=== PATIENT | male | born 1970 | race Caucasian/White ===

== ENCOUNTER 2020-09-16 14:43 | Outpatient (CLI) | payer OTHER, SELFPAY ==
--- NOTE | ~2020-09-16 | XR_ITS ---
XR hand RT min 3V DATE: 09/16/2020 15:06 INDICATION: Pain and stiffness at second proximal interphalangeal joint following injury in June 2020 TECHNIQUE: 3 views COMPARISON: None FINDINGS: No fracture or dislocation, periosteal reaction or bone destruction, erosive change or carmela drocalcinosis is detected. Joint spaces are relatively well preserved. IMPRESSION: No significant abnormality Reviewed, dictated and finalized at location A. [employer] IMPRESSION: No significant abnormality
== END 2020-09-16 14:44 | disposition home or self-care (01) ==
LOC: ANHIMG 14:55
PROVIDERS: PCP Physician Assistant Medical; Visit Provider Plastic Surgery
DX: M19.041 Primary osteoarthritis, right hand (principal)
CPT/HCPCS: 73130

== ENCOUNTER 2021-03-28 11:38 | Outpatient (RCR) | payer OTHER, SELFPAY ==
[2021-03-28] MEDS: ACETAMINOPHEN 325 MG TABLET 650 MG PO (12:01)
[2021-03-28] MEDS: diphenhydrAMINE HCl CAP 25 MG CAPSULE PO (12:01)
[2021-03-28] MEDS: FAMOTIDINE 20 MG TABLET PO (12:02)
[2021-03-28 12:05] VITALS: BP 93/60; PULSE 111; RESP 18; TEMP 36.6; O2SAT 98
[2021-03-28 13:34] VITALS: BP 98/65
--- NOTE | 2021-03-29 15:09 | PC.NURSE ---
Patient feeling better today after covid infusion. Appetite increased, temperature decreasing and energy level increasing.
== END 2021-03-28 16:00 | disposition home or self-care (01) ==
LOC: AMCINF 11:38
PROVIDERS: PCP Physician Assistant Medical; Referring Provider Physician Assistant Medical; Visit Provider Internal Medicine Hematology & Oncology
DX: Z23 Encounter for immunization (principal); U07.1 COVID-19; I10 Essential (primary) hypertension
CPT/HCPCS: A9270; J7050; M0243

== ENCOUNTER 2022-11-17 16:31 | Emergency (ER) | payer OTHER, SELFPAY ==
[2022-11-17 16:47] VITALS: BP 116/70; PULSE 100; RESP 18; TEMP 36.6; O2SAT 98
--- NOTE | 2022-11-17 16:48 | ED.GENADULT ---
HPI - General Adult General Chief complaint: Extremity Injury, Lower Stated complaint: . Time Seen by Provider: 11/17/22 16:48 Source: patient Mode of arrival: ambulatory Limitations: no limitations History of Present Illness HPI narrative: 51-year-old male patient presents to the [facility] With complaints of left calf pain that started today. Patient states he had an injury to the left leg on November 05 and that required stitches. Patient states he had the stitches removed about fiber 6 days ago however has not had any complications with the wound but today noticed that the posterior calf was painful and there was some swelling as well as swelling to the ankle. Patient states he does have some tingling to the toes. Denies any chest pain, shortness of breath. Denies any vascular issues besides high cholesterol and hypertension that he is aware of. Related Data Home Medications Medication Instructions Recorded Confirmed famotidine 20 mg tablet 20 mg PO BID 02/27/22 11/17/22 Allergies Allergy/AdvReac Type Severity Reaction Status Date / Time morphine Allergy Severe Anaphylaxis Verified 11/17/22 17:08 codeine AdvReac Severe Nausea Verified 11/17/22 17:08 dizziness Review of Systems Review of Systems: CONSTITUTIONAL: Denies fever, chills, or sweats. EYES: Denies visual changes, redness, or discharge. ENT: Denies rhinorrhea, congestion, sore throat, or otalgia. CARDIOVASCULAR: Denies chest pain, palpitations, or edema. RESPIRATORY: Denies cough or dyspnea. GASTROINTESTINAL: Denies abdominal pain, nausea, vomiting, or diarrhea. GENITOURINARY: Denies dysuria or hematuria. SKIN: Denies rash or itching. MUSCULOSKELETAL: Denies back pain, joint pain, or myalgia. positive left calf pain NEUROLOGIC: Denies headache, numbness, or weakness. PSYCHIATRIC: Denies anxiety or depression. 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 Dyslipidemia (high LDL; low HDL) HTN (hypertension) Kidney stones Mild acid reflux MILE (obstructive sleep apnea) Right wrist sprain URI (upper respiratory infection) Wears glasses Surgical History Surgical History History of appendectomy History of hand surgery Left thumb and Left pinky and left middle finger History of orchiectomy History of removal of retained hardware History of vasectomy Family History Family History Other HLD (hyperlipidemia) Hypertension Kidney disorder Social History Social History Smoking status: Former smoker Tobacco type: cigarettes Additional smoking assessment comments: Smoked for 15 years and quit approx 15 years ago. 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 There is no relevant family history pertinent to the presenting complaint. Exam Narrative: GENERAL: Well-appearing, well-nourished, and in no acute distress. HEAD: Normocephalic, atraumatic. EYES: PERRLA and EOMI. EN
== END 2022-11-17 17:06 | disposition short-term general hospital (02) ==
PROVIDERS: Emergency Provider Nurse Practitioner Family; PCP Physician Assistant Medical
DX: M79.662 Pain in left lower leg (principal); Z87.891 Personal history of nicotine dependence; E78.5 Hyperlipidemia, unspecified; I10 Essential (primary) hypertension; K21.9 Gastro-esophageal reflux disease without esophagitis; Z98.52 Vasectomy status
CPT/HCPCS: 99212; G0463

== ENCOUNTER 2023-01-18 00:54 | Day surgery (SDC) | payer OTHER, SELFPAY ==
[2023-01-08 12:50] VITALS: BMI 30.4
[2023-01-18 11:18] VITALS: BP 126/93; PULSE 113; RESP 18; TEMP 36.6; O2SAT 97
[2023-01-18] MEDS: LACTATED RINGERS 1,000 ML 150 ML IV CONT (11:28)
--- NOTE | 2023-01-18 11:36 | WPDANESEPPF ---
Anes - Initial Pre Proc Eval Procedure: Operation Date: 01/18/23 12:30 Proposed Procedures p Colonoscopy - Vineet Petersen MD Date/Time: 01/18/23 11:36 Surgeon: Vineet Petersen MD Pre Op Diagnosis: family hx colon ca, hx colon polyps Patient Data Age: 52 Gender: M Height: 1.75 m Weight: 92.9 kg Last Vital Signs Temp 97.8 F 01/18/23 11:18 Pulse 113 H 01/18/23 11:18 Resp 18 01/18/23 11:18 BP 126/93 H 01/18/23 11:18 Pulse Ox 97 01/18/23 11:18 O2 Del Method Room Air 01/18/23 11:18 Allergies Allergy/AdvReac Type Severity Reaction Status Date / Time morphine Allergy Severe Anaphylaxis Verified 01/18/23 11:17 codeine AdvReac Severe Nausea Verified 01/18/23 11:17 dizziness Home Medications Medication Instructions Recorded Confirmed Type famotidine 20 mg tablet 20 mg PO BID 02/27/22 01/18/23 History lisinopril 20 mg tablet 20 mg PO DAILY #90 tabs 09/07/22 01/18/23 Rx bupropion HCl 300 mg 24 hr tablet, 300 mg PO QAM #90 tabs 10/19/22 01/18/23 Rx extended release (Wellbutrin XL) rosuvastatin 10 mg tablet (Crestor) 10 mg PO QHS #30 tabs 11/08/22 01/18/23 Rx clonazepam 1 mg tablet 1 mg PO DAILY #30 tabs 12/26/22 01/18/23 Rx cholecalciferol (vitamin D3) 25 25 mcg PO DAILY 01/08/23 01/18/23 History mcg (1,000 unit) capsule multivitamin with minerals-folic 1 tablet PO DAILY 01/08/23 01/18/23 History acid 0.4 mg tablet Patient hx anesthesia problems: none Family hx anesthesia problems: none Results Review: All pre-operative results and documents have been reviewed as part of the pre-operative evaluation. 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 Dyslipidemia (high LDL; low HDL) Family history of malignant neoplasm of digestive organs H/O adenomatous polyp of colon HTN (hypertension) Kidney stones Mild acid reflux MILE (obstructive sleep apnea) Right wrist sprain URI (upper respiratory infection) Wears glasses Surgical History Surgical History History of appendectomy History of hand surgery Left thumb and Left pinky and left middle finger History of orchiectomy History of removal of retained hardware History of vasectomy Family History Family History Other HLD (hyperlipidemia) Hypertension Kidney disorder Social History Social History Smoking status: Former smoker Tobacco type: cigarettes Additional smoking assessment comments: Smoked for 15 years and quit approx 15 years ago. 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
--- NOTE | 2023-01-18 11:38 | PM.HPGS ---
History of Present Illness History of Present Illness Consent: Risks, benefits, and alternatives have been discussed and questions answered. Patient agrees to proceed with procedure. Chief complaint: family hx colon ca, hx colon polyps Narrative: Geovanni Zavala is a 52 year old male who had several colonoscopies, last one 5 years ago with polyps. Review of Systems Constitutional: Constitutional: Denies headache(s) and Denies weakness Eyes: Eyes: Denies blurry vision ENT: Reports Normal hearing present, Denies headache(s) and Denies neck pain Cardiovascular: Cardiovascular: Denies chest pain and Denies dyspnea Respiratory: Respiratory: Denies dyspnea Gastrointestinal: Gastrointestinal: Reports no additional gastrointestinal complaints Genitourinary: Genitourinary: Denies dysuria Musculoskeletal: Musculoskeletal: Denies neck pain Integumentary/Breasts: Skin/Breast: Denies dry skin Neurologic: Reports Normal hearing present, Denies headache(s) and Denies weakness Psychiatric: Psychiatric: Denies anxiety Endocrine: Endocrine: Denies change in body appearance Hematologic/Lymphatic: Hematologic/Lymphatic: Denies easy bleeding Allergic/Immunologic: Allergic/Immunologic: Denies urticaria PMFSH Past Medical History Medical History (Updated 01/18/23 @ 11:39 by Vineet Petersen MD) Acute sinusitis Adenomatous colon polyp Anxiety 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 Dyslipidemia (high LDL; low HDL) Family history of malignant neoplasm of digestive organs H/O adenomatous polyp of colon HTN (hypertension) Kidney stones Mild acid reflux MILE (obstructive sleep apnea) Right wrist sprain URI (upper respiratory infection) Wears glasses Surgical History Surgical History History of appendectomy History of hand surgery Left thumb and Left pinky and left middle finger History of orchiectomy History of removal of retained hardware History of vasectomy Family History Family History Other HLD (hyperlipidemia) Hypertension Kidney disorder Social History Social History Smoking status: Former smoker Tobacco type: cigarettes Additional smoking assessment comments: Smoked for 15 years and quit approx 15 years ago. 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[employer] Gender identity (if verbalized by the patient): Male Sexual Orientation (if Verbalized by the Patient): Straight or Heterosexual Spiritual care concerns: No Meds Home Medications and Allergies Home Medications Medication Instructions Recorded Confirmed Type famotidine 20 mg tablet 20 mg PO BID 02/27/22 01/18/23 History lisinopril 20 mg tablet 20 mg PO DAILY #90 tabs 09/07/22 01/18/23 Rx bupropion HCl 300 mg 24 hr tablet, 300 mg PO QAM #90 tabs 10/19/22 01/18/23 Rx extended release (Wellbutrin XL) rosuvastatin 10 mg tablet (Crestor) 10 mg PO QHS #30 tabs 11/08/22 01/18/23 Rx clonazepam 1 mg tablet 1 mg PO DAILY #30 tabs 12/26/22 01/18/23 Rx cholecalciferol (vitamin D3) 25 25 mcg PO DAILY 01/08/23 01/18/23 History mcg (1,000 unit) capsule multivitamin with minerals-folic 1 tablet PO DAILY 01/08/23 01/18/23 History acid 0.4 mg tablet Allergies Allergy/AdvReac Type Severity Reaction Status Date / Time morphin
[2023-01-18 11:51] VITALS: BP 104/89; PULSE 97; RESP 18; O2SAT 97
[2023-01-18 12:01] VITALS: BP 108/74; PULSE 94; RESP 14; O2SAT 97
[2023-01-18 12:11] VITALS: BP 111/64; PULSE 85; RESP 16; O2SAT 98
== END 2023-01-18 12:19 | disposition home or self-care (01) ==
PROVIDERS: PCP Physician Assistant Medical; Visit Provider Internal Medicine Gastroenterology
PROC: 0DJD8ZZ Inspection of Lower Intestinal Tract, Via Natural or Artificial Opening Endoscopic (ICD-10-PCS; CPT 45378; principal; 2023-01-18 12:30)
DX: Z12.11 Encounter for screening for malignant neoplasm of colon (principal); D12.4 Benign neoplasm of descending colon; K57.30 Diverticulosis of large intestine without perforation or abscess without bleeding; K64.8 Other hemorrhoids; Z80.0 Family history of malignant neoplasm of digestive organs; I10 Essential (primary) hypertension; G47.33 Obstructive sleep apnea (adult) (pediatric); E78.5 Hyperlipidemia, unspecified; F41.9 Anxiety disorder, unspecified; K21.9 Gastro-esophageal reflux disease without esophagitis; Z87.891 Personal history of nicotine dependence; E66.9 Obesity, unspecified; Z68.30 Body mass index [BMI] 30.0-30.9, adult
CPT/HCPCS: 45385; 88305; J2704; J7120

== ENCOUNTER 2023-04-16 14:47 | Outpatient (CLI) | payer OTHER, SELFPAY ==
--- NOTE | ~2023-04-16 | MR_ITS ---
EXAMINATION: MR shoulder LT wo con DATE: 04/16/2023 15:21 INDICATION: Left shoulder pain. TECHNIQUE: Magnetic resonance imaging (MRI) of the left shoulder was performed without intravenous co ntrast. Sequences included axial PD-weighted FS FSE, coronal oblique PD-weighted FS FSE and T2-weight ed FS FSE, and sagittal oblique T2-weighted FS FSE and T1-weighted FSE. COMPARISON: Left shoulder radiographs 02/28/2023 FINDINGS: Coracoacromial arch: The acromion undersurface is curved in morphology (type II). There is mild acromioclavicular joint os teoarthritis. There is mild subacromial/subdeltoid bursitis. Rotator cuff: There is mild supraspinatus and infraspinatus tendinopathy. Teres minor tendon is normal. There is mi ld subscapularis tendinopathy. No tear. The rotator cuff muscle bellies are normal. Biceps tendon and glenoid labrum: Biceps tendon is in bicipital groove. Intra-articular biceps tendon is normal. There is a tear of sup erior glenoid labrum at 12:00 (SLAP tear). There is degeneration of posterior labrum. Fluid: There is no glenohumeral joint effusion. Bones/cartilage: Glenoid cartilage is normal. Humeral head cartilage is normal. IMPRESSION: 1. Mild rotator cuff tendinopathy. No tear. 2. Mild acromioclavicular joint osteoarthritis. 3. Mild subacromial/subdeltoid bursitis. 4. SLAP tear. Reviewed, dictated and finalized at location E.
== END 2023-04-16 14:48 ==
LOC: MICIMG 14:48
PROVIDERS: PCP Physician Assistant Medical; Visit Provider Physician Assistant Medical
DX: M19.012 Primary osteoarthritis, left shoulder (principal); S43.432D Superior glenoid labrum lesion of left shoulder, subsequent encounter; X58.XXXD Exposure to other specified factors, subsequent encounter
CPT/HCPCS: 73221

== ENCOUNTER 2024-01-29 13:13 | Outpatient (CLI) | payer OTHER, SELFPAY ==
--- NOTE | 2024-01-29 14:15 | NEURO_ITS ---
Impression: # Non-Diabetic complains of left foot drop. 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 # Needle/EMG exam neurogenic in left Tibial Anterior, Fibularis Longus and EDB. # Clinical correlation recommended. Nerve Conduction Studies Anti Sensory Summary Table Stim Site NR Peak (ms) P-T Amp (?V) Site1 Site2 Delta-P (ms) Dist (cm) Ruben (m/s) Left Sup Fibular Anti Sensory (Ant Lat Mall) 14 cm 3.5 13.0 14 cm Ant Lat Mall 3.5 16.0 46 Left Sural Anti Sensory (Lat Mall) Calf 3.3 10.3 Calf Lat Mall 3.3 16.0 48 Motor Summary Table Stim Site NR Onset (ms) O-P Amp (mV) Site1 Site2 Delta-0 (ms) Dist (cm) Ruben (m/s) Left Peroneal Motor Run #2 (Vastus Med) Ankle 5.3 0.9 Popit Ankle 7.6 41.0 54 Popit 12.9 0.5 B Fib Ankle 8.0 34.0 43 B Fib 13.3 0.9 Left Tibial Motor (Abd Cruz Brev) Ankle 4.3 7.0 Knee Ankle 8.9 43.0 48 Knee 13.2 5.3 F Wave Studies NR F-Lat (ms) L-R F-Lat (ms) Left Peroneal (Mrkrs) (EDB) DISPERSED RESPONSE NR Left Tibial (Mrkrs) (Abd Hallucis) 53.92 EMG Side Muscle Nerve Root Ins Act Fibs Amp Dur Recrt Comment Left AntTibialis Dp Br Fibular L4-5 Nml Nml Decr >12ms +2 Left Gastroc Tibial S1-2 Nml Nml Nml Nml Nml Left Fibularis Long Sup Br Fibular L5-S1 Nml Nml Decr >12ms +2 Left Flex Dig Long Tibial L5-S2 Nml Nml Nml Nml Nml Left Ext Dig Brev Dp Br Fibular L5, S1 Nml Nml Decr >12ms +2 Left QuadratusFem QuadFemoris L4-5, S1 Nml Nml Nml Nml Nml MTDD
== END 2024-01-29 13:14 | disposition home or self-care (01) ==
LOC: ANHNEURO 13:14
PROVIDERS: PCP Physician Assistant Medical; Visit Provider Physician Assistant Medical
DX: G62.9 Polyneuropathy, unspecified (principal); M21.379 Foot drop, unspecified foot
CPT/HCPCS: 95886; 95908

== ENCOUNTER 2024-12-07 09:19 | Observation (INO) | payer OTHER, SELFPAY ==
[2024-12-07] VITALS (12 sets, daily range): BP systolic 92–144; BP diastolic 60–91; PULSE 57–73; RESP 13–17; TEMP 36.5–36.8; O2SAT 93–97; BMI 27.5
--- NOTE | ~2024-12-07 | XR_ITS ---
XR chest 2V Ordering provider: Arabella Ashraf MD History: 54 years Male with . CP, X 2 DAYS LOW PULSE . Comparison: None. FINDINGS: MEDIASTINUM: The cardiac silhouette is not enlarged. LUNGS: No infiltrates, effusions or pneumothorax. OTHER: No free air under the diaphragm. IMPRESSION: No acute cardiopulmonary pathology. Reviewed, dictated and finalized at location A.
--- NOTE | ~2024-12-07 | CT_ITS ---
EXAMINATION: CTA chest abdomen pelvis DATE: 12/07/2024 12:57 CDT INDICATION: Chest pain and pressure radiating to the left flank TECHNIQUE: Computed tomographic angiography (CTA) of the chest was performed, along with multiple con tiguous axial images of the abdomen and pelvis with 100 mL Omnipaque-350 intravenous contrast. The do se-length product was 755.48 mGy-cm. Maximum intensity projection 3D-reconstructions of the aorta and other arteries were constructed by the technologist on a separate workstation. FINDINGS/OBSERVATIONS: PULMONARY ARTERIES: No filling defect is identified within the main or proximal pulmonary artery. The main pulmonary artery is not enlarged. THORACIC AORTA: No aneurysmal dilatation or dissection is present. The great vessels are intact LUNGS: The lungs are clear. MEDIASTINUM: No morphologically suspicious or pathologically enlarged lymph nodes are identified with in the mediastinum or bilateral axilla. BONES OF THE CHEST: No acute fracture. No significant degenerative disease. No lytic or blastic lesions. HEART: The heart is within the upper limits of normal for size, without pericardial effusion. LIVER: The liver enhances homogeneously, and is not enlarged. GALLBLADDER AND BILIARY SYSTEM: The gallbladder is only minimally distended, and otherwise unremarkable. PANCREAS: The pancreas enhances homogeneously without ductal dilatation. SPLEEN: The spleen enhances homogeneously and is not enlarged. KIDNEYS: The bilateral kidneys enhance symmetrically without hydronephrosis or renal calculi. ADRENAL GLANDS: Unremarkable. GASTROINTESTINAL TRACT: Colonic diverticulosis without surrounding inflammatory change. APPENDIX: The appendix is not definitively visualized. However, no pericecal inflammatory change is identified suggest the presence of acute appendicitis. VASCULATURE: Unremarkable. LYMPH NODES: Scattered nonpathologically enlarged, morphologically benign lymph nodes within the retroperitoneum a nd at the root of the mesentery, a nonspecific finding. PELVIC STRUCTURES: The bladder is minimally distended, and otherwise unremarkable. The prostate gland is not enlarged. BODY WALL AND MUSCULOSKELETAL: Small fat-containing umbilical hernia. Age-appropriate degenerative disease within the lumbosacral spine. IMPRESSION: No pulmonary embolus. No aortic dissection. Colonic diverticulosis within the descending and sigmoid colon, without surrounding inflammatory briseno ge. Reviewed, dictated and finalized at location A. IMPRESSION: No pulmonary embolus. No aortic dissection. Colonic diverticulosis within the descending and sigmoid colon, without surroun ding inflammatory change.
--- NOTE | 2024-12-07 09:22 | ECG_ITS ---
Test Date: 2024-12-07 09:26:56 Measurements Intervals [place] Rate: 57 P: 53 [place]: 152 QRS: 8 QRSD: 84 T: 7 QT: 355 QTc: 348 Interpretive Statements SINUS BRADYCARDIA POSSIBLE LEFT ATRIAL ENLARGEMENT [-0.1mV P-WAVE IN V1/V2] POSSIBLE LEFT VENTRICULAR HYPERTROPHY [VOLTAGE CRITERIA PLUS LAE OR QRS WIDENING] No previous ECG available for comparison Electronically Signed On 12-07-2024 10:54:21 CDT by Phillip Meraz M.D.
[2024-12-07 09:39] LABS: Basophils Percent Auto 0.5 % (0.2-1.2); Eosinophils Absolute Auto 0.1 K/mm3 (0-0.3); Eosinophils Percent Auto 1.6 % (0-4.4); Hematocrit 53.9 % (42.0-52.0); Immature Granulocyte Absolute 0.03 K/mm3 (0.00-0.031); Immature Granulocyte Percent A 0.4 % (0-0.5); Lymphocytes Absolute Auto 2.71 K/mm3 (0.9-3.2); Lymphocytes Percent Auto 31.9 % (18.3-44.2); Mean Corpuscular HGB Conc 31.5 g/dl (32-36); Mean Corpuscular Hemoglobin 27.6 pg (26-34); Mean Corpuscular Volume 87.4 fl (80-100); Mean Platelet Volume 9.6 fl (7.4-10.4); Monocytes Absolute Auto 0.6 K/mm3 (0.1-0.6); Monocytes Percent Auto 7.3 % (2.6-8.5); Neutrophils Percent Auto 58.3 % (45.5-73.1); Platelet Count Result 200 k/mm3 (150-375); Red Blood Count 6.17 M/mm3 (4.6-6.20); Red Cell Distribution Width 13.6 % (11.5-14.5); White Blood Count 8.5 K/mm3 (4.5-10.0)
--- OUTSIDE RECORDS SUMMARY | 2024-12-07 09:39 | XMS_ITS | Encounter Summary ---
Author Organization [facility] Address [facility] [place] [address] Care Team Providers Care Technician [employer]marine [employer] Equipment Name Role Phone Wang Devries MD Primary Care Provider [phone] Karoline Devries MD Primary Care Provider [phone] Shania Burks PA-C Primary Care Provider [phone] Encounter Details Date Type Department Care Team (Latest Contact Info) Description 05/27/2018 Abstract [facility] Rip Bolanos MD Social History Tobacco Use Types Packs/Day Years Used Date Smoking Tobacco: Never Assessed Sex and Gender Information Value Date Recorded Sex Assigned at Not on file Legal Sex Male 7:01 PM CDT Gender Identity Not on file Sexual Orientation Not on file documented as of this encounter Plan of Treatment Not on file documented as of this encounter Visit Diagnoses Not on filedocumented in this encounter Additional Health Concerns Infection Onset Date Last Indicated Resolved Time COVID-19 Rule Out 08/02/2020 08/02/2020 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
--- OUTSIDE RECORDS SUMMARY | 2024-12-07 09:39 | XMS_ITS | Continuity of Care Document ---
Author Name [facility] Organization [facility] Care Team Providers Care Television Installer Name Role Phone [facility] Unavailable Unavailable Problems Combined list of problems from Department of Defense and [facility] Affairs facilities. It does not include entries that were removed or entered in error. Problem Status Onset Date Problem Type Date of Resolution Comments Source Abnormal liver function Active Condition [facility] Acute bronchitis Active Condition [facility] Acute bronchitis (SNOMED CT 79397745) Active Condition [facility] Acute sinusitis Active Condition [facility] Anxiety Active Condition [facility] Benign essential hypertension Active Condition [facility] Benign hypertension (SNOMED CT 50881944) Active Condition [facility] Blurring of visual image (SNOMED CT 738751237) Active Condition [facility] Chronic bronchitis (SNOMED CT 80718701) Active Condition [facility] Chronic sinusitis Active Condition [facility] Contusion of lower leg Active Condition [facility] Diarrhea Active Condition [facility] Dizziness and giddiness (ICD-9-CM 780.4) Active Condition [facility] Edema Active Condition [facility] Ganglion of hand Active Condition [facility] Gastroesophageal reflux disease Active Condition [facility] Gingivitis Active Condition [facility] Gout Active Condition [facility] Headache Active Condition [facility] Headache * (ICD-9-CM 784.0) Active Condition [facility] Hiatal hernia (SNOMED CT 17758646) Active Condition [facility] History of calculus of kidney (SNOMED CT 864992298) Active Condition [facility] History of colonic polyp (SNOMED CT 270402983) Active Condition [facility] Hyper[facility] Irritable bowel syndrome (SNOMED CT 21868911) Active Condition [facility] Otitis media Active Condition [facility] Overweight Active Condition [facility] Poor short-term memory (SNOMED CT 866514121) Active Condition [facility] Rash Active Condition [facility] Shoulder pain [facility] Sleep apnea Active Condition [facility] Unresolved Active Condition [facility] Upper respiratory infection Active Condition [facility] Vitamin D deficiency (SNOMED CT 69609988) Active Condition [facility] Medications Combined list of outpatient medications from Department of [facility] and Veterans Affairs facilities.Medications provided include 1) outpatient medications from the last 15 months, and 2) patient-reported medications. Medication Details Route Status Patient Instructions Prescription Expires Prescription Number Last Dispense Date Ordering Provider Order Date Order Qty Source ACETAMINOPH EN 500MG TAB TAKE ONE TABLET BY MOUTH ONE-TIME NEEDED ORAL ACTIVE YOBANY LANDEROS [address] [facility] DIVIS[facility] N ASPIRIN 81MG TAB,EC TAKE ONE TABLET BY MOUTH ONCE A DAY ORAL ACTIVE CHLOE,AURA A D [address] [facility] N CHOLECALCIF JAMES 50MCG (2,000UNIT) TAB TAKE TWO TABLETS BY MOUTH ONCE A DAY ORAL ACTIVE [place] 2017 [facility] Allergies, Adverse Reactions, Alerts Combined list of allergies from Department of [facility] and Veterans Affairs facilities. It does not include entries that were removed or entered in error. Substance Category Reaction Severity Reaction type Status Date Reported Comments Source ATORVASTATIN Drug allergy (disorder) Myalgias active [address] [place] [address] ATORVASTATIN Propensity to adverse reactions to drug (finding) Muscle pain MILD active [address] [place] [address] BUSPAR Propensity to adverse reactions to drug (finding) Anxiety MILD active 5 [facility] Buspirone Drug allergy (disorder) Anxiety active 5 [facility] BUSPIRONE HCL Drug allergy (disorder) Anxiety active 5 [facility] CODEINE Drug allergy (disorder) active 1 [facility] Codeine Drug allergy (disorder) active 1 [facility] MORPHINE Drug allergy (disorder) Respiratory Distress active 1 [facility] Morphine Drug allergy (disorder) Respiratory Distress active 1 [facility] MORPHINE Propensity to adverse reactions to drug (finding) Respiratory distress active 1 [facility] SEPTRA DS Propensity to adverse reactions to drug (finding) Eruption MODERATE active 5 [facility] TRIMETHOPRIM Drug allergy (disorder) Eruption of skin active 5 [facility] Trimethoprim Drug allergy (disorder) Eruption of skin active 5 [facility] Immunizations Combined list of available immunizations from the Department of Defense and [facility] Affairs facilities. Immunization Series Date Given Administered By Site Reaction Lot Number CVX Code Drug General Merchandise Manager Status Comments Source INFLUENZA, UNSPECIFIED FORMULATION 2017 88 complet [facility] DIVISIO N PNEUMOCOCCAL POLYSACCHARID E PPV23 2017 33 complet [facility] INFLUENZA, SEASONAL, INJECTABLE, PRESERVATIVE FREE 2014 140 complet [facility] DIVISIO N INFLUENZA, UNSPECIFIED FORMULATION 2012 88 complet [facility] DIVISIO N TDAP 2011 115 complet [facility] DIVISIO N Procedures Combined list of: 1) Procedures from Department of Veterans Affairs facilities going back up to thelast 18 months, not all VA non-surgical procedures are included; 2) All procedures from the Department of Defense facilities. Procedure Procedure Type Code Date Perfomer Comments Sourc e OTHER APPENDECTOMY 10/15/1996 Do D INCISION AND DRAINAGE OF SCROTUM AND TUNICA VAGINALIS 01/14/1996 DoD Social History Combined list of available smoking, tobacco, and other social history from Department of Defense and Veterans Affairs facilities. Social History Type Response Date Comment Sourc e Tobacco smoking status NHIS VA-TOBACCO FORMER USER 05/25/2021 [facility] History of tobacco use VA-TOBACCO QUIT 15 YRS OR MORE 05/25/2021 [facility] History of tobacco use VA-TOBACCO QUIT 15 YRS OR MORE 12/10/2019 [facility] History of tobacco use VA-TOBACCO FORMER USER 09/15/2018 [facility] History of tobacco use VA-TOBACCO NEVER USED 05/08/2018 [facility] History of tobacco use VA-TOBACCO FORMER USER 10/31/2017 [facility] History of tobacco use QUIT TOBACCO >7 YEARS AGO 10/28/2017 [facility] History of tobacco use QUIT TOBACCO >7 YEARS AGO 04/30/2017 [facility] History of tobacco use QUIT TOBACCO >7 YEARS AGO 05/29/2016 [facility] History of tobacco use QUIT TOBACCO >7 YEARS AGO 11/15/2014 [facility] History of tobacco use QUIT TOBACCO >7 YEARS AGO 10/30/2013 [facility] History of tobacco use LIFETIME NON-USER OF TOBACCO 11/14/2012 [facility] This section is an empty social history section. [facility] Advance Directives List of completed, amended, or rescinded Advance Directives on record at Department of Veterans Affairs facilities. An actual copy of the Directive is not included. Date Advance Directive Provider Source 07/30/2016 ADVANCE DIRECTIVE DISCUSSION SCARLETT GONZALES [facility]
--- OUTSIDE RECORDS SUMMARY | 2024-12-07 09:39 | XMS_ITS | Clinical Summary ---
Author Organization [facility] Address [facility] [place] [address] Care Team Providers Care Crystal Finisher Name Role Phone Shania Burks PA-C Primary Care Provider [phone] Allergies Active Allergy Reactions Criticality Noted Date Comments Codeine GI Upset 02/21/2019 Morphine Anaphylaxis High 02/21/2019 Medications lisinopril 10 MG tablet Take 20 mg by mouth daily. Active omeprazole 10 MG capsule Take 10 mg by mouth daily. Active folic acid 1 MG tablet Take 1 mg by mouth daily. Active Cholecalciferol (VITAMIN D) 2000 units Tab Active ondansetron 4 MG disintegrating tablet Take 1 tablet (4 mg total) by mouth every 8 (eight) hours as needed for Nausea. 20 tablet 1 Active HYDROcodone-acetami nophen 5-325 MG tabletIndications:A cute Pain < 3 Day Supply Take 1 tablet by mouth every 6 (six) hours as needed (pain not relieved 20 minutes after taking naproxen). Indications: Acute Pain < 3 Day Supply 10 tablet 1 Active Immunizations Immunization Administration Dates Next Due Tdap (Adacel) 07/07/2020 Family History Relation Status Comments Father Alive Mother Alive Social History Tobacco Use Types Packs/Day Years Used Date Smoking Tobacco: Former Cigarettes 0.5 25 Smokeless Tobacco: Never Tobacco Cessation:Counseling Given: Not Answered Alcohol Use Standard Drinks/Week Comments Not Asked 1.7 (1 standard drink = 0.6 oz p ure alcohol) twice per week Sex and Gender Information Value Date Recorded Sex Assigned at Not on file Legal Sex Male 7:01 PM CDT Gender Identity Not on file Sexual Orientation Not on file Last Filed Vital Signs Vital Sign Reading Time Taken Comments Blood Pressure 106/79 11/17/2022 7:00 PM CDT Pulse 90 11/17/2022 7:00 PM CDT Temperature 36.6 C (97.9 F) 11/17/2022 5:41 PM CDT Respiratory Rate 16 11/17/2022 7:00 PM CDT Oxygen Saturation 99% 11/17/2022 7:00 PM CDT Inhaled Oxygen Concentration - - Weight 95.3 kg (210 lb) 11/17/2022 5:41 PM CDT Height 175.3 cm (5' 9 ) 11/17/2022 5:41 PM CDT Body Mass Index 31.01 11/17/2022 5:41 PM CDT Plan of Treatment Health Maintenance Due Date Last Done Comments Colorectal Cancer Screening Colonoscopy (10 Years) 1969 Annual Physical 1972 Hepatitis C 11/28/1987 Hepatitis B Vaccines (1 of 3 - 19+ 3-dose series) 1988 Pneumococcal Vaccine: 50+ Ye ars (1 of 1 - PCV) 11/28/2019 Zoster Vaccines (1 of 2) 11/28/2019 COVID-19 Vaccine (1 - 2023-2 5 season) 2024 PHQ-2 (Physician [place]ons) 07/22/2024 DTaP, Tdap and Td Vaccines ( 2 - Td or Tdap) 07/07/2030 07/07/2020 Meningococcal B Vaccine Aged Out No l onger eligible based on patient's age to complete this topic Meningococcal Vaccine Aged Out No angi nabila eligible based on patient's age to complete this topic RSV Immunizations Under 20 Months Aged Out No longer eligible based on patient's age to complete this topic Insurance [facility] OFFICE OF COMMUNITY [facility] Care Teams Crystal Finisher Relationship Specialty Start Date End Date Shania Burks PA-C [facility] [place] [address] PCP - General PHYSICIAN HEALTH EDUCATOR 03/25/21
--- OUTSIDE RECORDS SUMMARY | 2024-12-07 09:39 | XMS_ITS | Clinical Summary ---
Author Organization [facility] Address [address] [facility] [place] [address] Phone Care Team Providers Care Marketing Segment Manager Name Role Phone Unavailable Primary Care Provider Unavailabl e Allergies Active Allergy Reactions Criticality Noted Date Comments Morphine Anaphylaxis High 01/02/2017 Medications omeprazole (PriLOSEC) 10 mg Capsule, Delayed Release(E.C.) Take 10 mg by mouth daily. Active lisinopril (PRINIVIL) 10 mg tablet Take 10 mg by mouth daily. Active Active Problems Problem Noted Date Diagnosed Date HTN (hypertension) 01/02/2017 GERD (gastroesophageal reflux disease) 7 Social History Tobacco Use Types Packs/Day Years Used Date Smoking Tobacco: Never Alcohol Use Standard Drinks/Week Comments Yes 0 (1 standard drink = 0.6 oz pur e alcohol) rare Sex and Gender Information Value Date Recorded Sex Assigned at Not on file Legal Sex Male 1:24 PM CDT Gender Identity Not on file Sexual Orientation Not on file Last Filed Vital Signs Vital Sign Reading Time Taken Comments Blood Pressure 116/79 01/02/2017 1:55 PM CDT Pulse 96 01/02/2017 1:55 PM CDT Temperature 37 C (98.6 F) 01/02/2017 1:55 PM CDT Respiratory Rate 16 01/02/2017 1:55 PM CDT Oxygen Saturation 97% 01/02/2017 1:55 PM CDT Inhaled Oxygen Concentration - - Weight 80.7 kg (178 lb) 01/02/2017 1:55 PM CDT Height 174 cm (5' 8.5 ) 01/02/2017 1:55 PM CDT Body Mass Index 26.67 01/02/2017 1:55 PM CDT Plan of Treatment Health Maintenance Due Date Last Done Comments DTAP/TDAP/TD VACCINES (1 - Tdap) 1988 HEPATITIS B VACCINES (1 of 3 - 19+ 3-dose series) 03/1989 COLORECTAL SCREENING 2014 Colorectal Cancer Screening 2014 FIT-DNA Q 3 years 2014 FIT/FOBT Q 1 year 2014 Flex Sig/CT Colonography Q 5 years 2014 ZOSTER VACCINE (1 of 2) 11/28/2019 INFLUENZA VACCINE (#1) 2024
--- OUTSIDE RECORDS SUMMARY | 2024-12-07 09:39 | XMS_ITS | Clinical Summary ---
Author Organization [facility] Address [address] [place] [address] Care Team Providers Care Leak [employer] Name Role Phone Shania Burks Primary Care Provider [phone] Allergies Active Allergy Reactions Criticality Noted Date Comments Codeine Vomiting Low Lightheadedness Morphine Anaphylaxis High 07/25/2000 Medications clonazePAM (KlonoPIN) 1 mg tabletIndications: anxiety Take 1 tablet (1 mg total) by mouth every morning 10/02/19 23 Active buPROPion XL (WELLBUTRIN XL) 300 mg 24 hr tabletIndications: anxiety Take 1 tablet (300 mg total) by mouth every morning 10/20/19 23 Active cholecalciferol (VITAMIN D-3) 2000 unit tabletIndications: Prevention of Vitamin D Deficiency Take 1 tablet (2,000 Units total) by mouth every morning Active multivitamin (MULTI-DAY ORAL)Indications:s upplement Take 1 tablet by mouth every morning Active famotidine (PEPCID) 20 mg tabletIndications: gastroesophageal reflux disease Take 1 tablet (20 mg total) by mouth 2 (two) times a day Active testosterone cypionate (DEPO-TESTOTERONE) 200 mg/mL injectionIndicatio ns:Androgen Deficiency Inject 0.25 mL (50 mg total) into the muscle as instructed as directed Every 8 days last dose 03/30/24 12/17/19 24 Active BD Luer-Dioni Syringe 3 mL 23 x 1 syringe USE WITH TESTOSTERONE CYPIONATE WEEKLY DIRECTED 11/18/19 24 Active lisinopriL (PRINIVIL,ZESTRIL) 20 mg tabletIndications: hypertension Take 1 tablet (20 mg total) by mouth every morning 11/11/19 24 Active sildenafiL (VIAGRA) 100 mg tablet TAKE 1 TABLET BY MOUTH NEEDED FOR SEXUAL ACTIVITY, TAKE 30 MINUTES TO 4 HOURS BEFORE ACTIVITY 04/17/20 24 Active clonazePAM (KlonoPIN) 1 mg disintegrating tablet Take 0.5 mg by mouth nightly Active rosuvastatin (CRESTOR) 10 mg tablet Take 1 tablet (10 mg total) by mouth daily with dinner 30 tablet 12/02/19 25 Active metoprolol XL (TOPROL-XL) 25 mg extended release tablet Take 1 tablet (25 mg total) by mouth daily 30 tablet 12/02/19 Active aspirin 81 mg enteric coated tablet Take 1 tablet (81 mg total) by mouth daily 30 tablet 12/02/19 Active Active Problems Problem Noted Date Diagnosed Date Peroneal neuropathy at knee, left 03/05/2024 Degenerative superior labral erdfnutb-oo-fotxjcbeo (SLAP) tear of left shoulder 12/30/2023 Abnormal liver function 12/30/2023 Acute bronchitis 12/30/2023 Acute sinusitis 12/30/2023 Amnesia 12/30/2023 Benign essential hypertension 12/30/2023 Contusion of lower leg 12/30/2023 Diaphragmatic hernia 12/30/2023 Diarrhea 12/30/2023 Dizziness and giddiness 12/30/2023 Edema 12/30/2023 Ganglion of hand 12/30/2023 Gingivitis 12/30/2023 Gout 12/30/2023 Headache 12/30/2023 Irritable bowel syndrome 12/30/2023 Otitis media 12/30/2023 Overweight 12/30/2023 Rash 12/30/2023 Shoulder pain 12/30/2023 Upper respiratory infection 12/30/2023 Vitamin D deficiency 12/30/2023 Hypertension 10/22/2022 HLD (hyperlipidemia) 10/22/2022 GERD (gastroesophageal reflux disease) Anxiety 10/22/2022 Sleep apnea 10/22/2022 Injury of finger 01/10/2012 Open wound of wrist with tendon involvement 10/20 Encounters Date Type Department Care Team Description 12/01/2024 Telephone [facility] [address] [facility] [address] [place] [phone] Valentine Meraz MD 11/30/2024 2:00 PM CDT Ancillary Procedure [facility] [address] [place] [address] [address] [place] [phone] Tachycardia, unspecified 11/24/2024 11:15 AM CDT Ancillary Procedure [facility] [address] [place] [address] [place] [phone] Tachycardia, unspecified 11/17/2024 Telephone [facility] [address] [place] [address] [place] [phone] Valentine Meraz MD 11/13/2024 Telephone [facility] [address] [place] [address] [place] [phone] Valentine Meraz MD 11/02/2024 2:30 PM CDT Ancillary Procedure [facility] [address] [place] [address] [place] [phone] Tachycardia, unspecified 11/02/2024 1:15 PM CDT Office Visit [facility] [address] [place] [address] [place] [phone] Valentine Meraz MD Essential (primary) hypertension; Tachycardia, unspecified from Last 3 Months Immunizations Immunization Administration Dates Next Due Influenza, Trivalent, Preservative Free, Intramu scular 07/07/2015 Influenza, Unspecified 05/22/2018,06/05/2013 Pneumococcal Polysaccharide PPV23 10/31/2017 Tdap 07/07/2020,10/20/2011 Surgical History Surgery Date Site/Laterality Comments FINGER SURGERY 07/22/1983 - 07/21/1984 Left x2 pins placed in small finger and then removed APPENDECTOMY 07/22/1998 - 07/21/1999 VASECTOMY 07/22/1998 - 07/21/1999 ended up removing right testicle COLONOSCOPY last one 2021 CYST REMOVAL 07/22/2003 - 07/21/2004 Left index finger FINGER SURGERY 07/22/2003 - 07/21/2004 Left x2, thumb-nerve/tendon surgery and then scar tissue removed ORCHIECTOMY 07/22/1998 - 07/21/1999 Right SHOULDER SURGERY 01/16/2024 Left Labral year repair Medical History Medical History Date Comments Hypertension HLD (hyperlipidemia) Anxiety GERD (gastroesophageal reflux disease) well controlled Sleep apnea Wears CPAP Family History Medical History Relation Name Comments Dementia Mother Relation Name Status Comments Mother Social History Tobacco Use Types Packs/Day Years Used Date Smoking Tobacco: Former Cigarettes 1 15 1 993 - 2007 Passive Smoke Exposure: Never Smokeless Tobacco: Never Tobacco Cessation:Counseling Given: Not Answered AUDIT-C Answer Date Recorded Q1: How often do you have a drink containing alc ohol? 2-4 times a month 04/21/2024 Q2: How many drinks containi ng alcohol do you have on a typical day when you are drinking? 1 or 2 04/21/2024 Q3: How often do you have si x or more drinks on one occasion? Never 04/21/2024 Personal Safety Answer Date Recorded Have you ever been in or are you currently in a harmful physical or emotional relationship or is someone making you feel afraid or unsafe? 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 [employer] Not on file N ot on file Not on file Obstetrics History Last Filed Vital Signs Vital Sign Reading Time Taken Comments Blood Pressure 112/82 11/02/2024 1:02 PM CDT Pulse 93 11/02/2024 1:02 PM CDT Temperature 36.3 C (97.3 F) 04/21/2024 10:34 AM CDT Respiratory Rate 11 04/21/2024 11:35 AM CDT Oxygen Saturation 97% 11/02/2024 1:02 PM CDT Inhaled Oxygen Concentration - - Weight 88.5 kg (195 lb) 11/02/2024 1:02 PM CDT Height 175.3 cm (5' 9 ) 11/02/2024 1:02 PM CDT Body Mass Index 28.8 11/02/2024 1:02 PM CDT Plan of Treatment Health Maintenance Due Date Last Done Comments Colon Cancer Screening-Colonoscopy 1970 Depression Screening 1970 Hepatitis C Screening 1970 Prostate Cancer Screening-PSA 1970 Hepatitis B Screening 11/28/1987 Regular Well Visit/Exam 18-64 11/28/1987 Zoster Vaccine (1 of 2) 11/28/2019 Influenza Vaccine (Season Ended) 2025 05/22/2018, 07/07/2015, 06/05/2013 DTaP/Tdap/Td Vaccine (3 - Td or Tdap) 07/07/2030 07/07/2020, 10/20/2011 Pneumococcal vaccine <65 Aged Out 10/31/2017 No longer eligible based on patient's age to complete this topic Medical Devices Implanted Type Area Yarn Weight And Strength Tester Device Identifier Shelf Expiration Date Model / Serial / Lot [employer] System Biceps [place] Slotted Drill Guide 1.9mm Drill Fibertak Ar-3670 - S0 - [id number] Implanted:Qty: 1 on 01/16/2024 by Guido Hernandez MD at [facility] Left: Shoulder [employer] 11/18/2028 AR-3670 / 0 / [id number] Procedures Procedure Name Priority Date/Time Associated Diagnosis Comments STRESS TEST ONLY TREADMILL Routine 11/30/2024 8:47 AM CDT Tachycardia, unspecified TRANSTHORACIC ECHO (TTE) COMPLETE W DOPPLER/CF WO CONTRAST Routine 11/24/2024 11:24 AM CDT Tachycardia, unspecified EXTENDED/HALFWAY HOLTER PATCH (>48 HOURS UP TO 7 DAYS) Routine 11/02/2024 1:37 PM CDT Tachycardia, unspecified ELECTROCARDIOGRAM REPORT Routine 11/02/2024 Tachycardia, unspecified from Last 3 Months Results * Stress Treadmill Test (11/30/2024 8:47 AM CDT) Anatomical Region Laterality Modality Nuclear Medicine Narrative 11/30/2024 12:33 PM CDT TREADMILL STRESS TEST Patient Name: Saumya Zavala Date of : 1970 Primary Physician: Vitaliy Requesting Physician: Dr. Meraz Type of stress test: Treadmill stress test Indication: Dyspnea on exertion Quality of the study: Good Interpretation: Baseline 12 lead EKG showed normal sinus rhythm, LVH, nonspecific T-wave abnormality. Abnormal EKG. After obtaining baseline 12 lead EKG and blood pressure, patient exercised on treadmill using standard Beka protocol for 9 minutes 28 seconds, achieving a cardiac workload of 10.1 METS. Patient stopped exercise due to dyspnea. Baseline blood pressure 120/78 mmHg, baseline heart rate 74 beats per minute, maximum blood pressure 160/86 mmHg, maximal heart rate 176 beats per minute which is 107 percent of maximum age predicted heart rate. Stress EKG: Abnormal Arrhythmias: None Blood pressure response to exercise: Normal Heart rate recovery: Prolonged Conclusions: Treadmill stress test is positive for ischemia by EKG criteria at 107% of maximum age predicted heart rate. 1.5-[address] segment depression consistent with ischemia Average exercise capacity for patient's age. Limiting dyspnea Prolonged heart rate recovery time consistent with cardiac deconditioning Voice recognition software was used to complete this document. Jono Yao MD, [facility] us Valentine Meraz MD CV STRESS PROCEDURES Final Resul t * TRANSTHORACIC ECHO (TTE) COMPLETE W DOPPLER/CF WO CONTRAST (11/24/2024 11:24 AM CDT) Estimated EF 60-65 % CONS SCIMAGE EF Mod BP 60 % CONS SCIMAGE Anatomical Region Laterality Modality Ultrasound 11/24/2024 11:1 2 AM CDT Narrative 11/25/2024 8:14 AM CDT [facility] [address] [facility] [address] [place] [id number] [address] [facility] [address], [place] [address] P:[phone] P:[phone] Echocardiographic Report Patient Name: SAUMYA ZAVALAIzzy : 1970 Study Date: 11/24/2024 11:12:41 AM Gender: M Tech: Location: [place] Ref Provider: VALENTINE MERAZ Height(Cm): 175 BSA: 2.07 Weight(Kg): 88.5 Heart Rate: 76 BP: 112 / 82 Quality: Good Order Provider: VALENTINE MERAZ PROCEDURES: Echocardiographic Report: Transthoracic echocardiogram with complete 2D, M-Mode, and color Doppler examination. With Strain Analysis. INDICATIONS: R00.0 Tachycardia, unspecified. MEASUREMENTS: 2D/MM Value Range Doppler Value Range EF Mod BP 60 % [ 52 - 72 ] AV Mean PG 3 mmHg EF Teich MM 69 % [ 52 - 72 ] AV Peak Ruben 1.25 m/s [ 1.00 - 1.70 ] Estimated EF 60-65 % AV Peak PG 6 mmHg LVIDd 2D 4.76 cm [ 4.20 - 5.80 ] AV VTI 24.43 cm LVIDd MM 4.87 cm [ 4.20 - 5.80 ] LVOT Peak Ruben 1.18 m/s [ 0.70 - 1.10 ] LVIDs 2D 3.46 cm [ 2.50 - 4.00 ] LVOT VTI 22.35 cm LVIDs MM 3.00 cm [ 2.50 - 4.00 ] MV E Peak Ruben 0.66 m/s [ 0.60 - 1.30 ] LVPWd MM 0.95 cm [ 0.60 - 1.00 ] MV A Peak Ruben 0.68 m/s [ 1.00 - 1.20 ] IVSd 2D 1.00 cm [ 0.60 - 1.00 ] MV Decel Time 142 msec [ 104 - 258 ] IVSd MM 0.92 cm [ 0.60 - 1.00 ] PV Peak Ruben 1.11 m/s [ 0.40 - 0.80 ] LA Dimension MM 3.26 cm [ 3.00 - 4.00 ] TR Peak Ruben 2.51 m/s [ 1.00 - 2.80 ] AoR Diam MM 3.86 cm [ 3.10 - 3.70 ] TR Peak PG 25 mmHg LA Volume Index 23 cc/m2 [ 16 - 34 ] RVSP 33.00 mmHg [ 10.00 - 36.00 ] ACS MM 2.19 cm [ 1.50 - 2.60 ] Lateral E` 0.09 m/s [ 0.10 - 0.15 ] E` 0.06 m/s E/E` 8 2D/MM Value Range Doppler Value Range - FINDINGS: Interpretation Site: Exam was interpreted at [facility]. Left Ventricle: Normal left ventricular systolic function. No focal wall motion abnormalities. Normal left ventricular size. Normal left ventricular wall thickness. Impaired diastolic relaxation Grade I. Ejection fraction is measured at 60 %. Ejection Fraction is visually estimated to be 60-65 %. Global Longitudinal Strain is -16 %. GLS is borderline. Right Ventricle: Normal right ventricular size. Normal right ventricular systolic function. Left Atrium: There is mild enlargement of left atrium. Right Atrium: There is mild enlargement of right atrium. Chiari network visualized in right atrium (normal variant). Atrial Septum: Normal atrial septum. Mitral Valve: Normal appearance of the mitral valve. Mild mitral valve regurgitation. There is no hemodynamically significant mitral stenosis by Doppler. Aortic Valve: Normal appearance of the aortic valve. No evidence of hemodynamically significant aortic stenosis by Doppler. Trileaflet aortic valve. Trace aortic valve regurgitation. Tricuspid Valve: Normal appearance of the tricuspid valve. Normal right ventricular systolic pressure. Estimated peak RVSP is 33 mmHg. Mild tricuspid regurgitation. Pulmonic Valve: Normal appearance of the pulmonic valve. No pulmonic stenosis. Mild pulmonic regurgitation. Pericardium: Normal pericardium with no significant pericardial effusion. Aorta: Sinus of Valsalva is mildly dilated. Sinus of Valsalva 3.9 cm. IVC: Normal size and normal respiratory collapse consistent with normal right atrial pressure (<5 mmHg). CONCLUSIONS: Normal left ventricular systolic function. No focal wall motion abnormalities. Normal left ventricular size. Normal left ventricular wall thickness. Impaired diastolic relaxation Grade I. Ejection fraction is measured at 60 %. Ejection Fraction is visually estimated to be 60-65 %. Global Longitudinal Strain is -16 %. GLS is borderline. There is mild enlargement of left atrium. There is mild enlargement of right atrium. Chiari network visualized in right atrium (normal variant). Mild mitral valve regurgitation. Mild tricuspid regurgitation. Mild pulmonic regurgitation. Sinus of Valsalva is mildly dilated. Sinus of Valsalva 3.9 cm. Normal sinus rhythm. Electronically Signed By: Jono Yao MD 11/25/2024 8:14:09 AM CDT Procedure Note Jono Yao MD - 11/25/2024 [facility] [address], [place] [address] [address], [place] [address] P:[phone] P:[phone] Echocardiographic Report Patient Name: SAUMYA ZAVALA D : 1970 Study Date: 11/24/2024 11:12:41 AM Gender: M Tech: Location: [facility] Provider: VALENTINE MERAZ Height(Cm): 175 BSA: 2.07 Weight(Kg): 88.5 Heart Rate: 76 BP: 112 / 82 Quality: Good Order Provider: VALENTINE MERAZ PROCEDURES: Echocardiographic Report: Transthoracic echocardiogram with complete 2D, M-Mode, and color Dopplerexamination. With Strain Analysis. INDICATIONS: R00.0 Tachycardia, unspecified. MEASUREMENTS: 2D/MM Value Range Doppler ValueRange EF Mod BP 60 % [ 52 - 72 ] AV Mean PG 3mmHg EF Teich MM 69 % [ 52 - 72 ] AV Peak Ruben 1.25m/s [ 1.00 - 1.70 ] Estimated EF 60-65 % AV Peak PG 6mmHg LVIDd 2D 4.76 cm [ 4.20 - 5.80 ] AV VTI 24.43cm LVIDd MM 4.87 cm [ 4.20 - 5.80 ] LVOT Peak Ruben 1.18m/s [ 0.70 - 1.10 ] LVIDs 2D 3.46 cm [ 2.50 - 4.00 ] LVOT VTI 22.35cm LVIDs MM 3.00 cm [ 2.50 - 4.00 ] MV E Peak Ruben 0.66m/s [ 0.60 - 1.30 ] LVPWd MM 0.95 cm [ 0.60 - 1.00 ] MV A Peak Ruben 0.68m/s [ 1.00 - 1.20 ] IVSd 2D 1.00 cm [ 0.60 - 1.00 ] MV Decel Time 142msec [ 104 - 258 ] IVSd MM 0.92 cm [ 0.60 - 1.00 ] PV Peak Ruben 1.11m/s [ 0.40 - 0.80 ] LA Dimension MM 3.26 cm [ 3.00 - 4.00 ] TR Peak Ruben 2.51m/s [ 1.00 - 2.80 ] AoR Diam MM 3.86 cm [ 3.10 - 3.70 ] TR Peak PG 25mmHg LA Volume Index 23 cc/m2 [ 16 - 34 ] RVSP 33.00mmHg [ 10.00 - 36.00 ] ACS MM 2.19 cm [ 1.50 - 2.60 ] Lateral E` 0.09m/s [ 0.10 - 0.15 ] E` 0.06 m/s E/E` 8 2D/MM Value Range Doppler ValueRange - FINDINGS: Interpretation Site: Exam was interpreted at [facility]. Left Ventricle: Normal left ventricular systolic function. No focal wall motionabnormalities. Normal left ventricular size. Normal left ventricular wall thickness. Impaireddiastolic relaxation Grade I. Ejection fraction is measured at 60 %. EjectionFraction is visually estimated to be 60-65 %. Global Longitudinal Strain is -16 %. GLS isborderline. Right Ventricle: Normal right ventricular size. Normal right ventricular systolicfunction. Left Atrium: There is mild enlargement of left atrium. Right Atrium: There is mild enlargement of right atrium. Chiari network visualized inright atrium (normal variant). Atrial Septum: Normal atrial septum. Mitral Valve: Normal appearance of the mitral valve. Mild mitral valve regurgitation.There is no hemodynamically significant mitral stenosis by Doppler. Aortic Valve: Normal appearance of the aortic valve. No evidence of hemodynamicallysignificant aortic stenosis by Doppler. Trileaflet aortic valve. Trace aortic valveregurgitation. Tricuspid Valve: Normal appearance of the tricuspid valve. Normal right ventricularsystolic pressure. Estimated peak RVSP is 33 mmHg. Mild tricuspid regurgitation. Pulmonic Valve: Normal appearance of the pulmonic valve. No pulmonic stenosis. Mildpulmonic regurgitation. Pericardium: Normal pericardium with no significant pericardial effusion. Aorta: Sinus of Valsalva is mildly dilated. Sinus of Valsalva 3.9 cm. IVC: Normal size and normal respiratory collapse consistent with normal rightatrial pressure (<5 mmHg). CONCLUSIONS: Normal left ventricular systolic function. No focal wall motionabnormalities. Normal left ventricular size. Normal left ventricular wall thickness. Impaireddiastolic relaxation Grade I. Ejection fraction is measured at 60 %. EjectionFraction is visually estimated to be 60-65 %. Global Longitudinal Strain is -16 %. GLS isborderline. There is mild enlargement of left atrium. There is mild enlargement of right atrium. Chiari network visualized inright atrium (normal variant). Mild mitral valve regurgitation. Mild tricuspid regurgitation. Mild pulmonic regurgitation. Sinus of Valsalva is mildly dilated. Sinus of Valsalva 3.9 cm. Normal sinus rhythm. Electronically Signed By: Jono Yao MD 11/25/2024 8:14:09 AM CDT us Valentine Meraz MD CV ECHO PROCEDURES Final Result * Extended/Long Term Holter Patch (>48 hours up to 7 days) (11/02/2024 1:37 PM CDT) Anatomical Region Laterality Modality Electrocardiogra phy Narrative 11/17/2024 8:11 AM CDT AMBULATORY TOY STUFFER REPORT Patient Name: Saumya Zavala Date of : 1970 Requesting Physician: Dr. Meraz Date of interpretation: 11/17/24 Type of monitor : Holter Date of the study/Enrollment period: 11/02/2024 - 11/09/2024 Indication: tachycardia Quality of the study: good (diagnostic time 5d 17h 46m with artifact time 1d 5h 20m) Interpretation: There were 4 patient triggered events correlating with sinus tachycardia with ventricular rates ranging from 107 beats per minute to 152 beats per minute. Three brief runs of supraventricular tachycardia of which lasting less than 10 seconds. Both supraventricular ectopy and ventricular ectopy burden are less than 1%. Valentine Meraz MD 11/17/24 Procedure Note Valentine Meraz MD - 11/17/2024 AMBULATORY TOY STUFFER REPORT Patient Name: Saumya Zavala Date of : 1970 Requesting Physician: Dr. Meraz Date of interpretation: 11/17/24 Type of monitor : Holter Date of the study/Enrollment period: 11/02/2024 - 11/09/2024 Indication: tachycardia Quality of the study: good (diagnostic time 5d 17h 46m with artifact time1d 5h 20m) Interpretation: There were 4 patient triggered events correlating with sinus tachycardiawith ventricular rates ranging from 107 beats per minute to 152 beats perminute. Three brief runs of supraventricular tachycardia of which lasting lessthan 10 seconds. Both supraventricular ectopy and ventricular ectopyburden are less than 1%. Valentine Meraz MD 11/17/24 Valentine Meraz MD CV CARDIAC SERVICES PROCEDURES F inal Result * Electrocardiogram Report (11/02/2024) 11/02/2024 Valentine Meraz MD ECG ORDERABLES Final Result from Last 3 Months Insurance [employer] [place] Care Teams Le[employer] Relationship Specialty Start Date End Date Shania Burks PA [address] [place] [id number] PCP - General Family Practice 09/20/22
--- OUTSIDE RECORDS SUMMARY | 2024-12-07 09:39 | XMS_ITS | Referral Summary ---
Author Organization [facility] Address [address] [place] [address] Care Team Providers Care Coin Dealer Name Role Phone Shania Burks Primary Care Provider Encounters Date Type Department Care Team Description 12/01/2024 Telephone [facility] Cardiology [address] [place] [phone] Phillip Meraz MD 11/30/2024 2:00 PM CDT Ancillary Procedure [facility] Cardiology [address] [facility] [address] [place] [phone] Tachycardia, unspecified 11/24/2024 11:15 AM CDT Ancillary Procedure [facility] Cardiology [address] [facility] [address] [place] [phone] Tachycardia, unspecified 11/17/2024 Telephone [facility] Cardiology [address] [facility] [address] [place] [phone] Phillip Meraz MD 11/13/2024 Telephone [facility] Cardiology [address] [facility] [address] [place] [phone] Phillip Meraz MD 11/02/2024 2:30 PM CDT Ancillary Procedure [facility] Cardiology [address] [facility] [address] [place] [phone] Tachycardia, unspecified 11/02/2024 1:15 PM CDT Office Visit [facility] Cardiology [address] [place] [address] Phillip Meraz MD Essential (primary) hypertension; Tachycardia, unspecified from Last 3 Months Allergies Active Allergy Reactions Criticality Noted Date [...] total) by mouth daily 30 tablet 12/02/19 25 026 Active aspirin 81 mg enteric coated tablet Take 1 tablet (81 mg total) by mouth daily 30 tablet 11 12/02/19 25 026 Active Active Problems Problem Noted Date Diagnosed Date Peroneal neuropathy at knee, left 03/05/2024 Degenerative superior labral wokbehbj-nu-jqaknxaqb (SLAP) tear of left shoulder 12/30/2023 Abnormal [...] wound of wrist with tendon involvement 10/20 Immunizations Immunization Administration Dates Next Due Influenza, Trivalent, Preservative Free, Intramu scular 07/07/2015 Influenza, Unspecified 05/22/2018,06/05/2013 Pneumococcal Polysaccharide PPV23 10/31/2017 Tdap 07/07/2020,10/20/2011 Social History Tobacco Use Types Packs/Day Years Used Date Smoking Tobacco: Former Cigarettes 1 15 1 3 - 2007 Passive Smoke Exposure: Never Smokeless [...] on file Legal Sex 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 Gender Identity Male 03/05/2024 6:36 AM CDT Sexual Orientation Not on file 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 End Date 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 [employer] Not on file N ot on file Not on file Last Filed Vital Signs [...] 11/02/2024 1:02 PM CDT Plan of Treatment Not on file Medical Devices Implanted Type Area Resizer Operator Device Identifier Shelf Expiration Date Model / Serial / Lot [employer] System Biceps [place]io Slotted Drill Guide 1.9mm Drill Fibertak Ar-3670 - S0 - [id number] Implanted:Qty: 1 on 01/16/2024 by Guido Hernandez MD at [facility] Left: Shoulder [employer] 11/18/2028 AR-3670 / 0 / [id number] Procedures Procedure Name Priority Date/Time Associated Diagnosis Comments STRESS TEST ONLY TREADMILL Routine 11/30/2024 8:47 AM CDT Tachycardia, unspecified TRANSTHORACIC ECHO (TTE) COMPLETE W DOPPLER/CF WO CONTRAST Routine 11/24/2024 11:24 AM CDT Tachycardia, unspecified EXTENDED/ALF HOLTER PATCH (>48 HOURS UP TO 7 DAYS) Routine 11/02/2024 1:37 PM CDT Tachycardia, unspecified ELECTROCARDIOGRAM REPORT Routine 11/02/2024 Tachycardia, unspecified from Last 3 Months Results * Stress Treadmill Test (11/30/2024 8:47 AM CDT) Anatomical Region Laterality Modality Nuclear Medicine Narrative 11/30/2024 12:33 PM CDT TREADMILL STRESS TEST Patient Name: Geovanni Zavala Date of : 1970 Primary Physician: [...] to complete this document. Jono Yao MD, [facility] us Phillip Meraz MD CV STRESS PROCEDURES Final Resul t * TRANSTHORACIC ECHO (TTE) COMPLETE W DOPPLER/CF WO CONTRAST (11/24/2024 11:24 AM CDT) Estimated EF 60-65 % CONS SCIMAGE EF Mod BP 60 % CONS SCIMAGE Anatomical Region Laterality Modality Ultrasound 11/24/2024 11:1 2 AM CDT Narrative 11/25/2024 8:14 AM CDT [facility] Cardiology [address], [place] [address] [address] [facility] [address], [place] [address] P:[phone] P:[phone] Echocardiographic Report Patient Name: GEOVANNI ZAVALA D : 1970 Study Date: 11/24/2024 11:12:41 AM Gender: M Tech: Location: [place] Ref Provider: PHILLIP MERAZ Height(Cm): 175 BSA: 2.07 Weight(Kg): 88.5 Heart Rate: 76 BP: 112 / 82 Quality: Good Order Provider: PHILLIP MERAZ PROCEDURES: Echocardiographic Report: Transthoracic echocardiogram with [...] FINDINGS: Interpretation Site: Exam was interpreted at [facility]. Left Ventricle: Normal left ventricular systolic function. [...] Procedure Note Jono Yao MD - 11/25/2024 [facility] Cardiology [address] [facility] [address] [id number] [address] [facility] [address] [address] P:[phone] P:[phone] Echocardiographic Report Patient Name: GEOVANNI ZAVALAIzzy : 1970 Study Date: 11/24/2024 11:12:41 AM Gender: M Tech: Location: [facility] Provider: PHILLIP MERAZ Height(Cm): 175 BSA: 2.07 Weight(Kg): 88.5 Heart Rate: 76 BP: 112 / 82 Quality: Good Order Provider: PHILLIP MERAZ PROCEDURES: Echocardiographic Report: Transthoracic echocardiogram with [...] FINDINGS: Interpretation Site: Exam was interpreted at [facility]. Left Ventricle: Normal left ventricular systolic function. [...] Yao MD 11/25/2024 8:14:09 AM CDT us Phillip Meraz MD CV ECHO PROCEDURES Final Result * Extended/Residential Holter Patch (>48 hours up to 7 days) (11/02/2024 1:37 PM CDT) Anatomical Region Laterality Modality Electrocardiogra phy Narrative 11/17/2024 8:11 AM CDT AMBULATORY FIRE CHIEF DEPUTY REPORT Patient Name: Geovanni Zavala Date of : 1970 Requesting Physician: [...] ventricular ectopy burden are less than 1%. Phillip Meraz MD 11/17/24 Procedure Note Phillip Meraz MD - 11/17/2024 AMBULATORY FIRE CHIEF DEPUTY REPORT Patient Name: Geovanni Zavala Date of : 1970 Requesting Physician: [...] and ventricular ectopyburden are less than 1%. Phillip Meraz MD 11/17/24 us Phillip Meraz MD CV CARDIAC SERVICES PROCEDURES F inal Result * Electrocardiogram Report (11/02/2024) 11/02/2024 us Phillip Meraz MD ECG ORDERABLES Final Result from Last 3 Months Insurance [employer] OPEN ACCESS [place] OPEN ACCESS Care Teams Coin Dealer Relationship Specialty Start Date End Date Shania Burks [place] [address] [place] [id number] PCP - General Family Practice 09/20/22
[2024-12-07] MEDS: ASPIRIN 81 MG CHEWABLE TABLET 324 MG PO (09:46)
[2024-12-07 09:51] LABS: Alanine Aminotransferase 26 U/L (6-50); Albumin Level 4.4 g/dL (3.5-5.1); Alkaline Phosphatase 41 U/L (38-126); Anion Gap 9 mmol/L (4-12); Aspartate Amino Transferase 29 U/L (17-59); Bilirubin,Total 0.9 mg/dL (0.2-1.3); Blood Urea Nitrogen 20 mg/dL (9-20); Calcium 8.8 mg/dL (8.4-10.2); Carbon Dioxide 27 mmol/L (22-30); Chloride 104 mmol/L (98-107); Estimated CRCL calculation 69 ml/min; Estimated Glomerular Filt Rate > 60; Glucose 105 mg/dL (65-110); Lipase 48 U/L (23-300); Potassium 4.4 mmol/L (3.4-5.0); Sodium 140 mmol/L (137-145)
[2024-12-07 10:00] LABS: Prothrombin Time 13.7 Seconds (11.1-14.7)
[2024-12-07 10:01] LABS: Partial Thromboplastin Time 27.2 Seconds (22.3-36.8)
[2024-12-07 10:03] LABS: Troponin I < 0.012 ng/mL (0.000-0.034)
--- NOTE | 2024-12-07 11:25 | ED_ITS ---
HPI - Chest Pain General Chief Complaint: Chest Pain Stated Complaint: CHEST PAIN Time Seen by Provider: 12/07/24 10:19 Source: patient and family Mode of arrival: ambulatory Limitations: no limitations History of Present Illness HPI narrative: Patient presents with chest pain started yesterday. States it is intermittent and described as a pressure, like an elephant on chest. He has been undergoing a cardiac workup with his radial router operator Dr. Meraz and he states he has failed an EKG, stress test, and echo, but can not exactly say how. He was started a beta- selina and 81 mg of aspirin and states the plan is for him to undergo cardiac catheterization in the next several weeks although nothing currently scheduled and otherwise his next follow up appointment with Dr Meraz is in January. States his blood pressure and pulse were going down yesterday. He denies any fevers or chills. He has been feeling short of breath with a cough that was productive of mucus yesterday but in general has been dry. The chest pain is located in the center of his chest. He denies any sick contacts. He notes that he is also developed bilateral flank pain. He has a history of multiple kidney stones but has never required surgery and states this feels different especially because it is bilateral. He had initially stated that the pain did not radiate but then does describe that it radiating to his left jaw. It is 4/10 in severity currently but had been 7/10 earlier. Cardiac risk factors HTN: + (on lisinopril) HLD: + DM: 0 Obese: Yes Smoker: Former, quit >3 mos ago Personal history [place]/TIA/CVA: 0 Fam Hx [place] in first degree relative <65yo: 0 Related Data Home Medications ?Medication ?Instructions ?Recorded ?Confirmed ?Last Taken ?Type famotidine 20 mg tablet 20 mg PO BID 02/27/22 12/07/24 12/07/24 08:00 History 20 mg cholecalciferol (vitamin D3) 25 25 mcg PO DAILY 01/08/23 12/07/24 12/07/24 08:00 History mcg (1,000 unit) capsule 25 mcg multivitamin with minerals-folic 1 tablet PO DAILY 01/08/23 12/07/24 12/07/24 08:00 History acid 0.4 mg tablet 1 tablet aspirin 81 mg tablet,delayed 81 mg PO DAILY 12/07/24 12/07/24 12/07/24 08:00 History release (Adult Aspirin Regimen) 81 mg metoprolol succinate 25 mg 25 mg PO DAILY 12/07/24 12/07/24 12/07/24 08:00 History tablet,extended release 24 hr 25 mg rosuvastatin 10 mg tablet (Crestor) 10 mg PO DAILY 12/07/24 12/07/24 12/06/24 20:00 History 10 mg Allergies Allergy/AdvReac Type Severity Reaction Status Date / Time morphine Allergy Severe Anaphylaxis Verified 12/07/24 17:00 codeine AdvReac Severe Nausea Verified 12/07/24 17:00 dizziness PMFSH Past Medical History Medical History Labral tear of long head of left biceps tendon Tendinitis of left rotator cuff Low testosterone Adenomatous colon polyp Family history of malignant neoplasm of digestive organs Dyslipidemia (high LDL; low HDL) 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 Anxiety Kidney stones Mild acid reflux Wears glasses MILE (obstructive sleep apnea) HTN (hypertension) Surgical History Surgical History History of shoulder surgery left bicep relocation 01/16/24 History of hand surgery Left thumb and Left pinky and left middle finger History of orchiectomy History of removal of retained hardware History of vasectomy History of appendectomy Family History Family History (Updated 12/07/24 @ 17:04 by Yadira Millan RN) Father HLD (hyperlipidemia) Hypertension Mother HLD (hyperlipidemia) Hypertension Kidney disorder Sibling Colon polyp Reflux esophagitis Sibling Hypertension Social History Social History Social History: 09/25/24 very confident with medical forms 12/01/24 patient declined SDOH Smoking status: Never smoker Tobacco type: cigarettes Second hand tobacco smoke exposure: No Additional smoking assessment comments: Smoked for 15 years and quit approx 15 years ago. 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 HEAD: Normocephalic, atraumatic. EYES: Non injected, non icteric ENT: Nares clear, no rhinorrhea or epistaxis. NECK: Supple. CHEST: Speaking in full sentences. No respiratory distress. Lungs clear to auscultation bilaterally without appreciable wheezes crackles or areas of consolidation HEART: Regular rate and rhythm, occasionally mildly bradycardic with a rate in the high 50s. Normal S1-S2. ABDOMEN: Soft, nondistended. EXTREMITIES: Normal range of motion. No bilateral lower extremity edema. SKIN: Warm, dry, no rash. NEURO: No focal deficits. Alert and oriented x3. PSYCH: Normal mood and affect. Course Vital Signs Vital signs: Vital Signs Temperature 97.7 F 12/07/24 09:23 Pulse Rate 60 12/07/24 09:23 Respiratory Rate 13 12/07/24 09:23 Blood Pressure 144/91 H 12/07/24 09:23 Pulse Oximetry 94 12/07/24 09:23 Oxygen Delivery Room Air 12/07/24 09:23 Temperature 97.9 F 12/07/24 20:17 Pulse Rate 64 12/07/24 20:55 Respiratory Rate 16 12/07/24 20:55 Blood Pressure 94/60 L 12/07/24 20:17 Pulse Oximetry 93 12/07/24 20:55 Oxygen Delivery Room Air 12/07/24 20:55 Fraction of Inspired Oxygen 21 12/07/24 20:55 MDM - Chest Pain MDM Narrative Medical decision making narrative: Patient presents with report of chest pain that has been occurring intermittently since yesterday. States that radiates to his left jaw. described as a pressure, like an elephant. Has been undergoing cardiac work up which he states has so far included : EKG, stress test, and echo which he states he failed. In the emergency department he is afebrile with vital signs notable for very mild hypertension and borderline SpO2. HEART SCORE History 2 highly suspicious 1 moderately suspicious 0 slightly suspicious History score [address] depression/elevation not due to LBBB, LVH, or digoxin [address] depression but LBBB, LVH, nonspecific repolarization changes 0 normal ECG score 1 (equivocal LVH, per me and radial router operator) Age 2 >/= 65 1 45-64 0 <45 Age score 1 Risk factors (HTN, hypercholesterolemia, DM, obesity with BMI >30, current smoker or cessation </=3mo), positive fam hx with parent or sibling with CVD before age 65, atherosclerotic disease (prior [place], PCI/CABG, CVA/TIA, or peripheral arterial disease) 2 >/= 3 risk factors or history of atherosclerotic dz 1 - 1-2 risk factors 0 no known risk factors Risk factor score 2 Initial Troponin 2 >3 times normal limit 1 1-3 times normal limit 0 less than or equal to normal limit Troponin score 0 Total HEART Score 5. Repeat troponin normal. Patient's orthostatic vital signs are reviewed and not abnormal however it is reported that he became symptomatic, with symptoms including chest pain and some dizziness. Walking pulse ox attempted and his saturation was 91- 92% per the nurse. Spoke with ISABELL Brissa Borja cardiology covering for Dr Meraz (who is patient's radial router operator). No indication to start heparin now, they will assess patient. patient to be admitted given HEART score. Discussed with venereal disease control head hospitalist. Differential Diagnosis Differential diagnosis: Likely stable angina, unstable angina pectoris, atypical chest pain, st elevation myocardial infarction, chest pain, biliary colic and other (anxiety; aortic dissection; medication side effect; NSTEMI) Lab Data Attestation: I reviewed the patient's lab results. Lab results narrative: Urinalysis unremarkable. CBC generally are unremarkable. D-dimer normal. Chemistry normal. 12/07/24 09:33 12/07/24 09:33 Labs: Lab Results 12/07/24 12/07/24 12/07/24 Range/Units 09:33 11:53 12:49 WBC 8.5 (4.5-10.0) K/mm3 RBC 6.17 (4.6-6.20) M/mm3 Hgb 17.0 (14.0-18.0) g/dL Hct 53.9 H (42.0-52.0) % MCV 87.4 (80-100) fl MCH 27.6 (26-34) pg MCHC 31.5 L (32-36) g/dl RDW 13.6 (11.5-14.5) % Plt Count 200 (150-375) k/mm3 MPV 9.6 (7.4-10.4) fl Immature Gran % (Auto) 0.4 (0-0.5) % Neut % (Auto) 58.3 (45.5-73.1) % Lymph % (Auto) 31.9 (18.3-44.2) % [place] % (Auto) 7.3 (2.6-8.5) % Eos % (Auto) 1.6 (0-4.4) % Baso % (Auto) 0.5 (0.2-1.2) % Lymph # (Auto) 2.71 (0.9-3.2) K/mm3 [place] # (Auto) 0.6 (0.1-0.6) K/mm3 Eos # (Auto) 0.1 (0-0.3) K/mm3 Baso # (Auto) 0.0 (0.0-0.1) K/mm3 Abs Immat Gran (auto) 0.03 (0.00-0.031) K/mm3 Absolute Neuts (auto) 5.0 (1.3-6.7) K/mm3 Absolute Nucleated RBC 0.000 (0.0-0.012) K/mm3 Nucleated RBC % 0.0 (0.0-0.2) % PT 13.7 (11.1-14.7) Seconds INR 1.0 APTT 27.2 (22.3-36.8) Seconds D-Dimer < 0.27 (<0.48) ug/mL Sodium 140 (137-145) mmol/L Potassium 4.4 (3.4-5.0) mmol/L Chloride 104 (98-107) mmol/L Carbon Dioxide 27 (22-30) mmol/L Anion Gap 9 (4-12) mmol/L BUN 20 (9-20) mg/dL Creatinine 1.24 (0.7-1.3) mg/dL Estim Creat Clear Calc 69 ml/min Estimated GFR > 60 (59 - ) Glucose 105 (65-110) mg/dL Calcium 8.8 (8.4-10.2) mg/dL Total Bilirubin 0.9 (0.2-1.3) mg/dL AST 29 (17-59) U/L ALT 26 (6-50) U/L Alkaline Phosphatase 41 (38-126) U/L Troponin I < 0.012 < 0.012 (0.000-0.034) ng/mL Total Protein 7.0 (6.3-8.2) g/dL Albumin 4.4 (3.5-5.1) g/dL Lipase 48 (23-300) U/L Urine Color Yellow (Yellow) Urine Appearance Clear (Clear) Urine pH 6.0 (5.0-9.0) Ur Specific [place] 1.007 (1.001-1.035) Urine Protein Negative (Negative) mg/dL Urine Glucose (UA) Negative (Negative) mg/dL Urine Ketones Negative (Negative) mg/dL Ur Blood (Man) Negative (Negative) Urine Nitrate Negative (Negative) Urine Bilirubin Negative (Negative) Urine Urobilinogen 0.2 (<2.0) mg/dL Leukocyte Esterase Rfl Negative (Negative) OTONIEL/UL Influenza A (RT-PCR) Negative (Negative) Influenza B (RT-PCR) Negative (Negative) RSV (RT-PCR) Negative (Negative) SARS-CoV-2 RNA (RT-PCR) Negative (Negative) 12/07/24 Range/Units 15:30 WBC (4.5-10.0) K/mm3 RBC (4.6-6.20) M/mm3 Hgb (14.0-18.0) g/dL Hct (42.0-52.0) % MCV (80-100) fl MCH (26-34) pg MCHC (32-36) g/dl RDW (11.5-14.5) % Plt Count (150-375) k/mm3 MPV (7.4-10.4) fl Immature Gran % (Auto) (0-0.5) % Neut % (Auto) (45.5-73.1) % Lymph % (Auto) (18.3-44.2) % [place] % (Auto) (2.6-8.5) % Eos % (Auto) (0-4.4) % Baso % (Auto) (0.2-1.2) % Lymph # (Auto) (0.9-3.2) K/mm3 [place] # (Auto) (0.1-0.6) K/mm3 Eos # (Auto) (0-0.3) K/mm3 Baso # (Auto) (0.0-0.1) K/mm3 Abs Immat Gran (auto) (0.00-0.031) K/mm3 Absolute Neuts (auto) (1.3-6.7) K/mm3 Absolute Nucleated RBC (0.0-0.012) K/mm3 Nucleated RBC % (0.0-0.2) % PT (11.1-14.7) Seconds INR APTT (22.3-36.8) Seconds D-Dimer (<0.48) ug/mL Sodium (137-145) mmol/L Potassium (3.4-5.0) mmol/L Chloride (98-107) mmol/L Carbon Dioxide (22-30) mmol/L Anion Gap (4-12) mmol/L BUN (9-20) mg/dL Creatinine (0.7-1.3) mg/dL Estim Creat Clear Calc ml/min Estimated GFR (59 - ) Glucose (65-110) mg/dL Calcium (8.4-10.2) mg/dL Total Bilirubin (0.2-1.3) mg/dL AST (17-59) U/L ALT (6-50) U/L Alkaline Phosphatase (38-126) U/L Troponin I < 0.012 (0.000-0.034) ng/mL Total Protein (6.3-8.2) g/dL Albumin (3.5-5.1) g/dL Lipase (23-300) U/L Urine Color (Yellow) Urine Appearance (Clear) Urine pH (5.0-9.0) Ur Specific [place] (1.001-1.035) Urine Protein (Negative) mg/dL Urine Glucose (UA) (Negative) mg/dL Urine Ketones (Negative) mg/dL Ur Blood (Man) (Negative) Urine Nitrate (Negative) Urine Bilirubin (Negative) Urine Urobilinogen (<2.0) mg/dL Leukocyte Esterase Rfl (Negative) OTONIEL/UL Influenza A (RT-PCR) (Negative) Influenza B (RT-PCR) (Negative) RSV (RT-PCR) (Negative) SARS-CoV-2 RNA (RT-PCR) (Negative) Imaging Data Radiologist's impression: Impressions Chest X-Ray 12/07/24 09:57 IMPRESSION: No acute cardiopulmonary pathology. Chest/Abdomen/Pelvis CTA 12/07/24 12:57 IMPRESSION: No pulmonary embolus. No aortic dissection. Colonic diverticulosis within the descending and sigmoid colon, without surrounding inflammatory change. ECG Data EKG #1: Attestation: I personally reviewed and interpreted this ECG as follows: ECG completion date: 12/07/24 ECG completion time: 09:26 Interpretation: Sinus bradycardia rate of 57 beats per minute. OR interval 152. QRS 84. QT/QTC 355/350. Good R-wave progression across the precordial leads. T-wave inversion in lead 3 but otherwise upright in normal in contiguous inferior leads 2 and AVF. No other T-wave inversions. Pre populated algorithm suggests left ventricular hypertrophy but S wave depth in V1 + tallest R wave height in V5-6 is <35mm and R wave in lead I + S wave in lead III is approx 25mm thus equivocal. EKG #2: Attestation: I personally reviewed and interpreted this ECG as follows: ECG completion date: 12/07/24 ECG completion time: 12:06 Interpretation: Sinus bradycardia rate of 55 beats per minute. OR interval 153. QRS 73. QT/QTC 348/336. Good R-wave progression across the precordial leads. T-wave inversion in 3 but otherwise isolated. Discharge Plan Discharge Clinical Impression: Angina pectoris, Diverticulosis Patient Disposition: Still a Patient Condition: Stable
--- OUTSIDE RECORDS SUMMARY | 2024-12-07 11:33 | XMS_ITS | Encounter Summary ---
Author Organization [facility] Address [facility] [place] [address] Care Team Providers Care Hooker Laster Name Role Phone Wang Devries MD Primary Care Provider [phone] Karoline Devries MD Primary Care Provider [phone] Shania Burks PA-C Primary Care Provider [phone] Encounter Details Date Type Department Care Team (Latest Contact Info) Description 05/27/2018 Abstract [facility] Rip Bolanos MD Social History [...] Rule Out 08/02/2020 08/02/2020 08/02/2020 1:38 PM ACCOUNTING SYSTEMS MANAGER documented as of this encounter Care Teams Hooker Laster Relationship Specialty Start Date End Date Wang Devries MD [address] [place] [address] PCP - General INTERNAL MEDICINE 02/21/19 01/20/20 Karoline Devries MD [address] [place], [place] [id number] PCP - General INTERNAL MEDICINE 07/07/20 03/24/21 Shania Burks PA-C [address] [place] [address] [place] [address] [address] - [address] PHYSICIAN COURT COMMISSIONER 03/25/21 documented as of this encounter
--- OUTSIDE RECORDS SUMMARY | 2024-12-07 11:33 | XMS_ITS | Continuity of Care Document ---
Author Name [facility] Organization [facility] Care Team Providers Care Communications Intern Name Role Phone [facility] Unavailable Unavailable Problems Combined list of problems from Department of Defense and [facility] Affairs facilities. It does not include entries that were removed or entered in error. Problem Status Onset Date Problem Type Date of Resolution Comments Source Abnormal liver function Active Condition [facility] Acute bronchitis Active Condition [facility] Acute bronchitis (SNOMED CT 86730482) Active Condition [facility] Acute sinusitis Active Condition [facility] Anxiety Active Condition [facility] Benign essential hypertension Active Condition [facility] Benign hypertension (SNOMED CT 45568737) Active Condition [facility] Blurring of visual image (SNOMED CT 724164678) Active Condition [facility] Chronic bronchitis (SNOMED CT 43791665) Active Condition [facility] Chronic sinusitis Active Condition [facility] Contusion of lower leg Active Condition [facility] Diarrhea Active Condition [facility] Dizziness and giddiness (ICD-9-CM 780.4) Active Condition [facility] Edema Active Condition [facility] Ganglion of hand Active Condition [facility] Gastroesophageal reflux disease Active Condition [facility] Gingivitis Active Condition [facility] Gout Active Condition [facility] Headache Active Condition [facility] Headache * (ICD-9-CM 784.0) Active Condition [facility] Hiatal hernia (SNOMED CT 11496085) Active Condition [facility] History of calculus of kidney (SNOMED CT 314756804) Active Condition [facility] History of colonic polyp (SNOMED CT 711382524) Active Condition [facility] Hyperlipidemia [facility] Irritable bowel syndrome (SNOMED CT 54728783) Active Condition [facility] Otitis media Active Condition [facility] Overweight Active Condition [facility] Poor short-term memory (SNOMED CT 397917284) Active Condition [facility] Rash Active Condition [facility] Shoulder pain [facility] Sleep apnea Active Condition [facility] Unresolved Active Condition [facility] M O [facility] Upper respiratory infection Active Condition [facility] Vitamin D deficiency (SNOMED CT 59140811) Active Condition [facility] Medications Combined list of outpatient medications from Department of [facility] and Veterans Affairs facilities.Medications provided include 1) outpatient medications from the last 15 months, and 2) patient-reported medications. Medication Details Route Status Patient Instructions Prescription Expires Prescription Number Last Dispense Date Ordering Provider Order Date Order Qty Source ACETAMINOPH EN 500MG TAB TAKE ONE TABLET BY MOUTH ONE-TIME NEEDED ORAL ACTIVE YOBANY LANDEROS 2016 [facility] DIVISIO N ASPIRIN 81MG TAB,EC TAKE ONE TABLET BY MOUTH ONCE A DAY ORAL ACTIVE CHLOE,AURA A D 2019 [facility] DIVISIO N CHOLECALCIF JAMES 50MCG (2,000UNIT) TAB TAKE TWO TABLETS BY MOUTH ONCE A DAY ORAL ACTIVE [place] N 2017 [facility] Allergies, Adverse Reactions, Alerts Combined list of allergies from Department of [facility] and Veterans Affairs facilities. It does not include entries that were removed or entered in error. Substance Category Reaction Severity Reaction type Status Date Reported Comments Source ATORVASTATIN Drug allergy (disorder) Myalgias active [address] [place] [address] ATORVASTATIN Propensity to adverse reactions to drug (finding) Muscle pain MILD active [address] [place] [address] [place]PAR Propensity to adverse reactions to drug (finding) Anxiety MILD active 5 [facility] Buspirone Drug allergy (disorder) Anxiety active 5 [facility] BUSPIRONE HCL Drug allergy (disorder) Anxiety active 5 [facility] CODEINE Drug allergy (disorder) active 1 [facility] Codeine Drug allergy (disorder) active 1 [facility] MORPHINE Drug allergy (disorder) Respiratory Distress active 1 [facility] Morphine Drug allergy (disorder) Respiratory Distress active 1 [facility] MORPHINE Propensity to adverse reactions to drug (finding) Respiratory distress active 1 [facility] SEPTRA DS Propensity to adverse reactions to drug (finding) Eruption MODERATE active 5 [facility] TRIMETHOPRIM Drug allergy (disorder) Eruption of skin active 5 [facility] Trimethoprim Drug allergy (disorder) Eruption of skin active 5 [facility] Immunizations Combined list of available immunizations from the Department of Defense and [facility] Affairs facilities. Immunization Series Date Given Administered By Site Reaction Lot Number CVX Code Drug Waiter/Waitress Cafeteria Status Comments Source INFLUENZA, UNSPECIFIED FORMULATION 2017 88 complet [facility] DIVISIO N PNEUMOCOCCAL POLYSACCHARID E PPV23 2017 33 complet [facility] INFLUENZA, SEASONAL, INJECTABLE, PRESERVATIVE FREE 2014 140 complet [facility] DIVISIO N INFLUENZA, UNSPECIFIED FORMULATION 2012 88 complet [facility] DIVISIO N TDAP 2011 115 complet [facility] DIVISIO N Procedures Combined list of: 1) [...] smoking status NHIS VA-TOBACCO FORMER USER 05/25/2021 [facility] History of tobacco use VA-TOBACCO QUIT 15 YRS OR MORE 05/25/2021 [facility] History of tobacco use VA-TOBACCO QUIT 15 YRS OR MORE 12/10/2019 [facility] History of tobacco use VA-TOBACCO FORMER USER 09/15/2018 [facility] History of tobacco use VA-TOBACCO NEVER USED 05/08/2018 [facility] History of tobacco use VA-TOBACCO FORMER USER 10/31/2017 [facility] History of tobacco use QUIT TOBACCO >7 YEARS AGO 10/28/2017 [facility] History of tobacco use QUIT TOBACCO >7 YEARS AGO 04/30/2017 [facility] History of tobacco use QUIT TOBACCO >7 YEARS AGO 05/29/2016 [facility] History of tobacco use QUIT TOBACCO >7 YEARS AGO 11/15/2014 [facility] History of tobacco use QUIT TOBACCO >7 YEARS AGO 10/30/2013 [facility] History of tobacco use LIFETIME NON-USER OF TOBACCO 11/14/2012 [facility] This section is an empty social history section. [facility] Advance Directives List of completed, amended, or rescinded Advance Directives on record at Department of Veterans Affairs facilities. An actual copy of the Directive is not included. Date Advance Directive Provider Source 07/30/2016 ADVANCE DIRECTIVE DISCUSSION SCARLETT GONZALES [facility]
--- OUTSIDE RECORDS SUMMARY | 2024-12-07 11:33 | XMS_ITS | Clinical Summary ---
Author Organization [facility] Address [facility] [place] [address] Care Team Providers Care Lockstitch Machine Operator Name Role Phone Shania Burks PA-C Primary Care Provider [phone] Allergies Active Allergy Reactions Criticality Noted Date [...] - 2023-2 5 season) 2024 PHQ-2 (Physician [place]) 07/22/2024 DTaP, Tdap and Td Vaccines ( 2 - Td or Tdap) 07/07/2030 07/07/2020 Meningococcal B Vaccine Aged Out No l onger eligible based on patient's age to complete this topic Meningococcal Vaccine Aged Out No agni nabila eligible based on patient's age to complete this topic RSV Immunizations Under 20 Months Aged Out No longer eligible based on patient's age to complete this topic Insurance [facility] OFFICE OF COMMUNITY CARE [facility] Care Teams Lockstitch Machine Operator Relationship Specialty Start Date End Date Shania Burks PA-C [facility] [place] [address] PCP - General PHYSICIAN MINOR LEAGUE BASEBALL PLAYER 03/25/21
--- OUTSIDE RECORDS SUMMARY | 2024-12-07 11:33 | XMS_ITS | Referral Summary ---
Author Organization [facility] Address [address] [place] [address] Care Team Providers Care Mission Systems Engineer Name Role Phone Shania Burks Primary Care Provider Encounters Date Type Department Care Team Description 12/01/2024 Telephone [facility] Cardiology [address] [place] [phone] Phillip Meraz MD 11/30/2024 2:00 PM CDT Ancillary Procedure [facility] Card[facility] [address] [facility] [address] [place] [phone] Tachycardia, unspecified 11/24/2024 11:15 AM CDT Ancillary Procedure [facility] Cardiology [address] [facility] [address] [place] [phone] Tachycardia, unspecified 11/17/2024 Telephone [facility] Cardiology [address] [facility] [address] [place] [phone] Phillip Meraz MD 11/13/2024 Telephone [facility] Cardiology [address] [facility] [address] [place] [phone] Phillip Meraz MD 11/02/2024 2:30 PM CDT Ancillary Procedure [facility] Cardiology [address] [facility] [address] [place] [phone] Tachycardia, unspecified 11/02/2024 1:15 PM CDT Office Visit [facility] Cardiology [address] [place] [address] Phillip Meraz MD Essential (primary) [...] at knee, left 03/05/2024 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 left shoulder 12/30/2023 Abnormal [...] on file 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 Left: Shoulder [employer] 11/18/2028 AR-3670 / 0 / [id number] Procedures Procedure Name Priority Date/Time Associated Diagnosis Comments STRESS TEST ONLY TREADMILL Routine 11/30/2024 8:47 AM CDT Tachycardia, unspecified TRANSTHORACIC ECHO (TTE) COMPLETE W DOPPLER/CF WO CONTRAST Routine 11/24/2024 11:24 AM CDT Tachycardia, unspecified EXTENDED/MCFP HOLTER PATCH (>48 HOURS UP TO 7 [...] to complete this document. Jono Yao MD, [facility] us Phillip Meraz MD CV STRESS PROCEDURES Final Resul t * TRANSTHORACIC ECHO (TTE) COMPLETE W DOPPLER/CF WO CONTRAST (11/24/2024 11:24 AM CDT) Estimated EF 60-65 % CONS SCIMAGE EF Mod BP 60 % CONS SCIMAGE Anatomical Region Laterality Modality Ultrasound 11/24/2024 11:1 2 AM CDT Narrative 11/25/2024 8:14 AM CDT [facility] Cardiology [address], [place] [address] [address] [facility] [address], [place] [address] P:[phone] P:[phone] Echocardiographic Report Patient Name: GEOVANNI ZAVALA D : 1970 Study Date: 11/24/2024 11:12:41 AM Gender: M Tech: Location: OR Ref Provider: PHILLIP MERAZ Height(Cm): 175 BSA: [...] FINDINGS: Interpretation Site: Exam was interpreted at [facility]. Left Ventricle: Normal left ventricular systolic function. [...] Procedure Note Jono Yao MD - 11/25/2024 [facility] Cardiology [address] [facility] [address] [phone] [facility] [address] [address] P:[phone] P:[phone] Echocardiographic Report Patient Name: GEOVANNI ZAVALAIzzy : 1970 Study Date: 11/24/2024 11:12:41 AM Gender: M Tech: Location: [facility] Provider: PHILLIP MERAZ Height(Cm): 175 BSA: 2.07 [...] FINDINGS: Interpretation Site: Exam was interpreted at [facility]. Left Ventricle: Normal left ventricular systolic function. [...] MD CV ECHO PROCEDURES Final Result * Extended/Usp Holter Patch (>48 hours up to 7 days) (11/02/2024 1:37 PM CDT) Anatomical Region Laterality Modality Electrocardiogra phy Narrative 11/17/2024 8:11 AM CDT AMBULATORY INTERCEPTOR OPERATOR REPORT Patient Name: Geovanni Zavala Date of [...] Note Phillip Meraz MD - 11/17/2024 AMBULATORY INTERCEPTOR OPERATOR REPORT Patient Name: Geovanni Zavala Date of [...] OPEN ACCESS [place] OPEN ACCESS Care Teams Mission Systems Engineer Relationship Specialty Start Date End Date Shania Burks PA [address] [place] [id number] PCP - General Family Practice 09/20/22
--- OUTSIDE RECORDS SUMMARY | 2024-12-07 11:33 | XMS_ITS | Clinical Summary ---
Author Organization [facility] Address [address] [facility] [place] [address] Phone Care Team Providers Care Automation Qa Lead Name Role Phone Unavailable Primary Care Provider [...]
--- OUTSIDE RECORDS SUMMARY | 2024-12-07 11:33 | XMS_ITS | Clinical Summary ---
Author Organization [facility] Address [address] [place] [address] Care Team Providers Care Hvac Mechanic Name Role Phone Shania Burks Primary Care Provider [phone] Allergies Active Allergy Reactions Criticality Noted Date [...] at knee, left 03/05/2024 Degenerative superior labral ykrvawne-hj-criaqpoqw (SLAP) tear of left shoulder 12/30/2023 Abnormal [...] 12/01/2024 Telephone [facility] Cardiology [address] [facility] [address] [place] [phone] Valentine Meraz MD 11/30/2024 2:00 PM CDT Ancillary Procedure [facility] Cardiology [address] [place] [address] [address] [place] [phone] Tachycardia, unspecified 11/24/2024 11:15 AM CDT Ancillary Procedure [facility] Cardiology [address] [place] [address] [place] [phone] Tachycardia, unspecified 11/17/2024 Telephone [facility] Cardiology [address] [place] [address] [place] [phone] Valentine Meraz MD 11/13/2024 Telephone [facility] Cardiology [address] [place] [address] [place] [phone] Valentine Meraz MD 11/02/2024 2:30 PM CDT Ancillary Procedure [facility] Cardiology [address] [place] [address] [place] [phone] Tachycardia, unspecified 11/02/2024 1:15 PM CDT Office Visit [facility] Cardiology [address] [place] [address] [place] [phone] Valentine Meraz MD Essential (primary) hypertension; Tachycardia, [...] on file Legal 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 Gender Identity Male 03/05/2024 6:36 AM CDT Sexual Orientation Not on file 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 End 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[employer] 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 on file N ot [...] this topic Medical Devices Implanted Type Area Wage Conciliator Device Identifier Shelf Expiration Date Model / Serial / Lot [employer] System Biceps [place] Slotted Drill Guide 1.9mm Drill [employer] Ar-3670 - S0 - [id number] Implanted:Qty: 1 on 01/16/2024 by Guido Hernandez MD at [facility] Left: Shoulder [employer] 11/18/2028 AR-3670 / 0 / [id number] Procedures Procedure Name Priority Date/Time Associated Diagnosis Comments STRESS TEST ONLY TREADMILL Routine 11/30/2024 8:47 AM CDT Tachycardia, unspecified TRANSTHORACIC ECHO (TTE) COMPLETE W DOPPLER/CF WO CONTRAST Routine 11/24/2024 11:24 AM CDT Tachycardia, unspecified EXTENDED/PENITENTIARY HOLTER PATCH (>48 HOURS UP TO 7 [...] to complete this document. Jono Yao MD, [facility] us Valentine Meraz MD CV STRESS PROCEDURES Final Resul t * TRANSTHORACIC ECHO (TTE) COMPLETE W DOPPLER/CF WO CONTRAST (11/24/2024 11:24 AM CDT) Estimated EF 60-65 % CONS SCIMAGE EF Mod BP 60 % CONS SCIMAGE Anatomical Region Laterality Modality Ultrasound 11/24/2024 11:1 2 AM CDT Narrative 11/25/2024 8:14 AM CDT [facility] Cardiology [address] [facility] [address] [id number] [address] [facility] [address], [place] [address] P:[phone] P:[phone] Echocardiographic Report Patient Name: SAUMYA ZAVALAIzzy : 1970 Study Date: 11/24/2024 11:12:41 AM Gender: M Tech: Location: [place] Ref Provider: VALENTINE MERAZ Height(Cm): 175 BSA: [...] FINDINGS: Interpretation Site: Exam was interpreted at [facility]. Left Ventricle: Normal left ventricular systolic [...] Group Cardiology [address], [place] [address] [address], [place] [address] P:[phone] P:[phone] Echocardiographic Report Patient Name: SAUMYA ZAVALA D : 1970 Study Date: 11/24/2024 11:12:41 AM Gender: M Tech: Location: [facility] Provider: VALENTINE MERAZ Height(Cm): 175 BSA: 2.07 [...] FINDINGS: Interpretation Site: Exam was interpreted at [facility]. Left Ventricle: Normal left ventricular systolic [...] MD CV ECHO PROCEDURES Final Result * Extended/Fci Holter Patch (>48 hours up to 7 days) (11/02/2024 1:37 PM CDT) Anatomical Region Laterality Modality Electrocardiogra phy Narrative 11/17/2024 8:11 AM CDT AMBULATORY AUTO RENTAL SUPERVISOR REPORT Patient Name: Saumya Zavala Date of [...] Note Valentine Meraz MD - 11/17/2024 AMBULATORY AUTO RENTAL SUPERVISOR REPORT Patient Name: Saumya Zavala Date of [...] Final Result from Last 3 Months Insurance [email or web address] OPEN ACCESS [place] OPEN ACCESS Care Teams Hvac Mechanic Relationship Specialty Start Date End Date Shania Burks PA [address] [place] [id number] PCP - General Family Practice 09/20/22
--- NOTE | 2024-12-07 12:03 | ECG_ITS ---
Test Date: 2024-12-07 12:06:14 Measurements Intervals Spray Rate: 55 P: 43 CO: 173 QRS: 4 QRSD: 73 T: 4 QT: 348 QTc: 333 Interpretive Statements SINUS BRADYCARDIA MODERATE VOLTAGE CRITERIA FOR LVH, CONSIDER NORMAL VARIANT [MEETS CRITERIA IN ONE OF: R(aVL), S(V1), R(V5), R(V5/V6)+S(V1)] Compared to ECG 12/07/2024 09:26:56 No significant changes Electronically Signed On 12-07-2024 12:29:12 CDT by Phillip Meraz M.D.
[2024-12-07 12:17] LABS: D Dimer < 0.27 ug/mL (<0.48)
[2024-12-07 12:23] LABS: Troponin I < 0.012 ng/mL (0.000-0.034)
--- NOTE | 2024-12-07 12:45 | PC.NURSE ---
Discussed with EDP, Dr. Ashraf and discussed that patient is not having any chest pain at this time. EDP aware that Nitro was not given.
[2024-12-07 13:10] LABS: Add Urine Microscopic? NO; Appearance Urine Clear (Clear); Bilirubin Urine Negative (Negative); Blood Urine Negative (Negative); Color Urine Yellow (Yellow); Glucose Urine UA Negative (Negative); Ketones Urine Negative (Negative); Leukocyte Esterase Ur Negative LEU/UL (Negative); Nitrate Urine Negative (Negative); Protein Urine Negative (Negative); Specific Grav Ur 1.007 (1.001-1.035); Urobilinogen Urine 0.2 mg/dL (<2.0)
[2024-12-07 13:35] LABS: Influenza A QL RT-PCR Negative (Negative); Influenza B QL RT-PCR Negative (Negative); RSV RNA, RT-PCR Negative (Negative); SARS-CoV-2 RNA PCR Negative (Negative)
[2024-12-07] MEDS: SODIUM CHLORIDE 0.9% IV 1,000 ML 999 ML IV CONT (15:35)
[2024-12-07 16:00] LABS: Troponin I < 0.012 ng/mL (0.000-0.034)
--- NOTE | 2024-12-07 17:18 | ADMGEN ---
This patient, Geovanni Zavala, was admitted to IMU Room 206-01. Patient/family oriented to hospital policies and general routines including ID bracelet, bed and alarms, visiting hours, pain management, procedures, bathroom and other care routines, personal items, smoking policy, room service/diet, and visiting hours. Information on how to activate the Rapid Response Team has been discussed. Patient/Family are encouraged to report perceived risks to care and to ask questions if they do not understand what they are told or what they should do. Pt head to toe assessment completed and documented. Computer assessment completed and documented. Pt voiced no complaints or concerns at this time. Call light and personal items in reach. bed in low and locked position. Will continue to monitor. Alen Millan RN
--- NOTE | 2024-12-07 17:58 | P.HP_ITS ---
H&P: HPI History of Present Illness Date/Time: 12/07/24 17:58 Chief Complaint: Chest pain Narrative: 54-year-old male past medical history of anxiety, hyperlipidemia, hypertension and MILE presents the hospital complaining of chest pain. Patient states that he had a outpatient stress test and echocardiogram with Dr. Meraz. He states that Dr. Meraz has start him on metoprolol with hopes that the chest pain would resolve. However if the metoprolol did not help with patient's issues he was going to do a planned catheterization. Patient states that his general malaise, dizziness when he stands and heart palpitations. He denies nausea or vomiting CBC, PTT INR and CMP within normal limits, D-dimer within normal limits, baseline and 3 hour troponin negative, UA noninfective, influenza A/B RSV and COVID negative. Chest x-ray shows no acute cardiopulmonary process. CTA chest abdomen pelvis show no PE no aortic dissection, however the patient does have clonic diverticulosis. EKG shows sinus bradycardia at a rate of 55. Review of Systems Review of Systems: 12 systems were reviewed and are negativ e except for as per HPI. 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 Anxiety Kidney stones Mild acid reflux Wears glasses MILE (obstructive sleep apnea) HTN (hypertension) Surgical History Surgical History History of shoulder surgery left bicep relocation 01/16/24 History of hand surgery Left thumb and Left pinky and left middle finger History of orchiectomy History of removal of retained hardware History of vasectomy History of appendectomy Family History Family History (Updated 12/07/24 @ 17:04 by Yadira Millan RN) Father HLD (hyperlipidemia) Hypertension Mother HLD (hyperlipidemia) Hypertension Kidney disorder Sibling Colon polyp Reflux esophagitis Sibling Hypertension Social History Social History Social History: 09/25/24 very confident with medical forms 12/01/24 patient declined SDOH Smoking status: Never smoker Tobacco type: cigarettes Second hand tobacco smoke exposure: No Additional smoking assessment comments: Smoked for 15 years and quit approx 15 years ago. 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 [employer] Gender identity (if verbalized by the patient): Male Sexual Orientation (if Verbalized by the Patient): Straight or Heterosexual Spiritual care concerns: No Meds Home Medications and Allergies Home Medications ?Medication ?Instructions ?Recorded ?Confirmed ?Type famotidine 20 mg tablet 20 mg PO BID 02/27/22 12/07/24 History cholecalciferol (vitamin D3) 25 25 mcg PO DAILY 01/08/23 12/07/24 History mcg (1,000 unit) capsule multivitamin with minerals-folic 1 tablet PO DAILY 01/08/23 12/07/24 History acid 0.4 mg tablet syringe with needle, safety 3 mL #100 ea 02/07/24 12/07/24 Rx 23 gauge x 1 bupropion HCl 300 mg 24 hr tablet, 300 mg PO QAM #90 tabs 09/14/24 12/07/24 Rx extended release (Wellbutrin XL) clonazepam 1 mg tablet 0.5 - 1 mg (0.5 - 1 x 1 mg) PO BID 09/14/24 12/07/24 Rx #45 tabs testosterone cypionate 200 mg/mL 125 mg (0.625 mL) IM WEEKLY #4 mL 10/05/24 12/07/24 Rx intramuscular oil sildenafil 100 mg tablet (Viagra) 100 mg PO DAILY PRN sexual 11/16/24 12/07/24 Rx activity #10 tabs lisinopril 20 mg tablet 20 mg PO DAILY #90 tabs 11/23/24 12/07/24 Rx aspirin 81 mg tablet,delayed 81 mg PO DAILY 12/07/24 12/07/24 History release (Adult Aspirin Regimen) metoprolol succinate 25 mg 25 mg PO DAILY 12/07/24 12/07/24 History tablet,extended release 24 hr rosuvastatin 10 mg tablet (Crestor) 10 mg PO DAILY 12/07/24 12/07/24 History Allergies Allergy/AdvReac Type Severity Reaction Status Date / Time morphine Allergy Severe Anaphylaxis Verified 12/07/24 17:00 codeine AdvReac Severe Nausea Verified 12/07/24 17:00 dizziness Vital Signs Vital Signs - 24 hr 12/07/24 09:23 12/07/24 13:10 12/07/24 14:52 Temperature 97.7 F Pulse Rate 60 57 L 60 Respiratory Rate 13 17 Blood Pressure 144/91 H 92/68 L 99/71 L Pulse Oximetry 94 97 Oxygen Delivery Room Air 12/07/24 14:56 12/07/24 15:00 12/07/24 16:35 Temperature 98.3 F Pulse Rate 68 73 62 Respiratory Rate 16 Blood Pressure 115/77 117/84 97/65 L Pulse Oximetry 95 Oxygen Delivery 12/07/24 17:32 Temperature Pulse Rate Respiratory Rate Blood Pressure Pulse Oximetry Oxygen Delivery Room Air Exam Narrative: General: well appearing, appears stated age. HEENT: normocephalic, atraumatic. Mucous membranes moist. EOMI, PERRLA, bilateral sclera anicteric, no conjunctival injection. Neck supple without JVD, lymphadenopathy, or bruit. Respiratory: clear to ascultation bilaterally. No rales/rhonic/wheezes. Cardiovascular: Regular rate and rhythm, normal S1-S2 upon ascultation. No murmurs, rubs, or clicks. PMI is nondisplaced, capillary refill less than 3 second. Abdomen: Soft, round, no pulsatile masses, nondistended and nontender. No rebound, no guarding. No CVA tenderness, no hepatosplenomegaly. Bowel sounds present to all four quadrants. No high pitch or tinkling sounds, resonant to percussion. Extremities: No cyanosis, clubbing, or edema present. Pulses are palpable 2/2. Active ROM to all four extremities. Neuro: Alert and orientated x 4. PERRLA. Cranial nerves 2-12 intact without focal deficit. Skin: Warm, dry, and intact, without rash, erythema, or lesion. Psych: pleasant, cooperative, normal speech, normal affect, no hallucinations, no dysarthia H&P: Results Labs Labs: Short CBC 12/07/24 Range/Units 09:33 WBC 8.5 (4.5-10.0) K/mm3 Hgb 17.0 (14.0-18.0) g/dL Hct 53.9 H (42.0-52.0) % Plt Count 200 (150-375) k/mm3 BMP 12/07/24 09:33 Sodium 140 Potassium 4.4 Chloride 104 Carbon Dioxide 27 BUN 20 Creatinine 1.24 Glucose 105 Calcium 8.8 Cardiac Enzymes 12/07/24 12/07/24 12/07/24 Range/Units 09:33 11:53 15:30 Troponin I < 0.012 < 0.012 < 0.012 (0.000-0.034) ng/mL Liver Function 12/07/24 Range/Units 09:33 Total Bilirubin 0.9 (0.2-1.3) mg/dL AST 29 (17-59) U/L ALT 26 (6-50) U/L Alkaline Phosphatase 41 (38-126) U/L Albumin 4.4 (3.5-5.1) g/dL Urine 12/07/24 Range/Units 12:49 Urine Color Yellow (Yellow) Urine Appearance Clear (Clear) Urine pH 6.0 (5.0-9.0) Ur Specific [place] 1.007 (1.001-1.035) Urine Protein Negative (Negative) mg/dL Urine Glucose (UA) Negative (Negative) mg/dL Assessment and Plan Assessment and plan (1) Angina pectoris: Code(s): I20.9 - Angina pectoris, unspecified Status: Acute Assessment and Plan: Cardiology consulted NPO midnight for possible procedure Nitro as needed Trend troponins Continue metoprolol (2) Dyslipidemia (high LDL; low HDL): Code(s): E78.5 - Hyperlipidemia, unspecified Status: Acute Assessment and Plan: Patient states that he has been started medications yet (3) HTN (hypertension): Code(s): I10 - Essential (primary) hypertension Status: Acute Assessment and Plan: Continue home med (4) Diverticulosis: Code(s): K57.90 - Diverticulosis of intestine, part unspecified, without perforation or abscess without bleeding Status: Acute Assessment and Plan: Stool softener (5) Anxiety: Code(s): F41.9 - Anxiety disorder, unspecified Status: Acute Assessment and Plan: Continue home meds L Quality VTE Prophylaxis VTE prophylaxis: mechanical ordered Hospitalist MIPS Advance Care Plan I have confirmed that the patient's Advanced Care Plan is present, code status is documented, or surrogate decision maker is listed in patient medical record.: Yes Medication Reconciliation I have utilized all available resources to obtain, update and review the patients current medications (includes all prescriptions, OTC, herbals, cannabis, and nutritional supplements).: Yes
[2024-12-07] MEDS: ROSUVASTATIN 10 MG TABLET PO (20:56)
[2024-12-07] MEDS: clonazePAM (*CRX) 0.5 MG TABLET PO (20:56)
[2024-12-07] MEDS: FAMOTIDINE 20 MG TABLET PO (20:57)
[2024-12-08] VITALS (26 sets, daily range): BP systolic 91–101; BP diastolic 51–67; PULSE 56–70; RESP 12–20; TEMP 36.4–37; O2SAT 91–96
[2024-12-08 04:36] LABS: Basophils Percent Auto 0.5 % (0.2-1.2); Eosinophils Absolute Auto 0.2 K/mm3 (0-0.3); Eosinophils Percent Auto 2.3 % (0-4.4); Hematocrit 52.5 % (42.0-52.0); Hemoglobin 15.9 g/dL (14.0-18.0); Immature Granulocyte Absolute 0.01 K/mm3 (0.00-0.031); Immature Granulocyte Percent A 0.1 % (0-0.5); Lymphocytes Absolute Auto 3.02 K/mm3 (0.9-3.2); Lymphocytes Percent Auto 38.8 % (18.3-44.2); Mean Corpuscular HGB Conc 30.3 g/dl (32-36); Mean Corpuscular Volume 89.1 fl (80-100); Mean Platelet Volume 9.4 fl (7.4-10.4); Monocytes Absolute Auto 0.6 K/mm3 (0.1-0.6); Monocytes Percent Auto 7.8 % (2.6-8.5); Neutrophils Absolute Auto 3.9 K/mm3 (1.3-6.7); Neutrophils Percent Auto 50.5 % (45.5-73.1); Platelet Count Result 180 k/mm3 (150-375); Red Blood Count 5.89 M/mm3 (4.6-6.20); Red Cell Distribution Width 13.5 % (11.5-14.5); White Blood Count 7.8 K/mm3 (4.5-10.0)
[2024-12-08 04:52] LABS: Anion Gap 4 mmol/L (4-12); Blood Urea Nitrogen 18 mg/dL (9-20); Calcium 8.2 mg/dL (8.4-10.2); Carbon Dioxide 31 mmol/L (22-30); Chloride 104 mmol/L (98-107); Estimated CRCL calculation 57 ml/min; Estimated Glomerular Filt Rate 57; Glucose 87 mg/dL (65-110); Potassium 4.3 mmol/L (3.4-5.0); Sodium 139 mmol/L (137-145)
[2024-12-08] MEDS: buPROPion HCL XL (24 HR) 150 MG TABCR 300 MG PO (09:28)
[2024-12-08] MEDS: METOPROLOL SUCCINATE EXT REL 25 MG TABCR PO (09:29)
[2024-12-08] MEDS: ASPIRIN 81 MG ENTERIC TABLET PO (09:29)
[2024-12-08] MEDS: lisinopriL 20 MG TABLET PO (09:29)
[2024-12-08] MEDS: clonazePAM (*CRX) 0.5 MG TABLET 1 MG PO (09:30)
[2024-12-08] MEDS: FAMOTIDINE 20 MG TABLET PO (09:30)
--- NOTE | 2024-12-08 10:02 | PM.CNCAR ---
Assessment and Plan Assessment and plan (1) Angina pectoris: Code(s): I20.9 - Angina pectoris, unspecified Status: Acute Plan 1. Chest pain 2. Hypertension 3. Hyperlipidemia PLAN -Troponins are negative. EKG without ischemic changes. Reviewed patient's recent cardiac testing as noted in HPI. Discussed options for further evaluation including outpatient coronary CTA vs cardiac catheterization. Discussed risks vs benefits of both options. After patient centered discussion, will proceed with [facility] today. Patient to remain NPO for procedure. Further recommendations and plan pending results of [facility]. -Continue ASA 81mg once daily. -Continue Atorvastatin. -Continue Metoprolol. -Continue Lisinopril. History of Present Illness History of Present Illness Consult date/time: 12/08/24 10:02 Requesting physician: Arabella Ashraf MD Consult reason: chest pain Reason For Visit: angina, HEART score 5 Narrative: We are consulted for chest pain. Geovanni is a 54 year old male patient of Dr. Young who presented to [facility] for chest pain. [place] like his blood pressure and heart rate were going down yesterday. Chest pain feels like a pressure and is intermittent. Not associated with exertion. He is currently chest pain free. Troponins are negative x 3. EKG without ischemic changes. Outside records from [facility] were personally reviewed and noted as below. TTE 11/24/2024: Normal LV systolic function. No focal wall motion abnormalities. Normal LV size. Normal LV wall thickness. Grade 1 diastolic dysfunction. LVEF 60-65%. Mild biatrial enlargement. Mild MR, mild TR, mild [place]. Treadmill stress test 11/30/2024: Positive for ischemia by EKG criteria at 107% of maximum age predicted heart rate. 1.5-2mm horizontal inferior ST segment depression consistent with ischemia. Average exercise capacity for patient's age. Limiting dyspnea. Prolonged heart rate recovery time consistent with cardiac deconditioning. Patient was started on medical therapy with Metoprolol and plan to reassess his symptoms. Patient reports fatigue since starting the Metoprolol. 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 Anxiety Kidney stones Mild acid reflux Wears glasses MILE (obstructive sleep apnea) HTN (hypertension) Surgical History Surgical History History of shoulder surgery left bicep relocation 01/16/24 History of hand surgery Left thumb and Left pinky and left middle finger History of orchiectomy History of removal of retained hardware History of vasectomy History of appendectomy Family History Family History Father HLD (hyperlipidemia) Hypertension Mother HLD (hyperlipidemia) Hypertension Kidney disorder Sibling Colon polyp Reflux esophagitis Sibling Hypertension Social History Social History Social History: 09/25/24 very confident with medical forms 12/01/24 patient declined SDOH Smoking status: Never smoker Tobacco type: cigarettes Second hand tobacco smoke exposure: No Additional smoking assessment comments: Smoked for 15 years and quit approx 15 years ago. 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 [employer] Gender identity (if verbalized by the patient): Male Sexual Orientation (if Verbalized by the Patient): Straight or Heterosexual Spiritual care concerns: No Meds Home Medications and Allergies Home Medications ?Medication ?Instructions ?Recorded ?Confirmed ?Type famotidine 20 mg tablet 20 mg PO BID 02/27/22 12/07/24 History cholecalciferol (vitamin D3) 25 25 mcg PO DAILY 01/08/23 12/07/24 History mcg (1,000 unit) capsule multivitamin with minerals-folic 1 tablet PO DAILY 01/08/23 12/07/24 History acid 0.4 mg tablet syringe with needle, safety 3 mL #100 ea 02/07/24 12/07/24 Rx 23 gauge x 1 bupropion HCl 300 mg 24 hr tablet, 300 mg PO QAM #90 tabs 09/14/24 12/07/24 Rx extended release (Wellbutrin XL) clonazepam 1 mg tablet 0.5 - 1 mg (0.5 - 1 x 1 mg) PO BID 09/14/24 12/07/24 Rx #45 tabs testosterone cypionate 200 mg/mL 125 mg (0.625 mL) IM WEEKLY #4 mL 10/05/24 12/07/24 Rx intramuscular oil sildenafil 100 mg tablet (Viagra) 100 mg PO DAILY PRN sexual 11/16/24 12/07/24 Rx activity #10 tabs lisinopril 20 mg tablet 20 mg PO DAILY #90 tabs 11/23/24 12/07/24 Rx aspirin 81 mg tablet,delayed 81 mg PO DAILY 12/07/24 12/07/24 History release (Adult Aspirin Regimen) metoprolol succinate 25 mg 25 mg PO DAILY 12/07/24 12/07/24 History tablet,extended release 24 hr rosuvastatin 10 mg tablet (Crestor) 10 mg PO DAILY 12/07/24 12/07/24 History Allergies Allergy/AdvReac Type Severity Reaction Status Date / Time morphine Allergy Severe Anaphylaxis Verified 12/07/24 17:00 codeine AdvReac Severe Nausea Verified 12/07/24 17:00 dizziness Vital Signs Vital Signs - 24 hr 12/07/24 13:10 12/07/24 14:52 12/07/24 14:56 Temperature Pulse Rate 57 L 60 68 Respiratory Rate 17 Blood Pressure 92/68 L 99/71 L 115/77 Pulse Oximetry 97 Oxygen Delivery Fraction of Inspired Oxygen 12/07/24 15:00 12/07/24 16:35 12/07/24 17:32 Temperature 36.8 C Pulse Rate 73 62 Respiratory Rate 16 Blood Pressure 117/84 97/65 L Pulse Oximetry 95 Oxygen Delivery Room Air Fraction of Inspired Oxygen 12/07/24 18:00 12/07/24 20:00 12/07/24 20:17 Temperature 36.6 C Pulse Rate 67 67 64 Respiratory Rate 16 Blood Pressure 94/60 L Pulse Oximetry 93 Oxygen Delivery Fraction of Inspired Oxygen 12/07/24 20:55 12/07/24 20:55 12/07/24 22:00 Temperature Pulse Rate 64 58 L Respiratory Rate 16 Blood Pressure Pulse Oximetry 93 93 Oxygen Delivery Room Air Room Air Fraction of Inspired Oxygen 21 12/07/24 23:57 12/08/24 00:00 12/08/24 00:18 Temperature 37.0 C Pulse Rate 59 L 60 64 Respiratory Rate 16 20 Blood Pressure 100/52 L Pulse Oximetry 93 95 Oxygen Delivery Room Air Fraction of Inspired Oxygen 12/08/24 02:00 12/08/24 03:44 12/08/24 04:00 Temperature 36.9 C Pulse Rate 56 L 70 57 L Respiratory Rate 20 Blood Pressure 99/51 L Pulse Oximetry 96 Oxygen Delivery Fraction of Inspired Oxygen 12/08/24 04:06 12/08/24 06:00 12/08/24 08:00 Temperature 36.4 C Pulse Rate 70 58 L 60 Respiratory Rate 20 12 Blood Pressure 96/64 L Pulse Oximetry 96 92 Oxygen Delivery Room Air Fraction of Inspired Oxygen 12/08/24 09:29 Temperature Pulse Rate 60 Respiratory Rate Blood Pressure Pulse Oximetry Oxygen Delivery Fraction of Inspired Oxygen Exam Const: General: comfortable and no acute distress HENMT: Mouth: Yes moist mucous membranes Eyes: General: appearance normal, both eyes and all related structures Sclera: sclerae normal Resp: Effort & Inspection: normal respiratory effort Cardio: Rate: regular rate Rhythm: regular rhythm Skin: General skin exam: normal color Neuro: Speech: normal speech Psych: Mental Status: mental status grossly normal Affect: normal affect Results Labs and Meds 12/08/24 04:20 12/08/24 04:20 Lab results: Cardiac Enzymes 12/07/24 12/07/24 12/07/24 Range/Units 09:33 11:53 15:30 Troponin I < 0.012 < 0.012 < 0.012 (0.000-0.034) ng/mL CBC 12/08/24 Range/Units 04:20 WBC 7.8 (4.5-10.0) K/mm3 RBC 5.89 (4.6-6.20) M/mm3 Hgb 15.9 (14.0-18.0) g/dL Hct 52.5 H (42.0-52.0) % Plt Count 180 (150-375) k/mm3 Lymph # (Auto) 3.02 (0.9-3.2) K/mm3 Sac # (Auto) 0.6 (0.1-0.6) K/mm3 Eos # (Auto) 0.2 (0-0.3) K/mm3 Baso # (Auto) 0.0 (0.0-0.1) K/mm3 Comprehensive Metabolic Panel 12/08/24 Range/Units 04:20 Sodium 139 (137-145) mmol/L Potassium 4.3 (3.4-5.0) mmol/L Chloride 104 (98-107) mmol/L Carbon Dioxide 31 H (22-30) mmol/L BUN 18 (9-20) mg/dL Creatinine 1.31 H (0.7-1.3) mg/dL Glucose 87 (65-110) mg/dL Calcium 8.2 L (8.4-10.2) mg/dL Intake and Output 12/07/24 12/08/24 12/08/24 23:59 07:59 15:59 Intake Total 1840 550 Output Total 350 Balance 1490 550 Intake: IV 1000 Sodium Chloride 0.9% IV 1,000 1000 ml @ 999 mls/hr IV CONT .Q1H1M STA Rx#:[id number] Oral 840 550 Output: Urine 350 Other: # Unmeasured Voids 3 Patient Weight 12/08/24 23:59 Weight 85 kg
--- NOTE | 2024-12-08 10:12 | WPDMODSED ---
Moderate Sedation Note-Pt Data Patient Data Diagnosis: Chest pain Present Complaint: Chest pain Procedure to be performed/Plan: Coronary angiography, left heart cath, +/- PCI Allergies Allergy/AdvReac Type Severity Reaction Status Date / Time morphine Allergy Severe Anaphylaxis Verified 12/07/24 17:00 codeine AdvReac Severe Nausea Verified 12/07/24 17:00 dizziness Home Medications ?Medication ?Instructions ?Recorded ?Confirmed ?Type famotidine 20 mg tablet 20 mg PO BID 02/27/22 12/07/24 History cholecalciferol (vitamin D3) 25 25 mcg PO DAILY 01/08/23 12/07/24 History mcg (1,000 unit) capsule multivitamin with minerals-folic 1 tablet PO DAILY 01/08/23 12/07/24 History acid 0.4 mg tablet syringe with needle, safety 3 mL #100 ea 02/07/24 12/07/24 Rx 23 gauge x 1 bupropion HCl 300 mg 24 hr tablet, 300 mg PO QAM #90 tabs 09/14/24 12/07/24 Rx extended release (Wellbutrin XL) clonazepam 1 mg tablet 0.5 - 1 mg (0.5 - 1 x 1 mg) PO BID 09/14/24 12/07/24 Rx #45 tabs testosterone cypionate 200 mg/mL 125 mg (0.625 mL) IM WEEKLY #4 mL 10/05/24 12/07/24 Rx intramuscular oil sildenafil 100 mg tablet (Viagra) 100 mg PO DAILY PRN sexual 11/16/24 12/07/24 Rx activity #10 tabs lisinopril 20 mg tablet 20 mg PO DAILY #90 tabs 11/23/24 12/07/24 Rx aspirin 81 mg tablet,delayed 81 mg PO DAILY 12/07/24 12/07/24 History release (Adult Aspirin Regimen) metoprolol succinate 25 mg 25 mg PO DAILY 12/07/24 12/07/24 History tablet,extended release 24 hr rosuvastatin 10 mg tablet (Crestor) 10 mg PO DAILY 12/07/24 12/07/24 History Current Medications: Active Medications Acetaminophen (Acetaminophen 325 Mg Tablet) 650 mg PO Q4H PRN PRN Reason: Mild Pain (1-3) or Fever Aspirin (Aspirin 81 Mg Enteric Tablet) 81 mg PO DAILY [facility] Last Admin: 12/08/24 09:29 Dose: 81 mg Bupropion HCl (Bupropion Hcl Xl (24 Hr) 150 Mg Tabcr) 300 mg PO QAM [facility] Last Admin: 12/08/24 09:28 Dose: 300 mg Clonazepam (Clonazepam (*Crx) 0.5 Mg Tablet) 0.5 mg PO [facility] Last Admin: 12/07/24 20:56 Dose: 0.5 mg Clonazepam (Clonazepam (*Crx) 0.5 Mg Tablet) [facility] Last Admin: 12/08/24 09:30 Dose: 1 mg Famotidine (Famotidine 20 Mg Tablet) 20 mg PO Q12HR [facility] Last Admin: 12/08/24 09:30 Dose: 20 mg Lisinopril (Lisinopril 20 Mg Tablet) 20 mg PO DAILY [facility] Last Admin: 12/08/24 09:29 Dose: 20 mg Metoprolol Succinate (Metoprolol Succinate Ext Rel 25 Mg Tabcr) 25 mg PO DAILY [facility] Last Admin: 12/08/24 09:29 Dose: 25 mg Nitroglycerin (Nitroglycerin Sl 0.4 Mg Tablet) 0.4 mg SUBLINGUAL Q5MIN PRN PRN Reason: Chest Pain Ondansetron HCl (Ondansetron Inj 4 Mg/2 Ml Vial) 4 mg IV PUSH Q4H PRN PRN Reason: Nausea Rosuvastatin Calcium (Rosuvastatin 10 Mg Tablet) 10 mg PO [facility] Last Admin: 12/07/24 20:56 Dose: 10 mg Sedation/Anesthesia: No previous sedation/anesthesia problems (including family history). 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 Anxiety Kidney stones Mild acid reflux Wears glasses MILE (obstructive sleep apnea) HTN (hypertension) Surgical History Surgical History History of shoulder surgery left bicep relocation 01/16/24 History of hand surgery Left thumb and Left pinky and left middle finger History of orchiectomy History of removal of retained hardware History of vasectomy History of appendectomy Family History Family History Father HLD (hyperlipidemia) Hypertension Mother HLD (hyperlipidemia) Hypertension Kidney disorder Sibling Colon polyp Reflux esophagitis Sibling Hypertension Social History Social History Social History: 09/25/24 very confident with medical forms 12/01/24 patient declined SDOH Smoking status: Never smoker Tobacco type: cigarettes Second hand tobacco smoke exposure: No Additional smoking assessment comments: Smoked for 15 years and quit approx 15 years ago. 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 [employer] Gender identity (if verbalized by the patient): Male Sexual Orientation (if Verbalized by the Patient): Straight or Heterosexual Spiritual care concerns: No Mod Sed Physical Exam Physical Exam Pre Procedural Exam: Normal: Appearance, Lungs, Heart Rate, Heart Rhythm, Neuro Exam, Extremities and Skin Hours since solid foods: 12 Hours since liquid intake: 8 Mallampati Classification: class III Internal Medicine - PN: Obj Da Vital Signs Vital Signs: Vital Signs - 24 hr 12/07/24 13:10 12/07/24 14:52 12/07/24 14:56 Temperature Pulse Rate 57 L 60 68 Respiratory Rate 17 Blood Pressure 92/68 L 99/71 L 115/77 Pulse Oximetry 97 Oxygen Delivery Fraction of Inspired Oxygen 12/07/24 15:00 12/07/24 16:35 12/07/24 17:32 Temperature 36.8 C Pulse Rate 73 62 Respiratory Rate 16 Blood Pressure 117/84 97/65 L Pulse Oximetry 95 Oxygen Delivery Room Air Fraction of Inspired Oxygen 12/07/24 18:00 12/07/24 20:00 12/07/24 20:17 Temperature 36.6 C Pulse Rate 67 67 64 Respiratory Rate 16 Blood Pressure 94/60 L Pulse Oximetry 93 Oxygen Delivery Fraction of Inspired Oxygen 12/07/24 20:55 12/07/24 20:55 12/07/24 22:00 Temperature Pulse Rate 64 58 L Respiratory Rate 16 Blood Pressure Pulse Oximetry 93 93 Oxygen Delivery Room Air Room Air Fraction of Inspired Oxygen 21 12/07/24 23:57 12/08/24 00:00 12/08/24 00:18 Temperature 37.0 C Pulse Rate 59 L 60 64 Respiratory Rate 16 20 Blood Pressure 100/52 L Pulse Oximetry 93 95 Oxygen Delivery Room Air Fraction of Inspired Oxygen 12/08/24 02:00 12/08/24 03:44 12/08/24 04:00 Temperature 36.9 C Pulse Rate 56 L 70 57 L Respiratory Rate 20 Blood Pressure 99/51 L Pulse Oximetry 96 Oxygen Delivery Fraction of Inspired Oxygen 12/08/24 04:06 12/08/24 06:00 12/08/24 08:00 Temperature 36.4 C Pulse Rate 70 58 L 60 Respiratory Rate 20 12 Blood Pressure 96/64 L Pulse Oximetry 96 92 Oxygen Delivery Room Air Fraction of Inspired Oxygen 12/08/24 09:29 Temperature Pulse Rate 60 Respiratory Rate Blood Pressure Pulse Oximetry Oxygen Delivery Fraction of Inspired Oxygen Intake/Output Intake/Output: Intake & Output 12/05/24 12/06/24 12/07/24 12/08/24 23:59 23:59 23:59 23:59 Intake Total 1840 550 Output Total 350 Balance 1490 550 Meds/Results Medications: Active Medications Generic Name Dose Route Start Last Admin Trade Name Freq PRN Reason Stop Dose Admin Acetaminophen 650 mg 12/07/24 15:24 Acetaminophen 325 Mg Tablet PO Q4H PRN Mild Pain (1-3) or Fever Aspirin 81 mg 12/08/24 09:00 12/08/24 09:29 Aspirin 81 Mg Enteric Tablet PO 81 mg DAILY [facility] Administration Bupropion HCl 300 mg 12/08/24 09:00 12/08/24 09:28 Bupropion Hcl Xl (24 Hr) 150 Mg Tabcr PO 300 mg QAM [facility] Administration Clonazepam 0.5 mg 12/07/24 21:00 12/07/24 20:56 Clonazepam (*Crx) 0.5 Mg Tablet PO 0.5 mg HS [facility] Administration Clonazepam 1 mg 12/08/24 09:00 12/08/24 09:30 Clonazepam (*Crx) 0.5 Mg Tablet PO 1 mg QAM [facility] Administration Famotidine 20 mg 12/07/24 21:00 12/08/24 09:30 Famotidine 20 Mg Tablet PO 20 mg Q12HR [facility] Administration Lisinopril 20 mg 12/08/24 09:00 12/08/24 09:29 Lisinopril 20 Mg Tablet PO 20 mg DAILY [facility] Administration Metoprolol Succinate 25 mg 12/08/24 09:00 12/08/24 09:29 Metoprolol Succinate Ext Rel 25 Mg Tabcr PO 25 mg DAILY [facility] Administration Nitroglycerin 0.4 mg 12/07/24 15:24 Nitroglycerin Sl 0.4 Mg Tablet SUBLINGUAL Q5MIN PRN Chest Pain Ondansetron HCl 4 mg 12/07/24 15:24 Ondansetron Inj 4 Mg/2 Ml Vial IV PUSH Q4H PRN Nausea Rosuvastatin Calcium 10 mg 12/07/24 20:25 12/07/24 20:56 Rosuvastatin 10 Mg Tablet PO 10 mg HS [facility] Administration Radiology Results: ITS Impressions Chest X-Ray 12/07/24 09:57 IMPRESSION: No acute cardiopulmonary pathology. Chest/Abdomen/Pelvis CTA 12/07/24 12:57 IMPRESSION: No pulmonary embolus. No aortic dissection. Colonic diverticulosis within the descending and sigmoid colon, without surrounding inflammatory change. Labs 12/08/24 04:20 12/08/24 04:20 Labs: Laboratory Results - last 24 hr 12/07/24 12/07/24 12/07/24 11:53 12:49 15:30 WBC RBC Hgb Hct MCV MCH MCHC RDW Plt Count MPV Immature Gran % (Auto) Neut % (Auto) Lymph % (Auto) [place] % (Auto) Eos % (Auto) Baso % (Auto) Lymph # (Auto) [place] # (Auto) Eos # (Auto) Baso # (Auto) Abs Immat Gran (auto) Absolute Neuts (auto) Absolute Nucleated RBC Nucleated RBC % D-Dimer < 0.27 Sodium Potassium Chloride Carbon Dioxide Anion Gap BUN Creatinine Estim Creat Clear Calc Estimated GFR Glucose Calcium Troponin I < 0.012 < 0.012 Urine Color Yellow Urine Appearance Clear Urine pH 6.0 Ur Specific [place] 1.007 Urine Protein Negative Urine Glucose (UA) Negative Urine Ketones Negative Ur Blood (Man) Negative Urine Nitrate Negative Urine Bilirubin Negative Urine Urobilinogen 0.2 Leukocyte Esterase Rfl Negative Influenza A (RT-PCR) Negative Influenza B (RT-PCR) Negative RSV (RT-PCR) Negative SARS-CoV-2 RNA (RT-PCR) Negative 12/08/24 04:20 WBC 7.8 RBC 5.89 Hgb 15.9 Hct 52.5 H MCV 89.1 MCH 27.0 MCHC 30.3 L RDW 13.5 Plt Count 180 MPV 9.4 Immature Gran % (Auto) 0.1 Neut % (Auto) 50.5 Lymph % (Auto) 38.8 [place] % (Auto) 7.8 Eos % (Auto) 2.3 Baso % (Auto) 0.5 Lymph # (Auto) 3.02 [place] # (Auto) 0.6 Eos # (Auto) 0.2 Baso # (Auto) 0.0 Abs Immat Gran (auto) 0.01 Absolute Neuts (auto) 3.9 Absolute Nucleated RBC 0.000 Nucleated RBC % 0.0 D-Dimer Sodium 139 Potassium 4.3 Chloride 104 Carbon Dioxide 31 H Anion Gap 4 BUN 18 Creatinine 1.31 H Estim Creat Clear Calc 57 Estimated GFR 57 L Glucose 87 Calcium 8.2 L Troponin I Urine Color Urine Appearance Urine pH Ur Specific [place] Urine Protein Urine Glucose (UA) Urine Ketones Ur Blood (Man) Urine Nitrate Urine Bilirubin Urine Urobilinogen Leukocyte Esterase Rfl Influenza A (RT-PCR) Influenza B (RT-PCR) RSV (RT-PCR) SARS-CoV-2 RNA (RT-PCR) ASA Classification/Sedation ASA Classification/Sedation ASA Class: III Emergent: No Risks: Risks, benefits and alternatives explained and patient/family accepted plan for sedation. Patient re-evaluated immediately prior to sedation.
--- NOTE | 2024-12-08 10:34 | P.PCNCC_ITS ---
Cardiac Cath Procedure Note Date of procedure:: 12/08/24 Performing physician:: CATHETERIZATION LABORATORY REPORT Procedure Date: 12/08/2024 Proposal Editor: Shreya Diaz M.D., [facility]? Referring Physician: Shreya Diaz M.D. Anesthesia: Versed and Fentanyl were ordered and given in my presence at 10:40, procedure ended at 11:03. Supervision of nurse monitored moderate sedation with Versed and Fentanyl was provided for 23 minutes. Total of Versed 2mg and Fentanyl 50mcg were administered by the Oil Furnace Installer RN Aster Bowman. Pre-op Diagnosis: Coronary artery disease Post-op Diagnosis: 1. No obstructive coronary artery disease. Angiographically normal appearing coronary arteries. Slow flow noted in coronary arteries 2. Elevated left ventricular end-diastolic pressure of 26mmHg. Procedure(s): 1. Moderate sedation 2. Ultrasound-guided access of the right radial artery 3. Coronary angiography 4. Left heart cath Access Site: Right radial artery Brief History and Clinical Indications: Patient is a 54 year old male referred for [facility] for chest pain and abnormal treadmill stress test. All risks, benefits and alternatives to left heart catheterization with or without percutaneous coronary intervention was discussed at length with the patient. Risk of complications including but not limited to bleeding, infection, arrhythmia, stroke, worsening kidney function, blood loss, groin hematoma, limb loss, emergency coronary artery bypass grafting, and even were discussed with the patient and all questions were answered. The patient understood and wished to proceed. Time out called, patient name, date of , medical record number, allergies, procedure performed, identify Proposal Editor, patient and staff member concurred with accurate data, procedure carried on. Findings: LEFT HEART CATHETERIZATION FINDINGS: 1. Left main: The left main coronary artery is widely patent without any significant obstructive disease. 2. Left anterior descending: The LAD and the diagonal branches have mild luminal irregularities without any significant obstructive angiographic disease. 3. Ramus: Mild luminal irregularities. 4. Left circumflex: The LCX is a co-dominant vessel. The left circumflex artery and the main marginal branches have mild luminal irregularities without any significant obstructive angiographic disease. 5. Right coronary artery: The RCA has mild luminal irregularities without any significant obstructive angiographic disease. The RCA is a co-dominant vessel. 6. Left ventricle: A. End-diastolic pressure 26 mmHg. B. LV gram deferred. C. No significant gradient across aortic valve on catheter pullback. Description of Procedure: Informed consent signed and placed in the chart. Patient transferred to label rewinder room. Prepped and draped in usual sterile fashion. 2% lidocaine injected subcutaneously in right wrist area. 22-gauge venipuncture catheter used to access the right radial artery under ultrasound guidance. 6-FR slender sheath placed in right radial artery. Nitroglycerine and Verapamil were given intraarterial through the sheath. Versacore wire advanced under fluoroscopy 5F FL 5 diagnostic catheter engaged Left Main Coronary Artery. 5F Ultra 4 diagnostic catheter engaged Right Coronary Artery Multiple orthogonal angiogram obtained and reviewed 5F Pigtail diagnostic catheter crossed aortic valve to obtain LVEDP, LV angio gram deferred. Hemostasis was achieved by application of TR band. Disposition: Floor Plan: The patient will be monitored in the recovery area. Continue aggressive medical therapy and risk factor modification. ? Shreya Diaz M.D. Interventional Cardiology
--- NOTE | 2024-12-08 11:54 | P.DS_ITS ---
DS: Admitting Diagnosis Discharge Date 12/08/24 Admitting Diagnosis chest pain DS: Summary Hospital Course Hospital Course: per HPi: 54-year-old male past medical history of anxiety, hyperlipidemia, hypertension and MILE presents the hospital complaining of chest pain. Patient states that he had a outpatient stress test and echocardiogram with Dr. Meraz. He states that Dr. Meraz has start him on metoprolol with hopes that the chest pain would resolve. However if the metoprolol did not help with patient's issues he was going to do a planned catheterization. Patient states that his general malaise, dizziness when he stands and heart palpitations. He denies nausea or vomiting CBC, PTT INR and CMP within normal limits, D-dimer within normal limits, baseline and 3 hour troponin negative, UA noninfective, influenza A/B RSV and COVID negative. Chest x-ray shows no acute cardiopulmonary process. CTA chest abdomen pelvis show no PE no aortic dissection, however the patient does have clonic diverticulosis. EKG shows sinus bradycardia at a rate of 55. 12/08/24 Patient was seen and examined at bedside in the morning. he is feeling fine, his chest pain improving. denies abd pain , N/V. underwent cardiac cath today which was unremarkable. discuss with cardiology team . will discharge patient. needs Imdur . Dc Metoprolol. Status at Discharge Functional status at discharge: independent ambulation Overall status at discharge: patient is back to baseline Time Spent with Patient Time attestation: Total time spent providing and/or coordinating discharge services: Time spent: Greater than 30 minutes DS: Data Data Completed and Pending Labs on day of discharge: Labs from last 24 hours 12/08/24 12/07/24 12/07/24 04:20 15:30 12:49 WBC 7.8 RBC 5.89 Hgb 15.9 Hct 52.5 H MCV 89.1 MCH 27.0 MCHC 30.3 L RDW 13.5 Plt Count 180 MPV 9.4 Immature Gran % (Auto) 0.1 Neut % (Auto) 50.5 Lymph % (Auto) 38.8 [place] % (Auto) 7.8 Eos % (Auto) 2.3 Baso % (Auto) 0.5 Lymph # (Auto) 3.02 [place] # (Auto) 0.6 Eos # (Auto) 0.2 Baso # (Auto) 0.0 Abs Immat Gran (auto) 0.01 Absolute Neuts (auto) 3.9 Absolute Nucleated RBC 0.000 Nucleated RBC % 0.0 D-Dimer Sodium 139 Potassium 4.3 Chloride 104 Carbon Dioxide 31 H Anion Gap 4 BUN 18 Creatinine 1.31 H Estim Creat Clear Calc 57 Estimated GFR 57 L Glucose 87 Calcium 8.2 L Troponin I < 0.012 Urine Color Yellow Urine Appearance Clear Urine pH 6.0 Ur Specific [place] 1.007 Urine Protein Negative Urine Glucose (UA) Negative Urine Ketones Negative Ur Blood (Man) Negative Urine Nitrate Negative Urine Bilirubin Negative Urine Urobilinogen 0.2 Leukocyte Esterase Rfl Negative Influenza A (RT-PCR) Negative Influenza B (RT-PCR) Negative RSV (RT-PCR) Negative SARS-CoV-2 RNA (RT-PCR) Negative 12/07/24 11:53 WBC RBC Hgb Hct MCV MCH MCHC RDW Plt Count MPV Immature Gran % (Auto) Neut % (Auto) Lymph % (Auto) [place] % (Auto) Eos % (Auto) Baso % (Auto) Lymph # (Auto) [place] # (Auto) Eos # (Auto) Baso # (Auto) Abs Immat Gran (auto) Absolute Neuts (auto) Absolute Nucleated RBC Nucleated RBC % D-Dimer < 0.27 Sodium Potassium Chloride Carbon Dioxide Anion Gap BUN Creatinine Estim Creat Clear Calc Estimated GFR Glucose Calcium Troponin I < 0.012 Urine Color Urine Appearance Urine pH Ur Specific [place] Urine Protein Urine Glucose (UA) Urine Ketones Ur Blood (Man) Urine Nitrate Urine Bilirubin Urine Urobilinogen Leukocyte Esterase Rfl Influenza A (RT-PCR) Influenza B (RT-PCR) RSV (RT-PCR) SARS-CoV-2 RNA (RT-PCR) Discharge Plan Discharge Attending physician on discharge: Samantha Saleh Consulting providers: Phillip Meraz Discharging Clinician: Samantha Saleh Anticipated Discharge Date/Time: 12/08/24 16:00 Patient Disposition: Home Activity: as tolerated Diet: heart healthy Discharge Instructions: [facility] [address] [place] [address] DISCHARGE INSTRUCTIONS - POST RADIAL CATH Activity 1. No driving for 24 hours. 2. No lifting more than 5 lb with affected arm for 1 week. 3. May shower ( tomorrow) but no excessive soaking of affected hand/wrist (such as washing dishes), swimming pool or hot tub for 5 days. Wound Care 1. May remove arm board in the morning. 2. May remove gauze dressing in the morning and put Band-Aid over affected radial site. Keep site covered for 3 days. 3. Observe for redness, drainage, swelling or bleeding. Medications DO NOT STOP YOUR MEDICATIONS ONLY YOUR JEWEL CORNER BRUSHING MACHINE OPERATOR CAN STOP THE FOLLOWING MEDICATIONS - PLEASE CALL THE OFFICE WITH QUESTIONS. *Aspirin *Ticagrelor (Brilinta) *Atorvastatin *Lisinopril or ARB *Metoprolol tartrate or succinate *Clopidogrel (Plavix) *Prasugrel (Effient) Important Reminders 1. Keep your stent card in your wallet at all times 2. Follow a heart healthy diet paying extra attention to cholesterol and fats. 3. Stay hydrated. 4. If you have chest pain unrelieved by rest or nitroglycerin (if prescribed) call 911 immediately. 5. If you miss one dose of Brilinta (if prescribed) take a tablet at the next time due. If you miss 2 doses take a tablet when you remember and resume at the next time due. *For any other questions please call the office at [phone]. Office hours are 8AM 4:30PM Saturday through Saturday. Patient Instructions: Antibiotic Form, Moderate Sedation (DC), After Radial Heart Catheterization (GEN) Patient Language: Iraqi Stand Alone Forms: General Discharge Information Follow-up/Referrals: Shania Burks PA-C [Primary Care Provider] - 1 Week Shreya Diaz MD [Physician] - Call for Appointment Discharge Medications: New isosorbide mononitrate 30 mg tablet extended release 24 hr 30 mg PO DAILY Qty: 30 3RF Discontinued metoprolol succinate 25 mg tablet extended release 24 hr 25 mg PO DAILY No Action cholecalciferol (vitamin D3) 25 mcg (1,000 unit) Capsule 25 mcg PO DAILY multivit with min-folic acid [Adult One Daily Multivitamin] 0.4 mg Tablet 1 tablet PO DAILY aspirin [Adult Aspirin Regimen] 81 mg tablet,delayed release (DR/EC) 81 mg PO DAILY rosuvastatin [Crestor] 10 mg tablet 10 mg PO DAILY famotidine 20 mg tablet 20 mg PO BID (DME) syringe with needle, safety 3 mL 23 gauge x 1 syringe See Rx Instructions .Route Qty: 100 0RF Rx Instructions: As directed clonazepam 1 mg tablet 0.5 - 1 mg PO BID Qty: 45 2RF Rx Instructions: take 1 tab PO in am and 1/2 tab PO at hs bupropion HCl [Wellbutrin XL] 300 mg tablet extended release 24 hr 300 mg PO QAM Qty: 90 1RF testosterone cypionate 200 mg/mL oil 125 mg IM WEEKLY Qty: 4 5RF Rx Instructions: as a single dose sildenafil [Viagra] 100 mg tablet 100 mg PO DAILY PRN (Reason: sexual activity) Qty: 10 5RF Rx Instructions: administer 30 minutes to 4 hours before activity lisinopril 20 mg tablet 20 mg PO DAILY Qty: 90 1RF Date of admission: 12/07/24 16:04 Primary Care Provider: Shania Burks Admitting Provider: Samantha Saleh Attending physician on admission: Samatnha Saleh Condition: Stable
--- NOTE | 2024-12-08 13:00 | SUR.PHASEII ---
Addendum entered by Aster Bowman RN 12/08/24 14:10: This RN contacted MD Diaz to update her on pt's change in radial pulse. No orders at this time. Original Note: Right radial pulse doppled at this time due to faint pulse.
--- OUTSIDE RECORDS SUMMARY | 2024-12-09 09:00 | XMS_ITS | Continuity of Care Document ---
Author Name [facility] Organization [facility] Care Team Providers Care Beef Pusher Name Role Phone [facility] Unavailable Unavailable Problems Combined list of problems from Department of Defense and [facility] facilities. It does not include entries that were removed or entered in error. Problem Status Onset Date Problem Type Date of Resolution Comments Source Abnormal liver function Active Condition [facility] Acute bronchitis Active Condition [facility] Acute bronchitis (SNOMED CT 54192353) Active Condition [facility] Acute sinusitis Active Condition [facility] Anxiety Active Condition [facility] Benign essential hypertension Active Condition [facility] Benign hypertension (SNOMED CT 03622965) Active Condition [facility] Blurring of visual image (SNOMED CT 349989620) Active Condition [facility] Chronic bronchitis (SNOMED CT 87486568) Active Condition [facility] Chronic sinusitis Active Condition [facility] Contusion of lower leg Active Condition [facility] Diarrhea Active Condition [facility] Dizziness and giddiness (ICD-9-CM 780.4) Active Condition [facility] Edema Active Condition [facility] Ganglion of hand Active Condition [facility] Gastroesophageal reflux disease Active Condition [facility] Gingivitis Active Condition [facility] Gout Active Condition [facility] Headache Active Condition [facility] Headache * (ICD-9-CM 784.0) Active Condition [facility] Hiatal hernia (SNOMED CT 69260874) Active Condition [facility] History of calculus of kidney (SNOMED CT 095121219) Active Condition [facility] History of colonic polyp (SNOMED CT 415329813) Active Condition [facility] Hyperlipidemia [facility] Irritable bowel syndrome (SNOMED CT 17059910) Active Condition [facility] Otitis media Active Condition [facility] Overweight Active Condition [facility] Poor short-term memory (SNOMED CT 492227927) Active Condition [facility] Rash Active Condition [facility] Shoulder pain [facility] Sleep apnea Active Condition [facility] Unresolved Active Condition [facility] Upper respiratory infection Active Condition [facility] Vitamin D deficiency (SNOMED CT 66374890) Active Condition [facility] Medications Combined list of outpatient medications from Department of [facility] and [facility] facilities.Medications provided include 1) outpatient medications from the last 15 months, and 2) patient-reported medications. Medication Details Route Status Patient Instructions Prescription Expires Prescription Number Last Dispense Date Ordering Provider Order Date Order Qty Source ACETAMINOPH EN 500MG TAB TAKE ONE TABLET BY MOUTH ONE-TIME NEEDED ORAL ACTIVE YOBANY LANDEROS 2016 [facility] ASPIRIN 81MG TAB,EC TAKE ONE TABLET BY MOUTH ONCE A DAY ORAL ACTIVE CHLOE,AURA A D 2019 [facility] CHOLECALCIF JAMES 50MCG (2,000UNIT) TAB TAKE TWO TABLETS BY MOUTH ONCE A DAY ORAL ACTIVE [place] N 2017 [facility] Allergies, Adverse Reactions, Alerts Combined list of allergies from Department of [facility] and Veterans Affairs facilities. It does not include entries that were removed or entered in error. Substance Category Reaction Severity Reaction type Status Date Reported Comments Source ATORVASTATIN Drug allergy (disorder) Myalgias active [address] [place] [address] ATORVASTATIN Propensity to adverse reactions to drug (finding) Muscle pain MILD active [address] [place] [address] BUSPAR Propensity to adverse reactions to drug (finding) Anxiety MILD active 5 [facility] Buspirone Drug allergy (disorder) Anxiety active 5 [facility] BUSPIRONE HCL Drug allergy (disorder) Anxiety active 5 [facility] CODEINE Drug allergy (disorder) active 1 [facility] Codeine Drug allergy (disorder) active 1 [facility] MORPHINE Drug allergy (disorder) Respiratory Distress active 1 [facility] Morphine Drug allergy (disorder) Respiratory Distress active 1 [facility] MORPHINE Propensity to adverse reactions to drug (finding) Respiratory distress active 1 [facility] SEPTRA DS Propensity to adverse reactions to drug (finding) Eruption MODERATE active 5 [facility] TRIMETHOPRIM Drug allergy (disorder) Eruption of skin active 5 [facility] Trimethoprim Drug allergy (disorder) Eruption of skin active 5 [facility] Immunizations Combined list of available immunizations from the Department of Defense and [facility] facilities. Immunization Series Date Given Administered By Site Reaction Lot Number CVX Code Drug Supervisor Dry Cell Assembly Status Comments Source INFLUENZA, UNSPECIFIED FORMULATION 2017 88 complet [facility] DIVISIO N PNEUMOCOCCAL POLYSACCHARID E PPV23 2017 33 complet [facility] INFLUENZA, SEASONAL, INJECTABLE, PRESERVATIVE FREE 2014 140 complet [facility] DIVISIO N INFLUENZA, UNSPECIFIED FORMULATION 2012 88 complet [facility] DIVISIO N TDAP 2011 115 complet [facility] DIVISIO N Procedures Combined list of: [...] smoking status NHIS VA-TOBACCO FORMER USER 05/25/2021 [facility] History of tobacco use VA-TOBACCO QUIT 15 YRS OR MORE 05/25/2021 [facility] History of tobacco use VA-TOBACCO QUIT 15 YRS OR MORE 12/10/2019 [facility] History of tobacco use VA-TOBACCO FORMER USER 09/15/2018 [facility] History of tobacco use VA-TOBACCO NEVER USED 05/08/2018 [facility] History of tobacco use VA-TOBACCO FORMER USER 10/31/2017 [facility] History of tobacco use QUIT TOBACCO >7 YEARS AGO 10/28/2017 [facility] History of tobacco use QUIT TOBACCO >7 YEARS AGO 04/30/2017 [facility] History of tobacco use QUIT TOBACCO >7 YEARS AGO 05/29/2016 [facility] History of tobacco use QUIT TOBACCO >7 YEARS AGO 11/15/2014 [facility] History of tobacco use QUIT TOBACCO >7 YEARS AGO 10/30/2013 [facility] History of tobacco use LIFETIME NON-USER OF TOBACCO 11/14/2012 [facility] This section is an empty social history section. [facility] Advance Directives List of completed, amended, or rescinded Advance Directives on record at Department of Veterans Affairs facilities. An actual copy of the Directive is not included. Date Advance Directive Provider Source 07/30/2016 ADVANCE DIRECTIVE DISCUSSION SCARLETT GONZALES [facility]
--- OUTSIDE RECORDS SUMMARY | 2024-12-09 09:00 | XMS_ITS | Referral Summary ---
Author Organization [facility] Address [address] [place] [address] Care Team Providers Care Extension Professor Name Role Phone Shania Burks Primary Care Provider [phone] Encounters Date Type Department Care Team Description 12/01/2024 Telephone [facility] Cardiology [address] [place] [phone] Phillip Meraz MD 11/30/2024 2:00 PM CDT Ancillary Procedure [facility] Cardiology [address] [facility] [address] [place] [phone] Tachycardia, unspecified 11/24/2024 11:15 AM CDT Ancillary Procedure [facility] Cardiology [address] [facility] [address] [place] [phone] Tachycardia, unspecified 11/17/2024 Telephone [facility] Cardiology [address] [facility] [address] [place] [phone] Phillip Meraz MD 11/13/2024 Telephone [facility] Cardiology [address] [facility] [address] [place] [phone] Phillip Meraz MD 11/02/2024 2:30 PM CDT Ancillary Procedure [facility] Cardiology [address] [facility] [address] [place] [phone] Tachycardia, unspecified 11/02/2024 1:15 PM CDT Office Visit [facility] Cardiology [address] [place] [address] Phillip Meraz MD Essential (primary) [...] at knee, left 03/05/2024 Degenerative superior labral zobdnpqn-jo-fruudizho (SLAP) tear of left shoulder 12/30/2023 Abnormal [...] on file Legal 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 N ot on [...] on file Medical Devices Implanted Type Area Funeral Director'S Assistant Device Identifier Shelf Expiration Date Model / Serial / Lot [employer] System Biceps [place] Slotted Drill Guide 1.9mm Drill Fibertak Ar-3670 - S0 - [id number] Implanted:Qty: 1 on 01/16/2024 by Guido Hernandez MD at [facility] Left: Shoulder [employer] 11/18/2028 AR-3670 / 0 / [id number] Procedures Procedure Name Priority Date/Time Associated Diagnosis Comments STRESS TEST ONLY TREADMILL Routine 11/30/2024 8:47 AM CDT Tachycardia, unspecified TRANSTHORACIC ECHO (TTE) COMPLETE W DOPPLER/CF WO CONTRAST Routine 11/24/2024 11:24 AM CDT Tachycardia, unspecified EXTENDED/SKILLED NURSING HOLTER PATCH (>48 HOURS UP TO 7 [...] to complete this document. Jono Yao MD, [facility] Phillip Meraz MD CV STRESS PROCEDURES Final Resul t * TRANSTHORACIC ECHO (TTE) COMPLETE W DOPPLER/CF WO CONTRAST (11/24/2024 11:24 AM CDT) Estimated EF 60-65 % CONS SCIMAGE EF Mod BP 60 % CONS SCIMAGE Anatomical Region Laterality Modality Ultrasound 11/24/2024 11:1 2 AM CDT Narrative 11/25/2024 8:14 AM CDT [facility] Cardiology [address], [place] [address] [address] [facility] [address], [place] [address] P:[phone] P:[phone] Echocardiographic Report Patient Name: GEOVANNI ZAVALA D : 1970 Study Date: 11/24/2024 11:12:41 AM Gender: M Tech: Location: [place] Ref Provider: PHILLIP MERAZ Height(Cm): 175 BSA: [...] FINDINGS: Interpretation Site: Exam was interpreted at [facility]. Left Ventricle: Normal left ventricular [...] Procedure Note Jono Yao MD - 11/25/2024 [facility] Cardiology [address] [facility] [address] [id number] [address] [facility] [address], [address] [address] P:[phone] P:[phone] Echocardiographic Report Patient Name: GEOVANNI ZAVALAIzzy : 1970 Study Date: 11/24/2024 11:12:41 AM Gender: M Tech: Location: [facility] Provider: PHILLIP MERAZ Height(Cm): 175 BSA: [...] FINDINGS: Interpretation Site: Exam was interpreted at [facility]. Left Ventricle: Normal left ventricular [...] MD CV ECHO PROCEDURES Final Result * Extended/Fdc Holter Patch (>48 hours up to 7 days) (11/02/2024 1:37 PM CDT) Anatomical Region Laterality Modality Electrocardiogra phy Narrative 11/17/2024 8:11 AM CDT AMBULATORY BOXING INSPECTOR REPORT Patient Name: Geovanni Zavala Date of [...] Note Phillip Meraz MD - 11/17/2024 AMBULATORY BOXING INSPECTOR REPORT Patient Name: Geovanni Zavala Date of [...] OPEN ACCESS [facility] OPEN ACCESS Care Teams Extension Professor Relationship Specialty Start Date End Date Shania Burks PA [address] [place] [id number] PCP - General Family Practice 09/20/22
--- OUTSIDE RECORDS SUMMARY | 2024-12-09 09:01 | XMS_ITS | Clinical Summary ---
Author Organization [employer] [facility] Address [address] [facility] J[place]É [place]IGUEL Bliss [address] Phone Care Team Providers Care Furnace Firer Name Role Phone Unavailable Primary Care Provider [...]
--- OUTSIDE RECORDS SUMMARY | 2024-12-09 09:01 | XMS_ITS | Clinical Summary ---
Author Organization [facility] Address [address] [place] [address] Care Team Providers Care Compressor Technician Name Role Phone Shania Burks Primary Care Provider [phone] Allergies Active Allergy Reactions Criticality Noted Date [...] at knee, left 03/05/2024 Degenerative superior labral cdlutfxs-pb-ijbayzblf (SLAP) tear of left shoulder 12/30/2023 Abnormal [...] Type Department Care Team Description 12/01/2024 Telephone [facility] Cardiology [address] [facility] [address] [place] [phone] Valentine Meraz MD 11/30/2024 2:00 PM CDT Ancillary Procedure [facility] Cardiology [address] [place] [address] [address] [place] [address] Tachycardia, unspecified 11/24/2024 11:15 AM CDT Ancillary Procedure [facility] Cardiology [address] [place] [address] [place] [phone] Tachycardia, unspecified 11/17/2024 Telephone [facility] Cardiology [address] [place] [address] [place] [phone] Valentine Meraz MD 11/13/2024 Telephone [facility] Cardiology [address] [place] [address] [place] [phone] Valentine Meraz MD 11/02/2024 2:30 PM CDT Ancillary Procedure [facility] Cardiology [address] [place] [address] [place] [phone] Tachycardia, unspecified 11/02/2024 1:15 PM CDT Office Visit 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 N ot on file [...] this topic Medical Devices Implanted Type Area Icing Maker Device Identifier Shelf Expiration Date Model / Serial / Lot [employer] System Biceps [place] Slotted Drill Guide 1.9mm Drill [employer] Ar-3670 - S0 - [id number] Implanted:Qty: 1 on 01/16/2024 by Guido Hernandez MD at [facility] Left: Shoulder [employer] 11/18/2028 AR-3670 / 0 / [id number] Procedures Procedure Name Priority Date/Time Associated Diagnosis Comments STRESS TEST ONLY TREADMILL Routine 11/30/2024 8:47 AM CDT Tachycardia, unspecified TRANSTHORACIC ECHO (TTE) COMPLETE W DOPPLER/CF WO CONTRAST Routine 11/24/2024 11:24 AM CDT Tachycardia, unspecified EXTENDED/CARE HOME HOLTER PATCH (>48 HOURS UP TO 7 [...] to complete this document. Jono Yao MD, [facility] us Valentine Meraz MD CV STRESS PROCEDURES Final Resul t * TRANSTHORACIC ECHO (TTE) COMPLETE W DOPPLER/CF WO CONTRAST (11/24/2024 11:24 AM CDT) Estimated EF 60-65 % CONS SCIMAGE EF Mod BP 60 % CONS SCIMAGE Anatomical Region Laterality Modality Ultrasound 11/24/2024 11:1 2 AM CDT Narrative 11/25/2024 8:[address] [facility] Cardiology [address] [facility] [address] [id number] [address] [facility] [address], [place] [address] P:[phone] P:[phone] Echocardiographic Report Patient Name: SAUMYA ZAVALAIzzy : 1970 Study Date: 11/24/2024 11:12:41 AM Gender: M Tech: Location: [place] Ref Provider: VALENTINE MERAZ Height(Cm): 175 BSA: [...] FINDINGS: Interpretation Site: Exam was interpreted at [facility]. Left Ventricle: Normal left ventricular systolic function. [...] Procedure Note Jono Yao MD - 11/25/2024 [facility] Cardiology [address], [place] [address] [address], [place] [address] P:[phone] P:[phone] Echocardiographic Report Patient Name: SAUMYA ZAVALA D : 1970 Study Date: 11/24/2024 11:12:41 AM Gender: M Tech: Location: [facility] Provider: VALENTINE MERAZ Height(Cm): 175 BSA: 2.07 [...] FINDINGS: Interpretation Site: Exam was interpreted at [facility]. Left Ventricle: Normal left ventricular systolic function. [...] MD CV ECHO PROCEDURES Final Result * Extended/Nursing Home Holter Patch (>48 hours up to 7 days) (11/02/2024 1:37 PM CDT) Anatomical Region Laterality Modality Electrocardiogra phy Narrative 11/17/2024 8:11 AM CDT AMBULATORY AIRCRAFT SALES REPRESENTATIVE REPORT Patient Name: Saumya Zavala Date of [...] Note Valentine Meraz MD - 11/17/2024 AMBULATORY AIRCRAFT SALES REPRESENTATIVE REPORT Patient Name: Saumya Zavala Date of [...] Final Result from Last 3 Months Insurance [employer] OPEN ACCESS [facility] OPEN ACCESS Care Teams Compressor Technician Relationship Specialty Start Date End Date Shania Burks PA [address] [place] [id number] PCP - General Family Practice 09/20/22
== END 2024-12-08 15:03 | disposition home or self-care (01) ==
LOC: ANHED 10:58 → ANHIMU 21:32
PROVIDERS: Internal Medicine; Nurse Practitioner Gerontology; Admitting Provider Internal Medicine; Emergency Provider Student in an Organized Health Care Education/Training Program; PCP Physician Assistant Medical; Visit Provider Internal Medicine
PROC: 4A023N7 Measurement of Cardiac Sampling and Pressure, Left Heart, Percutaneous Approach (ICD-10-PCS; CPT 93452; principal; 2024-12-08 10:30)
DX: R07.9 Chest pain, unspecified (principal); I10 Essential (primary) hypertension; E78.5 Hyperlipidemia, unspecified; F41.9 Anxiety disorder, unspecified; K57.30 Diverticulosis of large intestine without perforation or abscess without bleeding; G47.33 Obstructive sleep apnea (adult) (pediatric); Z20.822 Contact with and (suspected) exposure to COVID-19; Z87.891 Personal history of nicotine dependence; Z79.82 Long term (current) use of aspirin; Z79.899 Other long term (current) drug therapy
CPT/HCPCS: 36415; 71046; 71275; 74174; 80048; 80053; 81003; 83690; 84484; 85025; 85380; 85610; 85730; 87637; 93005; 93458; 96361; 96374; 99285; A9270; C1769; C1887; C1894; G0378; J1644; J2003; J2250; J2305; J3010; J7030; J7040; Q9967

== ENCOUNTER 2025-01-18 12:40 | Outpatient (CLI) | payer OTHER, SELFPAY ==
--- OUTSIDE RECORDS SUMMARY | 2025-01-18 12:44 | XMS_ITS | Clinical Summary ---
Author Organization [facility] [place] [address] Care Team Providers Care Circular Ripsaw Operator Name Role Phone Shania Burks PA-C Primary Care Provider [phone] Allergies Active Allergy Reactions Criticality Noted Date [...] 5:41 PM CDT Height 175.3 cm (5' 9) 11/17/2022 5:41 PM CDT Body Mass Index [...] - 2023-2 5 season) 2024 PHQ-2 (Physician [place]) 07/22/2024 DTaP, Tdap and Td Vaccines ( [...] [facility] Care Teams Circular Ripsaw Operator Relationship Specialty Start Date End Date Shania Burks PA-C [facility] [facility] [place] [address] [place] [address] PCP - General PHYSICIAN [address] [facility] 03/25/21
--- OUTSIDE RECORDS SUMMARY | 2025-01-18 12:44 | XMS_ITS | Referral Summary ---
Author Organization [facility] Address [address] [place] [address] Care Team Providers Care Auto Damage Trainee Name Role Phone Shania Burks Primary Care Provider [phone] Encounters Date Type Department Care Team Description 12/11/2024 Orders Only [facility] Cardiology [address] [place] [phone] Shreya Diaz MD 12/11/2024 Telephone [facility] Cardiology [address] [place] [address] Valentine Meraz MD 12/07/2024 Orders Only [facility] [address] [place] [address] Scanning, Provider 12/01/2024 Telephone [facility] Cardiology [address] [place] [phone] Valentine Meraz MD 11/30/2024 2:00 PM CDT Ancillary Procedure [facility] Cardiology [address] [place] [address] Tachycardia, unspecified 11/24/2024 11:15 AM CDT Ancillary Procedure [facility] Cardiology [address] [place] [address] Tachycardia, unspecified 11/17/2024 Telephone [facility] Cardiology [address] [place] [address] Valentine Meraz MD 11/13/2024 Telephone [facility] Cardiology [address] [place] [address] Valentine Meraz MD 11/02/2024 2:30 PM CDT Ancillary Procedure [facility] Cardiology [address] [place] [address] Tachycardia, unspecified 11/02/2024 1:15 PM CDT Office Visit [facility] Cardiology [address] [place] [address] [address] [place] [address] Valentine Meraz MD Essential (primary) hypertension; Tachycardia, [...] total) by mouth daily 30 tablet 12/02/19 026 Active aspirin 81 mg enteric coated tablet Take 1 tablet (81 mg total) by mouth daily 30 tablet 12/02/19 026 Active Active Problems Problem Noted Date Diagnosed Date Peroneal neuropathy at knee, left 03/05/2024 Degenerative superior labral nuiqtvqf-wq-cmgefsrbx (SLAP) tear of left shoulder 12/30/2023 Abnormal [...] on file Legal 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[employer] Gender Identity Male 03/05/2024 6:36 AM CDT Sexual Orientation Not on file 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 N ot on [...] 1:02 PM CDT Height 175.3 cm (5' 9) 11/02/2024 1:02 PM CDT Body Mass Index 28.8 11/02/2024 1:02 PM CDT Plan of Treatment Not on file Medical Devices Implanted Type Area Distribution Systems Superintendent Device Identifier Shelf Expiration Date Model / Serial / Lot [employer] System Biceps [place] Slotted Drill Guide 1.9mm Drill Fibertak Ar-3670 - S0 - [id number] Implanted:Qty: 1 on 01/16/2024 by Guido Hernandez MD at [facility] Left: Shoulder [employer] 11/18/2028 [id number] / 0 / [id number] Procedures Procedure Name Priority Date/Time Associated Diagnosis Comments CARDIOLOGY DOCUMENT SCAN Routine 025 3:48 PM CDT CARDIOLOGY DOCUMENT SCAN Routine 025 3:28 PM CDT CARDIOLOGY DOCUMENT SCAN 12/07/2024 STRESS TEST ONLY TREADMILL Routine 11/30/2024 8:47 AM CDT Tachycardia, unspecified TRANSTHORACIC ECHO (TTE) COMPLETE W DOPPLER/CF WO CONTRAST Routine 11/24/2024 11:24 AM CDT Tachycardia, unspecified EXTENDED/CORRECTION HOLTER PATCH (>48 HOURS UP TO 7 DAYS) Routine 11/02/2024 1:37 PM CDT Tachycardia, unspecified ELECTROCARDIOGRAM REPORT Routine 11/02/2024 Tachycardia, unspecified from Last 3 Months Results * Cardiology Document Scan (12/08/2024 3:48 PM CDT) Anatomical Region Laterality Modality Other us Shreya Diaz MD CV CARDIAC SERVICES PRO CEDURES Final Result * Cardiology Document Scan (12/08/2024 3:28 PM CDT) Anatomical Region Laterality Modality Other us Shreya Diaz MD CV CARDIAC SERVICES PRO CEDURES Final Result * Cardiology Document Scan (12/07/2024) Anatomical Region Laterality Modality Other us Provider Scanning CV CARDIAC SERVICES PROCEDURES Final Result * Stress Treadmill Test (11/30/2024 8:47 AM [...] to complete this document. Jono Yao MD, [facility] us Valentine Meraz MD CV STRESS PROCEDURES Final Resul t * TRANSTHORACIC ECHO (TTE) COMPLETE W DOPPLER/CF WO CONTRAST (11/24/2024 11:24 AM CDT) Estimated EF 60-65 % CONS SCIMAGE EF Mod BP 60 % CONS SCIMAGE Anatomical Region Laterality Modality Ultrasound 11/24/2024 11:1 2 AM CDT Narrative 11/25/2024 8:14 AM CDT [facility] Cardiology [address] [facility] [address] [address] [address], [place] [address] P:[phone] P:[phone] Echocardiographic Report Patient Name: SAUMYA ZAVALA Izzy : 1970 Study Date: 11/24/2024 11:12:41 AM Gender: M Tech: Location: [place] Ref Provider: VALENTINE MERAZ Height(Cm): 175 BSA: [...] FINDINGS: Interpretation Site: Exam was interpreted at [facility] [place]. Left Ventricle: Normal left ventricular systolic function. [...] Procedure Note Jono Yao MD - 11/25/2024 [facility] Cardiology [address], [place] [id number] [address], [place] [address] P:[phone] P:[phone] Echocardiographic Report Patient Name: SAUMYA ZAVALA D : 1970 Study Date: 11/24/2024 11:12:41 AM Gender: M Tech: Location: [facility] Provider: VALENTINE MERAZ Height(Cm): 175 BSA: [...] FINDINGS: Interpretation Site: Exam was interpreted at [facility]. Left Ventricle: Normal left ventricular systolic function. [...] MD CV ECHO PROCEDURES Final Result * Extended/Snf Holter Patch (>48 hours up to 7 days) (11/02/2024 1:37 PM CDT) Anatomical Region Laterality Modality Electrocardiogra phy Narrative 11/17/2024 8:11 AM CDT AMBULATORY MANUFACTURING QUALITY MANAGER REPORT Patient Name: Saumya Zavala Date of [...] Note Valentine Meraz MD - 11/17/2024 AMBULATORY MANUFACTURING QUALITY MANAGER REPORT Patient Name: Saumya Zavala Date of [...] Final Result from Last 3 Months Insurance [employer] OPEN ACCESS [employer] OPEN ACCESS Care Teams Auto Damage Trainee Relationship Specialty Start Date End Date Shania Burks PA [facility] [place], [place] [id number] PCP - General Family Practice 09/20/22
--- OUTSIDE RECORDS SUMMARY | 2025-01-18 12:44 | XMS_ITS | Encounter Summary ---
Author Organization [facility] Address [facility] [place] [address] Care Team Providers Care Supervisor Kosher Dietary Service Name Role Phone Wang Devries MD Primary Care Provider [phone] Karoline Devries MD Primary Care Provider [phone] Shania Burks PA-C Primary Care Provider [phone] Encounter Details Date Type Department Care Team (Latest Contact Info) Description 05/27/2018 Abstract [facility] Medical Group Rip Bolanos MD Social History [...] Rule Out 08/02/2020 08/02/2020 08/02/2020 1:38 PM SEAM SEWER documented as of this encounter Care Teams Supervisor Kosher Dietary Service Relationship Specialty Start Date End Date Wang Devries MD [address] [place] [address] PCP - General INTERNAL MEDICINE 02/21/19 01/20/20 Karoline Devries MD [address] [place], [place] [id number] PCP - General INTERNAL MEDICINE 07/07/20 03/24/21 Shania Burks PA-C [address] [place] [address] [place] [address] PCP - General PHYSICIAN PLODDING MACHINE OPERATOR 03/25/21 documented as of this encounter
--- OUTSIDE RECORDS SUMMARY | 2025-01-18 12:44 | XMS_ITS | Clinical Summary ---
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 shoulder 12/30/2023 Abnormal [...] Department Care Team Description 12/11/2024 Orders Only [facility] Cardiology [address] [place] [address] [place] [phone] Shreya Diaz MD 12/11/2024 Telephone [facility] Cardiology [address] [place] [address] [address] [place] [phone] Phillip Meraz MD 12/07/2024 Orders Only [facility] Health Information Management [address] [place] [address] Scanning, Provider 12/01/2024 Telephone [facility] Cardiology [address] [place] [address] [place] [phone] Phillip Meraz MD 11/30/2024 2:00 PM CDT Ancillary Procedure [facility] Cardiology [address] [place] [address] [place] [phone] Tachycardia, unspecified 11/24/2024 11:15 AM CDT Ancillary Procedure [facility] Cardiology [address] [place] [address] [place] [phone] Tachycardia, unspecified 11/17/2024 Telephone [facility] Cardiology [address] [place] [address] [place] [phone] Phillip Meraz MD 11/13/2024 Telephone [facility] Cardiology [address] [place] [address] [place] [phone] Phillip Meraz MD 11/02/2024 2:30 PM CDT Ancillary Procedure [facility] Cardiology [address] [place] [address] [place] [phone] Tachycardia, unspecified 11/02/2024 1:15 PM CDT Office Visit [facility] Cardiology [address] [place] [address] [place] [phone] Phillip Meraz MD Essential (primary) hypertension; Tachycardia, [...] on file Legal Sex Male 4:05 AM HONEYCOMB DECAPPER Gender Identity Male 03/05/2024 6:36 AM CDT Sexual Orientation Not on file 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 End Date 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 [employer] Not on file N ot on file [...] this topic Medical Devices Implanted Type Area Custom Shop Worker Device Identifier Shelf Expiration Date Model / Serial / Lot [employer] System Biceps [place] Slotted Drill Guide 1.9mm Drill Fib[employer]ak Ar-3670 - S0 - [id number] Implanted:Qty: 1 on 01/16/2024 by Guido Hernandez MD at [facility] Left: Shoulder [employer] 11/18/2028 AR-3670 / 0 / [id number] Procedures Procedure Name Priority Date/Time Associated Diagnosis Comments CARDIOLOGY DOCUMENT SCAN Routine 025 3:48 PM CDT CARDIOLOGY DOCUMENT SCAN Routine 025 3:28 PM CDT CARDIOLOGY DOCUMENT SCAN 12/07/2024 STRESS TEST ONLY TREADMILL Routine 11/30/2024 8:47 AM CDT Tachycardia, unspecified TRANSTHORACIC ECHO (TTE) COMPLETE W DOPPLER/CF WO CONTRAST Routine 11/24/2024 11:24 AM CDT Tachycardia, unspecified EXTENDED/FDC HOLTER PATCH (>48 HOURS UP TO 7 [...] to complete this document. Jono Yao MD, [facility] us Phillip Meraz MD CV STRESS PROCEDURES Final Resul t * TRANSTHORACIC ECHO (TTE) COMPLETE W DOPPLER/CF WO CONTRAST (11/24/2024 11:24 AM CDT) Estimated EF 60-65 % CONS SCIMAGE EF Mod BP 60 % CONS SCIMAGE Anatomical Region Laterality Modality Ultrasound 11/24/2024 11:1 2 AM CDT Narrative 11/25/2024 8:14 AM CDT [facility] Medical Group Cardiology [address] [facility] [address] [address] [address] [facility] [address], [place] [address] P:[phone] P:[phone] Echocardiographic Report Patient Name: GEOVANNI ZAVALAIzzy : 1970 Study Date: 11/24/2024 11:12:41 AM Gender: M Tech: Location: [facility] Provider: PHILLIP MERAZ Height(Cm): 175 BSA: 2.07 [...] FINDINGS: Interpretation Site: Exam was interpreted at [facility]. Left Ventricle: Normal left ventricular systolic function. [...] Procedure Note Jono Yao MD - 11/25/2024 [facility] Medical Group Cardiology [address] [facility] [address] [address] [address] [facility] [address], [place] [address] P:[phone] P:[phone] Echocardiographic Report Patient Name: GEOVANNI ZAVALA D : 1970 Study Date: 11/24/2024 11:12:41 AM Gender: M Tech: Location: [place] Ref Provider: PHILLIP MERAZ Height(Cm): 175 BSA: [...] FINDINGS: Interpretation Site: Exam was interpreted at [facility]. Left Ventricle: Normal left ventricular systolic function. [...] MD CV ECHO PROCEDURES Final Result * Extended/Correction Holter Patch (>48 hours up to 7 days) (11/02/2024 1:37 PM CDT) Anatomical Region Laterality Modality Electrocardiogra phy Narrative 11/17/2024 8:11 AM CDT AMBULATORY PATTERN WEAVER REPORT Patient Name: Geovanni Zavala Date of [...] Note Phillip Meraz MD - 11/17/2024 AMBULATORY PATTERN WEAVER REPORT Patient Name: Geovanni Zavala Date of [...] less than 1%. Phillip Meraz MD 11/17/24 Phillip Meraz MD CV CARDIAC SERVICES PROCEDURES F inal Result * Electrocardiogram Report (11/02/2024) 11/02/2024 Phillip Meraz MD ECG ORDERABLES Final Result from Last 3 Months Insurance [employer] OPEN ACCESS [employer] OPEN ACCESS Care Teams Technical Writer And Editor Relationship Specialty Start Date End Date Shania Burks PA [address] [place], [place] [phone] PCP - General Family Practice 09/20/22
--- OUTSIDE RECORDS SUMMARY | 2025-01-18 12:44 | XMS_ITS | Clinical Summary ---
Author Organization [employer] [facility] Address [address] [facility] [place] [address] Phone Care Team Providers Care Stitcher Tape Controlled Machine Name Role Phone Unavailable Primary Care Provider [...] 1:55 PM CDT Height 174 cm (5' 8.5) 01/02/2017 1:55 PM CDT Body Mass Index [...]
--- OUTSIDE RECORDS SUMMARY | 2025-01-18 12:44 | XMS_ITS | Encounter Summary ---
Author Organization [facility] Address [address] [place] [address] Care Team Providers Care Service Inspector Name Role Phone Shania Burks Primary Care Provider [phone] Encounter Details Date Type Department Care Team (Late st Contact Info) Description 12/07/2024 Orders Only [facility] Information Management [address] [place] [address] Scanning, Provider Social History Tobacco Use Types Packs/Day Years Used Date Smoking Tobacco: Former Cigarettes 1 - 2007 Passive Smoke Exposure: Never Smokeless Tobacco: Never AUDIT-C Answer Date Recorded Q1: How often [...] on file Legal Sex Male 4:05 AM KAIWHAKAHAERE Gender Identity Male 03/05/2024 6:36 AM CDT Sexual Orientation Not on file 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 End Date 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 [employer] 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 on file N ot on file Not on file documented as of this encounter Plan of Treatment Not on file documented as of this encounter Procedures Procedure Name Priority Date/Time Associated Diagnosis Comments CARDIOLOGY DOCUMENT SCAN 12/07/2024 documented in this encounter Results * Cardiology Document Scan (12/07/2024) Anatomical Region Laterality Modality Other us Provider Scanning CV CARDIAC SERVICES PROCEDURES Final Result documented in this encounter Visit Diagnoses Not on filedocumented in this encounter Care Teams Service Inspector Relationship Specialty Start Date End Date Shania Burks PA [address] [place] [phone] PCP - General Family Practice 09/20/22 documented as of this encounter
--- NOTE | 2025-01-21 12:00 | WPDPFTINT ---
PFT Procedure Performed PFT Procedure Performed Spirometry with Pre/Post Bronchodilator Plethysmography (Lung Vol) Diffusing Cap (DLCO) Flow Vol Loop PFT Interpretation DOS: 01/18/2025 REQUESTING: OLE Meade REASON FOR TESTING: shortness of breath PULMONARY FUNCTION TESTS Results are reliable and reproducible. Repeatability of spirometry FEV1 maneuver pre and post bronchodilator is Grade A. Shree: [facility] 2012 reference equations were used. Spirometry: The pre-bronchodilator FEV1 is 3.16 L, 87% predicted, normal. The pre-bronchodilator FVC is 4.14 L, 89% predicted, normal. The FEV1/FVC ratio is 76%, normal. After bronchodilator, the FEV1 is 3.45 L, 95%, +9%. After bronchodilator, the FVC is 4.35 L, 94%, +5%. The FEV1/FVC ratio is 79%, normal. Lung volumes: The total lung capacity is 5.86 L, 87%, normal. FRC is 2.84 L, 82%, normal. The residual volume is 1.64 L, 79%, normal. The RV/TLC is 28%, normal. Airway resistance is increased. Diffusion: DLCO is 27.1, 93%, normal. The DLCO/VA is 5.18 L, 116%, normal. Flow volume loop: The flow volume loop shows a normal pattern. IMPRESSION: This study shows normal spirometry without airflow obstruction, a non statistically significant response to bronchodilator, normal lung volumes and normal diffusion. Lack of response to bronchodilator should not preclude use if clinically indicated. There are no prior studies for comparison. Jayde Pringle MD
== END 2025-01-18 12:41 | disposition home or self-care (01) ==
PROVIDERS: PCP Physician Assistant Medical; Visit Provider Physician Assistant Medical
DX: R06.02 Shortness of breath (principal)
CPT/HCPCS: 94060; 94726; 94729

== ENCOUNTER 2025-06-03 13:37 | Emergency (ER) | payer OTHER, SELFPAY ==
--- OUTSIDE RECORDS SUMMARY | 2025-06-02 09:45 | XMS_ITS | Encounter Summary ---
Author Organization [facility] Address [address] [place] [address] Phone Care Team Providers Care Surgical Services Assistant Name Role Phone No, Physician Unavailable Administration, Veterans Primary Care Provide r Unavailable Reason for Referral * Procedure (Routine) - Authorized Specialty Diagnoses / Procedures Referred By Contac t Referred To Contact Diagnoses Right shoulder pain, unspecified chronicity Procedures Large Joint Injection: R subacromial bursa Guido Hernandez MD [address] [place] [address] Phone: tel: fax: [facility] (All Locations) Referral ID Status Reason Start Date Expiration Date V isits Requested Visits Authorized [id number] Authorized 06/02/2025 07/02/2026 1 1 GN ENGINEER * Consultation (Routine) - Pending Review Specialty Diagnoses / Procedures Referred By Contac t Referred To Contact Physical Therapy Diagnoses Tendinopathy of right rotator cuff Guido Hernandez MD [address] [place] [address] Phone: tel: fax: External Order Referral ID Status Reason Start Date Expiration Date Visits Requested Visits Authorized [id number] Pending Review Evaluate and Treat 07/02/2026 24 24 Question Answer PTRFR PT Evaluate and Treat Therapy options discussed with patient? Yes Location provided for therapy services is: Patient requested/Patient preferred Please select the performing region: External Order [171] # of visits: 24 Comments [facility] Orthopedics Chung Hernandez MD Shoulder and Elbow Service Date: 06/02/25 Patient Name: Geovanni Zavala : 1970 Diagnosis: Right shoulder rotator cuff tendinopathy PHYSICAL THERAPY REFERRAL: Therapy Instructions: Periscapular strengthening, glenohumeral ROM, rotator cuff strengthening Frequency & Duration: 1-2 days/week X 6 weeks. Guido Hernandez MD ATTENTION THERAPY PROVIDER- Please be sure to include the Patient's Name & Date of on All Correspondence with our office- For all PT reports that require a signature-please fax to [phone] For all other PT progress notes-please fax to [phone] SCHEDULING PHYSICAL THERAPY APPOINTMENTS: THIS IS YOUR THERAPY ORDER. BE SURE AND TAKE THIS WITH YOU TO YOUR THERAPY APPOINTMENT AND GIVE TO YOUR THERAPIST. WITHOUT THIS PAPER THE THERAPIST WILL NOT BE ABLE TO START YOUR THERAPY PROGRAM. Your Physical Therapy Provider may complete the pre-certification process on your behalf. If you need assistance from the Orthopedic Pre-Certifiction office, please call [phone] and a wireless team member will assist you. Workman's compensation patients: you must contact your caser up regarding where you are to go for your physical therapy. GN ENGINEER Reason for Visit * Reason Comments Pain * Consultation (Routine) - Authorized Specialty Diagnoses / Procedures Referred By Contac t Referred To Contact Orthopedic Surgery Diagnoses Right shoulder pain, unspecified chronicity [facility], [address] [address] Phone: tel: fax: [facility] (All Locations) Referral ID Status Reason Start Date Expiration Date Visits Requested Visits Authorized [id number] Authorized Specialty Services Required 05/19/2026 [id number] Encounter Details Date Type Department Care Team (Late st Contact Info) Description 06/02/2025 9:45 AM DESIGN ENGINEER Office Visit [facility] Medicine Orthopaedic Surgery [address] Medical Office Building [address] [place] [address] Guido Hernandez MD [address] [facility] [address] [place] [address] Right shoulder pain, unspecified chronicity (Primary Dx); Tendinopathy of right rotator cuff Social History Tobacco Use Types Packs/Day Years Used Date Smoking Tobacco: Former Cigarettes 1 15 1 - 2007 Passive Smoke Exposure: Never Smokeless Tobacco: Never Alcohol Use Standard Drinks/Week Comments Yes 28 (1 standard drink = 0.6 oz pu re alcohol) Social Connection and Isolation Panel Answer Date Recorded In a typical week, how many times do you talk on the phone with family, friends, or neighbors? More than three times a week 04/08/2025 How often do you get togethe r with friends or relatives? More than three times a week 04/08/2025 How often do you attend [facility] or rastafari services? More than 4 times per year 04/08/2025 Do you belong to any clubs o r organizations such as bahai groups, unions, fraternal or athletic groups, or school groups? No 04/08/2025 How often do you attend meet ings of the clubs or organizations you belong to? Never 04/08/2025 Are you , , di vorced, , never , or living with a partner? 04/08/2025 AUDIT-C Answer Date Recorded Q1: How often do you have a drink containing alcohol? 4 or more times a week 04/04/2025 Q2: How many drinks containi ng alcohol do you have on a typical day when you are drinking? 7 to 9 Q3: How often do you have si x or more drinks on one occasion? Daily or almost daily 04/04/2025 Overall Financial Resource Strain (CARDIA) Answe r Date Recorded How hard is it for you to pa y for the very basics like food, housing, medical care, and heating? Not very hard 04/08/2025 Hunger Vital Sign Answer Date Recorded Within the past 12 months, y ou worried that your food would run out before you got the money to buy more. Never true 04/08/20 25 Within the past 12 months, t he food you bought just didn't last and you didn't have money to get more. Never true 04/08/2025 PRAPARE - Transportation Answer Date Re corded In the past 12 months, has l ack of transportation kept you from medical appointments or from getting medications? No 03/22 In the past 12 months, has l ack of transportation kept you from meetings, work, or from getting things needed for daily living? No 04/08/2025 Housing Stability Vital Sign Answer Shadi e Recorded In the last 12 months, was t here a time when you were not able to pay the mortgage or rent on time? No 04/08/2025 Number of Times Moved in the Last Year Not on fi le 04/08/2025 At any time in the past 12 m [facility], were you homeless or living in a senior care (including now)? No 04/08/2025 [facility] Utilities Answer Date Recorded In the past 12 months has th e electric, gas, oil, or water company threatened to shut off services in your home? No 04/08/2025 Personal Safety Answer Date Recorded Have you ever been in or are you currently in a harmful physical or emotional relationship or is someone making you feel afraid or unsafe? 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 N ot on file Not on file documented as of this encounter Plan of Treatment Scheduled Orders Name Type Priority Associated Diagnoses Orde r Schedule Large Joint Injection: R subacromial bursa Procedures Routine Right shoulder pain, unspecified chronicity Ordered: 06/02/2025 Scheduled Referrals Name Type Priority Associated Diagnoses Order Schedule Ambulatory referral order to Physical Therapy - Outpatient Referral Routine Tendinopathy of right rotator cuff Expected: 06/16/2025 (Approximate), Expires: 06/02/2026 documented as of this encounter Results * XR Shoulder Right 2+ View (06/02/2025 10:23 AM DESIGN ENGINEER) Anatomical Region Laterality Modality Upper Extremities, Shoulder Right Digi brie Radiography 06/02/2025 11:1 3 AM DESIGN ENGINEER Impressions 06/02/2025 11:13 AM DESIGN ENGINEER 4 views of the right shoulder. No comparison study is available. No suspicious findings in the visualized chest. Alignment is normal. Minimal acromioclavicular osteoarthritis. Normal glenohumeral joint space. No acute fracture or aggressive bone lesion. Electronically signed by: Artie Acosta M.D. Narrative 06/02/2025 11:13 AM DESIGN ENGINEER EXAMINATION: XR SHOULDER RIGHT 2 OR MORE VIEWS Procedure Note Artie Acosta MD - 06/02/2025 EXAMINATION: XR SHOULDER RIGHT 2 OR MORE VIEWS IMPRESSION: 4 views of the right shoulder. No comparison study is available. No suspicious findings in the visualized chest. Alignment is normal. Minimal acromioclavicular osteoarthritis. Normal glenohumeral joint space. No acute fracture or aggressive bone lesion. Electronically signed by: Artie Acosta M.D. Guido Hernandez MD IMG XR PROCEDURES Final Result documented in this encounter Visit Diagnoses Diagnosis Right shoulder pain, unspecified chronicity- Primary Tendinopathy of right rotator cuff Right shoulder pain, unspecified chronicity documented in this encounter Orders Outpatient Referral Count Last Ordered Date Fir st Ordered Date AMB REFERRAL TO ORTHOPEDIC SURGERY 1 2024 documented in this encounter Care Teams Surgical Services Assistant Relationship Specialty Start Date End Date Sandip Lyon MD PCP - General Marketing Specialist 06/02/25 No, Physician 04/12/25 documented as of this encounter
--- OUTSIDE RECORDS SUMMARY | 2025-06-02 09:45 | XMS_ITS | Encounter Summary ---
Author Organization [facility] Address [address] [place] [address] Phone Care Team Providers Care History Instructor Name Role Phone No, Physician Unavailable Administration, Veterans Primary Care Provide r Unavailable Reason for Referral * Procedure (Routine) - Authorized Specialty Diagnoses / Procedures Referred By Contac t Referred To Contact Diagnoses Right shoulder pain, unspecified chronicity Procedures Large Joint Injection: R subacromial bursa Guido Hernandez MD [address] [place] [place] [address] Phone: tel: fax: [facility] (All Locations) Referral ID Status Reason Start Date Expiration Date V isits Requested Visits Authorized [id number] Authorized 06/02/2025 07/02/2026 1 1 K SPECIAL EDUCATION TEACHER * Consultation (Routine) - Pending Review Specialty Diagnoses / Procedures Referred By Contac t Referred To Contact Physical Therapy Diagnoses Tendinopathy of right rotator cuff Guido Hernandez MD [address] [place] [address] Phone: tel: fax: External Order Referral ID Status Reason Start Date Expiration Date Visits Requested Visits Authorized [id number] Pending Review Evaluate and Treat 07/02/2026 24 24 Question Answer PTRFR PT Evaluate and Treat Therapy options discussed with patient? Yes Location provided for therapy services is: Patient requested/Patient preferred Please select the performing region: External Order [171] # of visits: 24 Comments [facility] Orthopedics Chung Hernandez MD Shoulder and Elbow [...] reports that require a signature-please fax to [phone] For all other PT progress notes-please fax to [phone] SCHEDULING PHYSICAL THERAPY APPOINTMENTS: THIS IS YOUR THERAPY ORDER. BE SURE AND TAKE THIS WITH YOU TO YOUR THERAPY APPOINTMENT AND GIVE TO YOUR THERAPIST. WITHOUT THIS PAPER THE THERAPIST WILL NOT BE ABLE TO START YOUR THERAPY PROGRAM. Your Physical Therapy Provider may complete the pre-certification process on your behalf. If you need assistance from the Orthopedic Pre-Certifiction office, please call [phone] and a tractor driver teamster will assist you. Workman's compensation patients: you must contact your case management social worker regarding where you are to go for your physical therapy. K SPECIAL EDUCATION TEACHER Reason for Visit * Reason Comments Pain * Consultation (Routine) - Authorized Specialty Diagnoses / Procedures Referred By Contac t Referred To Contact Orthopedic Surgery Diagnoses Right shoulder pain, unspecified chronicity [facility], [address] [address] Phone: tel: fax: [facility] (All Locations) Referral ID Status Reason Start Date Expiration Date Visits Requested Visits Authorized [id number] Authorized Specialty Services Required 05/19/[phone] Encounter Details Date Type Department Care Team (Late st Contact Info) Description 06/02/2025 9:45 AM PRE K SPECIAL EDUCATION TEACHER Office Visit [facility] Medicine Orthopaedic Surgery [address] Medical Office [address] [place] [address] Guido Hernandez MD [address] [facility] [address] [place] [address] Right shoulder pain, unspecified chronicity (Primary Dx); [...] week 04/08/2025 How often do you attend [facility] or catholic services? More than 4 times per year 04/08/2025 Do you belong to any clubs o r organizations such as anabaptism groups, unions, fraternal or athletic groups, or [...] any time in the past 12 m [facility], were you homeless or living in a assisted (including now)? 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 No comparison study is available. No suspicious findings in the visualized chest. Alignment is normal. Minimal acromioclavicular osteoarthritis. Normal glenohumeral joint space. No acute fracture or aggressive bone lesion. Electronically signed by: Artie Acosta M.D. Narrative 06/02/2025 11:13 AM PRE K SPECIAL EDUCATION TEACHER EXAMINATION: XR SHOULDER RIGHT 2 OR MORE [...] 2024 documented in this encounter Care Teams History Instructor Relationship Specialty Start Date End Date Sandip Lyon MD PCP - General Strawhat Sizer 06/02/25 No, Physician 04/12/25 documented as of this encounter
--- OUTSIDE RECORDS SUMMARY | 2025-06-02 10:15 | XMS_ITS | Encounter Summary ---
Author Organization [facility] Healthcare Address [address] [place] [address] Care Team Providers Care Nursing Attendant Name Role Phone No, Physician Unavailable Administration, Veterans Primary Care Provide r Unavailable Encounter Details Date Type Department Care Team (Latest Contact Info) Description 06/02/2025 10:15 AM SHELLFISH DREDGE OPERATOR - 06/02/2025 11:59 PM [facility] Hospital Encounter [address] 1 [facility] [address] [place] [address] Right shoulder pain, unspecified chronicity Discharge Disposition: Discharge to home or self care Social History Tobacco Use Types Packs/Day Years Used Date Smoking Tobacco: Former Cigarettes 1 15 - 2007 Passive Smoke Exposure: Never Smokeless [...] week 04/08/2025 How often do you attend chur ch or alevism services? More than 4 times per year 04/08/2025 Do you belong to any clubs o r organizations such as gnosticism groups, unions, fraternal or athletic groups, or [...] any time in the past 12 m [facility], were you homeless or living in a senior living (including now)? 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 N ot on file Not on file documented as of this encounter Medications at Time of Discharge aspirin 81 mg enteric coated tablet Take 1 tablet (81 mg total) by mouth daily 30 tablet 11 12/01/2024 BD Luer-Dioni Syringe 3 mL 23 x 1 syringe USE WITH TESTOSTERONE CYPIONATE WEEKLY DIRECTED 11/18/2023 buPROPion XL (WELLBUTRIN XL) 300 mg 24 hr tabletIndication s:anxiety Take 1 tablet (300 mg total) by mouth every morning 30 tablet 04/12/2025 famotidine (PEPCID) 20 mg tabletIndication s:gastroesophage al reflux disease Take 1 tablet (20 mg total) by mouth 2 (two) times a day fluticasone propionate (FLONASE) 50 mcg/actuation nasal spray Administer 1 spray into each nostril daily 02/26/2025 metoprolol XL (TOPROL-XL) 25 mg extended release tabletIndication s:Supraventricul ar tachycardia Take 1 tablet (25 mg total) by mouth 2 (two) times a day 180 tablet 2 03/16/2025 multivitamin (MULTI-DAY ORAL)Indications :supplement Take 1 tablet by mouth every morning pantoprazole DR (PROTONIX) 40 mg EC tablet Take 1 tablet (40 mg total) by mouth 2 (two) times a day 60 tablet 1 04/12/2025 PARoxetine (PAXIL) 20 mg tablet Take 1 tablet (20 mg total) by mouth every morning 04/15/2025 rosuvastatin (CRESTOR) 10 mg tablet Take 1 tablet (10 mg total) by mouth daily with dinner 30 tablet 04/12/2025 sildenafiL (VIAGRA) 100 mg tablet TAKE ONE TABLET BY MOUTH APPROXIMATELY 30 MINUTES TO 4 HOURS BEFORE SEXUAL ACTIVITY. DO NOT USE MORE THAN ONE DOSE DAILY 02/27/2025 sodium chloride (OCEAN) 0.65 % nasal spray Administer 1 spray into each nostril as needed 02/05/2025 sucralfate (CARAFATE) suspension 1 gram/10 mL Take 10 mL (1 g total) by mouth 4 (four) times a day (with meals and nightly) 1200 mL 1 04/12/2025 testosterone cypionate (DEPO-TESTOTERON E) 200 mg/mL injectionIndicat ions:Androgen Deficiency Inject 0.25 mL (50 mg total) into the muscle as instructed as directed Every 8 days last dose 03/30/24 12/17/2023 documented as of this encounter Discharge Disposition Disposition Code Departure Means Destination Discharge to home or self care documented in this encounter Plan of Treatment Not on file documented as of this encounter Procedures Procedure Name Priority Date/Time Associated Diagnosis Comments XR SHOULDER RIGHT 2 OR MORE VIEWS Schedule Routine, Read Routine (OP Routine) 06/02/2025 10:23 AM SHELLFISH DREDGE OPERATOR Right shoulder pain, unspecified chronicity documented in this encounter Results * XR Shoulder Right 2+ View (06/02/2025 10:23 AM SHELLFISH DREDGE OPERATOR) Anatomical Region Laterality Modality Upper Extremities, Shoulder Right Digi brie Radiography 06/02/2025 11:1 3 AM SHELLFISH DREDGE OPERATOR Impressions 06/02/2025 11:13 AM SHELLFISH DREDGE OPERATOR 4 views of the right shoulder. No comparison study is available. No suspicious findings in the visualized chest. Alignment is normal. Minimal acromioclavicular osteoarthritis. Normal glenohumeral joint space. No acute fracture or aggressive bone lesion. Electronically signed by: Artie Acosta M.D. Narrative 06/02/2025 11:13 AM SHELLFISH DREDGE OPERATOR EXAMINATION: XR SHOULDER RIGHT 2 OR MORE [...] Visit Diagnoses Diagnosis Right shoulder pain, unspecified chronicity documented in this encounter Care Teams Nursing Attendant Relationship Specialty Start Date End Date Sonali, MD Sandip PCP - General Loft Rigger 06/02/25 No, Physician 04/12/25 documented as of this encounter
--- OUTSIDE RECORDS SUMMARY | 2025-06-02 10:15 | XMS_ITS | Encounter Summary ---
Author Organization [facility] Healthcare Address [address] [place] [address] Care Team Providers Care Educational Programming Director Name Role Phone No, Physician Unavailable Administration, Veterans Primary Care Provide r Unavailable Encounter Details Date Type Department Care Team (Latest Contact Info) Description 06/02/2025 10:15 AM LAWN CARE PROFESSIONAL - 06/02/2025 11:59 PM [facility] Hospital Encounter [address] [place] [address] Right shoulder pain, unspecified chronicity Discharge Disposition: [...] often do you attend chur ch or methodist services? More than 4 times per year 04/08/2025 Do you belong to any clubs o r organizations such as presybeterian groups, unions, fraternal or athletic groups, or [...] any time in the past 12 m [facility], were you homeless or living in a group home (including now)? 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 No comparison study is available. No suspicious findings in the visualized chest. Alignment is normal. Minimal acromioclavicular osteoarthritis. Normal glenohumeral joint space. No acute fracture or aggressive bone lesion. Electronically signed by: Artie Acosta M.D. Narrative 06/02/2025 11:13 AM LAWN CARE PROFESSIONAL EXAMINATION: XR SHOULDER RIGHT 2 OR MORE [...] chronicity documented in this encounter Care Teams Educational Programming Director Relationship Specialty Start Date End Date Sonali, MD Sandip PCP - General Bridge Leverman 06/02/25 No, Physician 04/12/25 documented as of this encounter
--- OUTSIDE RECORDS SUMMARY | 2025-06-02 10:17 | XMS_ITS | Encounter Summary ---
Author Organization [facility] Healthcare Address [address] [place] [address] Care Team Providers Care Camera Repairman Name Role Phone No, Physician Unavailable Administration, Veterans Primary Care Provide r Unavailable Reason for Referral * MRI/CAT/PET Scan (Routine) - Pending Review Specialty Diagnoses / Procedures Referred By Contac t Referred To Contact Diagnoses Pain, unspecified Procedures MSK MR Outside Reference Guido Hernandez MD [address] [place] [address] Phone: tel: fax: [address] [address] Phone: tel: fax: Referral ID Status Reason Start Date Expiration Date V isits Requested Visits Authorized [id number] Pending Review 06/02/2025 07/02/2026 1 1 NCIAL AID MANAGER Reason for Visit * MRI/CAT/PET Scan (Routine) - Pending Review Specialty Diagnoses / Procedures Referred By Contac t Referred To Contact Diagnoses Pain, unspecified Procedures MSK MR Outside Reference Guido Hernandez MD [address] [place] [address] Phone: tel: fax: [address] [place] [address] Phone: tel: fax: Referral ID Status Reason Start Date Expiration Date V isits Requested Visits Authorized [id number] Pending Review 06/02/2025 07/02/2026 1 1 Encounter Details Date Type Department Care Team (Latest Contact Info) Description 06/02/2025 10:17 AM FINANCIAL AID MANAGER - 06/02/2025 11:59 PM FINANCIAL AID MANAGER Hospital Encounter [facility] [address] [place] [id number] Arrived Discharge Disposition: Discharge to home or self [...] week 04/08/2025 How often do you attend [facility] or [facility]an cath[facility] services? More than 4 times per year 04/08/2025 Do you belong to any clubs o r organizations such as druze groups, unions, fraternal or athletic groups, or [...] were you homeless or living in a skilled nursing (including now)? 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 N ot on file [...] times a day 60 tablet 1 04/12/2025 5 PARoxetine (PAXIL) 20 mg tablet Take 1 [...] meals and nightly) 1200 mL 1 04/12/2025 5 testosterone cypionate (DEPO-TESTOTERON E) 200 mg/mL injectionIndicat [...] Procedure Name Priority Date/Time Associated Diagnosis Comments K MR OUTSIDE REFERENCE Routine 06/02/2025 10:17 AM FINANCIAL AID MANAGER documented in this encounter Results * MSK MR Outside Reference (06/02/2025 10:17 AM FINANCIAL AID MANAGER) Impressions [facility] - 06/02/2025 10:17 AM FINANCIAL AID MANAGER These images are for Reference purposes only and have not been reviewed by [facility]. There will be no report generated by a [facility] Radiologist. Narrative [facility] - 06/02/2025 10:17 AM FINANCIAL AID MANAGER EXAMINATION: Images For Reference Purposes Only us Guido Hernandez MD IMG MRI PROCEDURE S Final Result [facility] documented in this encounter Visit Diagnoses Not on filedocumented in this encounter Care Teams Camera Repairman Relationship Specialty Start Date End Date Sandip Lyon MD PCP - General Account Technician 06/02/25 No, Physician 04/12/25 documented as of this encounter
--- OUTSIDE RECORDS SUMMARY | 2025-06-02 10:17 | XMS_ITS | Encounter Summary ---
Author Organization [facility] Healthcare Address [address] [place] [address] Care Team Providers Care Parts Professional Name Role Phone No, Physician Unavailable Administration, Veterans Primary Care Provide r Unavailable Reason for Referral * MRI/CAT/PET Scan (Routine) - Pending Review Specialty Diagnoses / Procedures Referred By Contac t Referred To Contact Diagnoses Pain, unspecified Procedures MSK MR Outside Reference Guido Hernandez MD [address] [place] [address] Phone: tel: fax: [address] [phone] Phone: tel: fax: Referral ID Status Reason Start Date Expiration Date V isits Requested Visits Authorized [id number] Pending Review 06/02/2025 07/02/2026 1 1 CLOSER Reason for Visit * MRI/CAT/PET Scan (Routine) - Pending Review Specialty Diagnoses / Procedures Referred By Contac t Referred To Contact Diagnoses Pain, unspecified Procedures MSK MR Outside Reference Guido Hernandez MD [address] [place] [address] Phone: tel: fax: [address] [place] [address] Phone: tel: fax: Referral ID Status Reason Start Date Expiration Date V isits Requested Visits Authorized [id number] Pending Review 06/02/2025 07/02/2026 1 1 Encounter Details Date Type Department Care Team (Latest Contact Info) Description 06/02/2025 10:17 AM TOP CLOSER - 06/02/2025 11:59 PM TOP CLOSER Hospital Encounter [facility]) [address] [place] [id number] Arrived Discharge Disposition: Discharge to home or [...] week 04/08/2025 How often do you attend [facility] or [facility] services? More than 4 times per year 04/08/2025 Do you belong to any clubs o r organizations such as confucianism groups, unions, fraternal or athletic groups, or [...] any time in the past 12 m [facility], were you homeless or living in a residential (including now)? 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 There will be no report generated by a [facility] Radiologist. Narrative RAD_P[facility] - 06/02/2025 10:17 AM TOP CLOSER EXAMINATION: Images For Reference Purposes Only us Guido Hernandez MD IMG MRI PROCEDURE S Final Result [facility] documented in this encounter Visit Diagnoses Not on filedocumented in this encounter Care Teams Parts Professional Relationship Specialty Start Date End Date Sandip Lyon MD PCP - General Software Licensing Specialist 06/02/25 No, Physician 04/12/25 documented as of this encounter
[2025-06-03] VITALS (9 sets, daily range): BP systolic 112–172; BP diastolic 80–102; PULSE 79–129; RESP 13–20; TEMP 36.8; O2SAT 94–99
--- NOTE | ~2025-06-03 | XR_ITS ---
EXAMINATION: XR chest 2V, 06/03/2025 13:55 [facility] HISTORY: chest pain COMPARISON: No comparisons available. Technique: 2 views obtained. Findings: The lungs are clear, no effusion. No pneumothorax. Heart is normal size. Mediastinal and hilar contours are within normal limits. Bony thorax no acute abnormality. Impression: No acute cardiopulmonary abnormality. Reviewed, dictated and finalized at location [facility] Impression: No acute cardiopulmonary abnormality.
--- NOTE | 2025-06-03 13:49 | ECG_ITS ---
Test Date: 2025-06-03 13:54:33 Measurements Intervals [place] Rate: 112 P: 52 OR: 149 QRS: 8 QRSD: 82 T: 92 QT: 290 QTc: 397 Interpretive Statements SINUS TACHYCARDIA POSSIBLE LEFT ATRIAL ENLARGEMENT [-0.1mV P-WAVE IN V1/V2] NONSPECIFIC T-WAVE ABNORMALITY Compared to ECG 12/07/2024 12:06:14 T-wave abnormality now present Sinus bradycardia no longer present Electronically Signed On 06-03-2025 13:59:01 INDUSTRIAL CLEANER by Phillip Meraz M.D.
[2025-06-03 14:03] LABS: Hematocrit 48.7 % (42.0-52.0); Hemoglobin 15.0 g/dL (14.0-18.0); Immature Granulocyte Percent A 0.4 % (0-0.5); Lymphocytes Absolute Auto 1.68 K/mm3 (0.9-3.2); Mean Corpuscular HGB Conc 30.8 g/dl (32-36); Mean Corpuscular Hemoglobin 25.5 pg (26-34); Mean Corpuscular Volume 82.7 fl (80-100); Nucleated Red Blood Cells Absolute Auto 0.000 K/mm3 (0.0-0.012); Nucleated Red Blood Cells Perc 0.0 % (0.0-0.2); Platelet Count Result 256 k/mm3 (150-375); Red Blood Count 5.89 M/mm3 (4.6-6.20); White Blood Count 16.5 K/mm3 (4.5-10.0)
--- OUTSIDE RECORDS SUMMARY | 2025-06-03 14:13 | XMS_ITS | Encounter Summary ---
Author Organization [facility] Healthcare Address [address] [place] [address] Care Team Providers Care Consulting Database Administrator Name Role Phone Shania Burks Primary Care Provider [phone] No, Physician Unavailable Administration, Sandip NOWAK Primary Care Provide r Unavailable Encounter Details Date Type Department Care Team (Late st Contact Info) Description 02/05/2025 Orders Only [facility] Health Information Management [address] [place] [id number] Scanning, Provider Social History Tobacco Use Types [...] on file Legal Sex Male 4:05 AM PYROTECHNIC MIXER Gender Identity Male 03/05/2024 6:36 AM CDT Sexual Orientation Not on file 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 End Date 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 Patient may require a screening swab. No additional isolation precautions are necessary with this flag/n.moll 04/05/2025 04/05/2025 04/12/2025 7:26 PM CDT documented as of this encounter Care Teams Consulting Database Administrator Relationship Specialty Start Date End Date Shania Burks PA [address] [place] [id number] PCP - General Family Practice 09/20/22 06/01/25 Sandip Lyon MD PCP - General Marketing Clerk 06/02/25 No, Physician 04/12/25 documented as of this encounter
--- OUTSIDE RECORDS SUMMARY | 2025-06-03 14:13 | XMS_ITS | Clinical Summary ---
Author Organization [facility] Address [address] [place] [address] Care Team Providers Care Cable Television Program Director Name Role Phone Shania Burks PA-C Primary Care Provider [phone] Allergies Active Allergy Reactions Criticality Noted Date [...] 3 Day Supply 10 tablet 1 Active Encounters Date Type Department Care Team Description 04/03/2025 10:41 PM CDT - 04/04/2025 12:35 AM CDT Emergency [facility] Emergency Room [address] [place] [address] Yary Roberson DO Ingestion Intentional Discharge Disposition: Home or Self Care (Routine Discharge) from Last 3 Months Immunizations Immunization Administration Dates Next Due Tdap [...] Sign Reading Time Taken Comments Blood Pressure 132/81 04/03/2025 11:45 PM CDT Pulse 67 04/03/2025 11:50 PM CDT Temperature 37.3 C (99.1 F) 04/03/2025 10:50 PM CDT Respiratory Rate 16 04/03/2025 11:15 PM CDT Oxygen Saturation 99% 04/03/2025 11:50 PM CDT Inhaled Oxygen Concentration - - Weight 95.3 kg (210 lb) 04/03/2025 10:50 PM CDT Height 182.9 cm (6') 04/03/2025 10:50 PM CDT Body Mass Index 28.48 04/03/2025 10:50 PM CDT Plan of Treatment Health Maintenance Due Date Last Done Comments Colorectal Cancer Screening Colonoscopy (10 Years) 1970 Annual Physical 1972 Hepatitis C 11/28/1987 Hepatitis B Vaccines (1 of 3 - 19+ 3-dose series) 1988 Pneumococcal Vaccine: 50+ Years (2 of 2 - PCV) 11/28/2019 10/31/2017 Zoster Vaccines (1 of 2) 11/28/2019 COVID-19 Vaccine ( - 2024-2 6 season) 2025 Influenza Adult (#1) 2025 05/22/2018, 07/07/2015, 06/05/2013 DTaP, Tdap and Td Vaccines ( 3 - Td or Tdap) 07/07/2030 07/07/2020, 10/20/2011 Hepatitis A Vaccines Aged Out No long er eligible based on patient's age to complete this topic Meningococcal B Vaccine Aged Out No l onger eligible based on patient's age to complete this topic Meningococcal Vaccine Aged Out No angi nabila eligible based on patient's age to complete this topic RSV Immunizations Under 20 Months Aged Out No longer eligible b ased on patient's age to complete this topic Procedures Procedure Name Priority Date/Time Associated Diagnosis Comments HC TROPONIN QN Routine 04/04/2025 12:07 AM CDT XR CHEST PORTABLE STAT 04/04/2025 12: 00 AM CDT POCT GLUCOSE - DOCKED DEVICE Routine 04/03/2025 11:54 PM CDT DRUG SCREEN RAPID STAT 04/03/2025 11: 52 PM CDT HC URINALYSIS AUTO W/MICRO STAT 04/03/2025 11:52 PM CDT POCT GLUCOSE - DOCKED DEVICE Routine 04/03/2025 11:24 PM CDT CRITICAL CARE Routine 04/03/2025 11:00 PM CDT CORONAVIRUS (COVID 19) STAT 10:57 PM CDT HC MAGNESIUM STAT 04/03/2025 10:57 PM CDT ECG 12-LEAD Routine 04/03/2025 10:45 PM CDT TSH W/REFLEX STAT 04/03/2025 10:43 PM CDT ETHANOL STAT 04/03/2025 10:43 PM CDT SALICYLATE STAT 04/03/2025 10:43 PM CDT HC DRUG SCREEN PRESUMPTIVE INSTRUMENT T4 STAT 04/03/2025 10:43 PM CDT HC COMPREHENSIVE METABOL PANEL STAT 04/03/2025 10:43 PM CDT HC CBC AUTO W/AUTO DIFF STAT 04/03/2025 10:43 PM CDT from Last 3 Months Results * TROPONIN, QUANT (04/04/2025 12:07 AM CDT) TROPONIN I HIGH SENSITIVITY 6 0 - 75 ng/L 04/04/2025 12:53 AM CDT [facility] Comment: HIGH DOSES OF BIOTIN, TROPONIN-SPECIFIC AUTOANTIBODIES, AND ANTIBODY THERAPY CONTAINING HAMA MAY INTERFERE WITH THIS TEST RESULT. CORRELATION TO CLINICAL HISTORY AND PRESENTATION RECOMMENDED. 04/04/2025 12:0 7 AM CDT Yary Roberson DO LABORATORY Final Result [facility] [address] [place] [address], [place] [phone] * XR CHEST PORTABLE (04/04/2025 12:00 AM CDT) Anatomical Region Laterality Modality Chest Radiographic Yolis ging 04/04/2025 12:2 0 AM CDT Impressions 04/04/2025 12:22 AM CDT IMPRESSION: The enteric tube terminates in the left upper quadrant in the expected region of the stomach. Referred By: Interpreted By: Jono Sepulveda MD, 04/04/2025 12:20 AM Narrative 04/04/2025 12:22 AM CDT [facility] [address] [place] [address] EXAMINATION: XR CHEST PORTABLE HISTORY: NG TUBE PLACEMENT COMPARISON: Radiographs August 02, 2020. TECHNIQUE: AP image of the chest. FINDINGS: Enteric tube terminates in the left upper quadrant in the expected region of the stomach. The heart appears normal in size. Mild vascular congestion. No significant pleural effusion or pneumothorax is identified. External defibrillator pads noted overlying the left chest region. Procedure Note Jono Sepulveda MD - 04/04/2025 [facility] [address] [place] [address] EXAMINATION: XR CHEST PORTABLE HISTORY: NG TUBE PLACEMENT COMPARISON: Radiographs August 02, 2020. TECHNIQUE: AP image of the chest. FINDINGS: Enteric tube terminates in the left upper quadrant in the expected regionof the stomach. The heart appears normal in size. Mild vascularcongestion. No significant pleural effusion or pneumothorax is identified.External defibrillator pads noted overlying the left chest region. IMPRESSION: The enteric tube terminates in the left upper quadrant in the expectedregion of the stomach. Referred By: Interpreted By: Jono Sepulveda MD, 04/04/2025 12:20 AM Yary Roberson DO GENERAL IMAGING Final Result * (ABNORMAL) POCT glucose (04/03/2025 11:54 PM CDT) Only the most recent of2 resultswithin the time period is included. GLUCOSE POC 212(H) 70 - 110 mg/dL 04/03/2025 11:56 PM CDT [facility] 04/03/2025 11:5 4 PM CDT Yary Roberson DO POCT ORDERABLES - DEVICE Final Result [facility] [address] [place] [id number], [place] [phone] * DRUG SCREEN RAPID (04/03/2025 11:52 PM CDT) AMPHETAMINE (U) NONE DETECTED NONE DETECTED 04/04/2025 12:18 AM CDT [facility] BARBITURATES SCREEN (U) NONE DETECTED NONE DETECTED 04/04/2025 12:18 AM CDT [facility] BENZODIAZEPINES SCREEN (U) NONE DETECTED NONE DETECTED 04/04/2025 12:18 AM CDT [facility] BUPRENORPHINE SCREEN (U) NONE DETECTED NONE DETECTED 04/04/2025 12:18 AM CDT [facility] COCAINE METABOLITES (U) NONE DETECTED NONE DETECTED 04/04/2025 12:18 AM CDT [facility] METHAMPHETAMINE (U) NONE DETECTED NONE DETECTED 04/04/2025 12:18 AM CDT [facility] METHADONE (U) NONE DETECTED NONE DETECTED 04/04/2025 12:18 AM CDT [facility] OPIATE SCREEN (U) NONE DETECTED NONE DETECTED 04/04/2025 12:18 AM CDT [facility] OXYCODONE SCREEN (U) NONE DETECTED NONE DETECTED 04/04/2025 12:18 AM CDT [facility] PHENCYCLIDINE PCP (U) NONE DETECTED NONE DETECTED 04/04/2025 12:18 AM T [facility] CANNABINOIDS SCREEN (U) NONE DETECTED NONE DETECTED 04/04/2025 12:18 AM T [facility] TRICYCLIC ANTIDEPRESSANT SCREEN (U) NONE DETECTED NONE DETECTED 04/04/2025 12:18 AM T [facility] Comment: NOTE: RESULTS OF THIS DRUG SCREEN SHOULD BE USED FOR MEDICAL PURPOSES ONLY AND NOT FOR LEGAL OR EMPLOYEMENT PURPOSES. MEDICATIONS CONTAINING EPHEDRINE MAY CAUSE FALSE POSITIVE AMPHETAMINE. AMPHETAMINE- 500 NG/ML BARBITURATE- 200 NG/ML BENZODIAZEPINE- 150 NG/ML BUPRENORPHINE- 10 NG/ML COCAINE- 150 NG/ML METHAMPHETAMINES- 500 NG/ML METHADONE- 200 NG/ML OPIATE- 100 NG/ML OXYCODONE- 100 NG/ML PCP- 25 NG/ML THC- 50 NG/ML TCA- 300 NG/ML URINE SPECIMEN / Unknown 04/03/2025 11:52 PM CDT Yary Roberson DO URINE ORDERABLES Final Result [facility] [address] [place] [address], [place] [phone] * (ABNORMAL) URINALYSIS, AUTO, COMPLETE (04/03/2025 11:52 PM CDT) COLOR (U) YELLOW 04/04/2025 12:16 AM CDT [facility] TRANSPARENCY CLEAR 04/04/2025 12:16 AM CDT [facility] SPECIFIC GRAVITY (U) <1.005 1.000 - 1.030 04/04/2025 12:16 AM CDT [facility] U PH 6.0 5.0 - 9.0 04/04/2025 12:16 AM T [facility] LEUKOCYTES (U) NEGATIVE NEGATIVE 04/04/2025 12:16 AM T [facility] NITRITES NEGATIVE NEGATIVE 04/04/2025 12:16 AM T [facility] PROTEIN RANDOM (U) NEGATIVE NEGATIVE 04/04/2025 12:16 AM T [facility] GLUCOSE (U) 2+(A) NEGATIVE 04/04/2025 12:[address] [facility] KETONES MG/DL (U) NEGATIVE NEGATIVE 04/04/2025 12:16 AM T [facility] BILIRUBIN (U) NEGATIVE NEGATIVE 04/04/2025 12:16 AM T [facility] BLOOD (U) TRACE(A) NEGATIVE 04/04/2025 12:16 AM T [facility] WBC/HPF 0-5 0 - 5 /HPF 04/04/2025 12:16 AM T [facility] RBC/HPF 5-10 0 - 5 /HPF 04/04/2025 12:16 AM T [facility] EPI/HPF RARE /HPF 04/04/2025 12:16 AM T [facility] URINE SPECIMEN OBTAINED BY CLEAN CATCH PROCEDURE / Unknown 04/03/2025 11:52 PM CDT Yary Roberson DO URINE ORDERABLES Final Result [facility] [address] [place] [id number], * Critical Care (04/03/2025 11:00 PM CDT) Yary Warner DO - 04/03/2025 11:00 PM CDT Yary Roberson DO 04/04/2025 7:06 AM Critical Care Performed by: Yary Roberson DO Authorized by: Yary Roberson DO Critical care provider statement: Critical care time (minutes): 60 Critical care was necessary to treat or prevent imminent or life-threatening deterioration of the following conditions: Circulatory failure, respiratory failure, shock and toxidrome Critical care was time spent personally by me on the following activities: Blood draw for specimens, development of treatment plan with patient or surrogate, discussions with consultants, evaluation of patient's response to treatment, examination of patient, obtaining history from patient or surrogate, ordering and performing treatments and interventions, ordering and review of laboratory studies, ordering and review of radiographic studies, pulse oximetry, re-evaluation of patient's condition and review of old charts Care discussed with: accepting provider at another facility Yary Roberson DO PROCEDURE/MINOR SURGICAL ORDERA BLES Final Result * CORONAVIRUS (COVID-19) MOLECULAR (04/03/2025 10:57 PM CDT) CORONAVIRUS SARS COV 2 RNA NEGATIVE NEGATIVE 04/03/2025 11:22 PM CDT [facility] Comment: NEGATIVE RESULTS DO NOT RULE OUT COVID 19 AND SHOULD NOT BE USED THE SOLE BASIS FOR TREATMENT OR PATIENT MANAGEMENT DECISIONS, INCLUDING INFECTION CONTROL DECISIONS. NEGATIVE RESULTS SHOULD BE CONSIDERED IN THE CONTEXT OF A PATIENT'S RECENT EXPOSURES, HISTORY AND THE PRESENCE OF CLINICAL SIGNS AND SYMPTOMS CONSISTENT WITH COVID 19. THE ID NOW COVID-19 2.0 TEST HAS BEEN AUTHORIZED BY THE FDA UNDER EAU FOR USE BY AUTHORIZED LABORATORIES. PERFORMED BY [employer] ACID AMPLIFICATION FOR MOLECULAR QUALITATIVE DETECTION OF SARS-COV-2. SPECIMEN TYPE NASAL 04/03/2025 10:57 PM CDT [facility] NASOPHARYNGEAL SWAB / Unknown 04/03/2025 10:57 PM CDT Yary Roberson DO MICROBIOLOGY - GENERAL ORDERABL ES Final Result Performing Organization Address City/[facility]/ZIP Co de Phone Number [facility] [address] [place] [address], [place] [phone] * MAGNESIUM (04/03/2025 10:57 PM CDT) MAGNESIUM 2.3 1.8 - 2.4 MG/DL 04/03/2025 11:27 PM CDT [facility] 04/03/2025 10:5 7 PM CDT Yary Roberson DO LABORATORY Final Result Performing Organization Address [facility] Co de Phone Number [facility] [address] [place] [address], [place] [phone] * ECG 12 lead (04/03/2025 10:45 PM CDT) 04/03/2025 10:4 5 PM CDT Narrative [facility] ([facility] RAD - 04/05/2025 10:37 AM CDT [facility] Test Date: 2025-04-03 Pat Name: SAUMYA ZAVALA Department: 85 Room: [facility] Gender: Male 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 Worker: : 1970 Requested By: YARY ROBEROSN Order Number: [id number] Reading MD: Bhargav London Measurements Intervals [place] Rate: 64 P: 41 MN: 171 QRS: -2 QRSD: 91 T: -6 QT: 370 QTc: 384 Interpretive Statements SINUS RHYTHM LEFT VENTRICULAR HYPERTROPHY AND ST-T CHANGE [VOLTAGE CRITERIA PLUS ST/T ABNORMALITY] Procedure Note Bhargav London MD - 04/05/2025 [facility] Test Date: 2025-04-03 Pat Name: SAUMYA ZAVALA Department: 85 Room: [facility] Gender: Male Rattan Worker: : 1970 Requested By: YARY ROBERSON Order Number: [id number] Reading MD: Bhargav London Measurements Intervals [place] Rate: 64 P: 41 MN: 171 QRS: -2 QRSD: 91 T: -6 QT: 370 QTc: 384 Interpretive Statements SINUS RHYTHM LEFT VENTRICULAR HYPERTROPHY AND ST-T CHANGE [VOLTAGE CRITERIA PLUSST/T ABNORMALITY] Yary Roberson DO ECG ORDERABLES Final Result Performing Organization Address City/[facility]/ZIP Co de Phone Number [facility] * TSH W/REFLEX (04/03/2025 10:43 PM CDT) TSH 1.063 0.358 - 3.74 uIU/ML 04/03/2025 11:19 PM CDT [facility] Comment: HIGH DOSES OF BIOTIN MAY INTERFERE WITH THIS TEST RESULT. CORRELATION TO CLINICAL HISTORY AND PRESENTATION RECOMMENDED. FREE T4 NOT INDICATED 04/03/2025 10:4 3 PM CDT Yary Roberson DO LABORATORY Final Result [facility] [address] [place] [address], [place] [phone] * (ABNORMAL) COMPREHENSIVE METABOLIC PANEL (04/03/2025 10:43 PM CDT) GLUCOSE 100(H) 70 - 99 MG/DL 04/03/2025 11:[address] [facility] BUN 17 7 - 18 MG/DL 04/03/2025 11:[address] [facility] CREATININE S/P/B 1.11 0.7 - 1.3 MG/DL 04/03/2025 11:[address] [facility] SODIUM S/P/B 139 136 - 145 MMOL/L 04/03/2025 11:[address] [facility] POTASSIUM S/P/B 3.8 3.5 - 5.1 MMOL/L 04/03/2025 11:[address] [facility] CHLORIDE S/P/B 102 100 - 108 MMOL/L 04/03/2025 11:[address] [facility] CO2 29.7 21 - 32 MMOL/L 04/03/2025 11:[address] [facility] CALCIUM S/P/B 8.6 8.5 - 10.1 MG/DL 04/03/2025 11:[address] [facility] BILIRUBIN TOTAL S/P/B 0.6 0.2 - 1.2 MG/DL 04/03/2025 11:[address] [facility] TOTAL PROTEIN S/P/B 7.5 6.4 - 8.2 G/DL 04/03/2025 11:[address] [facility] ALBUMIN S/P/B 4.2 3.4 - 5.0 G/DL 04/03/2025 11:[address] [facility] AST 34 15 - 37 U/L 04/03/2025 11:[address] [facility] ALT 48 16 - 60 U/L 04/03/2025 11:[address] [facility] ALKALINE PHOSPHATASE S/P/B 60 50 - 136 U/L 04/03/2025 11:19 PM CDT [facility] ANION GAP 7.3 5 - 15 MMOL/L 04/03/2025 11:19 PM CDT [facility] BUN CREATININE RATIO 15.3 6 - 26 04/03/2025 11:19 PM CDT [facility] A/G RATIO 1.3 1.0 - 2.0 RATIO 04/03/2025 11:19 PM CDT [facility] GFR ESTIMATE 78(L) >90 ML/MIN/1.7 3 M2 04/03/2025 11:19 PM CDT [facility] Comment: NOTE: eGFR is not calculated for patients <18 years of age or gender unknown. This is an estimated GFR calculation using the new CKD EPI creatinine equation without race and so does not require a correction factor for race. This estimated GFR should not be used for calculating drug doses. 04/03/2025 10:4 3 PM CDT us Yary Roberson DO LABORATORY Final Result [facility] [address] [place] [phone], * (ABNORMAL) CBC W/DIFF AUTOMATED (04/03/2025 10:43 PM CDT) WBC 11.07(H) 4.4 - 11.0 x10'3/uL 04/03/2025 10:59 PM CDT [facility] RBC 5.72 4.50 - 5.90 x10'6/uL 04/03/2025 10:59 PM CDT [facility] HGB 16.2 14.0 - 17.5 G/DL 04/03/2025 10:59 PM CDT [facility] HCT 50.4 41.5 - 50.4 % 04/03/2025 10:59 PM CDT [facility] MCV 88.1 80.0 - 96.0 FL 04/03/2025 10:59 PM CDT [facility] MCH 28.3 26.5 - 31.4 PG 04/03/2025 10:59 PM CDT [facility] MCHC 32.1 31.9 - 34.8 G/DL 04/03/2025 10:59 PM CDT [facility] RDW 13.9 12.3 - 14.3 % 04/03/2025 10:59 PM CDT [facility] PLT 206 151 - 353 x10'3/uL 04/03/2025 10:59 PM CDT [facility] MPV 9.7 9.7 - 11.9 FL 04/03/2025 10:59 PM CDT [facility] RBC MORPHOLOGY NORMAL 04/03/2025 10:59 PM CDT [facility] PLT MORPH. NORMAL 04/03/2025 10:59 PM CDT [facility] WBC MORPHOLOGY NORMAL 04/03/2025 10:59 PM CDT [facility] LYMPHOCYTES % 44.8 15.8 - 45.0 % 04/03/2025 10:59 PM CDT [facility] NEUTROPHILS % 43.7 42.1 - 71.9 % 04/03/2025 10:59 PM CDT [facility] MONOCYTES % 8.4 5.7 - 12.5 % 04/03/2025 10:59 PM CDT [facility] EOSINOPHILS 2.4 0.0 - 5.6 % 04/03/2025 10:59 PM CDT [facility] BASOPHILS 0.5 0.0 - 1.3 % 04/03/2025 10:59 PM CDT [facility] ABS. NEUTROPHILS 4.83 1.40 - 6.00 x10'3/uL 04/03/2025 10:59 PM CDT [facility] IMMATURE GRANS % 0.2 0.0 - 0.5 % 04/03/2025 10:59 PM CDT [facility] ABS. LYMPHOCYTES 4.96(H) 0.80 - 4.70 x10'3/uL 04/03/2025 10:59 PM CDT [facility] 04/03/2025 10:4 3 PM CDT us Yary Roberson DO LABORATORY Final Result Performing Organization Address City/[facility]/ZIP Co de Phone Number [facility] [address] [place] [address], [place] [phone] * (ABNORMAL) SALICYLATE (04/03/2025 10:43 PM CDT) SALICYLATES 1.1(L) 2.8 - 20.0 MG/DL 04/03/2025 11:02 PM CDT [facility] Comment: THERAPEUTIC: 2.8-20.0 Toxic Level: >=30 04/03/2025 10:4 3 PM CDT us Yary Roberson DO LABORATORY Final Result [facility] [address] [place] [address], [place] [phone] * (ABNORMAL) ETHANOL (04/03/2025 10:43 PM CDT) ALCOHOL S/P/B 0.222(H) <0.003 G/DL 04/03/2025 11:19 PM CDT [facility] 04/03/2025 10:4 3 PM CDT Yary Roberson DO LABORATORY Final Result Performing Organization Address City/[facility]/ZIP Co de Phone Number [facility] [address] [place] [address], * (ABNORMAL) ACETAMINOPHEN (04/03/2025 10:43 PM CDT) ACETAMINOPHEN S/P/B <0.5(L) 10.0 - 30.0 MCG/ML 04/03/2025 11:19 PM CDT [facility] Comment: THERAPEUTIC: 10-30 TOXIC: >200 04/03/2025 10:4 3 PM CDT Yary Beverly ENRIQUEZ LABORATORY Final Result Performing Organization Address [facility] Co de Phone Number [facility] [address] [place] [address], from Last 3 Months Insurance [facility] Care Teams Cable Television Program Director Relationship Specialty Start Date End Date Shania Burks PA-C [address] [place] [address] PCP - General PHYSICIAN OWNER SPA DIRECTOR 03/25/21
--- OUTSIDE RECORDS SUMMARY | 2025-06-03 14:13 | XMS_ITS | Clinical Summary ---
Author Organization [facility] Address [address] [place] [address] Care Team Providers Care Weather Reporter Name Role Phone No, Physician Unavailable Administration, [facility] Primary Care Provide r Unavailable Allergies Active Allergy Reactions Criticality Noted Date Comments Atorvastatin Muscle pain Medium 04/04/2025 Sulfamethoxazole-Trimethoprim Rash Medium 2024 Codeine Vomiting Low Lightheadedness Morphine Anaphylaxis High 07/25/2000 Medications multivitamin (MULTI-DAY ORAL)Indication s:supplement Take 1 tablet by mouth every morning Active famotidine (PEPCID) 20 mg tabletIndicatio ns:gastroesopha geal reflux disease Take 1 tablet (20 mg total) by mouth 2 (two) times a day Active testosterone cypionate (DEPO-TESTOTERO NE) 200 mg/mL injectionIndica tions:Androgen Deficiency Inject 0.25 mL (50 mg total) into the muscle as instructed as directed Every 8 days last dose 03/30/24 4 Active BD Luer-Dioni Syringe 3 mL 23 x 1 syringe USE WITH TESTOSTERONE CYPIONATE WEEKLY DIRECTED 4 Active aspirin 81 mg enteric coated tablet Take 1 tablet (81 mg total) by mouth daily 30 tablet 11 5 026 Active sildenafiL (VIAGRA) 100 mg tablet TAKE ONE TABLET BY MOUTH APPROXIMATELY 30 MINUTES TO 4 HOURS BEFORE SEXUAL ACTIVITY. DO NOT USE MORE THAN ONE DOSE DAILY 5 Active metoprolol XL (TOPROL-XL) 25 mg extended release tabletIndicatio ns:Supraventric ular tachycardia Take 1 tablet (25 mg total) by mouth 2 (two) times a day 180 tablet 2 5 Active buPROPion XL (WELLBUTRIN XL) 300 mg 24 hr tabletIndicatio ns:anxiety Take 1 tablet (300 mg total) by mouth every morning 30 tablet 5 Active Additional Information Patient taking differently: 150 mgoral Every morning, Indications: anxiety, Reported on 04/29/2025 clonazePAM (KlonoPIN) 1 mg tabletIndicatio ns:anxiety Take 0.5 tablets (0.5 mg total) by mouth 2 (two) times a day 30 tablet 5 Active rosuvastatin (CRESTOR) 10 mg tablet Take 1 tablet (10 mg total) by mouth daily with dinner 30 tablet [address] (PROTONIX) 40 mg EC tablet Take 1 tablet (40 mg total) by mouth 2 (two) times a day 60 tablet 1 5 025 Active sucralfate (CARAFATE) suspension 1 gram/10 mL Take 10 mL (1 g total) by mouth 4 (four) times a day (with meals and nightly) 1200 mL 1 5 025 Active PARoxetine (PAXIL) 20 mg tablet Take 1 tablet (20 mg total) by mouth every morning 5 Active sodium chloride (OCEAN) 0.65 % nasal spray Administer 1 spray into each nostril as needed Active fluticasone propionate (FLONASE) 50 mcg/actuation nasal spray Administer 1 spray into each nostril daily 5 Active Active Problems Problem Noted Date Diagnosed Date Gastrointestinal hemorrhage with hematemesis Suicide attempt 04/04/2025 Supraventricular tachycardia 02/02/2025 Peroneal neuropathy at knee, left 03/05/2024 Degenerative superior labral bnbayqcc-qd-dszojznok (SLAP) tear of left shoulder 12/30/2023 Abnormal [...] Encounters Date Type Department Care Team Description 5 Telephone [facility] Medical Group Cardiology [address] [place] [address] Yary Dial NP blood pressure 5 10:17 AM BRAILLE OPERATOR - 5 11:59 PM BRAILLE OPERATOR Hospital Encounter [facility] [address] [place] [address] Arrived Discharge Disposition: Discharge to home or self care 5 10:15 AM BRAILLE OPERATOR - 5 11:59 PM BRAILLE OPERATOR Hospital Encounter [address] 1 [facility] [address] [place] [address] Right shoulder pain, unspecified chronicity Discharge Disposition: Discharge to home or self care 5 9:45 AM BRAILLE OPERATOR Office Visit [facility] Orthopaedic Surgery [address] [place] [address] Medical Office Building [address] [place] [phone] Guido Hernandez MD Right shoulder pain, unspecified chronicity (Primary Dx); Tendinopathy of right rotator cuff 5 9:00 AM CDT Office Visit [facility] Medical [facility] Cardiology [address] [place] [address] Yary Dial NP Supraventricular tachycardia (Primary Dx); Candidate for statin therapy due to risk of future cardiovascular event; History of drug overdose; Hospital discharge follow-up; Hyperlipidemia, unspecified hyperlipidemia type 5 Telephone [facility] Cardiology [address] [place] [address] Phillip Meraz MD 5 11:31 AM CDT Anesthesia Event [facility] GI Lab [address] [place] [address] Thomas Patricia MD 5 10:50 AM CDT - 5 11:[address] [facility] [address] [place] [address] Ry Diaz MD ESOPHAGOGASTRODUODENOSCOPY 5 1:02 AM CDT - 5 3:50 PM CDT Hospital Encounter [facility] [address] [address] Сергей Samuel MD Yuan, MD Jm Miller Md Shahin, MD Bondalapati, Wero Gomez MD Suicide attempt (Primary Dx); Gastrointestinal hemorrhage with hematemesis [K92.0]; Gastrointestinal hemorrhage with hematemesis; Idiopathic hypotension Discharge Disposition: Discharge to home or self care 5 8:30 AM CDT Office Visit [facility] Cardiology [address] [place] [phone] Yary Dial NP Supraventricular tachycardia (Primary Dx); Candidate for statin therapy due to risk of future cardiovascular event from Last 3 Months Immunizations Immunization Administration [...] SHOULDER SURGERY 01/16/2024 Left Labral year repair FRACTURE SURGERY 1986 KNEE ARTHROSCOPY W/ LATERAL RELEASE 2023 Medical History Medical History Date Comments Hypertension HLD (hyperlipidemia) Anxiety GERD (gastroesophageal reflux disease) well controlled Sleep apnea Wears CPAP Depression 2000 Kidney stone 2010 Family History Medical History Relation Name Comments Hearing loss Father Austen Hypertension Father Austen Alzheimer's disease Mother Antonieta Dementia Mother Antonieta Hearing loss Mother Antonieta Hypertension Mother Antoineta Kidney disease Mother Antonieta Memory loss Mother Antonieta Relation Name Status Comments Father Austen Alive Mother Antonieta Social History Tobacco Use Types Packs/Day Years Used Date Smoking Tobacco: Former Cigarettes 1 15 1 993 - 2007 Passive Smoke Exposure: Never Smokeless Tobacco: Never Tobacco Cessation:Counseling Given: Not Answered Alcohol Use Standard Drinks/Week Comments Yes 28 [...] week 04/08/2025 How often do you attend [facility] or [facility] services? More than 4 times per year 04/08/2025 Do you belong to any clubs o r organizations such as sikhism groups, unions, fraternal or athletic groups, or [...] any time in the past 12 m [facility], were you homeless or living in a longterm (including now)? 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 Not on file N ot on file Not on file Last Filed Vital Signs Vital Sign Reading Time Taken Comments Blood Pressure 122/64 04/29/2025 9:08 AM CDT Pulse 80 04/29/2025 9:08 AM CDT Temperature 36.7 C (98.1 F) 04/12/2025 12:10 PM CDT Respiratory Rate 18 04/12/2025 12:10 PM CDT Oxygen Saturation 98% 04/29/2025 9:08 AM CDT Inhaled Oxygen Concentration - - Weight 77.6 kg (171 lb) 04/29/2025 9:08 AM CDT Height 175.3 cm (5' 9) 04/29/2025 9:08 AM CDT Body Mass Index 25.25 04/29/2025 9:08 AM CDT Plan of Treatment Health Maintenance Due Date Last Done Comments Colon Cancer Screening-Colonoscopy 1969 Depression Screening 1969 Hepatitis C Screening 1969 Prostate Cancer Screening-PSA 1969 Hepatitis B Screening 11/28/1987 Regular Well Visit/Exam 18-64 11/28/1987 Pneumococcal vaccine <65 (2 of 2 - PCV) 10/31/2018 10/31/2017 Zoster Vaccine (1 of 2) 11/28/2019 Influenza Vaccine (#1) 2025 8, 07/07/2015, 06/05/2013 DTaP/Tdap/Td Vaccine (3 - Td or Tdap) 07/07/2030, 10/20/2011 Medical Devices Implanted Type Area Health Social Work Professor Device Identifier Shelf Expiration Date Model / Serial / Lot [employer] System Biceps [place] Slotted Drill Guide 1.9mm Drill Fibertak [id number]-3670 - S0 - [id number] Implanted:Qty: 1 on 01/16/2024 by Guido Hernandez MD at [facility] Left: Shoulder [employer] 11/18/2028 AR-3670 / 0 / [id number] Procedures Procedure Name Priority Date/Time Associated Diagnosis Comments XR SHOULDER RIGHT 2 OR MORE VIEWS Schedule Routine, Read Routine (OP Routine) 06/02/2025 10:23 AM BRAILLE OPERATOR Right shoulder pain, unspecified chronicity K MR OUTSIDE REFERENCE Routine 025 10:17 AM BRAILLE OPERATOR POCT LIPID PANEL Routine 04/29/2025 9:00 AM CDT Hyperlipidemia, unspecified hyperlipidemia type EGFR Routine 04/12/2025 7:14 AM CDT DIFFERENTIAL AUTO Routine 04/12/2025 7:14 AM CDT CBC WITH AUTO DIFFERENTIAL Routine 04/12 7:14 AM CDT BASIC METABOLIC PANEL Routine 04/12/2025 7:14 AM CDT EGFR Routine 04/11/2025 7:21 AM CDT DIFFERENTIAL AUTO Routine 04/11/2025 7:21 AM CDT CBC WITH AUTO DIFFERENTIAL Routine 04/11 7:21 AM CDT BASIC METABOLIC PANEL Routine 04/11/2025 7:21 AM CDT URINALYSIS AND REFLEX TO MICROSCOPIC AND CULTURE Routine 04/10/2025 11:30 PM CDT H. PYLORI ANTIGEN, STOOL Routine 025 10:11 PM CDT EGFR Routine 04/10/2025 6:28 AM CDT DIFFERENTIAL AUTO Routine 04/10/2025 6:28 AM CDT CBC WITH AUTO DIFFERENTIAL Routine 04/10 6:28 AM CDT BASIC METABOLIC PANEL Routine 04/10/2025 6:28 AM CDT EGFR Routine 04/09/2025 3:53 AM CDT DIFFERENTIAL AUTO Routine 04/09/2025 3:53 AM CDT CBC WITH AUTO DIFFERENTIAL Routine 04/09 3:53 AM CDT BASIC METABOLIC PANEL Routine 04/09/2025 3:53 AM CDT EGFR Routine 04/08/2025 3:51 AM CDT DIFFERENTIAL AUTO Routine 04/08/2025 3:51 AM CDT MAGNESIUM Routine 04/08/2025 3:51 AM CDT CBC WITH AUTO DIFFERENTIAL Routine 04/08 3:51 AM CDT BASIC METABOLIC PANEL Routine 04/08/2025 3:51 AM CDT CRITICAL CARE Routine 04/08/2025 12:25 AM CDT Idiopathic hypotension HEMOGLOBIN AND HEMATOCRIT Timed 2024 5:09 PM CDT TRANSTHORACIC ECHO (TTE) LIMITED/FOLLOW UP W LTD DOPPLER/CF WO CONTRAST Routine 04/07/2025 3:13 PM CDT CRITICAL CARE Routine 04/07/2025 7:29 AM CDT Gastrointestinal hemorrhage with hematemesis EGFR Routine 04/07/2025 3:38 AM CDT DIFFERENTIAL AUTO Routine 04/07/2025 3:38 AM CDT MAGNESIUM Routine 04/07/2025 3:38 AM CDT CBC WITH AUTO DIFFERENTIAL Routine 04/07 3:38 AM CDT BASIC METABOLIC PANEL Routine 04/07/2025 3:38 AM CDT HEMOGLOBIN AND HEMATOCRIT Timed 2024 9:11 PM CDT HEMOGLOBIN AND HEMATOCRIT Timed 2024 2:36 PM CDT CRITICAL CARE Routine 04/06/2025 7:29 AM CDT Suicide attempt Gastrointestinal hemorrhage with hematemesis POCT GLUCOSE DEVICE Routine 04/06/2025 7:19 AM CDT CRITICAL CARE Routine 04/06/2025 4:44 AM CDT Gastrointestinal hemorrhage with hematemesis POCT GLUCOSE DEVICE Routine 04/06/2025 3:53 AM CDT EGFR Routine 04/06/2025 2:42 AM CDT DIFFERENTIAL AUTO Routine 04/06/2025 2:42 AM CDT MAGNESIUM Routine 04/06/2025 2:42 AM CDT CBC WITH AUTO DIFFERENTIAL Routine 04/06 2:42 AM CDT BASIC METABOLIC PANEL Routine 04/06/2025 2:42 AM CDT INFECTION PREVENTION YAMILKA AURIS PCR, SURVEILLANCE Routine 04/06/2025 12:20 AM CDT POCT GLUCOSE DEVICE Routine 04/05/2025 11:35 PM CDT HEMOGLOBIN AND HEMATOCRIT Timed 2024 11:14 PM CDT POCT GLUCOSE DEVICE Routine 04/05/2025 8:28 PM CDT HEMOGLOBIN AND HEMATOCRIT Timed 2024 4:25 PM CDT POCT GLUCOSE DEVICE Routine 04/05/2025 3:50 PM CDT ECG 12-LEAD Routine 04/05/2025 1:41 PM CDT HEMOGLOBIN AND HEMATOCRIT Routine 2024 1:29 PM CDT POCT GLUCOSE DEVICE Routine 04/05/2025 12:[address] AN PROCEDURE PLACEHOLDER Routine 03/22 11:[address] AN ELECTIVE ENDOTRACHEAL AIRWAY Routine 04/05/2025 11:50 AM CDT ESOPHAGOGASTRODUODENOSCOPY 04/05 11:19 AM CDT Gastrointestinal hemorrhage with hematemesis CRITICAL CARE Routine 04/05/2025 11:09 AM CDT Gastrointestinal hemorrhage with hematemesis EGD 04/05/2025 10:27 AM CDT DRUGS OF ABUSE SCREEN, URINE WITHOUT CONFIRMATION Routine 04/05/2025 10:24 AM CDT TRANSFUSE RED BLOOD CELLS Timed 2024 9:41 AM CDT TRANSFUSE RED BLOOD CELLS Timed 2024 8:20 AM CDT HEMOGLOBIN AND HEMATOCRIT STAT 2024 8:15 AM CDT POCT GLUCOSE DEVICE Routine 04/05/2025 8:14 AM CDT PREPARE RBC Timed 04/05/2025 8:04 AM CDT ETHANOL Routine 04/05/2025 4:08 AM CDT EGFR Routine 04/05/2025 4:08 AM CDT DIFFERENTIAL AUTO Routine 04/05/2025 4:08 AM CDT LACTATE Routine 04/05/2025 4:08 AM CDT B ABO / RH CONFIRMATION TESTING STAT 04/05/2025 4:08 AM CDT MAGNESIUM Routine 04/05/2025 4:08 AM CDT CBC WITH AUTO DIFFERENTIAL Routine 04/05 4:08 AM CDT BASIC METABOLIC PANEL Routine 04/05/2025 4:08 AM CDT POCT GLUCOSE DEVICE Routine 04/05/2025 3:42 AM CDT POCT GLUCOSE DEVICE Routine 04/05/2025 12:33 AM CDT CROSSMATCH STAT 04/05/2025 12:16 AM CDT DIFFERENTIAL AUTO STAT 04/05/2025 12:16 AM CDT ANTIBODY SCREEN STAT 04/05/2025 12:16 AM CDT ABO/RH STAT 04/05/2025 12:16 AM CDT PROTIME-INR STAT 04/05/2025 12:16 AM CDT LACTATE STAT 04/05/2025 12:16 AM CDT TYPE AND SCREEN STAT 04/05/2025 12:16 AM CDT PHOSPHORUS STAT 04/05/2025 12:16 AM CDT MAGNESIUM STAT 04/05/2025 12:16 AM CDT CBC WITH AUTO DIFFERENTIAL STAT 04/05 12:16 AM CDT CRITICAL CARE Routine 04/04/2025 11:48 PM CDT POCT GLUCOSE DEVICE Routine 04/04/2025 7:55 PM CDT POCT GLUCOSE DEVICE Routine 04/04/2025 4:01 PM CDT POCT GLUCOSE DEVICE Routine 04/04/2025 12:08 PM CDT ECG 12-LEAD Routine 04/04/2025 8:57 AM CDT POCT GLUCOSE DEVICE Routine 04/04/2025 7:59 AM CDT CRITICAL CARE Routine 04/04/2025 7:39 AM CDT Suicide attempt EGFR Routine 04/04/2025 5:07 AM CDT DIFFERENTIAL AUTO Routine 04/04/2025 5:07 AM CDT MAGNESIUM Routine 04/04/2025 5:07 AM CDT CBC WITH AUTO DIFFERENTIAL Routine 04/04 5:07 AM CDT BASIC METABOLIC PANEL Routine 04/04/2025 5:07 AM CDT LACTATE Routine 04/04/2025 5:07 AM CDT POCT GLUCOSE DEVICE Routine 04/04/2025 4:06 AM CDT POC BLOOD GAS AND CHEMISTRIE S, ARTERIAL Routine 04/04/2025 2:00 AM CDT CRITICAL CARE Routine 04/04/2025 1:45 AM CDT Suicide attempt XR ABDOMEN AP 1 VIEW ED Urgent/IP Urgent 04/04/2025 1:35 AM CDT EGFR STAT 04/04/2025 1:25 AM CDT DIFFERENTIAL AUTO STAT 04/04/2025 1:25 AM CDT CREATINE KINASE (CK), TOTAL STAT 03/22 1:25 AM CDT CBC WITH AUTO DIFFERENTIAL STAT 04/04 1:25 AM CDT LACTATE STAT 04/04/2025 1:25 AM CDT PROTIME-INR STAT 04/04/2025 1:25 AM CDT PHOSPHORUS STAT 04/04/2025 1:25 AM CDT MAGNESIUM STAT 04/04/2025 1:25 AM CDT COMPREHENSIVE METABOLIC PANEL STAT 1:25 AM CDT MRSA ONLY (STAPHYLOCOCCUS AUREUS) PCR Routine 04/04/2025 1:25 AM CDT ECG 12-LEAD Routine 04/04/2025 1:12 AM CDT from Last 3 Months Results * XR Shoulder Right 2+ View (06/02/2025 10:23 AM BRAILLE OPERATOR) Anatomical Region Laterality Modality Upper Extremities, Shoulder Right Digi brie Radiography 06/02/2025 11:1 3 AM BRAILLE OPERATOR Impressions 06/02/2025 11:13 AM BRAILLE OPERATOR 4 views of the right shoulder. No comparison study is available. No suspicious findings in the visualized chest. Alignment is normal. Minimal acromioclavicular osteoarthritis. Normal glenohumeral joint space. No acute fracture or aggressive bone lesion. Electronically signed by: Artie Acosta M.D. Narrative 06/02/2025 11:13 AM BRAILLE OPERATOR EXAMINATION: XR SHOULDER RIGHT 2 OR [...] Hernandez MD IMG XR PROCEDURES Final Result * MSK MR Outside Reference (06/02/2025 10:17 AM BRAILLE OPERATOR) Impressions [facility] - 06/02/2025 10:17 AM BRAILLE OPERATOR These images are for Reference purposes only and have not been reviewed by [facility]. There will be no report generated by a [facility] Radiologist. Narrative [facility]_PACS_[facility] - 06/02/2025 10:17 AM BRAILLE OPERATOR EXAMINATION: Images For Reference Purposes Only us Guiod Hernandez MD IMG MRI PROCEDURE S Final Result [facility] * POCT lipid panel (04/29/2025 9:00 AM CDT) Cholesterol, POC 139 <200 MG/DL HDL, POC 46 >=40 mg/dL Triglycerides, POC 113 <=149 mg/dL LDL Cholesterol POC 70 <=129 mg/dL Chol/HDL Ratio, POC 1.5 NONE Non-HDL Cholesterol, POC 92 NONE mg/dL Cholesterol Total, POC 139 30 - 199 mg/dL Capillary blood 04/29/2025 9 :00 AM CDT us Yary Dial NP POINT OF CARE TEST ORDERA BLES Final Result * eGFR (04/12/2025 7:14 AM CDT) eGFR 84 >=60 mL/min/1. 73 m2 Comment: Interpretive Data Reference Interval Normal >/= 90 mL/min/1.73m2 Mildly decreased* 60 - 89 mL/min/1.73m2 Mildly to moderately decreased 45 - 59 mL/min/1.73m2 Moderately to severely decreased 30 - 44 mL/min/1.73m2 Severely decreased 15 - 29 mL/min/1.73m2 Kidney Failure < 15 mL/min/1.73m2 *Relative to young adult level Estimated glomerular filtration rate is determined by the 2020 CKD-EPI equation recommended by the National Kidney Foundation (A Unifying Approach to GFR Estimation: Recommendations of the NKF-ASK Task Force on Reassessing the Inclusion of Race in Diagnosing Kidney Disease, JASN 202). The CKD-EPI equation should not be used for patients with unstable renal function and has not been validated in children and those over 70. Current interpretive data was last reviewed 2021. Blood 04/12/2025 7:14 AM CDT 04/12/2025 7:43 AM CDT us Сергей Samuel MD LAB BLOOD ORDERABLES Final R esult [facility] [address] [facility] [place] [address] * Differential, auto (04/12/2025 7:14 AM CDT) Neutrophil abs 4.31 1.50 - 6.50 K/cumm Imm gran abs 0.03 0.00 - 0.10 K/cumm [facility] Lymphocyte abs 2.38 0.80 - 3.30 K/cumm [facility] Monocyte abs 0.61 0.20 - 0.80 K/cumm [facility] Eosinophil abs 0.26 0.00 - 0.50 K/cumm [facility] Basophil abs 0.04 0.00 - 0.10 K/cumm [facility] Neutrophil pct 56.5 % [facility] Comment: Interpretive Data Percent cell count reference ranges are not reported, since discordance with absolute values may lead to misinterpretation of CBC data. Current Interpretive Data was last revised on 2017. Imm gran pct 0.4 % [facility] Comment: Interpretive Data Percent cell count reference ranges are not reported, since discordance with absolute values may lead to misinterpretation of CBC data. Current Interpretive Data was last revised on 2017. Lymphocyte pct 31.2 % [facility] Comment: Interpretive Data Percent cell count reference ranges are not reported, since discordance with absolute values may lead to misinterpretation of CBC data. Current Interpretive Data was last revised on 2017. Monocyte pct 8.0 % [facility] Comment: Interpretive Data Percent cell count reference ranges are not reported, since discordance with absolute values may lead to misinterpretation of CBC data. Current Interpretive Data was last revised on 2017. Eosinophil pct 3.4 % [facility] Comment: Interpretive Data Percent cell count reference ranges are not reported, since discordance with absolute values may lead to misinterpretation of CBC data. Current Interpretive Data was last revised on 2017. Basophil pct 0.5 % [facility] Comment: Interpretive Data Percent cell count reference ranges are not reported, since discordance with absolute values may lead to misinterpretation of CBC data. Current Interpretive Data was last revised on 2017. Blood 04/12/2025 7:14 AM CDT 04/12/2025 7:42 AM CDT Сергей Samuel MD LAB BLOOD ORDERABLES Final R esult Performing Organization Address [facility] Co de Phone Number [facility] [address] [place] [address] * CBC with auto differential (04/12/2025 7:14 AM CDT) WBC 7.63 3.80 - 9.90 K/cumm Hgb 13.9 13.0 - 17.5 g/dL [facility] Hct 42.8 38.9 - 50.3 % [facility] Plt 255 150 - 400 K/cumm [facility] MPV 9.4 9.1 - 12.3 fL [facility] RBC 4.83 4.30 - 5.80 M/cumm [facility] MCV 88.6 81.3 - 96.4 fL [facility] MCH 28.8 27.1 - 33.3 pg [facility] MCHC 32.5 32.3 - 35.7 g/dL [facility] RDW CV 13.9 11.1 - 14.9 % [facility] RDW SD 44.4 35.7 - 48.1 fL [facility] NRBC abs 0.00 0.00 - 0.01 K/cumm [facility] Blood 04/12/2025 7:14 AM CDT 04/12/2025 7:42 AM CDT Сергей Samuel MD LAB BLOOD ORDERABLES Final R esult Performing Organization Address City/[facility] Co de Phone Number [facility] [address] [place], [place] [id number] * Basic metabolic panel (04/12/2025 7:14 AM CDT) Pathologist [facility] [place] Sodium 137 135 - 145 mmol/L Potassium, pl 3.7 3.3 - 4.9 mmol/L [facility] Chloride 101 97 - 110 mmol/L [facility] CO2 28 22 - 32 mmol/L [facility] Anion gap 8 2 - 15 mmol/L [facility] BUN 15 6 - 25 mg/dL [facility] Creatinine 1.05 0.80 - 1.30 mg/dL [facility] Glucose 98 70 - 199 mg/dL [facility] Comment: Interpretive Data Fasting glucose >/= 126 mg/dl is diagnostic for diabetes. Fasting is defined as no caloric intake for at least 8 hours. Fasting glucose between 100 mg/dl to 125 mg/dl is diagnostic of prediabetes. In a patient with classic symptoms of hyperglycemia or hyperglycemic crisis, a random glucose >/= 200 mg/dl is diagnostic for diabetes. In the absence of unequivocal hyperglycemia, results should be confirmed by repeat testing. The classification and Diagnosis of Diabetes Diabetes Care 2021; 46: S19-S40. Current interpretive data was last revised 2022. Calcium 9.1 8.5 - 10.3 mg/dL [facility] Blood 04/12/2025 7:14 AM CDT 04/12/2025 7:43 AM CDT Сергей Samuel MD LAB BLOOD ORDERABLES Final R esult [facility] [address] [facility] [place] [address] * eGFR (04/11/2025 7:21 AM CDT) [facility] eGFR 71 >=60 mL/min/1. 73 m2 Comment: Interpretive Data Reference Interval Normal >/= 90 mL/min/1.73m2 Mildly decreased* 60 - 89 mL/min/1.73m2 Mildly to moderately decreased 45 - 59 mL/min/1.73m2 Moderately to severely decreased 30 - 44 mL/min/1.73m2 Severely decreased 15 - 29 mL/min/1.73m2 Kidney Failure < 15 mL/min/1.73m2 *Relative to young adult level Estimated glomerular filtration rate is determined by the 2020 CKD-EPI equation recommended by the National Kidney Foundation (A Unifying Approach to GFR Estimation: Recommendations of the NKF-ASK Task Force on Reassessing the Inclusion of Race in Diagnosing Kidney Disease, JASN 2020). The CKD-EPI equation should not be used for patients with unstable renal function and has not been validated in children and those over 70. Current interpretive data was last reviewed 2021. Blood 04/11/2025 7:21 AM CDT 04/11/2025 7:43 AM CDT us Сергей Samuel MD LAB BLOOD ORDERABLES Final R esult [place] [id number] [facility] [place] [address] * Differential, auto (04/11/2025 7:21 AM CDT) Pathologist [facility] [place] Neutrophil abs 5.21 1.50 - 6.50 K/cumm Imm gran abs 0.03 0.00 - 0.10 K/cumm [facility] Lymphocyte abs 2.46 0.80 - 3.30 K/cumm [facility] Monocyte abs 0.55 0.20 - 0.80 K/cumm [facility] Eosinophil abs 0.27 0.00 - 0.50 K/cumm [facility] Basophil abs 0.05 0.00 - 0.10 K/cumm [facility] Neutrophil pct 60.7 % [facility] Comment: Interpretive Data Percent cell count reference ranges are not reported, since discordance with absolute values may lead to misinterpretation of CBC data. Current Interpretive Data was last revised on 2017. Imm gran pct 0.4 % [facility] Comment: Interpretive Data Percent cell count reference ranges are not reported, since discordance with absolute values may lead to misinterpretation of CBC data. Current Interpretive Data was last revised on 2017. Lymphocyte pct 28.7 % [facility] Comment: Interpretive Data Percent cell count reference ranges are not reported, since discordance with absolute values may lead to misinterpretation of CBC data. Current Interpretive Data was last revised on 2017. Monocyte pct 6.4 % [facility] Comment: Interpretive Data Percent cell count reference ranges are not reported, since discordance with absolute values may lead to misinterpretation of CBC data. Current Interpretive Data was last revised on 2017. Eosinophil pct 3.2 % [facility] Comment: Interpretive Data Percent cell count reference ranges are not reported, since discordance with absolute values may lead to misinterpretation of CBC data. Current Interpretive Data was last revised on 2017. Basophil pct 0.6 % [facility] Comment: Interpretive Data Percent cell count reference ranges are not reported, since discordance with absolute values may lead to misinterpretation of CBC data. Current Interpretive Data was last revised on 2017. Blood 04/11/2025 7:21 AM CDT 04/11/2025 7:43 AM CDT Сергей Samuel MD LAB BLOOD ORDERABLES Final R esult [place] [id number] [facility] [place] [address] * (ABNORMAL) CBC with auto differential (04/11/2025 7:21 AM CDT) WBC 8.57 3.80 - 9.90 K/cumm Hgb 13.5 13.0 - 17.5 g/dL [facility] Hct 42.6 38.9 - 50.3 % [facility] Plt 236 150 - 400 K/cumm [facility] MPV 9.6 9.1 - 12.3 fL [facility] RBC 4.75 4.30 - 5.80 M/cumm [facility] MCV 89.7 81.3 - 96.4 fL [facility] MCH 28.4 27.1 - 33.3 pg [facility] MCHC 31.7(L) 32.3 - 35.7 g/dL [facility] RDW CV 13.7 11.1 - 14.9 % [facility] RDW SD 44.5 35.7 - 48.1 fL [facility] NRBC abs 0.00 0.00 - 0.01 K/cumm [facility] Blood 04/11/2025 7:21 AM CDT 04/11/2025 7:43 AM CDT Сергей Samuel MD LAB BLOOD ORDERABLES Final R esult Performing Organization Address City/[facility] Co de Phone Number [facility] [address] [place] [address] * Basic metabolic panel (04/11/2025 7:21 AM CDT) Sodium 140 135 - 145 mmol/L Potassium, pl 4.1 3.3 - 4.9 mmol/L [facility] Chloride 102 97 - 110 mmol/L [facility] CO2 31 22 - 32 mmol/L [facility] Anion gap 7 2 - 15 mmol/L [facility] BUN 17 6 - 25 mg/dL [facility] Creatinine 1.20 0.80 - 1.30 mg/dL [facility] Glucose 101 70 - 199 mg/dL [facility] Comment: Interpretive Data Fasting glucose >/= 126 mg/dl is diagnostic for diabetes. Fasting is defined as no caloric intake for at least 8 hours. Fasting glucose between 100 mg/dl to 125 mg/dl is diagnostic of prediabetes. In a patient with classic symptoms of hyperglycemia or hyperglycemic crisis, a random glucose >/= 200 mg/dl is diagnostic for diabetes. In the absence of unequivocal hyperglycemia, results should be confirmed by repeat testing. The classification and Diagnosis of Diabetes Diabetes Care 2021; 46: S19-S40. Current interpretive data was last revised 2022. Calcium 9.1 8.5 - 10.3 mg/dL [facility] Blood 04/11/2025 7:21 AM CDT 04/11/2025 7:43 AM CDT Сергей Samuel MD LAB BLOOD ORDERABLES Final R esult [address] [place] [address] * Urinalysis reflex to microscopic and culture Urine (04/10/2025 11:30 PM CDT) Color, ur Yellow Yellow Clarity, ur Clear Clear [facility] Specific gravity, ur 1.010 1.003 - 1.030 [facility] pH, urine 6.5 [facility] Comment: Interpretive Data U rine pH is affected by diet, medications, systemic acid-base disturbances, and renal tubular function. pH may affect urinary stone formation. For example, urine pH below 6.0 may help reduce the tendency for calcium phosphate stones and pH greater than 6.0 may reduce the tendency for uric acid stone formation. Source: [facility] Current Interpretive Data was last revised on 2017 Protein, ur ql Negative Negative [facility] Glucose, ur ql Negative Negative [facility] Ketones, ur Negative Negative [facility] Bilirubin, ur Negative Negative [facility] Blood, ur Negative Negative [facility] Urobilinogen, ur <2.0 <2.0 mg/dL [facility] Nitrite, ur Negative Negative [facility] Leukocyte esterase, ur Negative Negative [facility] UA reflex comment Reflex conditions for microscopic UA and culture not met. [facility] Urine 04/10/2025 11:3 0 PM CDT 04/10/2025 11:37 PM CDT Judy Murphy NP LAB MICROBIOLOGY - GENERAL O RDERABLES Final Result Performing Organization Address City/State/[facility] Co de Phone Number [facility] [address] [facility] [place] [address] * H. pylori antigen, stool Stool (04/10/2025 10:11 PM CDT) H. pylori Ag, stool Negative Negative Comment: Interpretative Data Testing performed at the [facility] using the [employer] HpSA lateral flow immunoassay that detects Helicobacter pylori antigen in feces. This test is FDA cleared and its performance characteristics have been verified by the performing laboratory. False negative H. pylori antigen results may occur in patients on antimicrobials, proton pump inhibitors, or bismuth preparations; if clinically indicated, testing should be repeated on a new specimen two weeks after discontinuing these treatments. Interpretative data last revised July 2020. Testing performed by: [facility], [address] [facility], [place]., [address] Stool 04/10/2025 10:1 1 PM CDT 04/11/2025 7:10 AM CDT Pierre Pruitt MD LAB MICROBIOLOGY - GENERAL ORDE RABLES Final Result Performing Organization Address City/[facility] Co de Phone Number [facility] [address] [place] [address] * eGFR (04/10/2025 6:28 AM CDT) eGFR 81 >=60 mL/min/1. 73 m2 Comment: Interpretive Data Reference Interval Normal >/= 90 mL/min/1.73m2 Mildly decreased* 60 - 89 mL/min/1.73m2 Mildly to moderately decreased 45 - 59 mL/min/1.73m2 Moderately to severely decreased 30 - 44 mL/min/1.73m2 Severely decreased 15 - 29 mL/min/1.73m2 Kidney Failure < 15 mL/min/1.73m2 *Relative to young adult level Estimated glomerular filtration rate is determined by the 2020 CKD-EPI equation recommended by the National Kidney Foundation (A Unifying Approach to GFR Estimation: Recommendations of the NKF-ASK Task Force on Reassessing the Inclusion of Race in Diagnosing Kidney Disease, JASN 2020). The CKD-EPI equation should not be used for patients with unstable renal function and has not been validated in children and those over 70. Current interpretive data was last reviewed 2021. Blood 04/10/2025 6:28 AM CDT 04/10/2025 7:04 AM CDT us Сергей Samuel MD LAB BLOOD ORDERABLES Final R esult Performing Organization Address City/[facility]/ZIP Co de Phone Number [facility] [place] [address] * Differential, auto (04/10/2025 6:28 AM CDT) Neutrophil abs 4.92 1.50 - 6.50 K/cumm Imm gran abs 0.04 0.00 - 0.10 K/cumm [facility] Lymphocyte abs 2.30 0.80 - 3.30 K/cumm [facility] Monocyte abs 0.64 0.20 - 0.80 K/cumm [facility] Eosinophil abs 0.26 0.00 - 0.50 K/cumm [facility] Basophil abs 0.04 0.00 - 0.10 K/cumm [facility] Neutrophil pct 60.0 % [facility] Comment: Interpretive Data Percent cell count reference ranges are not reported, since discordance with absolute values may lead to misinterpretation of CBC data. Current Interpretive Data was last revised on 2017. Imm gran pct 0.5 % [facility] Comment: Interpretive Data Percent cell count reference ranges are not reported, since discordance with absolute values may lead to misinterpretation of CBC data. Current Interpretive Data was last revised on 2017. Lymphocyte pct 28.0 % [facility] Comment: Interpretive Data Percent cell count reference ranges are not reported, since discordance with absolute values may lead to misinterpretation of CBC data. Current Interpretive Data was last revised on 2017. Monocyte pct 7.8 % [facility] Comment: Interpretive Data Percent cell count reference ranges are not reported, since discordance with absolute values may lead to misinterpretation of CBC data. Current Interpretive Data was last revised on 2017. Eosinophil pct 3.2 % [facility] Comment: Interpretive Data Percent cell count reference ranges are not reported, since discordance with absolute values may lead to misinterpretation of CBC data. Current Interpretive Data was last revised on 2017. Basophil pct 0.5 % [facility] Comment: Interpretive Data Percent cell count reference ranges are not reported, since discordance with absolute values may lead to misinterpretation of CBC data. Current Interpretive Data was last revised on 2017. Blood 04/10/2025 6:28 AM CDT 04/10/2025 7:04 AM CDT Сергей Samuel MD LAB BLOOD ORDERABLES Final R esult [address] [place] [address] * (ABNORMAL) CBC with auto differential (04/10/2025 6:28 AM CDT) [facility] WBC 8.20 3.80 - 9.90 K/cumm Hgb 13.2 13.0 - 17.5 g/dL [facility] Hct 41.4 38.9 - 50.3 % [facility] Plt 214 150 - 400 K/cumm [facility] MPV 9.9 9.1 - 12.3 fL [facility] RBC 4.67 4.30 - 5.80 M/cumm [facility] MCV 88.7 81.3 - 96.4 fL [facility] MCH 28.3 27.1 - 33.3 pg [facility] MCHC 31.9(L) 32.3 - 35.7 g/dL [facility] RDW CV 13.7 11.1 - 14.9 % [facility] RDW SD 43.9 35.7 - 48.1 fL [facility] NRBC abs 0.00 0.00 - 0.01 K/cumm [facility] Blood 04/10/2025 6:28 AM CDT 04/10/2025 7:04 AM CDT us Сергей Samuel MD LAB BLOOD ORDERABLES Final R esult Performing Organization Address [facility] Co de Phone Number [address] [place] [address] * Basic metabolic panel (04/10/2025 6:28 AM CDT) [facility] Sodium 140 135 - 145 mmol/L Potassium, pl 3.6 3.3 - 4.9 mmol/L [facility] Chloride 101 97 - 110 mmol/L [facility] CO2 30 22 - 32 mmol/L [facility] Anion gap 9 2 - 15 mmol/L [facility] BUN 13 6 - 25 mg/dL [facility] Creatinine 1.08 0.80 - 1.30 mg/dL [facility] Glucose 91 70 - 199 mg/dL [facility] Comment: Interpretive Data Fasting glucose >/= 126 mg/dl is diagnostic for diabetes. Fasting is defined as no caloric intake for at least 8 hours. Fasting glucose between 100 mg/dl to 125 mg/dl is diagnostic of prediabetes. In a patient with classic symptoms of hyperglycemia or hyperglycemic crisis, a random glucose >/= 200 mg/dl is diagnostic for diabetes. In the absence of unequivocal hyperglycemia, results should be confirmed by repeat testing. The classification and Diagnosis of Diabetes Diabetes Care 202; 46: S19-S40. Current interpretive data was last revised 2022. Calcium 8.7 8.5 - 10.3 mg/dL [facility] Blood 04/10/2025 6:28 AM CDT 04/10/2025 7:04 AM CDT us Сергей Samuel MD LAB BLOOD ORDERABLES Final R esult [facility] [address] [facility] [place] [address] * eGFR (04/09/2025 3:53 AM CDT) eGFR 72 >=60 mL/min/1. 73 m2 Comment: Interpretive Data Reference Interval Normal >/= 90 mL/min/1.73m2 Mildly decreased* 60 - 89 mL/min/1.73m2 Mildly to moderately decreased 45 - 59 mL/min/1.73m2 Moderately to severely decreased 30 - 44 mL/min/1.73m2 Severely decreased 15 - 29 mL/min/1.73m2 Kidney Failure < 15 mL/min/1.73m2 *Relative to young adult level Estimated glomerular filtration rate is determined by the 2020 CKD-EPI equation recommended by the National Kidney Foundation (A Unifying Approach to GFR Estimation: Recommendations of the NKF-ASK Task Force on Reassessing the Inclusion of Race in Diagnosing Kidney Disease, JASN 2020). The CKD-EPI equation should not be used for patients with unstable renal function and has not been validated in children and those over 70. Current interpretive data was last reviewed 2021. Blood 04/09/2025 3:53 AM CDT 04/09/2025 4:21 AM CDT us Сергей Samuel MD LAB BLOOD ORDERABLES Final R esult [facility] [address] [facility] [place] [address] * (ABNORMAL) Differential, auto (04/09/2025 3:53 AM CDT) Pathologist [facility] [place] Neutrophil abs 4.27 1.50 - 6.50 K/cumm Imm gran abs 0.03 0.00 - 0.10 K/cumm [facility] Lymphocyte abs 3.37(H) 0.80 - 3.30 K/cumm [facility] Monocyte abs 0.67 0.20 - 0.80 K/cumm [facility] Eosinophil abs 0.32 0.00 - 0.50 K/cumm [facility] Basophil abs 0.04 0.00 - 0.10 K/cumm [facility] Neutrophil pct 49.1 % [facility] Comment: Interpretive Data Percent cell count reference ranges are not reported, since discordance with absolute values may lead to misinterpretation of CBC data. Current Interpretive Data was last revised on 2017. Imm gran pct 0.3 % [facility] Comment: Interpretive Data Percent cell count reference ranges are not reported, since discordance with absolute values may lead to misinterpretation of CBC data. Current Interpretive Data was last revised on 2017. Lymphocyte pct 38.7 % [facility] Comment: Interpretive Data Percent cell count reference ranges are not reported, since discordance with absolute values may lead to misinterpretation of CBC data. Current Interpretive Data was last revised on 2017. Monocyte pct 7.7 % [facility] Comment: Interpretive Data Percent cell count reference ranges are not reported, since discordance with absolute values may lead to misinterpretation of CBC data. Current Interpretive Data was last revised on 2017. Eosinophil pct 3.7 % [facility] Comment: Interpretive Data Percent cell count reference ranges are not reported, since discordance with absolute values may lead to misinterpretation of CBC data. Current Interpretive Data was last revised on 2017. Basophil pct 0.5 % [facility] Comment: Interpretive Data Percent cell count reference ranges are not reported, since discordance with absolute values may lead to misinterpretation of CBC data. Current Interpretive Data was last revised on 2017. Blood 04/09/2025 3:53 AM CDT 04/09/2025 4:20 AM CDT Сергей Samuel MD LAB BLOOD ORDERABLES Final R esult Performing Organization Address City/[facility] Co de Phone Number [facility] [address] [place] [address] * (ABNORMAL) CBC with auto differential (04/09/2025 3:53 AM CDT) [facility] WBC 8.70 3.80 - 9.90 K/cumm Hgb 12.8(L) 13.0 - 17.5 g/dL [facility] Hct 39.0 38.9 - 50.3 % [facility] Plt 202 150 - 400 K/cumm [facility] MPV 9.8 9.1 - 12.3 fL [facility] RBC 4.40 4.30 - 5.80 M/cumm [facility] MCV 88.6 81.3 - 96.4 fL [facility] MCH 29.1 27.1 - 33.3 pg [facility] MCHC 32.8 32.3 - 35.7 g/dL [facility] RDW CV 13.4 11.1 - 14.9 % [facility] RDW SD 43.5 35.7 - 48.1 fL [facility] NRBC abs 0.00 0.00 - 0.01 K/cumm [facility] Blood 04/09/2025 3:53 AM CDT 04/09/2025 4:20 AM CDT Сергей Samuel MD LAB BLOOD ORDERABLES Final R esult Performing Organization Address [facility] Co de Phone Number [facility] [address] [place] [address] * Basic metabolic panel (04/09/2025 3:53 AM CDT) Pathologist [facility] [place] Sodium 140 135 - 145 mmol/L Potassium, pl 3.4 3.3 - 4.9 mmol/L [facility] Chloride 100 97 - 110 mmol/L [facility] CO2 32 22 - 32 mmol/L [facility] Anion gap 8 2 - 15 mmol/L [facility] BUN 14 6 - 25 mg/dL [facility] Creatinine 1.19 0.80 - 1.30 mg/dL [facility] Glucose 110 70 - 199 mg/dL [facility] Comment: Interpretive Data Fasting glucose >/= 126 mg/dl is diagnostic for diabetes. Fasting is defined as no caloric intake for at least 8 hours. Fasting glucose between 100 mg/dl to 125 mg/dl is diagnostic of prediabetes. In a patient with classic symptoms of hyperglycemia or hyperglycemic crisis, a random glucose >/= 200 mg/dl is diagnostic for diabetes. In the absence of unequivocal hyperglycemia, results should be confirmed by repeat testing. The classification and Diagnosis of Diabetes Diabetes Care 2021; 46: S19-S40. Current interpretive data was last revised 2022. Calcium 8.5 8.5 - 10.3 mg/dL [facility] Blood 04/09/2025 3:53 AM CDT 04/09/2025 4:21 AM CDT Сергей Samuel MD LAB BLOOD ORDERABLES Final R esult [facility] [address] [facility] [place] [address] * eGFR (04/08/2025 3:51 AM CDT) Pathologist [facility] [place] eGFR 90 >=60 mL/min/1. 73 m2 Comment: Interpretive Data Reference Interval Normal >/= 90 mL/min/1.73m2 Mildly decreased* 60 - 89 mL/min/1.73m2 Mildly to moderately decreased 45 - 59 mL/min/1.73m2 Moderately to severely decreased 30 - 44 mL/min/1.73m2 Severely decreased 15 - 29 mL/min/1.73m2 Kidney Failure < 15 mL/min/1.73m2 *Relative to young adult level Estimated glomerular filtration rate is determined by the 2020 CKD-EPI equation recommended by the National Kidney Foundation (A Unifying Approach to GFR Estimation: Recommendations of the NKF-ASK Task Force on Reassessing the Inclusion of Race in Diagnosing Kidney Disease, JASN 202). The CKD-EPI equation should not be used for patients with unstable renal function and has not been validated in children and those over 70. Current interpretive data was last reviewed 2021. Blood 04/08/2025 3:51 AM CDT 04/08/2025 4:25 AM CDT us Сергей Samuel MD LAB BLOOD ORDERABLES Final R esult [facility] [address] [facility] [place] [address] * Differential, auto (04/08/2025 3:51 AM CDT) Neutrophil abs 5.03 1.50 - 6.50 K/cumm Imm gran abs 0.02 0.00 - 0.10 K/cumm [facility] Lymphocyte abs 2.52 0.80 - 3.30 K/cumm [facility] Monocyte abs 0.62 0.20 - 0.80 K/cumm [facility] Eosinophil abs 0.22 0.00 - 0.50 K/cumm [facility] Basophil abs 0.04 0.00 - 0.10 K/cumm [facility] Neutrophil pct 59.6 % [facility] Comment: Interpretive Data Percent cell count reference ranges are not reported, since discordance with absolute values may lead to misinterpretation of CBC data. Current Interpretive Data was last revised on 2017. Imm gran pct 0.2 % [facility] Comment: Interpretive Data Percent cell count reference ranges are not reported, since discordance with absolute values may lead to misinterpretation of CBC data. Current Interpretive Data was last revised on 2017. Lymphocyte pct 29.8 % [facility] Comment: Interpretive Data Percent cell count reference ranges are not reported, since discordance with absolute values may lead to misinterpretation of CBC data. Current Interpretive Data was last revised on 2017. Monocyte pct 7.3 % [facility] Comment: Interpretive Data Percent cell count reference ranges are not reported, since discordance with absolute values may lead to misinterpretation of CBC data. Current Interpretive Data was last revised on 2017. Eosinophil pct 2.6 % [facility] Comment: Interpretive Data Percent cell count reference ranges are not reported, since discordance with absolute values may lead to misinterpretation of CBC data. Current Interpretive Data was last revised on 2017. Basophil pct 0.5 % [facility] Comment: Interpretive Data Percent cell count reference ranges are not reported, since discordance with absolute values may lead to misinterpretation of CBC data. Current Interpretive Data was last revised on 2017. Blood 04/08/2025 3:51 AM CDT 04/08/2025 4:22 AM CDT us Сергей Samuel MD LAB BLOOD ORDERABLES Final R esult [place] [address] [facility] [place] [address] * (ABNORMAL) CBC with auto differential (04/08/2025 3:51 AM CDT) WBC 8.45 3.80 - 9.90 K/cumm Hgb 12.7(L) 13.0 - 17.5 g/dL [facility] Hct 39.8 38.9 - 50.3 % [facility] Plt 179 150 - 400 K/cumm [facility] MPV 10.0 9.1 - 12.3 fL [facility] RBC 4.50 4.30 - 5.80 M/cumm [facility] MCV 88.4 81.3 - 96.4 fL [facility] MCH 28.2 27.1 - 33.3 pg [facility] MCHC 31.9(L) 32.3 - 35.7 g/dL [facility] RDW CV 13.1 11.1 - 14.9 % [facility] RDW SD 42.2 35.7 - 48.1 fL [facility] NRBC abs 0.00 0.00 - 0.01 K/cumm [facility] Blood 04/08/2025 3:51 AM CDT 04/08/2025 4:22 AM CDT us Сергей Samuel MD LAB BLOOD ORDERABLES Final R esult Performing Organization Address City/[facility] Co de Phone Number [address] [address] * Magnesium (04/08/2025 3:51 AM CDT) [facility] Magnesium 2.3 1.4 - 2.5 mg/dL Blood 04/08/2025 3:51 AM CDT 04/08/2025 4:25 AM CDT Сергей Samuel MD LAB BLOOD ORDERABLES Final R [facility] Performing Organization Address [facility] de Phone Number [address] [address] * (ABNORMAL) Basic metabolic panel (04/08/2025 3:51 AM CDT) [facility] Sodium 142 135 - 145 mmol/L Potassium, pl 3.6 3.3 - 4.9 mmol/L [facility] Chloride 101 97 - 110 mmol/L [facility] CO2 35(H) 22 - 32 mmol/L [facility] Anion gap 6 2 - 15 mmol/L [facility] BUN 11 6 - 25 mg/dL [facility] Creatinine 0.99 0.80 - 1.30 mg/dL [facility] Glucose 109 70 - 199 mg/dL [facility] Comment: Interpretive Data Fasting glucose >/= 126 mg/dl is diagnostic for diabetes. Fasting is defined as no caloric intake for at least 8 hours. Fasting glucose between 100 mg/dl to 125 mg/dl is diagnostic of prediabetes. In a patient with classic symptoms of hyperglycemia or hyperglycemic crisis, a random glucose >/= 200 mg/dl is diagnostic for diabetes. In the absence of unequivocal hyperglycemia, results should be confirmed by repeat testing. The classification and Diagnosis of Diabetes Diabetes Care 202; 46: S19-S40. Current interpretive data was last revised 2022. Calcium 8.5 8.5 - 10.3 mg/dL [facility] Blood 04/08/2025 3:51 AM CDT 04/08/2025 4:25 AM CDT Сергей Samuel MD LAB BLOOD ORDERABLES Final R esult [facility] [address] [facility] [place] [address] * Critical Care (04/08/2025 12:25 AM CDT) Narrative Сергей Samuel MD - 04/08/2025 12:25 AM CDT Сергей Samuel MD 04/08/2025 12:28 AM Critical Care Performed by: Сергей Samuel MD Authorized by: Сергей Samuel MD CRITICAL CARE: Team: [facility] Shift: PM Level of Billing: Critical Care My time spent with this patient was 30 minutes: Critical Provider Statement: I have seen and examined the patient on this day of service. I have reviewed and confirmed the history, physical exam, laboratory and radiologic data as documented in the signed ICU note. I have reviewed and discussed my treatment plan with the ICU team and other medical/science consultant staff, making frequent assessments and decisions regarding this patient's complex medical care. Critical Care time was exclusive of time spent performing separately billed procedures, treating other patients, and teaching. This time was in addition to and separate from critical care provided by other practitioners in my group on this day of service. Critical Care was necessary to treat or prevent imminent or life-threatening deterioration of the following conditions: Hypotension This time was spent by me doing the following: Initiation/active titration of vasoactive medications I spent time reviewing and interpreting data from bedside monitors, laboratory results, and imaging us Сергей Samuel MD IN CLINIC/BEDSIDE ORDERABLES Final Result * (ABNORMAL) Hemoglobin and hematocrit (04/07/2025 5:09 PM CDT) Hgb 12.7(L) 13.0 - 17.5 g/dL Hct 39.7 38.9 - 50.3 % [facility] Blood 04/07/2025 5:09 PM CDT 04/07/2025 5:33 PM CDT us Pierre Pruitt MD LAB BLOOD ORDERABLES Final Resu lt [facility] [address] [facility] [place] [address] * TRANSTHORACIC ECHO (TTE) LIMITED/FOLLOW UP W LTD DOPPLER/CF WO CONTRAST (04/07/2025 3:13 PM CDT) EF Mod BP 57 % [facility] Anatomical Region Laterality Modality Ultrasound 04/07/2025 2:51 PM CDT Narrative 04/07/2025 5:04 PM CDT Transthoracic Echocardiographic Report Patient Name: SAUMYA ZAVALAIzzy : 1970 (54y 4m) Gender: M Study Date: 04/07/2025 02:51:22 PM Ht(Inch): 69 Wt(Lb): 175.99 BSA: 1.97 Decorating Supervisor: Kya Hairston RDCS Location: [id number] Order Provider: PIERRE PRUITT Heart Rate: 68 BMI: 25.99 BP: 111 / 74 Ref Provider: PIERRE PRUITT PROCEDURES: Echocardiographic Report: Echocardiography, transthoracic, 2D, includes M-mode recording,color and spectral doppler when performed, limited study. INDICATIONS: Hypotension. FINDINGS: Left Ventricle: Normal left ventricular cavity size. Normal LV wall thickness. Normal left ventricular systolic function. The Ejection Fraction (Shin's) is measured at 57 %. Diastolic Function Normal Left ventricular diastolic function. Regional Wall Motion: no obvious regional wall motion abnormalities noted Right Ventricle: Normal right ventricular size. Normal right ventricular systolic function. Left Atrium: The left atrium is normal in size. Right Atrium: The right atrium is normal in size. Mitral Valve: Normal mitral valve leaflet structure. No mitral regurgitation seen. Aortic Valve: No aortic regurgitation seen. Tricuspid Valve: The tricuspid valve demonstrates normal leaflet structure. Pulmonic Valve: Pulmonic Valve not well visualized due to poor echo windows. Pericardium: Normal pericardium without evidence of pericardial effusion. Aorta: Normal aortic root. IVC: IVC is normal in size. IVC Collapses normally with inspiration. CONCLUSIONS: 1. Normal left ventricular cavity size and systolic function. The Ejection Fraction (Shin's) is measured at 57 %. Normal Left ventricular diastolic function. 2. Normal right ventricular size and systolic function. 3. Normal pericardium without evidence of pericardial effusion. 4. There is no significant valvular heart disease. MEASUREMENTS: 2D/MM Value Range Doppler Value LVIDd 2D 4.81 cm [ 3.50 - 5.70 ] MV E Peak Ruben 0.78 m/s LVIDs 2D 2.78 cm [ 3.10 - 4.60 ] MV A Peak Ruben 0.87 m/s IVSd 2D 0.87 cm [ 0.60 - 1.20 ] MV E/A 0.90 ratio LVPWd 2D 0.92 cm [ 0.60 - 1.10 ] MV Decel Time 158.00 msec LV Thickness Ratio 0.95 Med E` Ruben 0.10 m/s LV Mass 2D 150.77 g Lat E` Ruben 0.13 m/s LV Mass Index 2D 76.53 g/m2 Average E/E` 678.26 RWT 0.38 EDV Mod BP 93.80 ml [ 62.00 - 150.00 ] LV EDV Index 47.61 ml/m2 ESV Mod BP 40.10 ml [ 21.00 - 61.00 ] EF Mod BP 57 % [ 52 - 72 ] - ATTESTATION: I have reviewed and interpreted the pertinent images and measurements of this study. I attest to the conclusions in the final report that is provided above. DISCLAIMER: The study images and the final report will be retained in the patient chart by the [facility] for the legally required time period. This chart constitutes the legal record of any testing performed. Electronically Signed By: Zackery Neal MD 04/07/2025 5:04:17 PM CDT Procedure Note Zackery Neal MD - 04/07/2025 Transthoracic Echocardiographic Report Patient Name: SAUMYA ZAVALA D : 1970 (54y 4m) Gender: M Study Date: 04/07/2025 02:51:22 PM Ht(Inch): 69 Wt(Lb): 175.99 BSA: 1.97 Decorating Supervisor: Kya Hairston MACARIO Location: [id number] Order Provider:PIERRE PRUITT Heart Rate: 68 BMI: 25.99 BP: 111 / 74 Ref Provider: PIERRE PRUITT PROCEDURES: Echocardiographic Report: Echocardiography, transthoracic, 2D, includesM-mode recording,color and spectral doppler when performed, limited study. INDICATIONS: Hypotension. FINDINGS: Left Ventricle: Normal left ventricular cavity size. Normal LV wallthickness. Normal left ventricular systolic function. The Ejection Fraction (Shin's) ismeasured at 57 %. Diastolic Function Normal Left ventricular diastolic function. Regional Wall Motion: no obvious regional wall motion abnormalitiesnoted Right Ventricle: Normal right ventricular size. Normal right ventricularsystolic function. Left Atrium: The left atrium is normal in size. Right Atrium: The right atrium is normal in size. Mitral Valve: Normal mitral valve leaflet structure. No mitralregurgitation seen. Aortic Valve: No aortic regurgitation seen. Tricuspid Valve: The tricuspid valve demonstrates normal leafletstructure. Pulmonic Valve: Pulmonic Valve not well visualized due to poor echowindows. Pericardium: Normal pericardium without evidence of pericardialeffusion. Aorta: Normal aortic root. IVC: IVC is normal in size. IVC Collapses normally with inspiration. CONCLUSIONS: 1. Normal left ventricular cavity size and systolic function. The EjectionFraction (Shin's) is measured at 57 %. Normal Left ventricular diastolicfunction. 2. Normal right ventricular size and systolic function. 3. Normal pericardium without evidence of pericardial effusion. 4. There is no significant valvular heart disease. MEASUREMENTS: 2D/MM Value Range DopplerValue LVIDd 2D 4.81 cm [ 3.50 - 5.70 ] MV E Peak Vel0.78 m/s LVIDs 2D 2.78 cm [ 3.10 - 4.60 ] MV A Peak Vel0.87 m/s IVSd 2D 0.87 cm [ 0.60 - 1.20 ] MV E/A0.90 ratio LVPWd 2D 0.92 cm [ 0.60 - 1.10 ] MV Decel Islj223.00 msec LV Thickness Ratio 0.95 Med E` Vel0.10 m/s LV Mass 2D 150.77 g Lat E` Vel0.13 m/s LV Mass Index 2D 76.53 g/m2 Average E/E`678.26 RWT 0.38 EDV Mod BP 93.80 ml [ 62.00 - 150.00 ] LV EDV Index 47.61 ml/m2 ESV Mod BP 40.10 ml [ 21.00 - 61.00 ] EF Mod BP 57 % [ 52 - 72 ] - ATTESTATION: I have reviewed and interpreted the pertinent images and measurements ofthis study. I attest to the conclusions in the final report that is provided above. DISCLAIMER: The study images and the final report will be retained in the patientchart by the [facility] for the legally required time period. This chart constitutesthe legal record of any testing performed. Electronically Signed By: Zackery Neal MD 04/07/2025 5:04:17 PM CDT Pierre Pruitt MD CV ECHO PROCEDURES Final Result * Critical Care (04/07/2025 7:29 AM CDT) Narrative Pierre Pruitt MD - 04/07/2025 7:29 AM CDT Pierre Pruitt MD 04/07/2025 2:59 PM Critical Care Performed by: Pierre Pruitt MD Authorized by: Pierre Pruitt MD CRITICAL CARE: Team: B Shift: AM Level of Billing: Critical Care My time spent with this patient was 35 minutes: Critical Provider Statement: I have seen and examined the patient on this day of service. I have reviewed and confirmed the history, physical exam, laboratory and radiologic data as documented in the signed ICU note. I have reviewed and discussed my treatment plan with the ICU team and other medical/science consultant staff, making frequent assessments and decisions regarding this patient's complex medical care. Critical Care time was exclusive of time spent performing separately billed procedures, treating other patients, and teaching. This time was in addition to and separate from critical care provided by other practitioners in my group on this day of service. Critical Care was necessary to treat or prevent imminent or life-threatening deterioration of the following conditions: I spent time reviewing and interpreting data from bedside monitors, laboratory results, and imaging, I spent time discussing the management of this critically ill patient with consultants and the medical staff and I spent time documenting in the medical record Pierre Pruitt MD IN CLINIC/BEDSIDE ORDERABLES Ed ited Result - Final * eGFR (04/07/2025 3:38 AM CDT) eGFR >90 >=60 mL/min/1. 73 m2 Comment: Interpretive Data Reference Interval Normal >/= 90 mL/min/1.73m2 Mildly decreased* 60 - 89 mL/min/1.73m2 Mildly to moderately decreased 45 - 59 mL/min/1.73m2 Moderately to severely decreased 30 - 44 mL/min/1.73m2 Severely decreased 15 - 29 mL/min/1.73m2 Kidney Failure < 15 mL/min/1.73m2 *Relative to young adult level Estimated glomerular filtration rate is determined by the 2020 CKD-EPI equation recommended by the National Kidney Foundation (A Unifying Approach to GFR Estimation: Recommendations of the NKF-ASK Task Force on Reassessing the Inclusion of Race in Diagnosing Kidney Disease, JASN 2020). The CKD-EPI equation should not be used for patients with unstable renal function and has not been validated in children and those over 70. Current interpretive data was last reviewed 2021. Blood 04/07/2025 3:38 AM CDT 04/07/2025 3:53 AM CDT us Сергей Samuel MD LAB BLOOD ORDERABLES Final R esult [facility] [address] [facility] [place] [address] * Differential, auto (04/07/2025 3:38 AM CDT) Neutrophil abs 6.18 1.50 - 6.50 K/cumm Imm gran abs 0.03 0.00 - 0.10 K/cumm [facility] Lymphocyte abs 2.56 0.80 - 3.30 K/cumm [facility] Monocyte abs 0.79 0.20 - 0.80 K/cumm [facility] Eosinophil abs 0.25 0.00 - 0.50 K/cumm [facility] Basophil abs 0.04 0.00 - 0.10 K/cumm [facility] Neutrophil pct 62.8 % [facility] Comment: Interpretive Data Percent cell count reference ranges are not reported, since discordance with absolute values may lead to misinterpretation of CBC data. Current Interpretive Data was last revised on 2017. Imm gran pct 0.3 % [facility] Comment: Interpretive Data Percent cell count reference ranges are not reported, since discordance with absolute values may lead to misinterpretation of CBC data. Current Interpretive Data was last revised on 2017. Lymphocyte pct 26.0 % [facility] Comment: Interpretive Data Percent cell count reference ranges are not reported, since discordance with absolute values may lead to misinterpretation of CBC data. Current Interpretive Data was last revised on 2017. Monocyte pct 8.0 % [facility] Comment: Interpretive Data Percent cell count reference ranges are not reported, since discordance with absolute values may lead to misinterpretation of CBC data. Current Interpretive Data was last revised on 2017. Eosinophil pct 2.5 % [facility] Comment: Interpretive Data Percent cell count reference ranges are not reported, since discordance with absolute values may lead to misinterpretation of CBC data. Current Interpretive Data was last revised on 2017. Basophil pct 0.4 % [facility] Comment: Interpretive Data Percent cell count reference ranges are not reported, since discordance with absolute values may lead to misinterpretation of CBC data. Current Interpretive Data was last revised on 2017. Blood 04/07/2025 3:38 AM CDT 04/07/2025 3:53 AM CDT us Срегей Samuel MD LAB BLOOD ORDERABLES Final R esult [place] [id number] [facility] [place] [address] * (ABNORMAL) CBC with auto differential (04/07/2025 3:38 AM CDT) WBC 9.85 3.80 - 9.90 K/cumm Hgb 12.0(L) 13.0 - 17.5 g/dL [facility] Hct 37.3(L) 38.9 - 50.3 % [facility] Plt 145(L) 150 - 400 K/cumm [facility] MPV 10.0 9.1 - 12.3 fL [facility] RBC 4.18(L) 4.30 - 5.80 M/cumm [facility] MCV 89.2 81.3 - 96.4 fL [facility] MCH 28.7 27.1 - 33.3 pg [facility] MCHC 32.2(L) 32.3 - 35.7 g/dL [facility] RDW CV 13.2 11.1 - 14.9 % [facility] RDW SD 43.0 35.7 - 48.1 fL [facility] NRBC abs 0.00 0.00 - 0.01 K/cumm [facility] Blood 04/07/2025 3:38 AM CDT 04/07/2025 3:53 AM CDT us Сергей Samuel MD LAB BLOOD ORDERABLES Final R esult Performing Organization Address [facility] de Phone Number [address] [address] * Magnesium (04/07/2025 3:38 AM CDT) Pathologist [facility] [place] Magnesium 2.3 1.4 - 2.5 mg/dL Blood 04/07/2025 3:38 AM CDT 04/07/2025 3:53 AM CDT us Сергей Samuel MD LAB BLOOD ORDERABLES Final R esult Performing Organization Address [facility] de Phone Number [address] [address] * (ABNORMAL) Basic metabolic panel (04/07/2025 3:38 AM CDT) [facility] Sodium 138 135 - 145 mmol/L Potassium, pl 3.6 3.3 - 4.9 mmol/L [facility] Chloride 100 97 - 110 mmol/L [facility] CO2 33(H) 22 - 32 mmol/L [facility] Anion gap 5 2 - 15 mmol/L [facility] BUN 13 6 - 25 mg/dL [facility] Creatinine 0.90 0.80 - 1.30 mg/dL [facility] Glucose 96 70 - 199 mg/dL [facility] Comment: Interpretive Data Fasting glucose >/= 126 mg/dl is diagnostic for diabetes. Fasting is defined as no caloric intake for at least 8 hours. Fasting glucose between 100 mg/dl to 125 mg/dl is diagnostic of prediabetes. In a patient with classic symptoms of hyperglycemia or hyperglycemic crisis, a random glucose >/= 200 mg/dl is diagnostic for diabetes. In the absence of unequivocal hyperglycemia, results should be confirmed by repeat testing. The classification and Diagnosis of Diabetes Diabetes Care 202; 46: S19-S40. Current interpretive data was last revised 2022. Calcium 8.1(L) 8.5 - 10.3 mg/dL [facility] Blood 04/07/2025 3:38 AM CDT 04/07/2025 3:53 AM CDT us Сергей Samuel MD LAB BLOOD ORDERABLES Final R esult Performing Organization Address [facility] Co de Phone Number [address] [place] [place] [address] * (ABNORMAL) Hemoglobin and hematocrit (04/06/2025 9:11 PM CDT) Hgb 12.2(L) 13.0 - 17.5 g/dL Hct 38.1(L) 38.9 - 50.3 % [facility] Blood 04/06/2025 9:11 PM CDT 04/06/2025 9:48 PM CDT us Pierre Pruitt MD LAB BLOOD ORDERABLES Final Resu lt Performing Organization Address [facility] de Phone Number [address] [place] [place] [address] * (ABNORMAL) Hemoglobin and hematocrit (04/06/2025 2:36 PM CDT) Hgb 12.0(L) 13.0 - 17.5 g/dL Hct 37.9(L) 38.9 - 50.3 % [facility] Blood 04/06/2025 2:36 PM CDT 04/06/2025 2:47 PM CDT us Pierre Pruitt MD LAB BLOOD ORDERABLES Final Resu lt Performing Organization Address [facility] Co de Phone Number [address] [place] [place] [address] * Critical Care (04/06/2025 7:29 AM CDT) Narrative Pierre Pruitt MD - 04/06/2025 7:29 AM CDT Pierre Pruitt MD 04/06/2025 12:05 PM Critical Care Performed by: Pierre Pruitt MD Authorized by: Pierre Pruitt MD CRITICAL CARE: Team: Silvano Shift: AM Level of Billing: Critical Care My time spent with this patient was 35 minutes: Critical Provider Statement: I have seen and examined the patient on this day of service. I have reviewed and confirmed the history, physical exam, laboratory and radiologic data as documented in the signed ICU note. I have reviewed and discussed my treatment plan with the ICU team and other medical/science consultant staff, making frequent assessments and decisions regarding this patient's complex medical care. Critical Care time was exclusive of time spent performing separately billed procedures, treating other patients, and teaching. This time was in addition to and separate from critical care provided by other practitioners in my group on this day of service. Critical Care was necessary to treat or prevent imminent or life-threatening deterioration of the following conditions: I spent time reviewing and interpreting data from bedside monitors, laboratory results, and imaging, I spent time discussing the management of this critically ill patient with consultants and the medical staff and I spent time documenting in the medical record us Pierre Pruitt MD IN CLINIC/BEDSIDE ORDERABLES Fi nal Result * POCT glucose (04/06/2025 7:19 AM CDT) Glucose, POC 91 70 - 199 mg/dL Blood 04/06/2025 7:19 AM CDT 04/06/2025 7:19 AM CDT Pierre Pruitt MD LAB POCT ORDERABLES - DEVICE Fi nal Result [facility] [address] [facility] [place] [address] * Critical Care (04/06/2025 4:44 AM CDT) Narrative Сергей Samuel MD - 04/06/2025 4:44 AM CDT Сергей Samuel MD 04/06/2025 4:48 AM Critical Care Performed by: Сергей Samuel MD Authorized by: Сергей Samuel MD CRITICAL CARE: Team: [facility] Shift: PM Level of Billing: Critical Care My time spent with this patient was 30 minutes: Critical Provider Statement: I have seen and examined the patient on this day of service. I have reviewed and confirmed the history, physical exam, laboratory and radiologic data as documented in the signed ICU note. I have reviewed and discussed my treatment plan with the ICU team and other medical/science consultant staff, making frequent assessments and decisions regarding this patient's complex medical care. Critical Care time was exclusive of time spent performing separately billed procedures, treating other patients, and teaching. This time was in addition to and separate from critical care provided by other practitioners in my group on this day of service. Critical Care was necessary to treat or prevent imminent or life-threatening deterioration of the following conditions: Vasoplegic shock Acute gastrointestinal bleed (GIB) This time was spent by me doing the following: Serial laboratory checks and Serial bedside patient exams Initiation/active titration of vasoactive medications I spent time reviewing and interpreting data from bedside monitors, laboratory results, and imaging us Сергей Samuel MD IN CLINIC/BEDSIDE ORDERABLES Final Result * POCT glucose (04/06/2025 3:53 AM CDT) Glucose, POC 95 70 - 199 mg/dL Glucose comment 1 Follow Protocol [facility] Blood 04/06/2025 3:53 AM CDT 04/06/2025 3:53 AM CDT us Pierre Pruitt MD LAB POCT ORDERABLES - DEVICE Fi nal Result [facility] [address] [facility] [place] [address] * eGFR (04/06/2025 2:42 AM CDT) Pathologist [facility] [place] eGFR 87 >=60 mL/min/1. 73 m2 Comment: Interpretive Data Reference Interval Normal >/= 90 mL/min/1.73m2 Mildly decreased* 60 - 89 mL/min/1.73m2 Mildly to moderately decreased 45 - 59 mL/min/1.73m2 Moderately to severely decreased 30 - 44 mL/min/1.73m2 Severely decreased 15 - 29 mL/min/1.73m2 Kidney Failure < 15 mL/min/1.73m2 *Relative to young adult level Estimated glomerular filtration rate is determined by the 2020 CKD-EPI equation recommended by the National Kidney Foundation (A Unifying Approach to GFR Estimation: Recommendations of the NKF-ASK Task Force on Reassessing the Inclusion of Race in Diagnosing Kidney Disease, JASN 202). The CKD-EPI equation should not be used for patients with unstable renal function and has not been validated in children and those over 70. Current interpretive data was last reviewed 2021. Blood 04/06/2025 2:42 AM CDT 04/06/2025 2:52 AM CDT us Сергей Samuel MD LAB BLOOD ORDERABLES Final R esult [place] [id number] [facility] [place] [address] * (ABNORMAL) Differential, auto (04/06/2025 2:42 AM CDT) Neutrophil abs 10.03(H) 1.50 - 6.50 K/cumm Imm gran abs 0.04 0.00 - 0.10 K/cumm [facility] Lymphocyte abs 2.77 0.80 - 3.30 K/cumm [facility] Monocyte abs 1.31(H) 0.20 - 0.80 K/cumm [facility] Eosinophil abs 0.20 0.00 - 0.50 K/cumm [facility] Basophil abs 0.05 0.00 - 0.10 K/cumm [facility] Neutrophil pct 69.7 % [facility] Comment: Interpretive Data Percent cell count reference ranges are not reported, since discordance with absolute values may lead to misinterpretation of CBC data. Current Interpretive Data was last revised on 2017. Imm gran pct 0.3 % [facility] Comment: Interpretive Data Percent cell count reference ranges are not reported, since discordance with absolute values may lead to misinterpretation of CBC data. Current Interpretive Data was last revised on 2017. Lymphocyte pct 19.2 % [facility] Comment: Interpretive Data Percent cell count reference ranges are not reported, since discordance with absolute values may lead to misinterpretation of CBC data. Current Interpretive Data was last revised on 2017. Monocyte pct 9.1 % [facility] Comment: Interpretive Data Percent cell count reference ranges are not reported, since discordance with absolute values may lead to misinterpretation of CBC data. Current Interpretive Data was last revised on 2017. Eosinophil pct 1.4 % [facility] Comment: Interpretive Data Percent cell count reference ranges are not reported, since discordance with absolute values may lead to misinterpretation of CBC data. Current Interpretive Data was last revised on 2017. Basophil pct 0.3 % [facility] Comment: Interpretive Data Percent cell count reference ranges are not reported, since discordance with absolute values may lead to misinterpretation of CBC data. Current Interpretive Data was last revised on 2017. Blood 04/06/2025 2:42 AM CDT 04/06/2025 2:52 AM CDT us Сергей Samuel MD LAB BLOOD ORDERABLES Final R esult [facility] [address] [facility] [place] [address] * (ABNORMAL) CBC with auto differential (04/06/2025 2:42 AM CDT) WBC 14.40(H) 3.80 - 9.90 K/cumm Hgb 12.5(L) 13.0 - 17.5 g/dL [facility] Hct 39.0 38.9 - 50.3 % [facility] Plt 157 150 - 400 K/cumm [facility] MPV 9.9 9.1 - 12.3 fL [facility] RBC 4.29(L) 4.30 - 5.80 M/cumm [facility] MCV 90.9 81.3 - 96.4 fL [facility] MCH 29.1 27.1 - 33.3 pg [facility] MCHC 32.1(L) 32.3 - 35.7 g/dL [facility] RDW CV 13.9 11.1 - 14.9 % [facility] RDW SD 46.6 35.7 - 48.1 fL [facility] NRBC abs 0.00 0.00 - 0.01 K/cumm [facility] Blood 04/06/2025 2:42 AM CDT 04/06/2025 2:52 AM CDT Сергей Samuel MD LAB BLOOD ORDERABLES Final R esult Performing Organization Address [facility] Co de Phone Number [address] [place] [address] * Magnesium (04/06/2025 2:42 AM CDT) [facility] Magnesium 2.2 1.4 - 2.5 mg/dL Blood 04/06/2025 2:42 AM CDT 04/06/2025 2:52 AM CDT Сергей Samuel MD LAB BLOOD ORDERABLES Final R [facility] Performing Organization Address [facility] de Phone Number [address] [place] [address] * (ABNORMAL) Basic metabolic panel (04/06/2025 2:42 AM CDT) [facility] Sodium 141 135 - 145 mmol/L Potassium, pl 4.1 3.3 - 4.9 mmol/L [facility] Chloride 102 97 - 110 mmol/L [facility] CO2 35(H) 22 - 32 mmol/L [facility] Anion gap 4 2 - 15 mmol/L [facility] BUN 21 6 - 25 mg/dL [facility] Creatinine 1.02 0.80 - 1.30 mg/dL [facility] Glucose 103 70 - 199 mg/dL [facility] Comment: Interpretive Data Fasting glucose >/= 126 mg/dl is diagnostic for diabetes. Fasting is defined as no caloric intake for at least 8 hours. Fasting glucose between 100 mg/dl to 125 mg/dl is diagnostic of prediabetes. In a patient with classic symptoms of hyperglycemia or hyperglycemic crisis, a random glucose >/= 200 mg/dl is diagnostic for diabetes. In the absence of unequivocal hyperglycemia, results should be confirmed by repeat testing. The classification and Diagnosis of Diabetes Diabetes Care 2021; 46: S19-S40. Current interpretive data was last revised 2022. Calcium 8.1(L) 8.5 - 10.3 mg/dL [facility] Blood 04/06/2025 2:42 AM CDT 04/06/2025 2:52 AM CDT Сергей Samuel MD LAB BLOOD ORDERABLES Final R esult [address] [place] [address] * Infection Prevention Yamilka auris PCR, surveillance Axilla/Groin (04/06/2025 12:20 AM CDT) Yamilka auris DNA Not Detected Not Detected [facility] Comment: Interpretive Data Testing performed by [facility] using the Evelyn dilan 6800 Yamilka auris assay. This assay detects DNA from Yamilka auris using Real-Time PCR. This assay is laboratory developed and is not cleared by the [place] Food and Drug Administration. The performance characteristics have been verified by the [facility]. Testing performed by: [facility], [address] [place] [address] Axilla/Groin 04/06/2025 12:2 0 AM CDT 04/06/2025 5:12 AM CDT Narrative [facility] - 04/06/2025 12:58 PM CDT Order placed by [facility] due to ring surveillance. Instant Order Generic Provider LAB MICROBIOLOGY - GENERAL ORDERABLES Final Result [address] [place] [address] [facility] * POCT glucose (04/05/2025 11:35 PM CDT) Glucose, POC 90 70 - 199 mg/dL Glucose comment 1 Follow Protocol [facility] Blood 04/05/2025 11:3 5 PM CDT 04/05/2025 11:35 PM CDT us Pierre Pruitt MD LAB POCT ORDERABLES - DEVICE Fi nal Result Performing Organization Address City/[facility] Co de Phone Number [address] [place] [place] [address] * (ABNORMAL) Hemoglobin and hematocrit (04/05/2025 11:14 PM CDT) Hgb 12.4(L) 13.0 - 17.5 g/dL Hct 39.7 38.9 - 50.3 % [facility] Blood 04/05/2025 11:1 4 PM CDT 04/06/2025 12:09 AM CDT us Pierre Pruitt MD LAB BLOOD ORDERABLES Final Resu lt Performing Organization Address [facility] de Phone Number [address] [place] [address] * POCT glucose (04/05/2025 8:28 PM CDT) Glucose, POC 116 70 - 199 mg/dL Glucose comment 1 Follow Protocol [facility] Blood 04/05/2025 8:28 PM CDT 04/05/2025 8:28 PM CDT us Pierre Pruitt MD LAB POCT ORDERABLES - DEVICE Fi nal Result Performing Organization Address [facility] Co de Phone Number [address] [place] [place] [address] * (ABNORMAL) Hemoglobin and hematocrit (04/05/2025 4:25 PM CDT) Hgb 12.9(L) 13.0 - 17.5 g/dL Hct 40.1 38.9 - 50.3 % [facility] Blood 04/05/2025 4:25 PM CDT 04/05/2025 4:48 PM CDT Pierre Pruitt MD LAB BLOOD ORDERABLES Final Resu lt Performing Organization Address [facility] Co de Phone Number [address] [place] [place] [address] * POCT glucose (04/05/2025 3:50 PM CDT) [facility] Glucose, POC 105 70 - 199 mg/dL Glucose comment 1 Follow Protocol [facility] Blood 04/05/2025 3:50 PM CDT 04/05/2025 3:50 PM CDT Pierre Pruitt MD LAB POCT ORDERABLES - DEVICE Fi nal Result Performing Organization Address [facility] Co de Phone Number [address] [place] [place] [address] * ECG 12 lead (04/05/2025 1:41 PM CDT) [facility] Ventricular Rate EKG/Min 67 BPM [facility] Atrial Rate 67 BPM [facility] CT-Interval (MSEC) 144 ms [facility] QRS-Interval (MSEC) 84 ms [facility] QT-Interval (MSEC) 386 ms [facility] QTc 407 ms [facility] P [place] 66 degrees [facility] R [place] 8 degrees [facility] T [place] -3 degrees [facility] Diagnosis Normal sinus rhythm Within normal limits When compared with ECG of 04-APR-2025 08:57, No significant change was found Confirmed by SULTAN LOPEZ M.D. ([id number]) on 04/05/2025 4:00:28 PM [facility] 04/05/2025 1:41 PM CDT 04/05/2025 4:00 PM CDT us Pierre Pruitt MD ECG ORDERABLES Final Result Performing Organization Address City/[facility]/ZIP Co de Phone Number [facility] * (ABNORMAL) Hemoglobin and hematocrit (04/05/2025 1:29 PM CDT) Hgb 12.7(L) 13.0 - 17.5 g/dL Hct 40.4 38.9 - 50.3 % [facility] Blood 04/05/2025 1:29 PM CDT 04/05/2025 1:48 PM CDT Pierre Pruitt MD LAB BLOOD ORDERABLES Final Resu lt Performing Organization Address [facility] Co de Phone Number [address] [place] [address] * Transfuse RBC (04/05/2025 1:10 PM CDT) Blood Pierre Pruitt MD BLOOD TRANSFUSION ORDERABLES Fi nal Result Performing Organization Address [facility] Co de Phone Number [address] [place] [address] * POCT glucose (04/05/2025 12:59 PM CDT) Glucose, POC 118 70 - 199 mg/dL Glucose comment 1 Follow Protocol [facility] Blood 04/05/2025 12:5 9 PM CDT 04/05/2025 12:59 PM CDT Pierre Pruitt MD LAB POCT ORDERABLES - DEVICE Fi nal Result Performing Organization Address [facility] Co de Phone Number [address] [place] [address] * CT AN ELECTIVE ENDOTRACHEAL AIRWAY, CT AN PROCEDURE PLACEHOLDER (04/05/2025 11:50 AM CDT) Narrative Rommel Shook CRNA - 04/05/2025 11:50 AM CDT Rommel Shook CRNA 04/05/2025 11:51 AM Airway Patient location: OR Indications for airway management: anesthesia Difficult airway: no Staff: Supervising provider: Thomas Patricia MD Placed by: SALES PROGRAM MANAGER: Rommel Shook CRNA Emergent airway documentation: Risks and benefits discussed: yes Consent obtained: yes Consent given by: patient Airway prep: Preoxygenated: yes Patient position: sniffing Mask difficulty assessment: 0 - not attempted Spontaneous ventilation during airway: absent Sedation level during airway: deep Final airway details: Final airway type: endotracheal airway Tube type: ETT ETT size: 7.5 mm Cuffed: yes Technique used for successful ETT placement: direct laryngoscopy Devices/Methods used in placement: cricoid pressure Insertion site: oral Blade type: Oleary Blade size: 2 Cormack-Lehane (direct): grade I - full view of glottis Cuff volume: 6 mL Cuff inflated with: air ETT to gums: 21 cm Placement verified by: auscultation and CO2 detection Airway secured with: silk tape Number of attempts: 1 us Thomas Patricia MD ANESTHESIA ORDERABLE S Final Result * Critical Care (04/05/2025 11:09 AM CDT) Narrative Pierre Pruitt MD - 04/05/2025 11:09 AM CDT Pierre Pruitt MD 04/05/2025 11:20 AM Critical Care Performed by: Pierre Pruitt MD Authorized by: Pierre Pruitt MD CRITICAL CARE: Team: [facility] Shift: AM Level of Billing: Critical Care My time spent with this patient was 60 minutes: Critical Provider Statement: I have seen and examined the patient on this day of service. I have reviewed and confirmed the history, physical exam, laboratory and radiologic data as documented in the signed ICU note. I have reviewed and discussed my treatment plan with the ICU team and other medical/science consultant staff, making frequent assessments and decisions regarding this patient's complex medical care. Critical Care time was exclusive of time spent performing separately billed procedures, treating other patients, and teaching. This time was in addition to and separate from critical care provided by other practitioners in my group on this day of service. Critical Care was necessary to treat or prevent imminent or life-threatening deterioration of the following conditions: I spent time reviewing and interpreting data from bedside monitors, laboratory results, and imaging, I spent time discussing the management of this critically ill patient with consultants and the medical staff and I spent time documenting in the medical record us Pierre Pruitt MD IN CLINIC/BEDSIDE ORDERABLES Ed ited Result - Final * EGD (04/05/2025 10:27 AM CDT) Anatomical Region Laterality Modality Other Narrative Procedure Note Ry Diaz MD - 04/05/2025 10:27 AM CDT [facility] Patient Name: Saumya Zavala Procedure Date: 04/05/2025 10:27 AM Date of : 1970 Admit Type: Inpatient Age: 54 Gender: Male Attending MD: Ry Diaz M.D., Room: [facility] ENDOSCOPY ROOM [facility] Note Status: Finalized Procedure: Upper GI endoscopy Indications: Hematemesis Referring MD: Yary Paul D.O. Providers: Ry Diaz M.D. Medicines: General Anesthesia Complications: No immediate complications. Estimated blood loss:None. Estimated Blood Loss: Estimated blood loss: none. Procedure: Pre-Anesthesia Assessment: - Prior to the procedure, a History and Physicalwas performed, and patient medications and allergieswere reviewed. The patient is competent. The risks and benefits of the procedure and the sedation optionsand risks were discussed with the patient. Allquestions were answered and informed consent was obtained. Patient identification and proposed procedure were verified by the physician, the nurse and the technology and engineering teacher in the procedure room. Mental Status Examination: alert and oriented. AirwayExamination: normal oropharyngeal airway and neck mobility. Respiratory Examination: clear to auscultation. CV Examination: normal. Prophylactic Antibiotics: The patient does not require prophylactic antibiotics. Prior Anticoagulants: The patient has taken no anticoagulant or antiplatelet agents. ASA Grade Assessment: III - A patient with severe systemic disease. After reviewing the risks and benefits,the patient was deemed in satisfactory condition to undergo the procedure. The anesthesia plan was touse general anesthesia. Immediately prior to administration of medications, the patient was re-assessed for adequacy to receive sedatives. The heart rate, respiratory rate, oxygen saturations, blood pressure, adequacy of pulmonary ventilation,and response to care were monitored throughout the procedure. The physical status of the patient was re-assessed after the procedure. The benefits, risks, and alternatives to theprocedure and sedation were discussed and informed consentwas obtained. The scope was passed under direct vision. The Endoscope was introduced through the mouth, and advanced to the third part of duodenum. The upperGI endoscopy was accomplished without difficulty. The patient tolerated the procedure well. Findings: LA Grade B (one or more mucosal breaks greater than 5 mm, notextending between the tops of two mucosal folds) esophagitis with no bleedingwas found in the middle and lower thirds of the esophagus. Two non-bleeding Mya-Mayberry tears were found at the GE junction. Many non-bleeding gastric ulcers were found throughout the gastricbody. The largest ulcers were found along the lesser curvature and greater curvature. The majority of the ulcers were clean based, though one 30mm ulcer in the lesser curvature had a flat pigmented spot (ForrestClass IIc). Erosions and erythema in the gastric antrum. There was noactive bleeding. Mildly erythematous mucosa was found in the first portion of the duodenum. The second portion of the duodenum was normal. Impression: - LA Grade B esophagitis with no bleeding. - Mya-Mayberry tears. - Non-bleeding gastric ulcers. - Erythematous duodenopathy. - Normal second portion of the duodenum. - No specimens collected. Recommendation: - Return patient to the ICU ongoing care. - Continue to monitor for signs of GI bleeding and trend hemoglobin. Transfuse for hemoglobin lessthan 7-8. - Treat with pantoprazole 40 mg IV BID for now. Anticipate an 8 week course of p.o. dosing. - Start carafate 1 gram slurry PO QID for 8weeks. - Follow up with outpatient GI and repeat EGD in 8 weeks to check healing. - Avoid NSAIDs. - Avoid NG tube if possible. - Check H pylori stool antigen and treat ifpositive. - Clear liquid diet without red dye. Ry Diaz M.D. Ry Diaz M.D. 04/05/2025 12:20:54 PM . Number of Addenda: 0 Note Initiated On: 04/05/2025 10:27 AM Recognized by the [employer] for promoting quality in endoscopy Ry Diaz MD ENDOSCOPY PROCEDURE S Final Result * (ABNORMAL) Drugs of Abuse Screen, Urine without Confirmation (04/05/2025 10:24 AM CDT) Amphetamine, ur Not Detected CutOff 500ng/mL Comment: Interpretive Data - Amphetamines: Samples containing greater than 500 ng/mL d-methamphetamine or other cross-reacting amphetamine compounds are reported as positive. Amphetamine immunoassays are subject to significant false positive rates due to cross-reactivity of non-amphetamine drugs. Confirmatory testing required for definitive results. Current Interpretive Data was last reviewed 2023. Barbiturates, ur Not Detected CutOff 200ng/mL [facility] Comment: Interpretive Data - Barbiturates: Samples containing greater than 200 ng/mL secobarbital or other cross-reacting barbiturate compounds are reported as positive. False positive and false negative results are possible. Confirmatory testing required for definitive results. Current Interpretive Data was last reviewed 2023. Benzodiazepines, ur Screen Positive, presumptive (A) CutOff 100ng/mL [facility] Comment: Interpretive Data - Benzodiazepines: Samples containing greater than 100 ng/mL nordiazepam or other cross-reacting compounds are reported as positive. False positive and false negative results are possible. Confirmatory testing required for definitive results. Current Interpretive Data was last reviewed 2023. Cannabinoids, ur Not Detected CutOff 50 ng/mL [facility] Comment: Interpretive Data - Cannabinoids: Samples containing greater than 50 ng/mL delta-9 THC -COOH or other cross- reacting compounds are reported as positive. False positive and false negative results are possible. Confirmatory testing required for definitive results. Current Interpretive Data was last reviewed 2023. Cocaine, ur Not Detected CutOff 150ng/mL [facility] Comment: Interpretive Data - Cocaine: Samples containing greater than 150 ng/mL benzoylecgonine or other cross- reacting compounds are reported as positive. False positive and false negative results are possible. Confirmatory testing required for definitive results. Current Interpretive Data was last reviewed 2023. Fentanyl, Ur Not Detected CutOff 5 ng/mL [facility] Comment: Interpretive Data - Fentanyl: Samples containing greater than 5 ng/mL norfentanyl, fentanyl, or other cross-reacting fentanyl compounds are reported as positive. False positive and false negative results are possible. Confirmatory testing required for definitive results. Current Interpretive Data was last reviewed 2023. Methadone, ur Not Detected CutOff 300ng/mL [facility] Comment: Interpretive Data - Methadone: Samples containing greater than 300 ng/mL d,l-methadone or other cross-reacting compounds are reported as positive. False positive and false negative results are possible. Confirmatory testing required for definitive results. Current Interpretive Data was last reviewed 2023. Opiates, ur Not Detected CutOff 300ng/mL [facility] Comment: Interpretive Data - Opiates: Samples containing greater than 300 ng/mL morphine or other cross-reacting compounds are reported as positive. False positive and false negative results are possible. Confirmatory testing required for definitive results. Current Interpretive Data was last reviewed 2023. Oxycodone, ur Not Detected CutOff 100ng/mL [facility] Comment: Interpretive Data - Oxycodone: Samples containing greater than 100 ng/mL oxycodone or other cross-reacting compounds are reported as positive. False positive and false negative results are possible. Confirmatory testing required for definitive results. Current Interpretive Data was last reviewed 2023. Phencyclidine, ur Not Detected CutOff 25 ng/mL [facility] Comment: Interpretive Data - Phencyclidine: Samples containing greater than 25 ng/mL phencyclidine or other cross-reacting compounds are reported as positive. False positive and false negative results are possible. Confirmatory testing required for definitive results. Current Interpretive Data was last reviewed 2023. Urine Creatinine 145 mg/dL [facility] Comment: Interpretive Data Urine Creatinine: < 10 mg/dL is extremely dilute = or > 10 but < 20 mg/dL is dilute = or > 20 mg/dL is normal Current Interpretive Data was last revised on 2017. Urine 04/05/2025 10:2 4 AM CDT 04/05/2025 10:31 AM CDT Narrative [facility] - 04/05/2025 11:05 AM CDT Drug of Abuse screening is performed by immunoassay for medical purposes only. This is not to be used for Pain Management purposes. Kylah Bruno NP LAB URINE ORDERABLES Final Resu lt Performing Organization Address [facility]/ZIP Co de Phone Number [address] [place] [address] * Transfuse RBC (04/05/2025 9:27 AM CDT) Blood Pierre Pruitt MD BLOOD TRANSFUSION ORDERABLES Fi nal Result Performing Organization Address [facility] Co de Phone Number [address] [place] [address] * (ABNORMAL) Hemoglobin and hematocrit (04/05/2025 8:15 AM CDT) Hgb 11.2(L) 13.0 - 17.5 g/dL Hct 36.1(L) 38.9 - 50.3 % [facility] Blood 04/05/2025 8:15 AM CDT 04/05/2025 8:29 AM CDT us Pierre Pruitt MD LAB BLOOD ORDERABLES Final Resu lt Performing Organization Address City/[facility]/ZIP Co de Phone Number [facility]MA[facility] [address] [place] [address] * POCT glucose (04/05/2025 8:14 AM CDT) Glucose, POC 142 70 - 199 mg/dL Glucose comment 1 Follow Protocol [facility] Blood 04/05/2025 8:14 AM CDT 04/05/2025 8:14 AM CDT Pierre Puritt MD LAB POCT ORDERABLES - DEVICE Fi nal Result Performing Organization Address [facility] Co de Phone Number ISMAEL [address] [place] [address] * Prepare RBC: 2 Units (04/05/2025 8:04 AM CDT) Units requested 2 Units requested Ready [facility] Unit Number [id number] Product code [id number] [facility] Blood Expiration Date [facility] Product Blood Type (for scanning) 6200 [facility] Product Blood Type APOS [facility] Dispense Status DISPENSED [facility] Unit Number [id number] Product code [id number] [facility] Blood Expiration Date [id number] [facility] Product Blood Type (for scanning) 6200 [facility] Product Blood Type APOS [facility] Dispense Status DISPENSED [facility] Blood 04/05/2025 8:04 AM CDT 04/05/2025 8:04 AM CDT us Pierre Pruitt MD BLOOD BANK PRODUCT ORDERABLES F inal Result Performing Organization Address City/[facility] Co de Phone Number ISMA[facility] [address] [place] [address] * Lactate (04/05/2025 4:08 AM CDT) Lactate 1.1 0.7 - 2.0 mmol/L Blood 04/05/2025 4:08 AM CDT 04/05/2025 4:12 AM CDT Сергей Samuel MD LAB BLOOD ORDERABLES Final R esult Performing Organization Address [facility] Co de Phone Number ISMAEL [address] [place] [address] * eGFR (04/05/2025 4:08 AM CDT) eGFR 81 >=60 mL/min/1. 73 m2 Comment: Interpretive Data Reference Interval Normal >/= 90 mL/min/1.73m2 Mildly decreased* 60 - 89 mL/min/1.73m2 Mildly to moderately decreased 45 - 59 mL/min/1.73m2 Moderately to severely decreased 30 - 44 mL/min/1.73m2 Severely decreased 15 - 29 mL/min/1.73m2 Kidney Failure < 15 mL/min/1.73m2 *Relative to young adult level Estimated glomerular filtration rate is determined by the 2020 CKD-EPI equation recommended by the National Kidney Foundation (A Unifying Approach to GFR Estimation: Recommendations of the NKF-ASK Task Force on Reassessing the Inclusion of Race in Diagnosing Kidney Disease, JASN 2020). The CKD-EPI equation should not be used for patients with unstable renal function and has not been validated in children and those over 70. Current interpretive data was last reviewed 2021. Blood 04/05/2025 4:08 AM CDT 04/05/2025 4:12 AM CDT us Сергей Samuel MD LAB BLOOD ORDERABLES Final R esult Performing Organization Address City/[facility] Co de Phone Number ISMAEL [address] [place] [address] * (ABNORMAL) Differential, auto (04/05/2025 4:08 AM CDT) Pathologist [facility] Neutrophil abs 15.68(H) 1.50 - 6.50 K/cumm Imm gran abs 0.09 0.00 - 0.10 K/cumm [facility] Lymphocyte abs 1.60 0.80 - 3.30 K/cumm [facility] Monocyte abs 1.15(H) 0.20 - 0.80 K/cumm [facility] Eosinophil abs 0.02 0.00 - 0.50 K/cumm [facility] Basophil abs 0.02 0.00 - 0.10 K/cumm [facility] Neutrophil pct 84.5 % [facility] Comment: Interpretive Data Percent cell count reference ranges are not reported, since discordance with absolute values may lead to misinterpretation of CBC data. Current Interpretive Data was last revised on 2017. Imm gran pct 0.5 % [facility] Comment: Interpretive Data Percent cell count reference ranges are not reported, since discordance with absolute values may lead to misinterpretation of CBC data. Current Interpretive Data was last revised on 2017. Lymphocyte pct 8.6 % [facility] Comment: Interpretive Data Percent cell count reference ranges are not reported, since discordance with absolute values may lead to misinterpretation of CBC data. Current Interpretive Data was last revised on 2017. Monocyte pct 6.2 % [facility] Comment: Interpretive Data Percent cell count reference ranges are not reported, since discordance with absolute values may lead to misinterpretation of CBC data. Current Interpretive Data was last revised on 2017. Eosinophil pct 0.1 % [facility] Comment: Interpretive Data Percent cell count reference ranges are not reported, since discordance with absolute values may lead to misinterpretation of CBC data. Current Interpretive Data was last revised on 2017. Basophil pct 0.1 % [facility] Comment: Interpretive Data Percent cell count reference ranges are not reported, since discordance with absolute values may lead to misinterpretation of CBC data. Current Interpretive Data was last revised on 2017. Blood 04/05/2025 4:08 AM CDT 04/05/2025 4:12 AM CDT Сергей Samuel MD LAB BLOOD ORDERABLES Final R esult ISMA[facility] [address] [address] * ABO / Rh Confirmation Testing (04/05/2025 4:08 AM CDT) Pathologist [facility] [place] ABO/Rh Confirmation A Positive [facility] Blood 04/05/2025 4:08 AM CDT 04/05/2025 4:12 AM CDT Сергей Samuel MD LAB BLOOD ORDERABLES Final R esult Performing Organization Address City/[facility] Co de Phone Number ISMAEL [address] [address] [facility] * (ABNORMAL) CBC with auto differential (04/05/2025 4:08 AM CDT) [facility] WBC 18.56(H) 3.80 - 9.90 K/cumm Hgb 12.1(L) 13.0 - 17.5 g/dL [facility] Hct 38.6(L) 38.9 - 50.3 % [facility] Plt 193 150 - 400 K/cumm [facility] MPV 10.4 9.1 - 12.3 fL [facility] RBC 4.24(L) 4.30 - 5.80 M/cumm [facility] MCV 91.0 81.3 - 96.4 fL [facility] MCH 28.5 27.1 - 33.3 pg [facility] MCHC 31.3(L) 32.3 - 35.7 g/dL [facility] RDW CV 13.9 11.1 - 14.9 % [facility] RDW SD 46.2 35.7 - 48.1 fL [facility] NRBC abs 0.00 0.00 - 0.01 K/cumm [facility] Blood 04/05/2025 4:08 AM CDT 04/05/2025 4:12 AM CDT Сергей Samuel MD LAB BLOOD ORDERABLES Final R esult Performing Organization Address [facility] Co de Phone Number ASAEL[address] [address] * Magnesium (04/05/2025 4:08 AM CDT) [facility] Magnesium 1.9 1.4 - 2.5 mg/dL Blood 04/05/2025 4:08 AM CDT 04/05/2025 4:12 AM CDT Сергей Samuel MD LAB BLOOD ORDERABLES Final R esult Performing Organization Address [facility] de Phone Number [address] [address] * Ethanol (04/05/2025 4:08 AM CDT) [facility] Ethanol <10 <=10 mg/dL Comment: Interpretive Data Legal limit of intoxication > or = 80 mg/dL Levels > or = 400 mg/dL are potentially TOXIC. Current interpretive data was last revised on 2018. Blood 04/05/2025 4:08 AM CDT 04/05/2025 4:12 AM CDT Pierre Pruitt MD LAB BLOOD ORDERABLES Final Resu lt Performing Organization Address [facility] Co de Phone Number [address] [address] * (ABNORMAL) Basic metabolic panel (04/05/2025 4:08 AM CDT) [facility] Sodium 142 135 - 145 mmol/L Potassium, pl 4.5 3.3 - 4.9 mmol/L [facility] [facility] Chloride 101 97 - 110 mmol/L [facility] CO2 36(H) 22 - 32 mmol/L [facility] Anion gap 5 2 - 15 mmol/L [facility] BUN 25 6 - 25 mg/dL [facility] Creatinine 1.08 0.80 - 1.30 mg/dL [facility] Glucose 162 70 - 199 mg/dL [facility] Comment: Interpretive Data Fasting glucose >/= 126 mg/dl is diagnostic for diabetes. Fasting is defined as no caloric intake for at least 8 hours. Fasting glucose between 100 mg/dl to 125 mg/dl is diagnostic of prediabetes. In a patient with classic symptoms of hyperglycemia or hyperglycemic crisis, a random glucose >/= 200 mg/dl is diagnostic for diabetes. In the absence of unequivocal hyperglycemia, results should be confirmed by repeat testing. The classification and Diagnosis of Diabetes Diabetes Care 202; 46: S19-S40. Current interpretive data was last revised 2022. Calcium 8.2(L) 8.5 - 10.3 mg/dL [facility] Blood 04/05/2025 4:08 AM CDT 04/05/2025 4:12 AM CDT Сергей Samuel MD LAB BLOOD ORDERABLES Final R esult Performing Organization Address [facility] Co de Phone Number [address] [place] [address] * POCT glucose (04/05/2025 3:42 AM CDT) Glucose, POC 145 70 - 199 mg/dL Glucose comment 1 Follow Protocol [facility] Blood 04/05/2025 3:42 AM CDT 04/05/2025 3:42 AM CDT Pierre Pruitt MD LAB POCT ORDERABLES - DEVICE Fi nal Result Performing Organization Address [facility] Co de Phone Number [address] [place] [address] * POCT glucose (04/05/2025 12:33 AM CDT) Glucose, POC 113 70 - 199 mg/dL Glucose comment 1 Follow Protocol [facility] Blood 04/05/2025 12:3 3 AM CDT 04/05/2025 12:33 AM CDT us Pierre Pruitt MD LAB POCT ORDERABLES - DEVICE Fi nal Result Performing Organization Address City/[facility]/ZIP Co de Phone Number [address] [place] [address] * Lactate (04/05/2025 12:16 AM CDT) [facility] Lactate 1.1 0.7 - 2.0 mmol/L Blood 04/05/2025 12:1 6 AM CDT 04/05/2025 12:30 AM CDT Сергей Samuel MD LAB BLOOD ORDERABLES Final R esult Performing Organization Address [facility] Co de Phone Number [address] [address] * (ABNORMAL) Differential, auto (04/05/2025 12:16 AM CDT) [facility] Neutrophil abs 14.44(H) 1.50 - 6.50 K/cumm Imm gran abs 0.08 0.00 - 0.10 K/cumm [facility] Lymphocyte abs 1.43 0.80 - 3.30 K/cumm [facility] Monocyte abs 1.33(H) 0.20 - 0.80 K/cumm [facility] Eosinophil abs 0.01 0.00 - 0.50 K/cumm [facility] Basophil abs 0.01 0.00 - 0.10 K/cumm [facility] Neutrophil pct 83.3 % [facility] Comment: Interpretive Data Percent cell count reference ranges are not reported, since discordance with absolute values may lead to misinterpretation of CBC data. Current Interpretive Data was last revised on 2017. Imm gran pct 0.5 % [facility] Comment: Interpretive Data Percent cell count reference ranges are not reported, since discordance with absolute values may lead to misinterpretation of CBC data. Current Interpretive Data was last revised on 2017. Lymphocyte pct 8.3 % [facility] Comment: Interpretive Data Percent cell count reference ranges are not reported, since discordance with absolute values may lead to misinterpretation of CBC data. Current Interpretive Data was last revised on 2017. Monocyte pct 7.7 % [facility] Comment: Interpretive Data Percent cell count reference ranges are not reported, since discordance with absolute values may lead to misinterpretation of CBC data. Current Interpretive Data was last revised on 2017. Eosinophil pct 0.1 % [facility] Comment: Interpretive Data Percent cell count reference ranges are not reported, since discordance with absolute values may lead to misinterpretation of CBC data. Current Interpretive Data was last revised on 2017. Basophil pct 0.1 % [facility] Comment: Interpretive Data Percent cell count reference ranges are not reported, since discordance with absolute values may lead to misinterpretation of CBC data. Current Interpretive Data was last revised on 2017. Blood 04/05/2025 12:1 6 AM CDT 04/05/2025 12:30 AM CDT us Сергей Samuel MD LAB BLOOD ORDERABLES Final R esult [place] [id number] [facility] [place] [address] * (ABNORMAL) CBC with auto differential (04/05/2025 12:16 AM CDT) WBC 17.30(H) 3.80 - 9.90 K/cumm Hgb 14.1 13.0 - 17.5 g/dL [facility] Hct 44.9 38.9 - 50.3 % [facility] Plt 188 150 - 400 K/cumm [facility] MPV 10.4 9.1 - 12.3 fL [facility] RBC 4.95 4.30 - 5.80 M/cumm [facility] MCV 90.7 81.3 - 96.4 fL [facility] MCH 28.5 27.1 - 33.3 pg [facility] MCHC 31.4(L) 32.3 - 35.7 g/dL [facility] RDW CV 13.7 11.1 - 14.9 % [facility] RDW SD 45.6 35.7 - 48.1 fL [facility] NRBC abs 0.00 0.00 - 0.01 K/cumm [facility] Blood 04/05/2025 12:1 6 AM CDT 04/05/2025 12:30 AM CDT Сергей Samuel MD LAB BLOOD ORDERABLES Final R esult Performing Organization Address [facility] de Phone Number [address] [place] [address] * ABO/Rh (04/05/2025 12:16 AM CDT) ABO/Rh A Positive Blood 04/05/2025 12:1 6 AM CDT 04/05/2025 12:30 AM CDT Narrative [facility] - 04/05/2025 1:15 AM CDT Has the patient had Daratumumab or Isatuximab in the past 6 months?->Unknown Сергей Samuel MD LAB BLOOD BANK TEST ORDERABL ES Final Result Performing Organization Address [facility] de Phone Number [address] [address] * (ABNORMAL) Protime-INR (04/05/2025 12:16 AM CDT) PT 15.20(H) 12.00 - 14.60 sec INR 1.19 0.90 - 1.20 [facility] Comment: Interpretive data Oral anticoagulant therapeutic ranges: Venous thromboembolism prophylaxis or treatment: 2.0-3.0 CARDIOLOGY Standard range: 2.0-3.0 High-intensity range: 2.5-3.5 Refer to indication-specific guidelines for appropriate target ranges for prosthetic heart valve replacement. Current interpretive data was last revised on 2019. Blood 04/05/2025 12:1 6 AM CDT 04/05/2025 12:30 AM CDT Сергей Samuel MD LAB BLOOD ORDERABLES Final R esult Performing Organization Address [facility]/ZIP Co de Phone Number [address] [address] * Crossmatch (04/05/2025 12:16 AM CDT) Pathologist [facility] [place] Crossmatch Compatible [facility] Unit number for crossmatch [id number] [facility] Crossmatch Compatible [facility] Unit number for crossmatch [id number] [facility] Blood 04/05/2025 12:1 6 AM CDT 04/05/2025 12:30 AM CDT Pierre Pruitt MD LAB BLOOD BANK TEST ORDERABLES Edited Result - Final Performing Organization Address [facility] Co de Phone Number [address] [address] * Antibody screen (04/05/2025 12:16 AM CDT) Pathologist [facility] Jacquelyn, indirect, Gel Interpretation Negative [facility] Blood 04/05/2025 12:1 6 AM CDT 04/05/2025 12:30 AM CDT Narrative [facility] - 04/05/2025 1:16 AM CDT Has the patient had Daratumumab or Isatuximab in the past 6 months?->Unknown us Сергей Samuel MD LAB BLOOD BANK TEST ORDERABL ES Final Result Performing Organization Address [facility] Co de Phone Number [address] [address] * Phosphorus (04/05/2025 12:16 AM CDT) Pathologist [facility] [place] Phosphorus, pl 3.4 2.3 - 4.5 mg/dL Blood 04/05/2025 12:1 6 AM CDT 04/05/2025 12:30 AM CDT Сергей Samuel MD LAB BLOOD ORDERABLES Final R esult Performing Organization Address City/[facility] Co de Phone Number [facility] [address] [facility] [place] [address] * Magnesium (04/05/2025 12:16 AM CDT) Magnesium 1.8 1.4 - 2.5 mg/dL Blood 04/05/2025 12:1 6 AM CDT 04/05/2025 12:30 AM CDT us Сергей Samuel MD LAB BLOOD ORDERABLES Final R esult Performing Organization Address City/State/[facility] Co de Phone Number [place] [address] [facility] [place] [address] * Critical Care (04/04/2025 11:48 PM CDT) Narrative Сергей Samuel MD - 04/04/2025 11:48 PM CDT Сергей Samuel MD 04/05/2025 5:34 AM Critical Care Performed by: Сергей Samuel MD Authorized by: Сергей Samuel MD CRITICAL CARE: Team: B Shift: PM Level of Billing: Critical Care My time spent with this patient was 60 minutes: Critical Provider Statement: I have seen and examined the patient on this day of service. I have reviewed and confirmed the history, physical exam, laboratory and radiologic data as documented in the signed ICU note. I have reviewed and discussed my treatment plan with the ICU team and other medical/science consultant staff, making frequent assessments and decisions regarding this patient's complex medical care. Critical Care time was exclusive of time spent performing separately billed procedures, treating other patients, and teaching. This time was in addition to and separate from critical care provided by other practitioners in my group on this day of service. Critical Care was necessary to treat or prevent imminent or life-threatening deterioration of the following conditions: Hypotension Acute gastrointestinal bleed (GIB) This time was spent by me doing the following: Serial laboratory checks, Serial bedside patient exams and Resuscitation with fluids Initiation/active titration of vasoactive medications I spent time reviewing and interpreting data from bedside monitors, laboratory results, and imaging, I spent time documenting in the medical record and I spent time discussing the management of this critically ill patient with consultants and the medical staff Сергей Samuel MD IN CLINIC/BEDSIDE ORDERABLES Final Result * POCT glucose (04/04/2025 7:55 PM CDT) Glucose, POC 92 70 - 199 mg/dL Glucose comment 1 Follow Protocol [facility] Blood 04/04/2025 7:55 PM CDT 04/04/2025 7:55 PM CDT Pierre Pruitt MD LAB POCT ORDERABLES - DEVICE Fi nal Result Performing Organization Address [facility] Co de Phone Number [address] [place] [address] * POCT glucose (04/04/2025 4:01 PM CDT) Glucose, POC 92 70 - 199 mg/dL Glucose comment 1 Follow Protocol [facility] Blood 04/04/2025 4:01 PM CDT 04/04/2025 4:01 PM CDT Pierre Pruitt MD LAB POCT ORDERABLES - DEVICE Fi nal Result Performing Organization Address [facility] Co de Phone Number [address] [place] [address] * POCT glucose (04/04/2025 12:08 PM CDT) Glucose, POC 120 70 - 199 mg/dL Blood 04/04/2025 12:0 8 PM CDT 04/04/2025 12:08 PM CDT Pierre Pruitt MD LAB POCT ORDERABLES - DEVICE Fi nal Result Performing Organization Address [facility] Co de Phone Number [address] [place] [address] * ECG 12 lead (04/04/2025 8:57 AM CDT) Ventricular Rate EKG/Min 66 BPM [facility] Atrial Rate 66 BPM [facility] CT-Interval (MSEC) 154 ms [facility] QRS-Interval (MSEC) 92 ms [facility] QT-Interval (MSEC) 372 ms [facility] QTc 389 ms [facility] P [place] -2 degrees [facility] R [place] 14 degrees [facility] T [place] 2 degrees [facility] Diagnosis Normal sinus rhythm Within normal limits When compared with ECG of 04-APR-2025 01:12, No significant change was found Confirmed by SULTAN LOPEZ M.D. ([id number]) on 04/04/2025 2:12:59 PM [facility] 04/04/2025 8:57 AM CDT 04/04/2025 2:12 PM CDT Pierre Pruitt MD ECG ORDERABLES Final Result Performing Organization Address [facility] de Phone Number [facility] * POCT glucose (04/04/2025 7:59 AM CDT) Glucose, POC 127 70 - 199 mg/dL Glucose comment 1 Follow Protocol [facility] Blood 04/04/2025 7:59 AM CDT 04/04/2025 7:59 AM CDT Pierre Pruitt MD LAB POCT ORDERABLES - DEVICE Fi nal Result Performing Organization Address [facility] Co de Phone Number [facility] [address] [facility] [place] [address] * Critical Care (04/04/2025 7:39 AM CDT) Narrative Pierre Pruitt MD - 04/04/2025 7:39 AM CDT Pierre Pruitt MD 04/04/2025 12:47 PM Critical Care Performed by: Pierre Pruitt MD Authorized by: Pierre Pruitt MD CRITICAL CARE: Team: [facility] Shift: AM Level of Billing: Subsequent Hospital Visit Level 2 My time spent with this patient was 35 minutes: Critical Provider Statement: I have seen and examined the patient on this day of service. I have reviewed and confirmed the history, physical exam, laboratory, and radiographic data as documented in the ICU note. I have reviewed and discussed my treatment plan with the patient's team and other medical/science consultant staff. This time was in addition to and separate from care provided by other practitioners on this day of service. I spent time reviewing and interpreting data from bedside monitors, laboratory results, and imaging, I spent time discussing the management of this critically ill patient with consultants and the medical staff and I spent time documenting in the medical record us Pierre Pruitt MD IN CLINIC/BEDSIDE ORDERABLES Fi nal Result * Lactate (04/04/2025 5:07 AM CDT) Lactate 0.9 0.7 - 2.0 mmol/L Blood 04/04/2025 5:07 AM CDT 04/04/2025 5:15 AM CDT Сергей Samuel MD LAB BLOOD ORDERABLES Final R esult [facility] [address] [facility] [place] [address] * eGFR (04/04/2025 5:07 AM CDT) eGFR >90 >=60 mL/min/1. 73 m2 Comment: Interpretive Data Reference Interval Normal >/= 90 mL/min/1.73m2 Mildly decreased* 60 - 89 mL/min/1.73m2 Mildly to moderately decreased 45 - 59 mL/min/1.73m2 Moderately to severely decreased 30 - 44 mL/min/1.73m2 Severely decreased 15 - 29 mL/min/1.73m2 Kidney Failure < 15 mL/min/1.73m2 *Relative to young adult level Estimated glomerular filtration rate is determined by the 2020 CKD-EPI equation recommended by the National [employer] (A Unifying Approach to GFR Estimation: Recommendations of the NKF-ASK Task Force on Reassessing the Inclusion of Race in Diagnosing Kidney Disease, JASN 2020). The CKD-EPI equation should not be used for patients with unstable renal function and has not been validated in children and those over 70. Current interpretive data was last reviewed 2021. Blood 04/04/2025 5:07 AM CDT 04/04/2025 5:15 AM CDT us Сергей Samuel MD LAB BLOOD ORDERABLES Final R esult [facility] [address] [facility] [place] [address] * (ABNORMAL) Differential, auto (04/04/2025 5:07 AM CDT) Neutrophil abs 7.10(H) 1.50 - 6.50 K/cumm Imm gran abs 0.03 0.00 - 0.10 K/cumm [facility] Lymphocyte abs 1.88 0.80 - 3.30 K/cumm [facility] Monocyte abs 0.59 0.20 - 0.80 K/cumm [facility] Eosinophil abs 0.12 0.00 - 0.50 K/cumm [facility] Basophil abs 0.03 0.00 - 0.10 K/cumm [facility] Neutrophil pct 72.8 % [facility] Comment: Interpretive Data Percent cell count reference ranges are not reported, since discordance with absolute values may lead to misinterpretation of CBC data. Current Interpretive Data was last revised on 2017. Imm gran pct 0.3 % [facility] Comment: Interpretive Data Percent cell count reference ranges are not reported, since discordance with absolute values may lead to misinterpretation of CBC data. Current Interpretive Data was last revised on 2017. Lymphocyte pct 19.3 % [facility] Comment: Interpretive Data Percent cell count reference ranges are not reported, since discordance with absolute values may lead to misinterpretation of CBC data. Current Interpretive Data was last revised on 2017. Monocyte pct 6.1 % [facility] Comment: Interpretive Data Percent cell count reference ranges are not reported, since discordance with absolute values may lead to misinterpretation of CBC data. Current Interpretive Data was last revised on 2017. Eosinophil pct 1.2 % [facility] Comment: Interpretive Data Percent cell count reference ranges are not reported, since discordance with absolute values may lead to misinterpretation of CBC data. Current Interpretive Data was last revised on 2017. Basophil pct 0.3 % [facility] Comment: Interpretive Data Percent cell count reference ranges are not reported, since discordance with absolute values may lead to misinterpretation of CBC data. Current Interpretive Data was last revised on 2017. Blood 04/04/2025 5:07 AM CDT 04/04/2025 5:15 AM CDT Сергей Samuel MD LAB BLOOD ORDERABLES Final R esult Performing Organization Address City/[facility] Co de Phone Number [facility] [address] [facility] [place], [place] [id number] * (ABNORMAL) CBC with auto differential (04/04/2025 5:07 AM CDT) WBC 9.75 3.80 - 9.90 K/cumm Hgb 14.8 13.0 - 17.5 g/dL [facility] Hct 46.8 38.9 - 50.3 % [facility] Plt 186 150 - 400 K/cumm [facility] MPV 10.2 9.1 - 12.3 fL [facility] RBC 5.27 4.30 - 5.80 M/cumm [facility] MCV 88.8 81.3 - 96.4 fL [facility] MCH 28.1 27.1 - 33.3 pg [facility] MCHC 31.6(L) 32.3 - 35.7 g/dL [facility] RDW CV 13.9 11.1 - 14.9 % [facility] RDW SD 45.1 35.7 - 48.1 fL [facility] NRBC abs 0.00 0.00 - 0.01 K/cumm [facility] Blood 04/04/2025 5:07 AM CDT 04/04/2025 5:15 AM CDT Сергей Samuel MD LAB BLOOD ORDERABLES Final R esult Performing Organization Address City/[facility] Co de Phone Number [place] [address] [facility] [place] [address] * Magnesium (04/04/2025 5:07 AM CDT) [facility] Magnesium 2.0 1.4 - 2.5 mg/dL Blood 04/04/2025 5:07 AM CDT 04/04/2025 5:15 AM CDT Сергей Samuel MD LAB BLOOD ORDERABLES Final R esult Performing Organization Address City/[facility] Co de Phone Number [address] [address] * (ABNORMAL) Basic metabolic panel (04/04/2025 5:07 AM CDT) [facility] Sodium 141 135 - 145 mmol/L Potassium, pl 4.9 3.3 - 4.9 mmol/L [facility] Comment:Hemolyzed; Potassium value may be falsely elevated by as much as 1.0 mmol/L. Suggest redraw and reanalysis. Chloride 105 97 - 110 mmol/L [facility] CO2 27 22 - 32 mmol/L [facility] Anion gap 9 2 - 15 mmol/L [facility] BUN 14 6 - 25 mg/dL [facility] Creatinine 0.95 0.80 - 1.30 mg/dL [facility] Glucose 105 70 - 199 mg/dL [facility] Comment: Interpretive Data Fasting glucose >/= 126 mg/dl is diagnostic for diabetes. Fasting is defined as no caloric intake for at least 8 hours. Fasting glucose between 100 mg/dl to 125 mg/dl is diagnostic of prediabetes. In a patient with classic symptoms of hyperglycemia or hyperglycemic crisis, a random glucose >/= 200 mg/dl is diagnostic for diabetes. In the absence of unequivocal hyperglycemia, results should be confirmed by repeat testing. The classification and Diagnosis of Diabetes Diabetes Care 2021; 46: S19-S40. Current interpretive data was last revised 2022. Calcium 8.3(L) 8.5 - 10.3 mg/dL [facility] Blood 04/04/2025 5:07 AM CDT 04/04/2025 5:15 AM CDT us Сергей Samuel MD LAB BLOOD ORDERABLES Final R esult Performing Organization Address City/[facility] Co de Phone Number [place] [address] [place] [address] * POCT glucose (04/04/2025 4:06 AM CDT) Pathologist [facility] [place] Glucose, POC 82 70 - 199 mg/dL Blood 04/04/2025 4:06 AM CDT 04/04/2025 4:06 AM CDT us Сергей Samuel MD LAB POCT ORDERABLES - DEVICE Final Result Performing Organization Address [facility] de Phone Number [facility] [address] [place] [address] * (ABNORMAL) POC Blood Gas and Chemistries, Arterial - (04/04/2025 2:00 AM CDT) pH, art POC 7.29(L) 7.35 - 7.45 pCO2, art POC 53(H) 35 - 45 mmHg [facility] pO2, art POC 126(H) 83 - 108 mmHg [facility] HCO3, art (Calc) POC 26 20 - 30 mmol/L [facility] Base excess, art POC -2 mmol/L [facility] Comment: Interpretive Data No reference range established. Current interpretive data was last revised 2020. O2 Sat, art (Calc) POC 99(H) 94 - 98 % [facility] Oxy Hgb, art POC 97.4(H) 90.0 - 95.0 % [facility] Met Hgb, art POC 0.7 0.0 - 1.9 % [facility] Carboxy Hgb, art POC 1.3 0.0 - 2.9 % [facility] Hemoglobin, art POC 15.6 13.0 - 17.5 g/dL [facility] Sodium, art POC 135 135 - 145 mmol/L [facility] Potassium, art POC 3.9 3.3 - 4.9 mmol/L [facility] Comment: Interpretive Data This method is not able to assess for hemolysis, which may falsely increase potassium concentrations. If further testing is needed to evaluate this result, consider in-laboratory plasma potassium. Current Interpretive Data was last revised on 2022. Glucose, art POC 97 70 - 199 mg/dL [facility] Ionized Calcium, art POC 4.77 4.50 - 5.10 mg/dL [facility] Lactate, art POC 1.3 0.7 - 2.0 mmol/L [facility] Blood 04/04/2025 2:00 AM CDT 04/04/2025 2:00 AM CDT Сергей Samuel MD LAB POCT ORDERABLES - DEVICE Final Result [place] [id number] [facility] [place] [address] * Critical Care (04/04/2025 1:45 AM CDT) Narrative Сергей Samuel MD - 04/04/2025 1:45 AM CDT Сергей Samuel MD 04/04/2025 5:27 AM Critical Care Performed by: Сергей Samuel MD Authorized by: Сергей Samuel MD CRITICAL CARE: Team: [facility] Shift: PM Level of Billing: Initial Hospital Visit Level 3 My time spent with this patient was 60 minutes: Critical Provider Statement: I have seen and examined the patient on this day of service. I have reviewed and confirmed the history, physical exam, laboratory, and radiographic data as documented in the ICU note. I have reviewed and discussed my treatment plan with the patient's team and other medical/science consultant staff. This time was in addition to and separate from care provided by other practitioners on this day of service. Encephalopathy/altered mental status Hypotension Intentional Overdose Alcohol Intoxication This time was spent by me doing the following: Resuscitation with fluids and Serial bedside patient exams I spent time reviewing and interpreting data from bedside monitors, laboratory results, and imaging, I spent time documenting in the medical record and I spent time discussing the management of this critically ill patient with consultants and the medical staff Сергей Samuel MD IN CLINIC/BEDSIDE ORDERABLES Final Result * XR Abdomen Ap 1 Vw (04/04/2025 1:35 AM CDT) Anatomical Region Laterality Modality Body, Abdomen N/A Computed Radiogr aphy 04/04/2025 1:56 AM CDT Narrative 04/04/2025 2:29 AM CDT EXAM DESCRIPTION: XR ABDOMEN AP 1 VIEW REASON FOR STUDY: NG tube NG tube placement TECHNIQUE: KUB COMPARISON: None FINDINGS: LINES/TUBES: Enteric tube terminates within the stomach. BOWEL: Nonobstructive gas pattern. OTHER SOFT TISSUES: Unremarkable. BONES: Unremarkable. IMPRESSION: Enteric tube terminates in the stomach. THIS IS AN ELECTRONICALLY VERIFIED FINAL REPORT 04/04/2025 2:29 AM - Electronically signed by Naif Barnes M.D. AR T: Report ID: [id number] Reading Location: [id number] Procedure Note Naif Barnes MD - 04/04/2025 EXAM DESCRIPTION: XR ABDOMEN AP 1 VIEW REASON FOR STUDY: NG tube NG tube placement TECHNIQUE: KUB COMPARISON: None FINDINGS: LINES/TUBES: Enteric tube terminates within the stomach. BOWEL: Nonobstructive gas pattern. OTHER SOFT TISSUES: Unremarkable. BONES: Unremarkable. IMPRESSION: Enteric tube terminates in the stomach. THIS IS AN ELECTRONICALLY VERIFIED FINAL REPORT 04/04/2025 2:29 AM - Electronically signed by Naif Barnes M.D. AR T: Report ID: [id number] Reading Location: [id number] Сергей Samuel MD IMG XR PROCEDURES Final Resu lt * Lactate (04/04/2025 1:25 AM CDT) Lactate 1.3 0.7 - 2.0 mmol/L Blood 04/04/2025 1:25 AM CDT 04/04/2025 1:30 AM CDT Сергей Samuel MD LAB BLOOD ORDERABLES Final R esult Performing Organization Address [facility] de Phone Number ISMAEL [address] [place] [address] * eGFR (04/04/2025 1:25 AM CDT) Pathologist [facility] [place] eGFR 83 >=60 mL/min/1. 73 m2 Comment: Interpretive Data Reference Interval Normal >/= 90 mL/min/1.73m2 Mildly decreased* 60 - 89 mL/min/1.73m2 Mildly to moderately decreased 45 - 59 mL/min/1.73m2 Moderately to severely decreased 30 - 44 mL/min/1.73m2 Severely decreased 15 - 29 mL/min/1.73m2 Kidney Failure < 15 mL/min/1.73m2 *Relative to young adult level Estimated glomerular filtration rate is determined by the 2020 CKD-EPI equation recommended by the National Kidney Foundation (A Unifying Approach to GFR Estimation: Recommendations of the NKF-ASK Task Force on Reassessing the Inclusion of Race in Diagnosing Kidney Disease, JASN 2020). The CKD-EPI equation should not be used for patients with unstable renal function and has not been validated in children and those over 70. Current interpretive data was last reviewed 2021. Blood 04/04/2025 1:25 AM CDT 04/04/2025 1:31 AM CDT Сергей Samuel MD LAB BLOOD ORDERABLES Final R esult Performing Organization Address [facility] Co de Phone Number ISMAEL [address] [place] [address] * (ABNORMAL) Differential, auto (04/04/2025 1:25 AM CDT) Pathologist [facility] [place] Neutrophil abs 13.28(H) 1.50 - 6.50 K/cumm Imm gran abs 0.05 0.00 - 0.10 K/cumm [facility] Lymphocyte abs 2.30 0.80 - 3.30 K/cumm [facility] Monocyte abs 0.77 0.20 - 0.80 K/cumm [facility] Eosinophil abs 0.10 0.00 - 0.50 K/cumm [facility] Basophil abs 0.04 0.00 - 0.10 K/cumm [facility] Neutrophil pct 80.3 % [facility] Comment: Interpretive Data Percent cell count reference ranges are not reported, since discordance with absolute values may lead to misinterpretation of CBC data. Current Interpretive Data was last revised on 2017. Imm gran pct 0.3 % [facility] Comment: Interpretive Data Percent cell count reference ranges are not reported, since discordance with absolute values may lead to misinterpretation of CBC data. Current Interpretive Data was last revised on 2017. Lymphocyte pct 13.9 % [facility] Comment: Interpretive Data Percent cell count reference ranges are not reported, since discordance with absolute values may lead to misinterpretation of CBC data. Current Interpretive Data was last revised on 2017. Monocyte pct 4.7 % [facility] Comment: Interpretive Data Percent cell count reference ranges are not reported, since discordance with absolute values may lead to misinterpretation of CBC data. Current Interpretive Data was last revised on 2017. Eosinophil pct 0.6 % [facility] Comment: Interpretive Data Percent cell count reference ranges are not reported, since discordance with absolute values may lead to misinterpretation of CBC data. Current Interpretive Data was last revised on 2017. Basophil pct 0.2 % [facility] Comment: Interpretive Data Percent cell count reference ranges are not reported, since discordance with absolute values may lead to misinterpretation of CBC data. Current Interpretive Data was last revised on 2017. Blood 04/04/2025 1:25 AM CDT 04/04/2025 1:31 AM CDT us Сергей Samuel MD LAB BLOOD ORDERABLES Final R esult ISMAEL ALDANA [address] [facility] [place] [address] * (ABNORMAL) CBC with auto differential (04/04/2025 1:25 AM CDT) [facility] WBC 16.54(H) 3.80 - 9.90 K/cumm Hgb 15.1 13.0 - 17.5 g/dL [facility] Hct 47.8 38.9 - 50.3 % [facility] Plt 176 150 - 400 K/cumm [facility] MPV 9.4 9.1 - 12.3 fL [facility] RBC 5.40 4.30 - 5.80 M/cumm [facility] MCV 88.5 81.3 - 96.4 fL [facility] MCH 28.0 27.1 - 33.3 pg [facility] MCHC 31.6(L) 32.3 - 35.7 g/dL [facility] RDW CV 13.7 11.1 - 14.9 % [facility] RDW SD 44.4 35.7 - 48.1 fL [facility] NRBC abs 0.00 0.00 - 0.01 K/cumm [facility] Blood 04/04/2025 1:25 AM CDT 04/04/2025 1:31 AM CDT Сергей Samuel MD LAB BLOOD ORDERABLES Final R esult ISAMEL [address] [facility] [place] [address] * MRSA Only (Staphylococcus aureus) PCR Nasal (04/04/2025 1:25 AM CDT) [facility] PCR Scrn, Methicillin resistant Staphylococcus aureus (MRSA) Not Detected Not Detected Comment: Interpretive Data Testing performed using Nucleic Acid Amplification with the [employer] Xpert MRSA NxG Assay. This assay detects target DNA from mecA, mecC and the SCCmec insertion site of Staphylococcus aureus using Real-Time PCR and has been cleared by the FDA. Performance characteristics have been verified by the [facility]. Current Interpretive Data was last revised on 2023 Nasal 04/04/2025 1:25 AM CDT 04/04/2025 1:31 AM CDT Сергей Samuel MD LAB MICROBIOLOGY - GENERAL O RDERABLES Final Result Performing Organization Address [facility] Co de Phone Number [address] [address] * (ABNORMAL) Protime-INR (04/04/2025 1:25 AM CDT) PT 14.70(H) 12.00 - 14.60 sec INR 1.14 0.90 - 1.20 [facility] Comment: Interpretive data Oral anticoagulant therapeutic ranges: Venous thromboembolism prophylaxis or treatment: 2.0-3.0 CARDIOLOGY Standard range: 2.0-3.0 High-intensity range: 2.5-3.5 Refer to indication-specific guidelines for appropriate target ranges for prosthetic heart valve replacement. Current interpretive data was last revised on 2019. Blood 04/04/2025 1:25 AM CDT 04/04/2025 1:31 AM CDT Сергей Samuel MD LAB BLOOD ORDERABLES Final R esult Performing Organization Address [facility] Co de Phone Number [address] [address] * Phosphorus (04/04/2025 1:25 AM CDT) Phosphorus, pl 2.9 2.3 - 4.5 mg/dL Blood 04/04/2025 1:25 AM CDT 04/04/2025 1:31 AM CDT Сергей Samuel MD LAB BLOOD ORDERABLES Final R esult Performing Organization Address [facility] Co de Phone Number [address] [place] [address] * Magnesium (04/04/2025 1:25 AM CDT) Pathologist [facility] [place] Magnesium 2.4 1.4 - 2.5 mg/dL Blood 04/04/2025 1:25 AM CDT 04/04/2025 1:31 AM CDT us Сергей Samuel MD LAB BLOOD ORDERABLES Final R esult Performing Organization Address [facility] Co de Phone Number ISMAEL [address] [place] [address] * (ABNORMAL) Creatine kinase (CK), total (04/04/2025 1:25 AM CDT) [facility] CK 430(H) 40 - 300 Units/L Blood 04/04/2025 1:25 AM CDT 04/04/2025 1:31 AM CDT us Сергей Samuel MD LAB BLOOD ORDERABLES Final R esult Performing Organization Address [facility] de Phone Number [address] [address] * (ABNORMAL) Comprehensive metabolic panel (04/04/2025 1:25 AM CDT) [facility] Sodium 142 135 - 145 mmol/L Potassium, pl 3.9 3.3 - 4.9 mmol/L [facility] Chloride 106 97 - 110 mmol/L [facility] CO2 26 22 - 32 mmol/L [facility] Anion gap 10 2 - 15 mmol/L [facility] BUN 16 6 - 25 mg/dL [facility] Creatinine 1.06 0.80 - 1.30 mg/dL [facility] Glucose 94 70 - 199 mg/dL [facility] Comment: Interpretive Data Fasting glucose >/= 126 mg/dl is diagnostic for diabetes. Fasting is defined as no caloric intake for at least 8 hours. Fasting glucose between 100 mg/dl to 125 mg/dl is diagnostic of prediabetes. In a patient with classic symptoms of hyperglycemia or hyperglycemic crisis, a random glucose >/= 200 mg/dl is diagnostic for diabetes. In the absence of unequivocal hyperglycemia, results should be confirmed by repeat testing. The classification and Diagnosis of Diabetes Diabetes Care 2021; 46: S19-S40. Current interpretive data was last revised 2022. Calcium 8.5 8.5 - 10.3 mg/dL [facility] Bilirubin, total 0.4 0.1 - 1.2 mg/dL [facility] Protein, pl 6.2(L) 6.5 - 8.5 g/dL [facility] Albumin 4.0 3.5 - 5.0 g/dL [facility] Alk phos 48 40 - 130 Units/L [facility] ALT 31 7 - 55 Units/L [facility] AST 34 10 - 50 Units/L [facility] Blood 04/04/2025 1:25 AM CDT 04/04/2025 1:31 AM CDT Сергей Samuel MD LAB BLOOD ORDERABLES Final R esult Performing Organization Address [facility] Co de Phone Number [facility] [address] [facility] [place] [address] * ECG 12 lead (04/04/2025 1:12 AM CDT) [facility] Ventricular Rate EKG/Min 73 BPM [facility] Atrial Rate 73 BPM [facility] CT-Interval (MSEC) 160 ms [facility] QRS-Interval (MSEC) 92 ms [facility] QT-Interval (MSEC) 376 ms [facility] QTc 414 ms [facility] P [place] 54 degrees [facility] R [place] 10 degrees [facility] T [place] 6 degrees [facility] Diagnosis Normal sinus rhythm Cannot rule out Inferior infarct Old No previous ECG available for comparison Confirmed by SULTAN LOPEZ M.D. ([id number]) on 04/04/2025 8:34:17 AM [facility] 04/04/2025 1:12 AM CDT 04/04/2025 8:34 AM CDT Сергей Samuel MD ECG ORDERABLES Final Result Performing Organization Address [facility] Co de Phone Number [facility] from Last 3 Months [facility] Advance Directives For more information, please contact: [phone] * Full Code (Latest Code Status on File) Date Activated Date Inactivated Comments 04/05/2025 11:18 AM 04/12/2025 8:01 PM * Full Code Date Activated Date Inactivated Comments 04/04/2025 1:20 AM 04/05/2025 11:18 AM Care Teams Weather Reporter Relationship Specialty Start Date End Date Sandip Lyon MD PCP - General Performance Improvement Specialist 06/02/25 No, Physician 04/12/25
--- OUTSIDE RECORDS SUMMARY | 2025-06-03 14:13 | XMS_ITS | Clinical Summary ---
Author Organization [employer] [facility] Address [address] [facility] [place] [address] Phone Care Team Providers Care Museum Exhibit Designer Name Role Phone Unavailable Primary Care Provider [...] (1 of 2) 11/28/2019 INFLUENZA VACCINE (#1) 2025
--- OUTSIDE RECORDS SUMMARY | 2025-06-03 14:13 | XMS_ITS | Encounter Summary ---
Author Organization [facility] Address [address] [place] [address] Care Team Providers Care Paste Mixing Supervisor Name Role Phone Wang Devries MD Primary Care Provider Karoline Devries MD Primary Care Provider [phone] Shania Burks PA-C Primary Care Provider [phone] Encounter Details Date Type Department Care Team (Latest Contact Info) Description 05/27/2018 Abstract [facility] , Rip Gan MD Social History Tobacco Use Types Packs/Day [...] Rule Out 08/02/2020 08/02/2020 08/02/2020 1:38 PM ARTISTIC ASSOCIATE COVID-19 Rule Out 04/03/2025 04/03/2025 04/03/2025 11:23 PM CDT documented as of this encounter Care Teams Paste Mixing Supervisor Relationship Specialty Start Date End Date Wang Devries MD [address] [place] [address] PCP - General INTERNAL MEDICINE 02/21/19 01/20/20 Karoline Devries MD [address] [place] [address] PCP - General INTERNAL MEDICINE 07/07/20 03/24/21 Shania Burks PA-C [address] [place], [place] [address] [address] PCP - General PHYSICIAN SOUND DESIGNER 03/25/21 documented as of this encounter
--- OUTSIDE RECORDS SUMMARY | 2025-06-03 14:13 | XMS_ITS | Encounter Summary ---
Author Organization [facility] Healthcare Address [address] [place] [address] Care Team Providers Care Medical Tech Name Role Phone No, Physician Unavailable Administration, Veterans Primary Care Provide r Unavailable Reason for Visit * Reason Onset Date Comments blood pressure 06/03/2025 Encounter Details Date Type Department Care Team (Late st Contact Info) Description 06/03/2025 Telephone [facility] Cardiology [address] [place] [id number] Yary Dial NP [address] [place] [address] blood pressure Social History Tobacco Use Types Packs/Day Years [...] often do you attend chur ch or scientologist services? More than 4 times per year 04/08/2025 Do you belong to any clubs o r organizations such as congregation groups, unions, fraternal or athletic groups, or [...] any time in the past 12 m [facility], were you homeless or living in a jail (including now)? 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 Pt calling in regard to the ULURU message he sent today about his BP. Requesting a call back to discuss. Please advise. Thank you. Contact [phone] [facility] (supporting Yary Dial NP) 06/03/25 7:16 AM Good morning, I have been having increased spikes in my heart rate. This morning getting up I was 147. Blood pressure after 20 minutes was 127 over 89. Im also having what seem like more palpitations and get winded easier. Some headaches. My heart rate has been as high as 179 recently, but that was during the middle of intimacy. Thank you Valeria Cabrera, RN to Yary Dial NP 06/03/25 9:02 AM Forwarded to [place] Spoke to pt who states he started noticing increased symptoms over the last 2 weeks. Resting HR is anywhere from 70's-112, B/P 118/80's, With activity, even just walking to his car, his HR will spiketo 140's-160's., B/P 130's/high 80's. He feels some palpitations and has increased SOB with activity. No chest pain, states he feels an occasional tightness when his HR is really high. Metoprolol is still being held. [facility] (supporting Yary Dial NP) 06/03/25 9:17 AM Example for today on heart rate Attachments [id number] ROLLER OPERATOR documented in this encounter Plan of Treatment Not on file documented as of this encounter Visit Diagnoses Not on filedocumented in this encounter Care Teams Medical Tech Relationship Specialty Start Date End Date AdministrationSandip MD PCP - General Cyber Systems Administrator 06/02/25 No, Physician 04/12/25 documented as of this encounter
--- OUTSIDE RECORDS SUMMARY | 2025-06-03 14:13 | XMS_ITS | Encounter Summary ---
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 Gender Identity Male 03/05/2024 6:36 AM CDT Sexual Orientation Not on file 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 End Date 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 [employer] Not on file N ot on file Not on file documented as of this encounter Plan of Treatment Not on file documented as of this encounter Procedures Procedure Name Priority Date/Time Associated Diagnosis Comments SCAN - RADIOLOGY/IMAGING 12/07/2024 SCAN - LABS 12/07/2024 CARDIOLOGY DOCUMENT SCAN 12/07/2024 documented in this encounter Results * SCAN - LABS (12/07/2024) us Provider Scanning Final Result * SCAN - RADIOLOGY/IMAGING (12/07/2024) Anatomical Region Laterality Modality Other us Provider Scanning Edited Result - Final * Cardiology Document Scan (12/07/2024) Anatomical Region Laterality Modality Other us Provider Scanning CV CARDIAC SERVICES PROCEDURES Edited Result - Final documented in this encounter Visit Diagnoses Not [...] documented as of this encounter Care Teams Director Of Financial Planning Relationship Specialty Start Date End Date Shania Burks PA [address] [place] [address] PCP - General Family Practice 09/20/22 06/01/25 Sandip Lyon MD PCP - General Hospital Librarian 06/02/25 No, Physician 04/12/25 documented as of this encounter
[2025-06-03 14:15] LABS: Alanine Aminotransferase 34 U/L (6-50); Albumin Level 4.8 g/dL (3.5-5.1); Alkaline Phosphatase 60 U/L (38-126); Anion Gap 8 mmol/L (4-12); Aspartate Amino Transferase 34 U/L (17-59); Bilirubin,Total 0.6 mg/dL (0.2-1.3); Blood Urea Nitrogen 16 mg/dL (9-20); Calcium 8.8 mg/dL (8.4-10.2); Carbon Dioxide 26 mmol/L (22-30); Chloride 101 mmol/L (98-107); Estimated CRCL calculation 74 ml/min; Estimated Glomerular Filt Rate > 60; Glucose 209 mg/dL (65-110); Lipase 39 U/L (23-300); Potassium 4.1 mmol/L (3.4-5.0); Sodium 135 mmol/L (137-145); Total Protein 7.9 g/dL (6.3-8.2)
[2025-06-03 14:21] LABS: INR 1.0; Partial Thromboplastin Time 26.3 Seconds (22.3-36.8); Prothrombin Time 13.2 Seconds (11.1-14.7)
[2025-06-03 14:28] LABS: Troponin I 0.013 ng/mL (0.000-0.034)
--- NOTE | 2025-06-03 15:25 | ED.ARRPALP ---
HPI - Arrhythmia/Palpitations General Chief Complaint: Arrhythmia/Palpitations <Ness Bee PA-C - Last Filed: 06/12/25 14:46> Stated Complaint: palpations <Ness Bee PA-C - Last Filed: 06/12/25 14:46> Time Seen by Provider: 06/03/25 15:25 <Ness Bee PA-C - Last Filed: 06/12/25 14:46> Focused HPI: This is a 54 year old male that presents to the ER for palpitations. Reports his heart rate has been elevated all day. Up to the 160s. Reports chest pressure when his heart beats fast. Reports he used to take Metoprolol, but was taken off of this due to a suicide attempt. GENERAL: Well-appearing, well-nourished, and in no acute distress. HEAD: Normocephalic, atraumatic. CHEST: Clear to auscultation. ?No respiratory distress. HEART: Regular rate and rhythm.? NEURO: ?Alert and oriented x3. Patient screened in triage and initial orders placed.? ?Additional care and disposition to be based upon?diagnostic testing and treatment. <Ness Bee PA-C - Last Filed: 06/12/25 14:46> History of Present Illness HPI narrative: I agree with the above HPI. <Татьяна Baxter APRN - Last Filed: 06/03/25 22:21> Related Data Home Medications: Home Medications ?Medication ?Instructions ?Recorded ?Confirmed ?Last Taken ?Type famotidine 20 mg tablet 20 mg PO BID 02/27/22 04/15/25 12/07/24 08:00 History 20 mg multivitamin with minerals-folic 1 tablet PO DAILY 01/08/23 04/15/25 12/07/24 08:00 History acid 0.4 mg tablet 1 tablet aspirin 81 mg tablet,delayed 81 mg PO DAILY 12/07/24 04/15/25 12/07/24 08:00 History release (Adult Aspirin Regimen) 81 mg rosuvastatin 10 mg tablet (Crestor) 10 mg PO DAILY 12/07/24 04/15/25 12/06/24 20:00 History 10 mg midodrine 2.5 mg tablet 2.5 mg PO TID 04/14/25 04/15/25 Unknown History pantoprazole 40 mg tablet,delayed 40 mg PO BID 04/14/25 04/15/25 Unknown History release sucralfate 100 mg/mL oral 1 g PO QID 04/14/25 04/15/25 Unknown History suspension <Ness Bee PA-C - Last Filed: 06/12/25 14:46> Allergies/Adverse Reactions: Allergies Allergy/AdvReac Type Severity Reaction Status Date / Time morphine Allergy Severe Anaphylaxis Verified 06/03/25 13:52 codeine AdvReac Severe Nausea Verified 06/03/25 13:52 dizziness <Ness Bee PA-C - Last Filed: 06/12/25 14:46> Review of Systems Review of Systems: All systems reviewed & are unremarkable except as noted in HPI and below <Татьяна Baxter APRN - Last Filed: 06/03/25 22:21> [facility] Past Medical History Medical History: Medical History Labral tear of long head of left biceps tendon Tendinitis of left rotator cuff Low testosterone Adenomatous colon polyp Family history of malignant neoplasm of digestive organs Dyslipidemia (high LDL; low HDL) 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 Anxiety Kidney stones Mild acid reflux Wears glasses MILE (obstructive sleep apnea) HTN (hypertension) <Ness Bee PA-C - Last Filed: 06/12/25 14:46> Surgical History Surgical History: Surgical History History of shoulder surgery left bicep relocation 01/16/24 History of hand surgery Left thumb and Left pinky and left middle finger History of orchiectomy History of removal of retained hardware History of vasectomy History of appendectomy <Ness Bee PA-C - Last Filed: 06/12/25 14:46> Family History Family History: Family History Father HLD (hyperlipidemia) Hypertension Mother HLD (hyperlipidemia) Hypertension Kidney disorder Sibling Colon polyp Reflux esophagitis Sibling Hypertension <Ness Bee PA-C - Last Filed: 06/12/25 14:46> Social History Social History: Social History Social History: 03/30/25 very confident with medical forms Smoking status: Never smoker Tobacco type: cigarettes Second hand tobacco smoke exposure: No Additional smoking assessment comments: Smoked for 15 years and quit approx 15 years ago. 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 HEAD: Normocephalic, atraumatic. NECK: Supple. No adenopathy, no masses. RESPIRATORY: Airway patent, respirations nonlabored. Clear to auscultation bilaterally, no rales, rhonchi, wheezing. CARDIOVASCULAR: Regular rate and rhythm without murmurs, rubs, or gallops. Peripheral pulses 2+ and equal bilaterally. ABDOMINAL: Soft, nontender, nondistended, no hepatosplenomegaly. Normoactive BS. MUSCULOSKELETAL: Moves all extremities. Strength/ROM intact without gross deformities. SKIN: Warm, dry, normal color. No rashes. NEURO: A&O X3. Speech clear. Cranial nerves II-XII intact. (R hand weaker at baseline) <Татьяна Baxter APRN - Last Filed: 06/03/25 22:21> Course Vital Signs Vital signs: Vital Signs Temperature 98.2 F 06/03/25 13:48 Pulse Rate 129 H 06/03/25 13:48 Respiratory Rate 18 06/03/25 13:48 Blood Pressure 172/102 H 06/03/25 13:48 Pulse Oximetry 99 06/03/25 13:48 Oxygen Delivery Room Air 06/03/25 13:48 Temperature 98.2 F 06/03/25 13:48 Pulse Rate 81 06/03/25 22:15 Respiratory Rate 13 06/03/25 22:15 Blood Pressure 112/81 06/03/25 21:30 Pulse Oximetry 97 06/03/25 22:15 Oxygen Delivery Room Air 06/03/25 13:48 <Ness Bee PA-C - Last Filed: 06/12/25 14:46> Vital Signs Temperature 98.2 F 06/03/25 13:48 Pulse Rate 129 H 06/03/25 13:48 Respiratory Rate 18 06/03/25 13:48 Blood Pressure 172/102 H 06/03/25 13:48 Pulse Oximetry 99 06/03/25 13:48 Oxygen Delivery Room Air 06/03/25 13:48 Temperature 98.2 F 06/03/25 13:48 Pulse Rate 81 06/03/25 22:15 Respiratory Rate 13 06/03/25 22:15 Blood Pressure 112/81 06/03/25 21:30 Pulse Oximetry 97 06/03/25 22:15 Oxygen Delivery Room Air 06/03/25 13:48 <Татьяна Baxter APRN - Last Filed: 06/03/25 22:21> MDM - Arrhythmia/Palpitations MDM Narrative Medical decision making narrative: Pt is a 54 year old male that presents to the ER for palpitations. Reports his heart rate has been elevated all day. Up to the 160s. Reports chest pressure when his heart beats fast. Reports he used to take Metoprolol, but was taken off of this due to a suicide attempt. * Patient reports he just had a steroid injection into his shoulder joint yesterday. He also endorses a headache. Labs Ordered: CBC, CMP, UA, UDS, COVID/flu/RSV, troponin, TSH, magnesium, PTT, INR, lipase Imaging Ordered: Chest x-ray Medications Ordered: 1 L normal saline IV bolus, Reglan 10 mg IV, Benadryl 25 mg IV Results: Pt's chest x-ray indicates No acute cardiopulmonary abnormality. Diagnosis: Reaction to medication Consults: Cardiology (outpatient), already established Patient Education/Shared MDM: Results of lab work and imaging shared with patient and his . He endorses improvement of headache symptoms symptoms following medication administration. It is assumed patient's chest palpitations, elevated blood sugar, and elevated white blood cell count are related to the steroid injection he received yesterday. Patient reports his symptoms started soon after he received the injection. His reports she remembers him having similar symptoms when he had his last steroid injection. Pt ambulated around the ER with assistance and his highest heart rate reading was 105. Patient strongly advised to maintain hydration status upon discharge and follow-up with his PCP and general sales manager as soon as possible. He will not be discharged home with any new prescriptions. Strict return precautions provided. Patient verbalized understanding and is in agreement with plan. Vital signs stable at time of discharge. All questions answered. <Татьяна Baxter APRN - Last Filed: 06/03/25 22:21> Differential Diagnosis Differential diagnosis: Likely palpitations, anxiety, sinus tachycardia, artial fibrillation and supraventricular tachycardia <Татьяна Baxter APRN - Last Filed: 06/03/25 22:21> Lab Data Attestation: I reviewed the patient's lab results. <Татьяна Baxter APRN - Last Filed: 06/03/25 22:21> Result diagrams: 06/03/25 13:57 06/03/25 13:57 <Ness Bee PA-C - Last Filed: 06/12/25 14:46> Labs: Lab Results 06/03/25 06/03/25 06/03/25 Range/Units 13:57 17:06 19:56 WBC 16.5 H (4.5-10.0) K/mm3 RBC 5.89 (4.6-6.20) M/mm3 Hgb 15.0 (14.0-18.0) g/dL Hct 48.7 (42.0-52.0) % MCV 82.7 (80-100) fl MCH 25.5 L (26-34) pg MCHC 30.8 L (32-36) g/dl RDW 12.5 (11.5-14.5) % Plt Count 256 (150-375) k/mm3 MPV 9.4 (7.4-10.4) fl Immature Gran % (Auto) 0.4 (0-0.5) % Neut % (Auto) 85.0 H (45.5-73.1) % Lymph % (Auto) 10.2 L (18.3-44.2) % [place] % (Auto) 4.2 (2.6-8.5) % Eos % (Auto) 0.1 (0-4.4) % Baso % (Auto) 0.1 L (0.2-1.2) % Lymph # (Auto) 1.68 (0.9-3.2) K/mm3 [place] # (Auto) 0.7 H (0.1-0.6) K/mm3 Eos # (Auto) 0.0 (0-0.3) K/mm3 Baso # (Auto) 0.0 (0.0-0.1) K/mm3 Abs Immat Gran (auto) 0.07 H (0.00-0.031) K/mm3 Absolute Neuts (auto) 14.0 H (1.3-6.7) K/mm3 Absolute Nucleated RBC 0.000 (0.0-0.012) K/mm3 Nucleated RBC % 0.0 (0.0-0.2) % PT 13.2 (11.1-14.7) Seconds INR 1.0 APTT 26.3 (22.3-36.8) Seconds Sodium 135 L (137-145) mmol/L Potassium 4.1 (3.4-5.0) mmol/L Chloride 101 (98-107) mmol/L Carbon Dioxide 26 (22-30) mmol/L Anion Gap 8 (4-12) mmol/L BUN 16 (9-20) mg/dL Creatinine 0.99 (0.7-1.3) mg/dL Estim Creat Clear Calc 74 ml/min Estimated GFR > 60 (59 - ) Glucose 209 H (65-110) mg/dL Calcium 8.8 (8.4-10.2) mg/dL Magnesium 2.3 (1.6-2.3) mg/dL Total Bilirubin 0.6 (0.2-1.3) mg/dL AST 34 (17-59) U/L ALT 34 (6-50) U/L Alkaline Phosphatase 60 (38-126) U/L Troponin I 0.013 < 0.012 < 0.012 (0.000-0.034) ng/mL NT-Pro-B Natriuret Pep < 20 (19.9-100) pg/mL Total Protein 7.9 (6.3-8.2) g/dL Albumin 4.8 (3.5-5.1) g/dL Lipase 39 (23-300) U/L TSH (Reflex) 1.140 (0.465-4.68) uIU/mL Urine Color Yellow (Yellow) Urine Appearance Clear (Clear) Urine pH 6.5 (5.0-9.0) Ur Specific [place] 1.018 (1.001-1.035) Urine Protein Negative (Negative) mg/dL Urine Glucose (UA) Negative (Negative) mg/dL Urine Ketones Negative (Negative) mg/dL Ur Blood (Man) Negative (Negative) Urine Nitrate Negative (Negative) Urine Bilirubin Negative (Negative) Urine Urobilinogen 1.0 (<2.0) mg/dL Leukocyte Esterase Rfl Negative (Negative) OTONIEL/UL Urine Opiates Screen Negative (Negative) Urine Methadone Screen Negative (Negative) Ur Barbiturates Screen Negative (Negative) Ur Phencyclidine Scrn Negative (Negative) Ur Amphetamine Screen Negative (Negative) U Benzodiazepines Scrn Negative (Negative) Urine Cocaine Screen Negative (Negative) U Cannabinoids Screen Negative (Negative) Influenza A (RT-PCR) Negative (Negative) Influenza B (RT-PCR) Negative (Negative) RSV (RT-PCR) Negative (Negative) SARS-CoV-2 RNA (RT-PCR) Negative (Negative) <Ness Bee PA-C - Last Filed: 06/12/25 14:46> Lab Results 06/03/25 06/03/25 06/03/25 Range/Units 13:57 17:06 19:56 WBC 16.5 H (4.5-10.0) K/mm3 RBC 5.89 (4.6-6.20) M/mm3 Hgb 15.0 (14.0-18.0) g/dL Hct 48.7 (42.0-52.0) % MCV 82.7 (80-100) fl MCH 25.5 L (26-34) pg MCHC 30.8 L (32-36) g/dl RDW 12.5 (11.5-14.5) % Plt Count 256 (150-375) k/mm3 MPV 9.4 (7.4-10.4) fl Immature Gran % (Auto) 0.4 (0-0.5) % Neut % (Auto) 85.0 H (45.5-73.1) % Lymph % (Auto) 10.2 L (18.3-44.2) % [place] % (Auto) 4.2 (2.6-8.5) % Eos % (Auto) 0.1 (0-4.4) % Baso % (Auto) 0.1 L (0.2-1.2) % Lymph # (Auto) 1.68 (0.9-3.2) K/mm3 [place] # (Auto) 0.7 H (0.1-0.6) K/mm3 Eos # (Auto) 0.0 (0-0.3) K/mm3 Baso # (Auto) 0.0 (0.0-0.1) K/mm3 Abs Immat Gran (auto) 0.07 H (0.00-0.031) K/mm3 Absolute Neuts (auto) 14.0 H (1.3-6.7) K/mm3 Absolute Nucleated RBC 0.000 (0.0-0.012) K/mm3 Nucleated RBC % 0.0 (0.0-0.2) % PT 13.2 (11.1-14.7) Seconds INR 1.0 APTT 26.3 (22.3-36.8) Seconds Sodium 135 L (137-145) mmol/L Potassium 4.1 (3.4-5.0) mmol/L Chloride 101 (98-107) mmol/L Carbon Dioxide 26 (22-30) mmol/L Anion Gap 8 (4-12) mmol/L BUN 16 (9-20) mg/dL Creatinine 0.99 (0.7-1.3) mg/dL Estim Creat Clear Calc 74 ml/min Estimated GFR > 60 (59 - ) Glucose 209 H (65-110) mg/dL Calcium 8.8 (8.4-10.2) mg/dL Magnesium 2.3 (1.6-2.3) mg/dL Total Bilirubin 0.6 (0.2-1.3) mg/dL AST 34 (17-59) U/L ALT 34 (6-50) U/L Alkaline Phosphatase 60 (38-126) U/L Troponin I 0.013 < 0.012 < 0.012 (0.000-0.034) ng/mL NT-Pro-B Natriuret Pep < 20 (19.9-100) pg/mL Total Protein 7.9 (6.3-8.2) g/dL Albumin 4.8 (3.5-5.1) g/dL Lipase 39 (23-300) U/L TSH (Reflex) 1.140 (0.465-4.68) uIU/mL Urine Color Yellow (Yellow) Urine Appearance Clear (Clear) Urine pH 6.5 (5.0-9.0) Ur Specific [place] 1.018 (1.001-1.035) Urine Protein Negative (Negative) mg/dL Urine Glucose (UA) Negative (Negative) mg/dL Urine Ketones Negative (Negative) mg/dL Ur Blood (Man) Negative (Negative) Urine Nitrate Negative (Negative) Urine Bilirubin Negative (Negative) Urine Urobilinogen 1.0 (<2.0) mg/dL Leukocyte Esterase Rfl Negative (Negative) OTONIEL/UL Urine Opiates Screen Negative (Negative) Urine Methadone Screen Negative (Negative) Ur Barbiturates Screen Negative (Negative) Ur Phencyclidine Scrn Negative (Negative) Ur Amphetamine Screen Negative (Negative) U Benzodiazepines Scrn Negative (Negative) Urine Cocaine Screen Negative (Negative) U Cannabinoids Screen Negative (Negative) Influenza A (RT-PCR) Negative (Negative) Influenza B (RT-PCR) Negative (Negative) RSV (RT-PCR) Negative (Negative) SARS-CoV-2 RNA (RT-PCR) Negative (Negative) <Татьяна Baxter, CHUY - Last Filed: 06/03/25 22:21> Imaging Data Attestation: I personally reviewed and interpreted this imaging study as follows: <Татьяна Baxter APRN - Last Filed: 06/03/25 22:21> Radiologist's impression: Impressions Chest X-Ray 06/03/25 14:06 Impression: No acute cardiopulmonary abnormality. <Татьяна Baxter APRN - Last Filed: 06/03/25 22:21> Discharge Plan Discharge Clinical Impression: Palpitations Steroid side effects Qualifiers: Encounter type: initial encounter Qualified Code(s): T38.0X5A - Adverse effect of glucocorticoids and synthetic analogues, initial encounter <Ness Bee PA-C - Last Filed: 06/12/25 14:46> Patient Disposition: Home <Ness Bee PA-C - Last Filed: 06/12/25 14:46> Condition: Stable <RENETTA Rose Last Filed: 06/12/25 14:46> Instructions: Antibiotic Form, Steroid Joint Injection (DC) <RENETTA Rose Last Filed: 06/12/25 14:46> Additional Instructions: Please return to the ER with any worsening symptoms. Follow-up with primary care provider as needed for further evaluation and treatment. Take all medications as prescribed, including regularly scheduled medications. Please stay extra hydrated and try to rest over the next couple of days until the steroid side effects wear off. <RENETTA Rose Last Filed: 06/12/25 14:46> Patient Language: Bhutanese <RENETTA Rose Last Filed: 06/12/25 14:46> Prescriptions: No Action sucralfate 100 mg/mL suspension 1 g PO QID pantoprazole 40 mg tablet,delayed release (DR/EC) 40 mg PO BID midodrine 2.5 mg tablet 2.5 mg PO TID Rx Instructions: 2.5mg TID X 3 days, 2.5mg BID X 3 days, 2.5mg daily 5 days,then stop multivit with min-folic acid 0.4 mg Tablet 1 tablet PO DAILY aspirin [Adult Aspirin Regimen] 81 mg tablet,delayed release (DR/EC) 81 mg PO DAILY rosuvastatin [Crestor] 10 mg tablet 10 mg PO DAILY isosorbide mononitrate 30 mg tablet extended release 24 hr 30 mg PO DAILY Qty: 30 3RF famotidine 20 mg tablet 20 mg PO BID (DME) syringe with needle, safety 3 mL 23 gauge x 1 syringe See Rx Instructions .Route Qty: 100 0RF Rx Instructions: As directed bupropion HCl [Wellbutrin XL] 300 mg tablet extended release 24 hr 300 mg PO QAM Qty: 90 1RF testosterone cypionate 200 mg/mL oil 125 mg IM WEEKLY Qty: 4 5RF Rx Instructions: as a single dose <Ness Bee PA-C - Last Filed: 06/12/25 14:46> Follow-up/Referrals: Robert Shane MD [Physician, Cardiology] Shania Burks PA-C [Primary Care Provider, Family Practice] <Ness Bee PA-C - Last Filed: 06/12/25 14:46> Time of Disposition: 22:18 <Ness Bee PA-C - Last Filed: 06/12/25 14:46> 22:18 <Татьяна Baxter APRN - Last Filed: 06/03/25 22:21>
--- OUTSIDE RECORDS SUMMARY | 2025-06-03 16:12 | XMS_ITS | Encounter Summary ---
Author Organization [facility] Healthcare Address [address] [place] [address] Care Team Providers Care Surface To Air Weapons Officer Name Role Phone Shania Burks Primary Care Provider [phone] No, Physician Unavailable Administration, Sandip NOWAK Primary Care Provide r Unavailable Encounter Details Date Type Department Care Team (Late st Contact Info) Description 02/05/2025 Orders Only [facility] Management [address] [place] [id number] Scanning, Provider Social History Tobacco Use Types [...] on file Legal Sex Male 4:[address] Gender Identity Male 03/05/2024 6:36 AM CDT Sexual Orientation Not on file 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 End Date 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
--- OUTSIDE RECORDS SUMMARY | 2025-06-03 16:12 | XMS_ITS | Clinical Summary ---
Author Organization [facility] Address [address] [place] [address] Care Team Providers Care Door Repairman Name Role Phone Shania Burks PA-C Primary Care Provider [phone] Allergies Active Allergy Reactions Criticality Noted Date [...] CDT - 04/04/2025 12:35 AM CDT Emergency [facility] Emergency Room [address] [place] [address] Yary Roberson DO Ingestion Intentional [...] - 75 ng/L 04/04/2025 12:53 AM CDT [facility] Comment: HIGH DOSES OF BIOTIN, TROPONIN-SPECIFIC AUTOANTIBODIES, AND ANTIBODY THERAPY CONTAINING HAMA MAY INTERFERE WITH THIS TEST RESULT. CORRELATION TO CLINICAL HISTORY AND PRESENTATION RECOMMENDED. 04/04/2025 12:0 7 AM CDT Yary Roberson DO LABORATORY Final Result [facility] [address] [place] [address], [place] [phone] * XR CHEST PORTABLE (04/04/2025 12:00 AM CDT) Anatomical Region Laterality Modality Chest Radiographic Yolis ging 04/04/2025 12:2 0 AM CDT Impressions 04/04/2025 12:22 AM CDT IMPRESSION: The enteric tube terminates in the left upper quadrant in the expected region of the stomach. Referred By: Interpreted By: Jono Sepulveda MD, 04/04/2025 12:20 AM Narrative 04/04/2025 12:22 AM CDT [facility] [address] [facility] [place] [address] EXAMINATION: XR CHEST PORTABLE HISTORY: NG TUBE [...] Procedure Note Jono Sepulveda MD - 04/04/2025 [facility] [address] [place] [address] EXAMINATION: XR CHEST PORTABLE HISTORY: NG TUBE [...] - 110 mg/dL 04/03/2025 11:56 PM CDT [facility] 04/03/2025 11:5 4 PM CDT Yary Roberson DO POCT ORDERABLES - DEVICE Final Result [facility] [address] [place] [id number], [place] [phone] * DRUG SCREEN RAPID (04/03/2025 11:52 PM CDT) AMPHETAMINE (U) NONE DETECTED NONE DETECTED 04/04/2025 12:18 AM CDT [facility] BARBITURATES SCREEN (U) NONE DETECTED NONE DETECTED 04/04/2025 12:18 AM CDT [facility] BENZODIAZEPINES SCREEN (U) NONE DETECTED NONE DETECTED 04/04/2025 12:18 AM CDT [facility] BUPRENORPHINE SCREEN (U) NONE DETECTED NONE DETECTED 04/04/2025 12:18 AM CDT [facility] COCAINE METABOLITES (U) NONE DETECTED NONE DETECTED 04/04/2025 12:18 AM CDT [facility] METHAMPHETAMINE (U) NONE DETECTED NONE DETECTED 04/04/2025 12:18 AM CDT [facility] METHADONE (U) NONE DETECTED NONE DETECTED 04/04/2025 12:18 AM CDT [facility] OPIATE SCREEN (U) NONE DETECTED NONE DETECTED 04/04/2025 12:18 AM CDT [facility] OXYCODONE SCREEN (U) NONE DETECTED NONE DETECTED 04/04/2025 12:18 AM CDT [facility] PHENCYCLIDINE PCP (U) NONE DETECTED NONE DETECTED 04/04/2025 12:18 AM T [facility] CANNABINOIDS SCREEN (U) NONE DETECTED NONE DETECTED 04/04/2025 12:18 AM T [facility] TRICYCLIC ANTIDEPRESSANT SCREEN (U) NONE DETECTED NONE DETECTED 04/04/2025 12:18 AM T [facility] Comment: NOTE: RESULTS OF THIS [...] Yary Roberson DO URINE ORDERABLES Final Result [facility] [address] [place] [address], [place] [phone] * (ABNORMAL) URINALYSIS, AUTO, COMPLETE (04/03/2025 11:52 PM CDT) COLOR (U) YELLOW 04/04/2025 12:16 AM CDT [facility] TRANSPARENCY CLEAR 04/04/2025 12:16 AM CDT [facility] SPECIFIC GRAVITY (U) <1.005 1.000 - 1.030 04/04/2025 12:16 AM CDT [facility] U PH 6.0 5.0 - 9.0 04/04/2025 12:16 AM T [facility] LEUKOCYTES (U) NEGATIVE NEGATIVE 04/04/2025 12:16 AM T [facility] NITRITES NEGATIVE NEGATIVE 04/04/2025 12:16 AM T [facility] PROTEIN RANDOM (U) NEGATIVE NEGATIVE 04/04/2025 12:16 AM T [facility] GLUCOSE (U) 2+(A) NEGATIVE 04/04/2025 12:16 AM [facility] KETONES MG/DL (U) NEGATIVE NEGATIVE 04/04/2025 12:16 AM T [facility] BILIRUBIN (U) NEGATIVE NEGATIVE 04/04/2025 12:16 AM T [facility] BLOOD (U) TRACE(A) NEGATIVE 04/04/2025 12:16 AM T [facility] WBC/HPF 0-5 0 - 5 /HPF 04/04/2025 12:16 AM T [facility] RBC/HPF 5-10 0 - 5 /HPF 04/04/2025 12:16 AM T [facility] EPI/HPF RARE /HPF 04/04/2025 12:16 AM T [facility] URINE SPECIMEN OBTAINED BY CLEAN CATCH PROCEDURE / Unknown 04/03/2025 11:52 PM CDT Yary Roberson DO URINE ORDERABLES Final Result [facility] [address] [phone], * Critical Care (04/03/2025 11:00 PM CDT) [...] RNA NEGATIVE NEGATIVE 04/03/2025 11:22 PM CDT [facility] Comment: NEGATIVE RESULTS DO NOT [...] FOR USE BY AUTHORIZED LABORATORIES. PERFORMED BY Angiodroid ACID AMPLIFICATION FOR MOLECULAR QUALITATIVE DETECTION OF SARS-COV-2. SPECIMEN TYPE NASAL 04/03/2025 10:57 PM CDT [facility] NASOPHARYNGEAL SWAB / Unknown 04/03/2025 10:57 PM CDT Yary Roberson DO MICROBIOLOGY - GENERAL ORDERABL ES Final Result Performing Organization Address City/[facility]/ZIP Co de Phone Number [facility] [address] [place] [address], [place] [phone] * MAGNESIUM (04/03/2025 10:57 PM CDT) MAGNESIUM 2.3 1.8 - 2.4 MG/DL 04/03/2025 11:27 PM CDT [facility] 04/03/2025 10:5 7 PM CDT Yary Roberson DO LABORATORY Final Result Performing Organization Address [facility] Co de Phone Number [facility] [address] [place] [address], [place] [phone] * ECG 12 lead (04/03/2025 10:45 PM CDT) 04/03/2025 10:[address] [facility] RAD - 04/05/2025 10:37 AM CDT [facility] Test Date: 2025-04-03 Pat Name: SAUMYA ZAVALA Department: 85 Room: [facility] Gender: Male Tattooer: : 1970 Requested By: YARY ROBERSON Order Number: [id number] Reading MD: Bhargav London Measurements Intervals [place] Rate: 64 P: 41 OR: 171 QRS: -2 QRSD: 91 T: -6 QT: 370 QTc: 384 Interpretive Statements SINUS RHYTHM LEFT VENTRICULAR HYPERTROPHY AND ST-T CHANGE [VOLTAGE CRITERIA PLUS ST/T ABNORMALITY] Procedure Note Bhargav London MD - 04/05/2025 [facility] Test Date: 2025-04-03 Pat Name: SAUMYA ZAVALA Department: 85 Room: [facility] Gender: Male Tattooer: : 1970 Requested By: YARY ROBERSON Order Number: [id number] Reading MD: Bhargav London Measurements Intervals [place] Rate: 64 P: 41 OR: 171 QRS: -2 QRSD: 91 T: -6 QT: 370 QTc: 384 Interpretive Statements SINUS RHYTHM LEFT VENTRICULAR HYPERTROPHY AND ST-T CHANGE [VOLTAGE CRITERIA PLUSST/T ABNORMALITY] Yary Roberson DO ECG ORDERABLES Final Result Performing Organization Address City/[facility]/ZIP Co de Phone Number [facility] RAD * TSH W/REFLEX (04/03/2025 10:43 PM CDT) TSH 1.063 0.358 - 3.74 uIU/ML 04/03/2025 11:19 PM CDT [facility] Comment: HIGH DOSES OF BIOTIN MAY INTERFERE WITH THIS TEST RESULT. CORRELATION TO CLINICAL HISTORY AND PRESENTATION RECOMMENDED. FREE T4 NOT INDICATED 04/03/2025 10:4 3 PM CDT Yary Roberson DO LABORATORY Final Result [facility] [address] [place] [address], [place] [phone] * (ABNORMAL) COMPREHENSIVE METABOLIC PANEL (04/03/2025 10:43 PM CDT) GLUCOSE 100(H) 70 - 99 MG/DL 04/03/2025 11:19 PM [facility] BUN 17 7 - 18 MG/DL 04/03/2025 11:19 PM [facility] CREATININE S/P/B 1.11 0.7 - 1.3 MG/DL 04/03/2025 11:19 PM [facility] SODIUM S/P/B 139 136 - 145 MMOL/L 04/03/2025 11:19 PM [facility] POTASSIUM S/P/B 3.8 3.5 - 5.1 MMOL/L 04/03/2025 11:19 PM [facility] CHLORIDE S/P/B 102 100 - 108 MMOL/L 04/03/2025 11:19 PM [facility] CO2 29.7 21 - 32 MMOL/L 04/03/2025 11:19 PM [facility] CALCIUM S/P/B 8.6 8.5 - 10.1 MG/DL 04/03/2025 11:19 PM [facility] BILIRUBIN TOTAL S/P/B 0.6 0.2 - 1.2 MG/DL 04/03/2025 11:19 PM [facility] TOTAL PROTEIN S/P/B 7.5 6.4 - 8.2 G/DL 04/03/2025 11:19 PM [facility] ALBUMIN S/P/B 4.2 3.4 - 5.0 G/DL 04/03/2025 11:19 PM [facility] AST 34 15 - 37 U/L 04/03/2025 11:19 PM [facility] ALT 48 16 - 60 U/L 04/03/2025 11:19 PM [facility] ALKALINE PHOSPHATASE S/P/B 60 50 - 136 U/L 04/03/2025 11:19 PM CDT [facility] ANION GAP 7.3 5 - 15 MMOL/L 04/03/2025 11:19 PM CDT [facility] BUN CREATININE RATIO 15.3 6 - 26 04/03/2025 11:19 PM CDT [facility] A/G RATIO 1.3 1.0 - 2.0 RATIO 04/03/2025 11:19 PM CDT [facility] GFR ESTIMATE 78(L) >90 ML/MIN/1.7 3 M2 04/03/2025 11:19 PM CDT [facility] Comment: NOTE: eGFR is not [...] us Yary Roberson DO LABORATORY Final Result [facility] [address] [place] [phone], * (ABNORMAL) CBC W/DIFF AUTOMATED (04/03/2025 10:43 PM CDT) WBC 11.07(H) 4.4 - 11.0 x10'3/uL 04/03/2025 10:59 PM CDT [facility] RBC 5.72 4.50 - 5.90 x10'6/uL 04/03/2025 10:59 PM CDT [facility] HGB 16.2 14.0 - 17.5 G/DL 04/03/2025 10:59 PM CDT [facility] HCT 50.4 41.5 - 50.4 % 04/03/2025 10:59 PM CDT [facility] MCV 88.1 80.0 - 96.0 FL 04/03/2025 10:59 PM CDT [facility] MCH 28.3 26.5 - 31.4 PG 04/03/2025 10:59 PM CDT [facility] MCHC 32.1 31.9 - 34.8 G/DL 04/03/2025 10:59 PM CDT [facility] RDW 13.9 12.3 - 14.3 % 04/03/2025 10:59 PM CDT [facility] PLT 206 151 - 353 x10'3/uL 04/03/2025 10:59 PM CDT [facility] MPV 9.7 9.7 - 11.9 FL 04/03/2025 10:59 PM CDT [facility] RBC MORPHOLOGY NORMAL 04/03/2025 10:59 PM CDT [facility] PLT MORPH. NORMAL 04/03/2025 10:59 PM CDT [facility] WBC MORPHOLOGY NORMAL 04/03/2025 10:59 PM CDT [facility] LYMPHOCYTES % 44.8 15.8 - 45.0 % 04/03/2025 10:59 PM CDT [facility] NEUTROPHILS % 43.7 42.1 - 71.9 % 04/03/2025 10:59 PM CDT [facility] MONOCYTES % 8.4 5.7 - 12.5 % 04/03/2025 10:59 PM CDT [facility] EOSINOPHILS 2.4 0.0 - 5.6 % 04/03/2025 10:59 PM CDT [facility] BASOPHILS 0.5 0.0 - 1.3 % 04/03/2025 10:59 PM CDT [facility] ABS. NEUTROPHILS 4.83 1.40 - 6.00 x10'3/uL 04/03/2025 10:59 PM CDT [facility] IMMATURE GRANS % 0.2 0.0 - 0.5 % 04/03/2025 10:59 PM CDT [facility] ABS. LYMPHOCYTES 4.96(H) 0.80 - 4.70 x10'3/uL 04/03/2025 10:59 PM CDT [facility] 04/03/2025 10:4 3 PM CDT us Yary Roberson DO LABORATORY Final Result Performing Organization Address City/[facility]/ZIP Co de Phone Number [facility] [address] [place] [address], [place] [phone] * (ABNORMAL) SALICYLATE (04/03/2025 10:43 PM CDT) SALICYLATES 1.1(L) 2.8 - 20.0 MG/DL 04/03/2025 11:02 PM CDT [facility] Comment: THERAPEUTIC: 2.8-20.0 Toxic Level: >=30 04/03/2025 10:4 3 PM CDT us Yary Roberson DO LABORATORY Final Result [facility] [address] [place] [address], [place] [phone] * (ABNORMAL) ETHANOL (04/03/2025 10:43 PM CDT) ALCOHOL S/P/B 0.222(H) <0.003 G/DL 04/03/2025 11:19 PM CDT [facility] 04/03/2025 10:4 3 PM CDT Yary Roberson DO LABORATORY Final Result Performing Organization Address City/[facility]/ZIP Co de Phone Number [facility] [address] [place] [address], * (ABNORMAL) ACETAMINOPHEN (04/03/2025 10:43 PM CDT) ACETAMINOPHEN S/P/B <0.5(L) 10.0 - 30.0 MCG/ML 04/03/2025 11:19 PM CDT [facility] Comment: THERAPEUTIC: 10-30 TOXIC: >200 04/03/2025 10:4 3 PM CDT Yary Beverly ENRIQUEZ LABORATORY Final Result Performing Organization Address [facility] Co de Phone Number [facility] [address] [place] [address], from Last 3 Months Insurance [facility] OFFICE OF COMMUNITY [facility] Care Teams Door Repairman Relationship Specialty Start Date End Date Shania Burks PA-C [address] [place] [address] PCP - General PHYSICIAN LAP WELDER 03/25/21
--- OUTSIDE RECORDS SUMMARY | 2025-06-03 16:12 | XMS_ITS | Encounter Summary ---
Author Organization [facility] Address [address] [place] [address] Care Team Providers Care Shotweld Operator Name Role Phone Shania Burks Primary Care Provider [phone] No, Physician Unavailable Administration, Sandip NOWAK Primary Care Provide r Unavailable Encounter Details Date Type Department Care Team (Late st Contact Info) Description 12/07/2024 Orders Only [facility] [facility] Information Management [address] [place] [id number] Scanning, Provider Social History Tobacco Use Types [...] on file Legal Sex Male 4:05 AM CARD SCRAPER Gender Identity Male 03/05/2024 6:36 AM CDT Sexual Orientation Not on file 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
--- OUTSIDE RECORDS SUMMARY | 2025-06-03 16:12 | XMS_ITS | Clinical Summary ---
Author Organization [facility] [address] [facility] Address [address] [facility] [place] [address] Phone Care Team Providers Care Hydraulic Boom Operator Name Role Phone Unavailable Primary Care Provider [...]
--- OUTSIDE RECORDS SUMMARY | 2025-06-03 16:12 | XMS_ITS | Clinical Summary ---
Author Organization [facility] Address [address] [place] [address] Care Team Providers Care Artists' Booking Representative Name Role Phone No, Physician Unavailable Administration, [...] at knee, left 03/05/2024 Degenerative superior labral [id number] (SLAP) tear of left shoulder 12/30/2023 Abnormal [...] Type Department Care Team Description 5 Telephone [facility] Cardiology [address] [place] [address] Yary Dial NP blood pressure 5 10:17 AM HADOOP ARCHITECT - 5 11:59 PM HADOOP ARCHITECT Hospital Encounter [facility] [address] [place] [address] Arrived Discharge Disposition: Discharge to home or self care 5 10:15 AM HADOOP ARCHITECT - 5 11:59 PM HADOOP ARCHITECT Hospital Encounter [address] 1 [facility] [address] [place] [address] Right shoulder pain, unspecified chronicity Discharge Disposition: Discharge to home or self care 5 9:45 AM HADOOP ARCHITECT Office Visit [facility] Medicine Orthopaedic Surgery [address] [place] [address] Medical Office Building 1 [address] [place] [phone] Guido Hernandez MD Right shoulder pain, unspecified chronicity (Primary Dx); Tendinopathy of right rotator cuff 5 9:00 AM CDT Office Visit [facility] Medical [facility] Cardiology [address] [place] [address] Yary Dial NP Supraventricular tachycardia (Primary Dx); Candidate for statin therapy due to risk of future cardiovascular event; History of drug overdose; Hospital discharge follow-up; Hyperlipidemia, unspecified hyperlipidemia type 5 Telephone [facility] Cardiology [address] [place] [address] Phillip Meraz MD 5 11:31 AM CDT Anesthesia Event [facility] GI Lab [address] [place] [address] Thomas Patricia MD 5 10:50 AM CDT - 5 11:30 AM CDT Surgery [facility] GI Lab [address] [place] [address] Ry Diaz MD ESOPHAGOGASTRODUODENOSCOPY 5 1:02 AM CDT - 5 3:50 PM CDT Hospital Encounter [facility] [address] [address] Сергей Samuel MD Yuan, MD Jm Miller Md Shahin, MD Bondalapati, Wero Gomez MD Suicide attempt (Primary Dx); Gastrointestinal hemorrhage with hematemesis [K92.0]; Gastrointestinal hemorrhage with hematemesis; Idiopathic hypotension Discharge Disposition: Discharge to home or self care 5 8:30 AM CDT Office Visit [facility] Cardiology [address] [place] [phone] Yary Dial NP Supraventricular tachycardia (Primary Dx); [...] Antoni[place] Hearing loss Mother Antonieta Hypertension Mother Antonieta Kidney disease Mother Antonieta Memory loss Mother [...] week 04/08/2025 How often do you attend [facility] or [facility]? More than 4 times per year 04/08/2025 Do you belong to any clubs o r organizations such as mormonism groups, unions, fraternal or athletic groups, or [...] any time in the past [facility] were you [facility] or living in a fpc (including now)? 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 [employer] Not on file N ot [...] 07/07/2030, 10/20/2011 Medical Devices Implanted Type Area [employer] Professor Device Identifier Shelf Expiration Date Model / Serial / Lot [employer] System Biceps [place] Slotted Drill Guide 1.9mm Drill [employer]ertak Ar-3670 - S0 - [id number] Implanted:Qty: 1 on 01/16/2024 by Guido Hernandez MD at [facility] Left: Shoulder [employer] 11/18/2028 AR-3670 / 0 / [id number] Procedures Procedure Name Priority Date/Time Associated Diagnosis Comments XR SHOULDER RIGHT 2 OR MORE VIEWS Schedule Routine, Read Routine (OP Routine) 06/02/2025 10:23 AM HADOOP ARCHITECT Right shoulder pain, unspecified chronicity K MR OUTSIDE REFERENCE Routine 025 10:17 AM HADOOP ARCHITECT POCT LIPID PANEL Routine 04/29/2025 9:00 AM [...] Shoulder Right 2+ View (06/02/2025 10:23 AM HADOOP ARCHITECT) Anatomical Region Laterality Modality Upper Extremities, Shoulder Right Digi brie Radiography 06/02/2025 11:1 3 AM HADOOP ARCHITECT Impressions 06/02/2025 11:13 AM HADOOP ARCHITECT 4 views of the right shoulder. No comparison study is available. No suspicious findings in the visualized chest. Alignment is normal. Minimal acromioclavicular osteoarthritis. Normal glenohumeral joint space. No acute fracture or aggressive bone lesion. Electronically signed by: Artie Acosta M.D. Narrative 06/02/2025 11:13 AM HADOOP ARCHITECT EXAMINATION: XR SHOULDER RIGHT 2 OR MORE [...] MSK MR Outside Reference (06/02/2025 10:17 AM HADOOP ARCHITECT) Impressions RAD[facility]ACS_[facility] - 06/02/2025 10:17 AM HADOOP ARCHITECT These images are for Reference purposes only and have not been reviewed by [facility] Radiology. There will be no report generated by a [facility] Radiologist. Narrative RAD_PACS_[facility] - 06/02/2025 10:17 AM HADOOP ARCHITECT EXAMINATION: Images For Reference Purposes Only us [...] MD LAB BLOOD ORDERABLES Final R esult [facility] [address] [facility] Department [place] [address] * Differential, auto (04/12/2025 7:14 AM CDT) Neutrophil abs 4.31 1.50 - 6.50 K/cumm Imm gran abs 0.03 0.00 - 0.10 K/cumm [facility] Lymphocyte abs 2.38 0.80 - 3.30 K/cumm [facility] Monocyte abs 0.61 0.20 - 0.80 K/cumm [facility] Eosinophil abs 0.26 0.00 - 0.50 K/cumm [facility] Basophil abs 0.04 0.00 - 0.10 K/cumm [facility] Neutrophil pct 56.5 % [facility] Comment: Interpretive Data Percent cell count reference ranges are not reported, since discordance with absolute values may lead to misinterpretation of CBC data. Current Interpretive Data was last revised on 2017. Imm gran pct 0.4 % [facility] Comment: Interpretive Data Percent cell count reference ranges are not reported, since discordance with absolute values may lead to misinterpretation of CBC data. Current Interpretive Data was last revised on 2017. Lymphocyte pct 31.2 % [facility] Comment: Interpretive Data Percent cell count reference ranges are not reported, since discordance with absolute values may lead to misinterpretation of CBC data. Current Interpretive Data was last revised on 2017. Monocyte pct 8.0 % [facility] Comment: Interpretive Data Percent cell count reference ranges are not reported, since discordance with absolute values may lead to misinterpretation of CBC data. Current Interpretive Data was last revised on 2017. Eosinophil pct 3.4 % [facility] Comment: Interpretive Data Percent cell count reference ranges are not reported, since discordance with absolute values may lead to misinterpretation of CBC data. Current Interpretive Data was last revised on 2017. Basophil pct 0.5 % [facility] Comment: Interpretive Data Percent cell count reference ranges are not reported, since discordance with absolute values may lead to misinterpretation of CBC data. Current Interpretive Data was last revised on 2017. Blood 04/12/2025 7:14 AM CDT 04/12/2025 7:42 AM CDT Сергей Samuel MD LAB BLOOD ORDERABLES Final R esult Performing Organization Address [facility] Co de Phone Number [facility] [address] [place] [address] * CBC with auto differential (04/12/2025 7:14 AM CDT) WBC 7.63 3.80 - 9.90 K/cumm Hgb 13.9 13.0 - 17.5 g/dL [facility] Hct 42.8 38.9 - 50.3 % [facility] Plt 255 150 - 400 K/cumm [facility] MPV 9.4 9.1 - 12.3 fL [facility] RBC 4.83 4.30 - 5.80 M/cumm [facility] MCV 88.6 81.3 - 96.4 fL [facility] MCH 28.8 27.1 - 33.3 pg [facility] MCHC 32.5 32.3 - 35.7 g/dL [facility] RDW CV 13.9 11.1 - 14.9 % [facility] RDW SD 44.4 35.7 - 48.1 fL [facility] NRBC abs 0.00 0.00 - 0.01 K/cumm [facility] Blood 04/12/2025 7:14 AM CDT 04/12/2025 7:42 AM CDT Сергей Samuel MD LAB BLOOD ORDERABLES Final R esult Performing Organization Address City/[facility] Co de Phone Number [facility] [address] [place], [place] [id number] * Basic metabolic panel (04/12/2025 7:14 AM CDT) Pathologist [facility] Sodium 137 135 - 145 mmol/L Potassium, pl 3.7 3.3 - 4.9 mmol/L [facility] Chloride 101 97 - 110 mmol/L [facility] CO2 28 22 - 32 mmol/L [facility] Anion gap 8 2 - 15 mmol/L [facility] BUN 15 6 - 25 mg/dL [facility] Creatinine 1.05 0.80 - 1.30 mg/dL [facility] Glucose 98 70 - 199 mg/dL [facility] Comment: Interpretive Data Fasting glucose >/= 126 [...] 2022. Calcium 9.1 8.5 - 10.3 mg/dL [facility] Blood 04/12/2025 7:14 AM CDT 04/12/2025 7:43 AM CDT Сергей Samuel MD LAB BLOOD ORDERABLES Final R esult [facility] [address] [facility] Department [place] [address] * eGFR (04/11/2025 7:21 AM CDT) [facility] eGFR 71 >=60 mL/min/1. 73 m2 [...] MD LAB BLOOD ORDERABLES Final R esult [place] [address] [facility] Department [place] [address] * Differential, auto (04/11/2025 7:21 AM CDT) Pathologist [facility] Neutrophil abs 5.21 1.50 - 6.50 K/cumm Imm gran abs 0.03 0.00 - 0.10 K/cumm [facility] Lymphocyte abs 2.46 0.80 - 3.30 K/cumm [facility] Monocyte abs 0.55 0.20 - 0.80 K/cumm [facility] Eosinophil abs 0.27 0.00 - 0.50 K/cumm [facility] Basophil abs 0.05 0.00 - 0.10 K/cumm [facility] Neutrophil pct 60.7 % [facility] Comment: Interpretive Data Percent cell count reference ranges are not reported, since discordance with absolute values may lead to misinterpretation of CBC data. Current Interpretive Data was last revised on 2017. Imm gran pct 0.4 % [facility] Comment: Interpretive Data Percent cell count reference ranges are not reported, since discordance with absolute values may lead to misinterpretation of CBC data. Current Interpretive Data was last revised on 2017. Lymphocyte pct 28.7 % [facility] Comment: Interpretive Data Percent cell count reference ranges are not reported, since discordance with absolute values may lead to misinterpretation of CBC data. Current Interpretive Data was last revised on 2017. Monocyte pct 6.4 % [facility] Comment: Interpretive Data Percent cell count reference ranges are not reported, since discordance with absolute values may lead to misinterpretation of CBC data. Current Interpretive Data was last revised on 2017. Eosinophil pct 3.2 % [facility] Comment: Interpretive Data Percent cell count reference ranges are not reported, since discordance with absolute values may lead to misinterpretation of CBC data. Current Interpretive Data was last revised on 2017. Basophil pct 0.6 % [facility] Comment: Interpretive Data Percent cell count reference ranges are not reported, since discordance with absolute values may lead to misinterpretation of CBC data. Current Interpretive Data was last revised on 2017. Blood 04/11/2025 7:21 AM CDT 04/11/2025 7:43 AM CDT Сергей Samuel MD LAB BLOOD ORDERABLES Final R esult [place] [address] [facility] Department [place] [address] * (ABNORMAL) CBC with auto differential (04/11/2025 7:21 AM CDT) WBC 8.57 3.80 - 9.90 K/cumm Hgb 13.5 13.0 - 17.5 g/dL [facility] Hct 42.6 38.9 - 50.3 % [facility] Plt 236 150 - 400 K/cumm [facility] MPV 9.6 9.1 - 12.3 fL [facility] RBC 4.75 4.30 - 5.80 M/cumm [facility] MCV 89.7 81.3 - 96.4 fL [facility] MCH 28.4 27.1 - 33.3 pg [facility] MCHC 31.7(L) 32.3 - 35.7 g/dL [facility] RDW CV 13.7 11.1 - 14.9 % [facility] RDW SD 44.5 35.7 - 48.1 fL [facility] NRBC abs 0.00 0.00 - 0.01 K/cumm [facility] Blood 04/11/2025 7:21 AM CDT 04/11/2025 7:43 AM CDT Сергей Samuel MD LAB BLOOD ORDERABLES Final R esult Performing Organization Address City/[facility] Co de Phone Number [facility] [address] [place] [address] * Basic metabolic panel (04/11/2025 7:21 AM CDT) Sodium 140 135 - 145 mmol/L Potassium, pl 4.1 3.3 - 4.9 mmol/L [facility] Chloride 102 97 - 110 mmol/L [facility] CO2 31 22 - 32 mmol/L [facility] Anion gap 7 2 - 15 mmol/L [facility] BUN 17 6 - 25 mg/dL [facility] Creatinine 1.20 0.80 - 1.30 mg/dL [facility] Glucose 101 70 - 199 mg/dL [facility] Comment: Interpretive Data Fasting glucose >/= 126 [...] 2022. Calcium 9.1 8.5 - 10.3 mg/dL [facility] Blood 04/11/2025 7:21 AM CDT 04/11/2025 7:43 AM CDT Сергей Samuel MD LAB BLOOD ORDERABLES Final R esult [address] [place] [address] * Urinalysis reflex to microscopic and culture Urine (04/10/2025 11:30 PM CDT) Color, ur Yellow Yellow Clarity, ur Clear Clear [facility] Specific gravity, ur 1.010 1.003 - 1.030 [facility] pH, urine 6.5 [facility] Comment: Interpretive Data U rine pH is affected by diet, medications, systemic acid-base disturbances, and renal tubular function. pH may affect urinary stone formation. For example, urine pH below 6.0 may help reduce the tendency for calcium phosphate stones and pH greater than 6.0 may reduce the tendency for uric acid stone formation. Source: [facility] Current Interpretive Data was last revised on 2017 Protein, ur ql Negative Negative [facility] Glucose, ur ql Negative Negative [facility] Ketones, ur Negative Negative [facility] Bilirubin, ur Negative Negative [facility] Blood, ur Negative Negative [facility] Urobilinogen, ur <2.0 <2.0 mg/dL [facility] Nitrite, ur Negative Negative [facility] Leukocyte esterase, ur Negative Negative [facility] UA reflex comment Reflex conditions for microscopic UA and culture not met. [facility] Urine 04/10/2025 11:3 0 PM CDT 04/10/2025 11:37 PM CDT Judy Murphy NP LAB MICROBIOLOGY - GENERAL O RDERABLES Final Result Performing Organization Address City/State/[facility] Co de Phone Number [facility] [address] [facility] Department [place] [address] * H. pylori antigen, stool Stool (04/10/2025 10:11 PM CDT) H. pylori Ag, stool Negative Negative Comment: Interpretative Data Testing performed at the [facility] Microbiology Laboratory using the [place] HpSA lateral flow immunoassay that detects Helicobacter [...] revised July 2020. Testing performed by: [facility], [address] [facility], [place]., [address] Stool 04/10/2025 10:1 1 PM CDT 04/11/2025 7:10 AM CDT Pierre Pruitt MD LAB MICROBIOLOGY - GENERAL ORDE RABLES Final Result Performing Organization Address City/[facility] Co de Phone Number [facility] [address] [place] [address] * eGFR (04/10/2025 6:28 AM CDT) eGFR [...] ORDERABLES Final R esult Performing Organization Address City/[facility]/ZIP Co de Phone Number [facility] Department [place] [address] * Differential, auto (04/10/2025 6:28 AM CDT) Neutrophil abs 4.92 1.50 - 6.50 K/cumm Imm gran abs 0.04 0.00 - 0.10 K/cumm [facility] Lymphocyte abs 2.30 0.80 - 3.30 K/cumm [facility] Monocyte abs 0.64 0.20 - 0.80 K/cumm [facility] Eosinophil abs 0.26 0.00 - 0.50 K/cumm [facility] Basophil abs 0.04 0.00 - 0.10 K/cumm [facility] Neutrophil pct 60.0 % [facility] Comment: Interpretive Data Percent cell count reference ranges are not reported, since discordance with absolute values may lead to misinterpretation of CBC data. Current Interpretive Data was last revised on 2017. Imm gran pct 0.5 % [facility] Comment: Interpretive Data Percent cell count reference ranges are not reported, since discordance with absolute values may lead to misinterpretation of CBC data. Current Interpretive Data was last revised on 2017. Lymphocyte pct 28.0 % [facility] Comment: Interpretive Data Percent cell count reference ranges are not reported, since discordance with absolute values may lead to misinterpretation of CBC data. Current Interpretive Data was last revised on 2017. Monocyte pct 7.8 % [facility] Comment: Interpretive Data Percent cell count reference ranges are not reported, since discordance with absolute values may lead to misinterpretation of CBC data. Current Interpretive Data was last revised on 2017. Eosinophil pct 3.2 % [facility] Comment: Interpretive Data Percent cell count reference ranges are not reported, since discordance with absolute values may lead to misinterpretation of CBC data. Current Interpretive Data was last revised on 2017. Basophil pct 0.5 % [facility] Comment: Interpretive Data Percent cell count reference ranges are not reported, since discordance with absolute values may lead to misinterpretation of CBC data. Current Interpretive Data was last revised on 2017. Blood 04/10/2025 6:28 AM CDT 04/10/2025 7:04 AM CDT Сергей Samuel MD LAB BLOOD ORDERABLES Final R esult [address] [place] [address] * (ABNORMAL) CBC with auto differential (04/10/2025 6:28 AM CDT) [facility] WBC 8.20 3.80 - 9.90 K/cumm Hgb 13.2 13.0 - 17.5 g/dL [facility] Hct 41.4 38.9 - 50.3 % [facility] Plt 214 150 - 400 K/cumm [facility] MPV 9.9 9.1 - 12.3 fL [facility] RBC 4.67 4.30 - 5.80 M/cumm [facility] MCV 88.7 81.3 - 96.4 fL [facility] MCH 28.3 27.1 - 33.3 pg [facility] MCHC 31.9(L) 32.3 - 35.7 g/dL [facility] RDW CV 13.7 11.1 - 14.9 % [facility] RDW SD 43.9 35.7 - 48.1 fL [facility] NRBC abs 0.00 0.00 - 0.01 K/cumm [facility] Blood 04/10/2025 6:28 AM CDT 04/10/2025 7:04 AM CDT us Сергей Samuel MD LAB BLOOD ORDERABLES Final R esult Performing Organization Address [facility] Co de Phone Number [address] Department [place] [address] * Basic metabolic panel (04/10/2025 6:28 AM CDT) [facility] Sodium 140 135 - 145 mmol/L Potassium, pl 3.6 3.3 - 4.9 mmol/L [facility] Chloride 101 97 - 110 mmol/L [facility] CO2 30 22 - 32 mmol/L [facility] Anion gap 9 2 - 15 mmol/L [facility] BUN 13 6 - 25 mg/dL [facility] Creatinine 1.08 0.80 - 1.30 mg/dL [facility] Glucose 91 70 - 199 mg/dL [facility] Comment: Interpretive Data Fasting glucose >/= 126 [...] LAB BLOOD ORDERABLES Final R esult [facility] [address] [facility] Department [place] [address] * eGFR (04/09/2025 3:53 AM CDT) eGFR [...] LAB BLOOD ORDERABLES Final R esult [facility] [address] [facility] Department [place] [address] * (ABNORMAL) Differential, auto (04/09/2025 3:53 AM CDT) Pathologist [facility] Neutrophil abs 4.27 1.50 - 6.50 K/cumm Imm gran abs 0.03 0.00 - 0.10 K/cumm [facility] Lymphocyte abs 3.37(H) 0.80 - 3.30 K/cumm [facility] Monocyte abs 0.67 0.20 - 0.80 K/cumm [facility] Eosinophil abs 0.32 0.00 - 0.50 K/cumm [facility] Basophil abs 0.04 0.00 - 0.10 K/cumm [facility] Neutrophil pct 49.1 % [facility] Comment: Interpretive Data Percent cell count reference ranges are not reported, since discordance with absolute values may lead to misinterpretation of CBC data. Current Interpretive Data was last revised on 2017. Imm gran pct 0.3 % [facility] Comment: Interpretive Data Percent cell count reference ranges are not reported, since discordance with absolute values may lead to misinterpretation of CBC data. Current Interpretive Data was last revised on 2017. Lymphocyte pct 38.7 % [facility] Comment: Interpretive Data Percent cell count reference ranges are not reported, since discordance with absolute values may lead to misinterpretation of CBC data. Current Interpretive Data was last revised on 2017. Monocyte pct 7.7 % [facility] Comment: Interpretive Data Percent cell count reference ranges are not reported, since discordance with absolute values may lead to misinterpretation of CBC data. Current Interpretive Data was last revised on 2017. Eosinophil pct 3.7 % [facility] Comment: Interpretive Data Percent cell count reference ranges are not reported, since discordance with absolute values may lead to misinterpretation of CBC data. Current Interpretive Data was last revised on 2017. Basophil pct 0.5 % [facility] Comment: Interpretive Data Percent cell count reference ranges are not reported, since discordance with absolute values may lead to misinterpretation of CBC data. Current Interpretive Data was last revised on 2017. Blood 04/09/2025 3:53 AM CDT 04/09/2025 4:20 AM CDT Сергей Samuel MD LAB BLOOD ORDERABLES Final R esult Performing Organization Address City/[facility] Co de Phone Number [facility] [address] [place] [address] * (ABNORMAL) CBC with auto differential (04/09/2025 3:53 AM CDT) [facility] WBC 8.70 3.80 - 9.90 K/cumm Hgb 12.8(L) 13.0 - 17.5 g/dL [facility] Hct 39.0 38.9 - 50.3 % [facility] Plt 202 150 - 400 K/cumm [facility] MPV 9.8 9.1 - 12.3 fL [facility] RBC 4.40 4.30 - 5.80 M/cumm [facility] MCV 88.6 81.3 - 96.4 fL [facility] MCH 29.1 27.1 - 33.3 pg [facility] MCHC 32.8 32.3 - 35.7 g/dL [facility] RDW CV 13.4 11.1 - 14.9 % [facility] RDW SD 43.5 35.7 - 48.1 fL [facility] NRBC abs 0.00 0.00 - 0.01 K/cumm [facility] Blood 04/09/2025 3:53 AM CDT 04/09/2025 4:20 AM CDT Сергей Samuel MD LAB BLOOD ORDERABLES Final R esult Performing Organization Address [facility] Co de Phone Number [facility] [address] [place] [address] * Basic metabolic panel (04/09/2025 3:53 AM CDT) Pathologist [facility] Sodium 140 135 - 145 mmol/L Potassium, pl 3.4 3.3 - 4.9 mmol/L [facility] Chloride 100 97 - 110 mmol/L [facility] CO2 32 22 - 32 mmol/L [facility] Anion gap 8 2 - 15 mmol/L [facility] BUN 14 6 - 25 mg/dL [facility] Creatinine 1.19 0.80 - 1.30 mg/dL [facility] Glucose 110 70 - 199 mg/dL [facility] Comment: Interpretive Data Fasting glucose >/= 126 [...] 2022. Calcium 8.5 8.5 - 10.3 mg/dL [facility] Blood 04/09/2025 3:53 AM CDT 04/09/2025 4:21 AM CDT Сергей Samuel MD LAB BLOOD ORDERABLES Final R esult [facility] [address] [facility] [place] [address] * eGFR (04/08/2025 3:51 AM CDT) Pathologist [facility] [place] eGFR 90 >=60 mL/min/1. 73 m2 Comment: [...] MD LAB BLOOD ORDERABLES Final R esult [facility] [address] [facility] [place] [address] * Differential, auto (04/08/2025 3:51 AM CDT) Neutrophil abs 5.03 1.50 - 6.50 K/cumm Imm gran abs 0.02 0.00 - 0.10 K/cumm [facility] Lymphocyte abs 2.52 0.80 - 3.30 K/cumm [facility] Monocyte abs 0.62 0.20 - 0.80 K/cumm [facility] Eosinophil abs 0.22 0.00 - 0.50 K/cumm [facility] Basophil abs 0.04 0.00 - 0.10 K/cumm [facility] Neutrophil pct 59.6 % [facility] Comment: Interpretive Data Percent cell count reference ranges are not reported, since discordance with absolute values may lead to misinterpretation of CBC data. Current Interpretive Data was last revised on 2017. Imm gran pct 0.2 % [facility] Comment: Interpretive Data Percent cell count reference ranges are not reported, since discordance with absolute values may lead to misinterpretation of CBC data. Current Interpretive Data was last revised on 2017. Lymphocyte pct 29.8 % [facility] Comment: Interpretive Data Percent cell count reference [...] revised on 2017. Eosinophil pct 2.6 % [facility] Comment: Interpretive Data Percent cell count reference ranges are not reported, since discordance with absolute values may lead to misinterpretation of CBC data. Current Interpretive Data was last revised on 2017. Basophil pct 0.5 % [facility] Comment: Interpretive Data Percent cell count reference ranges are not reported, since discordance with absolute values may lead to misinterpretation of CBC data. Current Interpretive Data was last revised on 2017. Blood 04/08/2025 3:51 AM CDT 04/08/2025 4:22 AM CDT us Сергей Samuel MD LAB BLOOD ORDERABLES Final R esult [place] [id number] [facility] Department [place] [address] * (ABNORMAL) CBC with auto differential (04/08/2025 3:51 AM CDT) WBC 8.45 3.80 - 9.90 K/cumm Hgb 12.7(L) 13.0 - 17.5 g/dL [facility] Hct 39.8 38.9 - 50.3 % [facility] Plt 179 150 - 400 K/cumm [facility] MPV 10.0 9.1 - 12.3 fL [facility] RBC 4.50 4.30 - 5.80 M/cumm [facility] MCV 88.4 81.3 - 96.4 fL [facility] MCH 28.2 27.1 - 33.3 pg [facility] MCHC 31.9(L) 32.3 - 35.7 g/dL [facility] RDW CV 13.1 11.1 - 14.9 % [facility] RDW SD 42.2 35.7 - 48.1 fL [facility] NRBC abs 0.00 0.00 - 0.01 K/cumm [facility] Blood 04/08/2025 3:51 AM CDT 04/08/2025 4:22 AM CDT us Сергей Samuel MD LAB BLOOD ORDERABLES Final R esult Performing Organization Address City/[facility] Co de Phone Number [address] [address] * Magnesium (04/08/2025 3:51 AM CDT) [facility] Magnesium 2.3 1.4 - 2.5 mg/dL Blood 04/08/2025 3:51 AM CDT 04/08/2025 4:25 AM CDT Сергей Samuel MD LAB BLOOD ORDERABLES Final R [facility] Performing Organization Address [facility] de Phone Number [address] [address] * (ABNORMAL) Basic metabolic panel (04/08/2025 3:51 AM CDT) [facility] Sodium 142 135 - 145 mmol/L Potassium, pl 3.6 3.3 - 4.9 mmol/L [facility] Chloride 101 97 - 110 mmol/L [facility] CO2 35(H) 22 - 32 mmol/L [facility] Anion gap 6 2 - 15 mmol/L [facility] BUN 11 6 - 25 mg/dL [facility] Creatinine 0.99 0.80 - 1.30 mg/dL [facility] Glucose 109 70 - 199 mg/dL [facility] Comment: Interpretive Data Fasting glucose >/= 126 [...] BLOOD ORDERABLES Final R esult [facility] [place] [address] [facility] Department [place] [address] * Critical Care (04/08/2025 12:25 AM CDT) Narrative Сергей Samuel MD - 04/08/2025 12:25 AM CDT Сергей Samuel MD 04/08/2025 12:28 AM Critical Care Performed by: Сергей Samuel MD Authorized by: Сергей Samuel MD CRITICAL CARE: Team: [facility] Shift: PM Level of Billing: Critical Care [...] plan with the ICU team and other medical/sales operations consultant staff, making frequent assessments and decisions [...] LAB BLOOD ORDERABLES Final Resu lt [facility] [address] [facility] Department [place] [address] * TRANSTHORACIC ECHO (TTE) LIMITED/FOLLOW UP W LTD DOPPLER/CF WO CONTRAST (04/07/2025 3:13 PM CDT) EF Mod BP 57 % CONS SCIMAGE Anatomical Region Laterality Modality Ultrasound 04/07/2025 2:51 PM CDT Narrative 04/07/2025 5:04 PM CDT Transthoracic Echocardiographic Report Patient Name: SAUMYA ZAVALAIzzy : 1970 (54y 4m) Gender: M Study Date: 04/07/2025 02:51:22 PM Ht(Inch): 69 Wt(Lb): 175.99 BSA: 1.97 Automation Clerk: Kya Hairston RDCS Location: [id number] Order Provider: PIERRE PRUITT Heart Rate: 68 [...] PM Ht(Inch): 69 Wt(Lb): 175.99 BSA: 1.97 Automation Clerk: Kya Hairston MACARIO Location: [id number] Order Provider:PIERRE PRUITT Heart Rate: 68 BMI: [...] [ 0.60 - 1.10 ] MV Decel [id number] msec LV Thickness Ratio 0.95 Med E` [...] plan with the ICU team and other medical/sales operations consultant staff, making frequent assessments and decisions [...] MD LAB BLOOD ORDERABLES Final R esult [facility] [address] [facility] Department [place] [address] * Differential, auto (04/07/2025 3:38 AM CDT) Neutrophil abs 6.18 1.50 - 6.50 K/cumm Imm gran abs 0.03 0.00 - 0.10 K/cumm [facility] Lymphocyte abs 2.56 0.80 - 3.30 K/cumm [facility] Monocyte abs 0.79 0.20 - 0.80 K/cumm [facility] Eosinophil abs 0.25 0.00 - 0.50 K/cumm [facility] Basophil abs 0.04 0.00 - 0.10 K/cumm [facility] Neutrophil pct 62.8 % [facility] Comment: Interpretive Data Percent cell count reference ranges are not reported, since discordance with absolute values may lead to misinterpretation of CBC data. Current Interpretive Data was last revised on 2017. Imm gran pct 0.3 % [facility] Comment: Interpretive Data Percent cell count reference ranges are not reported, since discordance with absolute values may lead to misinterpretation of CBC data. Current Interpretive Data was last revised on 2017. Lymphocyte pct 26.0 % [facility] Comment: Interpretive Data Percent cell count reference ranges are not reported, since discordance with absolute values may lead to misinterpretation of CBC data. Current Interpretive Data was last revised on 2017. Monocyte pct 8.0 % [facility] Comment: Interpretive Data Percent cell count reference ranges are not reported, since discordance with absolute values may lead to misinterpretation of CBC data. Current Interpretive Data was last revised on 2017. Eosinophil pct 2.5 % [facility] Comment: Interpretive Data Percent cell count reference ranges are not reported, since discordance with absolute values may lead to misinterpretation of CBC data. Current Interpretive Data was last revised on 2017. Basophil pct 0.4 % [facility] Comment: Interpretive Data Percent cell count reference ranges are not reported, since discordance with absolute values may lead to misinterpretation of CBC data. Current Interpretive Data was last revised on 2017. Blood 04/07/2025 3:38 AM CDT 04/07/2025 3:53 AM CDT us Сергей Samuel MD LAB BLOOD ORDERABLES Final R esult [place] [address] [facility] Department [place] [address] * (ABNORMAL) CBC with auto differential (04/07/2025 3:38 AM CDT) WBC 9.85 3.80 - 9.90 K/cumm Hgb 12.0(L) 13.0 - 17.5 g/dL [facility] Hct 37.3(L) 38.9 - 50.3 % [facility] Plt 145(L) 150 - 400 K/cumm [facility] MPV 10.0 9.1 - 12.3 fL [facility] RBC 4.18(L) 4.30 - 5.80 M/cumm [facility] MCV 89.2 81.3 - 96.4 fL [facility] MCH 28.7 27.1 - 33.3 pg [facility] MCHC 32.2(L) 32.3 - 35.7 g/dL [facility] RDW CV 13.2 11.1 - 14.9 % [facility] RDW SD 43.0 35.7 - 48.1 fL [facility] NRBC abs 0.00 0.00 - 0.01 K/cumm [facility] Blood 04/07/2025 3:38 AM CDT 04/07/2025 3:53 AM CDT us Сергей Samuel MD LAB BLOOD ORDERABLES Final R esult Performing Organization Address [facility] de Phone Number [address] [address] * Magnesium (04/07/2025 3:38 AM CDT) Pathologist [facility] [place] Magnesium 2.3 1.4 - 2.5 mg/dL Blood 04/07/2025 3:38 AM CDT 04/07/2025 3:53 AM CDT us Сергей Samuel MD LAB BLOOD ORDERABLES Final R esult Performing Organization Address [facility] de Phone Number [address] [address] * (ABNORMAL) Basic metabolic panel (04/07/2025 3:38 AM CDT) [facility] Sodium 138 135 - 145 mmol/L Potassium, pl 3.6 3.3 - 4.9 mmol/L [facility] Chloride 100 97 - 110 mmol/L [facility] CO2 33(H) 22 - 32 mmol/L [facility] Anion gap 5 2 - 15 mmol/L [facility] BUN 13 6 - 25 mg/dL [facility] Creatinine 0.90 0.80 - 1.30 mg/dL [facility] Glucose 96 70 - 199 mg/dL [facility] Comment: Interpretive Data Fasting glucose >/= 126 [...] 2022. Calcium 8.1(L) 8.5 - 10.3 mg/dL [facility] Blood 04/07/2025 3:38 AM CDT 04/07/2025 3:53 AM CDT us Сергей Samuel MD LAB BLOOD ORDERABLES Final R esult Performing Organization Address City/[facility] Co de Phone Number [address] [employer] [place] [address] * (ABNORMAL) Hemoglobin and hematocrit (04/06/2025 9:11 PM CDT) Hgb 12.2(L) 13.0 - 17.5 g/dL Hct 38.1(L) 38.9 - 50.3 % [facility] Blood 04/06/2025 9:11 PM CDT 04/06/2025 9:48 PM CDT us Pierre Pruitt MD LAB BLOOD ORDERABLES Final Resu lt Performing Organization Address [facility] de Phone Number [address] [place] [address] * (ABNORMAL) Hemoglobin and hematocrit (04/06/2025 2:36 PM CDT) Hgb 12.0(L) 13.0 - 17.5 g/dL Hct 37.9(L) 38.9 - 50.3 % [facility] Blood 04/06/2025 2:36 PM CDT 04/06/2025 2:47 PM CDT us Pierre Pruitt MD LAB BLOOD ORDERABLES Final Resu lt Performing Organization Address [facility] Co de Phone Number [address] [employer] [place] [address] * Critical Care (04/06/2025 7:29 AM CDT) [...] plan with the ICU team and other medical/sales operations consultant staff, making frequent assessments and decisions [...] POCT ORDERABLES - DEVICE Fi nal Result [facility] [address] [facility] [place] [address] * Critical Care (04/06/2025 4:44 AM CDT) Narrative Сергей Samuel MD - 04/06/2025 4:44 AM CDT Сергей Samuel MD 04/06/2025 4:48 AM Critical Care Performed by: Сергей Samuel MD Authorized by: Сергей Samuel MD CRITICAL CARE: Team: [facility] Shift: PM Level of Billing: Critical Care [...] plan with the ICU team and other medical/sales operations consultant staff, making frequent assessments and decisions [...] ORDERABLES - DEVICE Fi nal Result [facility] [address] [facility] Department [place] [address] * eGFR (04/06/2025 2:42 AM CDT) Pathologist [facility] [place] eGFR 87 >=60 mL/min/1. 73 m2 Comment: [...] MD LAB BLOOD ORDERABLES Final R esult [place] [id number] [facility] Department [place] [address] * (ABNORMAL) Differential, auto (04/06/2025 2:42 AM CDT) Neutrophil abs 10.03(H) 1.50 - 6.50 K/cumm Imm gran abs 0.04 0.00 - 0.10 K/cumm [facility] Lymphocyte abs 2.77 0.80 - 3.30 K/cumm [facility] Monocyte abs 1.31(H) 0.20 - 0.80 K/cumm [facility] Eosinophil abs 0.20 0.00 - 0.50 K/cumm [facility] Basophil abs 0.05 0.00 - 0.10 K/cumm [facility] Neutrophil pct 69.7 % [facility] Comment: Interpretive Data Percent cell count reference ranges are not reported, since discordance with absolute values may lead to misinterpretation of CBC data. Current Interpretive Data was last revised on 2017. Imm gran pct 0.3 % [facility] Comment: Interpretive Data Percent cell count reference ranges are not reported, since discordance with absolute values may lead to misinterpretation of CBC data. Current Interpretive Data was last revised on 2017. Lymphocyte pct 19.2 % [facility] Comment: Interpretive Data Percent cell count reference ranges are not reported, since discordance with absolute values may lead to misinterpretation of CBC data. Current Interpretive Data was last revised on 2017. Monocyte pct 9.1 % [facility] Comment: Interpretive Data Percent cell count reference ranges are not reported, since discordance with absolute values may lead to misinterpretation of CBC data. Current Interpretive Data was last revised on 2017. Eosinophil pct 1.4 % [facility] Comment: Interpretive Data Percent cell count reference ranges are not reported, since discordance with absolute values may lead to misinterpretation of CBC data. Current Interpretive Data was last revised on 2017. Basophil pct 0.3 % [facility] Comment: Interpretive Data Percent cell count reference ranges are not reported, since discordance with absolute values may lead to misinterpretation of CBC data. Current Interpretive Data was last revised on 2017. Blood 04/06/2025 2:42 AM CDT 04/06/2025 2:52 AM CDT us Сергей Samuel MD LAB BLOOD ORDERABLES Final R esult [facility] [address] [facility] Department [place] [address] * (ABNORMAL) CBC with auto differential (04/06/2025 2:42 AM CDT) WBC 14.40(H) 3.80 - 9.90 K/cumm Hgb 12.5(L) 13.0 - 17.5 g/dL [facility] Hct 39.0 38.9 - 50.3 % [facility] Plt 157 150 - 400 K/cumm [facility] MPV 9.9 9.1 - 12.3 fL [facility] RBC 4.29(L) 4.30 - 5.80 M/cumm [facility] MCV 90.9 81.3 - 96.4 fL [facility] MCH 29.1 27.1 - 33.3 pg [facility] MCHC 32.1(L) 32.3 - 35.7 g/dL [facility] RDW CV 13.9 11.1 - 14.9 % [facility] RDW SD 46.6 35.7 - 48.1 fL [facility] NRBC abs 0.00 0.00 - 0.01 K/cumm [facility] Blood 04/06/2025 2:42 AM CDT 04/06/2025 2:52 AM CDT Сергей Samuel MD LAB BLOOD ORDERABLES Final R esult Performing Organization Address [facility] Co de Phone Number [address] [place] [address] * Magnesium (04/06/2025 2:42 AM CDT) [facility] Magnesium 2.2 1.4 - 2.5 mg/dL Blood 04/06/2025 2:42 AM CDT 04/06/2025 2:52 AM CDT Сергей Samuel MD LAB BLOOD ORDERABLES Final R [facility] Performing Organization Address [facility] de Phone Number [address] [place] [address] * (ABNORMAL) Basic metabolic panel (04/06/2025 2:42 AM CDT) [facility] Sodium 141 135 - 145 mmol/L Potassium, pl 4.1 3.3 - 4.9 mmol/L [facility] Chloride 102 97 - 110 mmol/L [facility] CO2 35(H) 22 - 32 mmol/L [facility] Anion gap 4 2 - 15 mmol/L [facility] BUN 21 6 - 25 mg/dL [facility] Creatinine 1.02 0.80 - 1.30 mg/dL [facility] Glucose 103 70 - 199 mg/dL [facility] Comment: Interpretive Data Fasting glucose >/= 126 [...] 2022. Calcium 8.1(L) 8.5 - 10.3 mg/dL [facility] Blood 04/06/2025 2:42 AM CDT 04/06/2025 2:52 AM CDT Сергей Samuel MD LAB BLOOD ORDERABLES Final R esult [address] [place] [address] * Infection Prevention Yamilka auris PCR, surveillance Axilla/Groin (04/06/2025 12:20 AM CDT) Yamilka auris DNA Not Detected Not Detected [facility] Comment: Interpretive Data Testing performed by [facility] Disease [facility] using the Evelyn dilan 6800 Yamilka auris assay. This assay detects DNA from Yamilka auris using Real-Time PCR. This assay is laboratory developed and is not cleared by the [place] Food and Drug Administration. The performance characteristics have been verified by the [facility]. Testing performed by: [facility], [address] [place]., [address] Axilla/Groin 04/06/2025 12:2 0 AM CDT 04/06/2025 5:12 AM CDT Narrative [facility] - 04/06/2025 12:58 PM CDT Order placed by [facility] due to ring surveillance. Instant Order Generic Provider LAB MICROBIOLOGY - GENERAL ORDERABLES Final Result [address] [place] [address] [facility] * POCT glucose (04/05/2025 11:35 PM CDT) Glucose, POC 90 70 - 199 mg/dL Glucose comment 1 Follow Protocol [facility] Blood 04/05/2025 11:3 5 PM CDT 04/05/2025 11:35 PM CDT us Pierre Pruitt MD LAB POCT ORDERABLES - DEVICE Fi nal Result Performing Organization Address City/[facility] Co de Phone Number [address] [place] [address] * (ABNORMAL) Hemoglobin and hematocrit (04/05/2025 11:14 PM CDT) Hgb 12.4(L) 13.0 - 17.5 g/dL Hct 39.7 38.9 - 50.3 % [facility] Blood 04/05/2025 11:1 4 PM CDT 04/06/2025 12:09 AM CDT us Pierre Pruitt MD LAB BLOOD ORDERABLES Final Resu lt Performing Organization Address [facility] de Phone Number [address] [employer] [place] [address] * POCT glucose (04/05/2025 8:28 PM CDT) Glucose, POC 116 70 - 199 mg/dL Glucose comment 1 Follow Protocol [facility] Blood 04/05/2025 8:28 PM CDT 04/05/2025 8:28 PM CDT us Pierre Pruitt MD LAB POCT ORDERABLES - DEVICE Fi nal Result Performing Organization Address [facility] Co de Phone Number [address] [employer] [place] [address] * (ABNORMAL) Hemoglobin and hematocrit (04/05/2025 4:25 PM CDT) Hgb 12.9(L) 13.0 - 17.5 g/dL Hct 40.1 38.9 - 50.3 % [facility] Blood 04/05/2025 4:25 PM CDT 04/05/2025 4:48 PM CDT Pierre Pruitt MD LAB BLOOD ORDERABLES Final Resu lt Performing Organization Address [facility] Co de Phone Number ASAEL[address] [place] [address] * POCT glucose (04/05/2025 3:50 PM CDT) [facility] Glucose, POC 105 70 - 199 mg/dL Glucose comment 1 Follow Protocol [facility] Blood 04/05/2025 3:50 PM CDT 04/05/2025 3:50 PM CDT Pierre Pruitt MD LAB POCT ORDERABLES - DEVICE Fi nal Result Performing Organization Address [facility] Co de Phone Number [address] [employer] [place] [address] * ECG 12 lead (04/05/2025 1:41 PM CDT) [facility] Ventricular Rate EKG/Min 67 BPM [facility] Atrial Rate 67 BPM [facility] CT-Interval (MSEC) 144 ms [facility] QRS-Interval (MSEC) 84 ms [facility] QT-Interval (MSEC) 386 ms [facility] QTc 407 ms [facility] P [place] 66 degrees [facility] R [place] 8 degrees [facility] T [place] -3 degrees [facility] Diagnosis Normal sinus rhythm Within normal limits When compared with ECG of 04-APR-2025 08:57, No significant change was found Confirmed by SULTAN LOPEZ M.D. ([id number]) on 04/05/2025 4:00:28 PM [facility] 04/05/2025 1:41 PM CDT 04/05/2025 4:00 PM CDT us Pierre Pruitt MD ECG ORDERABLES Final Result Performing Organization Address City/[facility]/ZIP Co de Phone Number [facility] * (ABNORMAL) Hemoglobin and hematocrit (04/05/2025 1:29 PM CDT) Hgb 12.7(L) 13.0 - 17.5 g/dL Hct 40.4 38.9 - 50.3 % [facility] Blood 04/05/2025 1:29 PM CDT 04/05/2025 1:48 PM CDT Pierre Pruitt MD LAB BLOOD ORDERABLES Final Resu lt Performing Organization Address [facility] Co de Phone Number [address] [employer] [place] [address] * Transfuse RBC (04/05/2025 1:10 PM CDT) Blood Pierre Pruitt MD BLOOD TRANSFUSION ORDERABLES Fi nal Result Performing Organization Address [facility] Co de Phone Number [address] [place] [address] * POCT glucose (04/05/2025 12:59 PM CDT) Glucose, POC 118 70 - 199 mg/dL Glucose comment 1 Follow Protocol [facility] Blood 04/05/2025 12:5 9 PM CDT 04/05/2025 12:59 PM CDT Pierre Pruitt MD LAB POCT ORDERABLES - DEVICE Fi nal Result Performing Organization Address [facility] Co de Phone Number [address] [place] [address] * CT AN ELECTIVE ENDOTRACHEAL AIRWAY, CT AN PROCEDURE PLACEHOLDER (04/05/2025 11:50 AM CDT) Narrative Rommel Shook CRNA - 04/05/2025 11:50 AM CDT Rommel Shook CRNA 04/05/2025 11:51 AM Airway Patient location: OR Indications for airway management: anesthesia Difficult airway: no Staff: Supervising provider: Thomas Patricia MD Placed by: PIE MAKER MACHINE: Rommel Shook CRNA Emergent airway documentation: Risks [...] by: Pierre Pruitt MD CRITICAL CARE: Team: [facility] Shift: AM Level of Billing: Critical Care [...] plan with the ICU team and other medical/sales operations consultant staff, making frequent assessments and decisions [...] Diaz MD - 04/05/2025 10:27 AM CDT [facility] GI ENDOSCOPY Patient Name: Saumya Zavala Procedure Date: 04/05/2025 10:27 AM Date of : 1970 Admit Type: Inpatient Age: 54 Gender: Male Attending MD: Ry Diaz M.D., Room: [facility] ENDOSCOPY ROOM [facility] Note Status: Finalized Procedure: Upper GI endoscopy [...] by the physician, the nurse and the remote sensing technologist in the procedure room. Mental Status Examination: [...] On: 04/05/2025 10:27 AM Recognized by the [employer] for promoting quality [...] ur Screen Positive, presumptive (A) CutOff 100ng/mL [facility] Comment: Interpretive Data - Benzodiazepines: Samples containing greater than 100 ng/mL nordiazepam or other cross-reacting compounds are reported as positive. False positive and false negative results are possible. Confirmatory testing required for definitive results. Current Interpretive Data was last reviewed 2023. Cannabinoids, ur Not Detected CutOff 50 ng/mL [facility] Comment: Interpretive Data - Cannabinoids: Samples containing greater than 50 ng/mL delta-9 THC -COOH or other cross- reacting compounds are reported as positive. False positive and false negative results are possible. Confirmatory testing required for definitive results. Current Interpretive Data was last reviewed 2023. Cocaine, ur Not Detected CutOff 150ng/mL [facility] Comment: Interpretive Data - Cocaine: Samples containing greater than 150 ng/mL benzoylecgonine or other cross- reacting compounds are reported as positive. False positive and false negative results are possible. Confirmatory testing required for definitive results. Current Interpretive Data was last reviewed 2023. Fentanyl, Ur Not Detected CutOff 5 ng/mL [facility] Comment: Interpretive Data - Fentanyl: Samples containing greater than 5 ng/mL norfentanyl, fentanyl, or other cross-reacting fentanyl compounds are reported as positive. False positive and false negative results are possible. Confirmatory testing required for definitive results. Current Interpretive Data was last reviewed 2023. Methadone, ur Not Detected CutOff 300ng/mL [facility] Comment: Interpretive Data - Methadone: Samples containing greater than 300 ng/mL d,l-methadone or other cross-reacting compounds are reported as positive. False positive and false negative results are possible. Confirmatory testing required for definitive results. Current Interpretive Data was last reviewed 2023. Opiates, ur Not Detected CutOff 300ng/mL [facility] Comment: Interpretive Data - Opiates: Samples containing greater than 300 ng/mL morphine or other cross-reacting compounds are reported as positive. False positive and false negative results are possible. Confirmatory testing required for definitive results. Current Interpretive Data was last reviewed 2023. Oxycodone, ur Not Detected CutOff 100ng/mL [facility] Comment: Interpretive Data - Oxycodone: Samples containing greater than 100 ng/mL oxycodone or other cross-reacting compounds are reported as positive. False positive and false negative results are possible. Confirmatory testing required for definitive results. Current Interpretive Data was last reviewed 2023. Phencyclidine, ur Not Detected CutOff 25 ng/mL [facility] Comment: Interpretive Data - Phencyclidine: Samples containing [...] AM CDT 04/05/2025 10:31 AM CDT Narrative [facility] - 04/05/2025 11:05 AM CDT Drug of Abuse screening is performed by immunoassay for medical purposes only. This is not to be used for Pain Management purposes. Kylah Bruno NP LAB URINE ORDERABLES Final Resu lt Performing Organization Address [facility]/ZIP Co de Phone Number [address] [place] [address] * Transfuse RBC (04/05/2025 9:27 AM CDT) Blood Pierre Pruitt MD BLOOD TRANSFUSION ORDERABLES Fi nal Result Performing Organization Address [facility] Co de Phone Number [address] [place] [address] * (ABNORMAL) Hemoglobin and hematocrit (04/05/2025 8:15 AM CDT) Hgb 11.2(L) 13.0 - 17.5 g/dL Hct 36.1(L) 38.9 - 50.3 % [facility] Blood 04/05/2025 8:15 AM CDT 04/05/2025 8:29 AM CDT us Pierre Pruitt MD LAB BLOOD ORDERABLES Final Resu lt Performing Organization Address City/[facility]/ZIP Co de Phone Number ISMAEL [address] [place] [address] * POCT glucose (04/05/2025 8:14 AM CDT) Glucose, POC 142 70 - 199 mg/dL Glucose comment 1 Follow Protocol [facility] Blood 04/05/2025 8:14 AM CDT 04/05/2025 8:14 AM CDT Pierre Pruitt MD LAB POCT ORDERABLES - DEVICE Fi nal Result Performing Organization Address [facility] Co de Phone Number ISMAEL [address] [place] [address] * Prepare RBC: 2 Units (04/05/2025 8:04 AM CDT) Units requested 2 Units requested Ready [facility] Unit Number [id number] Product code [id number] [facility] Blood Expiration Date [facility] Product Blood Type (for scanning) 6200 [facility] Product Blood Type APOS [facility] Dispense Status DISPENSED [facility] Unit Number [id number] Product code [id number] [facility] Blood Expiration Date [id number] [facility] Product Blood Type (for scanning) 6200 [facility] Product Blood Type APOS [facility] Dispense Status DISPENSED [facility] Blood 04/05/2025 8:04 AM CDT 04/05/2025 8:04 AM CDT us Pierre Pruitt MD BLOOD BANK PRODUCT ORDERABLES F inal Result Performing Organization Address City/[facility] Co de Phone Number ISMAEL [address] [employer] [place] [address] * Lactate (04/05/2025 4:08 AM CDT) Lactate 1.1 0.7 - 2.0 mmol/L Blood 04/05/2025 4:08 AM CDT 04/05/2025 4:12 AM CDT Сергей Samuel MD LAB BLOOD ORDERABLES Final R esult Performing Organization Address [facility] Co de Phone Number ISMAEL [address] [place] [address] * eGFR (04/05/2025 4:08 AM CDT) eGFR [...] ORDERABLES Final R esult Performing Organization Address City/[facility] Co de Phone Number ISMAEL [address] [place] [place] [address] * (ABNORMAL) Differential, auto (04/05/2025 4:08 AM CDT) Pathologist [facility] Neutrophil abs 15.68(H) 1.50 - 6.50 K/cumm Imm gran abs 0.09 0.00 - 0.10 K/cumm [facility] Lymphocyte abs 1.60 0.80 - 3.30 K/cumm [facility] Monocyte abs 1.15(H) 0.20 - 0.80 K/cumm [facility] Eosinophil abs 0.02 0.00 - 0.50 K/cumm [facility] Basophil abs 0.02 0.00 - 0.10 K/cumm [facility] Neutrophil pct 84.5 % [facility] Comment: Interpretive Data Percent cell count reference ranges are not reported, since discordance with absolute values may lead to misinterpretation of CBC data. Current Interpretive Data was last revised on 2017. Imm gran pct 0.5 % [facility] Comment: Interpretive Data Percent cell count reference ranges are not reported, since discordance with absolute values may lead to misinterpretation of CBC data. Current Interpretive Data was last revised on 2017. Lymphocyte pct 8.6 % [facility] Comment: Interpretive Data Percent cell count reference ranges are not reported, since discordance with absolute values may lead to misinterpretation of CBC data. Current Interpretive Data was last revised on 2017. Monocyte pct 6.2 % [facility] Comment: Interpretive Data Percent cell count reference ranges are not reported, since discordance with absolute values may lead to misinterpretation of CBC data. Current Interpretive Data was last revised on 2017. Eosinophil pct 0.1 % [facility] Comment: Interpretive Data Percent cell count reference ranges are not reported, since discordance with absolute values may lead to misinterpretation of CBC data. Current Interpretive Data was last revised on 2017. Basophil pct 0.1 % [facility] Comment: Interpretive Data Percent cell count reference ranges are not reported, since discordance with absolute values may lead to misinterpretation of CBC data. Current Interpretive Data was last revised on 2017. Blood 04/05/2025 4:08 AM CDT 04/05/2025 4:12 AM CDT Сергей Samuel MD LAB BLOOD ORDERABLES Final R esult ISMAEL [address] [address] * ABO / Rh Confirmation Testing (04/05/2025 4:08 AM CDT) Pathologist [facility] ABO/Rh Confirmation A Positive [facility] Blood 04/05/2025 4:08 AM CDT 04/05/2025 4:12 AM CDT Сергей Samuel MD LAB BLOOD ORDERABLES Final R esult Performing Organization Address City/[facility] Co de Phone Number ISMAEL [address] [address] [facility] * (ABNORMAL) CBC with auto differential (04/05/2025 4:08 AM CDT) [facility] WBC 18.56(H) 3.80 - 9.90 K/cumm Hgb 12.1(L) 13.0 - 17.5 g/dL [facility] Hct 38.6(L) 38.9 - 50.3 % [facility] Plt 193 150 - 400 K/cumm [facility] MPV 10.4 9.1 - 12.3 fL [facility] RBC 4.24(L) 4.30 - 5.80 M/cumm [facility] MCV 91.0 81.3 - 96.4 fL [facility] MCH 28.5 27.1 - 33.3 pg [facility] MCHC 31.3(L) 32.3 - 35.7 g/dL [facility] RDW CV 13.9 11.1 - 14.9 % [facility] RDW SD 46.2 35.7 - 48.1 fL [facility] NRBC abs 0.00 0.00 - 0.01 K/cumm [facility] Blood 04/05/2025 4:08 AM CDT 04/05/2025 4:12 AM CDT Сергей Samuel MD LAB BLOOD ORDERABLES Final R esult Performing Organization Address [facility] Co de Phone Number [address] [address] * Magnesium (04/05/2025 4:08 AM CDT) [facility] Magnesium 1.9 1.4 - 2.5 mg/dL Blood 04/05/2025 4:08 AM CDT 04/05/2025 4:12 AM CDT Сергей Samuel MD LAB BLOOD ORDERABLES Final R esult Performing Organization Address [facility] de Phone Number [address] [address] * Ethanol (04/05/2025 4:08 AM CDT) [facility] Ethanol <10 <=10 mg/dL Comment: Interpretive Data Legal limit of intoxication > or = 80 mg/dL Levels > or = 400 mg/dL are potentially TOXIC. Current interpretive data was last revised on 2018. Blood 04/05/2025 4:08 AM CDT 04/05/2025 4:12 AM CDT Pierre Pruitt MD LAB BLOOD ORDERABLES Final Resu lt Performing Organization Address [facility] Co de Phone Number [address] [address] * (ABNORMAL) Basic metabolic panel (04/05/2025 4:08 AM CDT) [facility] Sodium 142 135 - 145 mmol/L Potassium, pl 4.5 3.3 - 4.9 mmol/L [facility] Chloride 101 97 - 110 mmol/L [facility] CO2 36(H) 22 - 32 mmol/L [facility] Anion gap 5 2 - 15 mmol/L [facility] BUN 25 6 - 25 mg/dL [facility] Creatinine 1.08 0.80 - 1.30 mg/dL [facility] Glucose 162 70 - 199 mg/dL [facility] Comment: Interpretive Data Fasting glucose >/= 126 [...] 2022. Calcium 8.2(L) 8.5 - 10.3 mg/dL [facility] Blood 04/05/2025 4:08 AM CDT 04/05/2025 4:12 AM CDT Сергей Samuel MD LAB BLOOD ORDERABLES Final R esult Performing Organization Address [facility] Co de Phone Number [address] [place] [address] * POCT glucose (04/05/2025 3:42 AM CDT) Glucose, POC 145 70 - 199 mg/dL Glucose comment 1 Follow Protocol [facility] Blood 04/05/2025 3:42 AM CDT 04/05/2025 3:42 AM CDT Pierre Pruitt MD LAB POCT ORDERABLES - DEVICE Fi nal Result Performing Organization Address [facility] Co de Phone Number [address] [place] [address] * POCT glucose (04/05/2025 12:33 AM CDT) Glucose, POC 113 70 - 199 mg/dL Glucose comment 1 Follow Protocol [facility] Blood 04/05/2025 12:3 3 AM CDT 04/05/2025 12:33 AM CDT us Pierre Pruitt MD LAB POCT ORDERABLES - DEVICE Fi nal Result Performing Organization Address City/[facility]/ZIP Co de Phone Number [address] [place] [address] * Lactate (04/05/2025 12:16 AM CDT) [facility] Lactate 1.1 0.7 - 2.0 mmol/L Blood 04/05/2025 12:1 6 AM CDT 04/05/2025 12:30 AM CDT Сергей Samuel MD LAB BLOOD ORDERABLES Final R esult Performing Organization Address [facility] Co de Phone Number [address] [address] * (ABNORMAL) Differential, auto (04/05/2025 12:16 AM CDT) [facility] Neutrophil abs 14.44(H) 1.50 - 6.50 K/cumm Imm gran abs 0.08 0.00 - 0.10 K/cumm [facility] Lymphocyte abs 1.43 0.80 - 3.30 K/cumm [facility] Monocyte abs 1.33(H) 0.20 - 0.80 K/cumm [facility] Eosinophil abs 0.01 0.00 - 0.50 K/cumm [facility] Basophil abs 0.01 0.00 - 0.10 K/cumm [facility] Neutrophil pct 83.3 % [facility] Comment: Interpretive Data Percent cell count reference ranges are not reported, since discordance with absolute values may lead to misinterpretation of CBC data. Current Interpretive Data was last revised on 2017. Imm gran pct 0.5 % [facility] Comment: Interpretive Data Percent cell count reference ranges are not reported, since discordance with absolute values may lead to misinterpretation of CBC data. Current Interpretive Data was last revised on 2017. Lymphocyte pct 8.3 % [facility] Comment: Interpretive Data Percent cell count reference ranges are not reported, since discordance with absolute values may lead to misinterpretation of CBC data. Current Interpretive Data was last revised on 2017. Monocyte pct 7.7 % [facility] Comment: Interpretive Data Percent cell count reference ranges are not reported, since discordance with absolute values may lead to misinterpretation of CBC data. Current Interpretive Data was last revised on 2017. Eosinophil pct 0.1 % [facility] Comment: Interpretive Data Percent cell count reference ranges are not reported, since discordance with absolute values may lead to misinterpretation of CBC data. Current Interpretive Data was last revised on 2017. Basophil pct 0.1 % [facility] Comment: Interpretive Data Percent cell count reference ranges are not reported, since discordance with absolute values may lead to misinterpretation of CBC data. Current Interpretive Data was last revised on 2017. Blood 04/05/2025 12:1 6 AM CDT 04/05/2025 12:30 AM CDT us Сергей Samuel MD LAB BLOOD ORDERABLES Final R esult [place] [id number] [facility] [place] [address] * (ABNORMAL) CBC with auto differential (04/05/2025 12:16 AM CDT) WBC 17.30(H) 3.80 - 9.90 K/cumm Hgb 14.1 13.0 - 17.5 g/dL [facility] Hct 44.9 38.9 - 50.3 % [facility] Plt 188 150 - 400 K/cumm [facility] MPV 10.4 9.1 - 12.3 fL [facility] RBC 4.95 4.30 - 5.80 M/cumm [facility] MCV 90.7 81.3 - 96.4 fL [facility] MCH 28.5 27.1 - 33.3 pg [facility] MCHC 31.4(L) 32.3 - 35.7 g/dL [facility] RDW CV 13.7 11.1 - 14.9 % [facility] RDW SD 45.6 35.7 - 48.1 fL [facility] NRBC abs 0.00 0.00 - 0.01 K/cumm [facility] Blood 04/05/2025 12:1 6 AM CDT 04/05/2025 12:30 AM CDT Сергей Samuel MD LAB BLOOD ORDERABLES Final R esult Performing Organization Address [facility] de Phone Number [address] [place] [address] * ABO/Rh (04/05/2025 12:16 AM CDT) ABO/Rh A Positive Blood 04/05/2025 12:1 6 AM CDT 04/05/2025 12:30 AM CDT Narrative [facility] - 04/05/2025 1:15 AM CDT Has the patient had Daratumumab or Isatuximab in the past 6 months?->Unknown Сергей Samuel MD LAB BLOOD BANK TEST ORDERABL ES Final Result Performing Organization Address [facility] de Phone Number [address] [address] * (ABNORMAL) Protime-INR (04/05/2025 12:16 AM CDT) PT 15.20(H) 12.00 - 14.60 sec INR 1.19 0.90 - 1.20 [facility] Comment: Interpretive data Oral anticoagulant therapeutic ranges: Venous thromboembolism prophylaxis or treatment: 2.0-3.0 CARDIOLOGY Standard range: 2.0-3.0 High-intensity range: 2.5-3.5 Refer to indication-specific guidelines for appropriate target ranges for prosthetic heart valve replacement. Current interpretive data was last revised on 2019. Blood 04/05/2025 12:1 6 AM CDT 04/05/2025 12:30 AM CDT Сергей Samuel MD LAB BLOOD ORDERABLES Final R esult Performing Organization Address [facility]/ZIP Co de Phone Number [address] [address] * Crossmatch (04/05/2025 12:16 AM CDT) Pathologist [facility] Crossmatch Compatible [facility] Unit number for crossmatch [id number] [facility] Crossmatch Compatible [facility] Unit number for crossmatch [id number] [facility] Blood 04/05/2025 12:1 6 AM CDT 04/05/2025 12:30 AM CDT Pierre Pruitt MD LAB BLOOD BANK TEST ORDERABLES Edited Result - Final Performing Organization Address [facility] Co de Phone Number [address] [address] * Antibody screen (04/05/2025 12:16 AM CDT) Pathologist [facility] Jacquelyn, indirect, Gel Interpretation Negative ABSC Blood 04/05/2025 12:1 6 AM CDT 04/05/2025 12:30 AM CDT Narrative [facility] - 04/05/2025 1:16 AM CDT Has the patient had Daratumumab or Isatuximab in the past 6 months?->Unknown us Сергей Samuel MD LAB BLOOD BANK TEST ORDERABL ES Final Result Performing Organization Address [facility] Co de Phone Number [address] [address] * Phosphorus (04/05/2025 12:16 AM CDT) Pathologist [facility] Phosphorus, pl 3.4 2.3 - 4.5 mg/dL Blood 04/05/2025 12:1 6 AM CDT 04/05/2025 12:30 AM CDT Сергей Samuel MD LAB BLOOD ORDERABLES Final R esult Performing Organization Address City/[facility] Co de Phone Number ISMAEL [address] [facility] Department [place] [address] * Magnesium (04/05/2025 12:16 AM CDT) Magnesium 1.8 1.4 - 2.5 mg/dL Blood 04/05/2025 12:1 6 AM CDT 04/05/2025 12:30 AM CDT us Сергей Samuel MD LAB BLOOD ORDERABLES Final R esult Performing Organization Address City/State/[facility] Co de Phone Number ISMAEL [address] [facility] Department [place] [address] * Critical Care (04/04/2025 11:48 PM CDT) [...] plan with the ICU team and other medical/sales operations consultant staff, making frequent assessments and decisions [...] patient with consultants and the medical staff Сергйе Samuel MD IN CLINIC/BEDSIDE ORDERABLES Final Result * POCT glucose (04/04/2025 7:55 PM CDT) Glucose, POC 92 70 - 199 mg/dL Glucose comment 1 Follow Protocol [facility] Blood 04/04/2025 7:55 PM CDT 04/04/2025 7:55 PM CDT Pierre Pruitt MD LAB POCT ORDERABLES - DEVICE Fi nal Result Performing Organization Address [facility] Co de Phone Number [address] [place] [address] * POCT glucose (04/04/2025 4:01 PM CDT) Glucose, POC 92 70 - 199 mg/dL Glucose comment 1 Follow Protocol [facility] Blood 04/04/2025 4:01 PM CDT 04/04/2025 4:01 PM CDT Pierre Pruitt MD LAB POCT ORDERABLES - DEVICE Fi nal Result Performing Organization Address [facility] Co de Phone Number [address] [place] [address] * POCT glucose (04/04/2025 12:08 PM CDT) Glucose, POC 120 70 - 199 mg/dL Blood 04/04/2025 12:0 8 PM CDT 04/04/2025 12:08 PM CDT Pierre Pruitt MD LAB POCT ORDERABLES - DEVICE Fi nal Result Performing Organization Address [facility] Co de Phone Number [address] [place] [address] * ECG 12 lead (04/04/2025 8:57 AM CDT) Ventricular Rate EKG/Min 66 BPM [facility] Atrial Rate 66 BPM [facility] CT-Interval (MSEC) 154 ms [facility] QRS-Interval (MSEC) 92 ms [facility] QT-Interval (MSEC) 372 ms [facility] QTc 389 ms [facility] P [place] -2 degrees [facility] R [place] 14 degrees [facility] T [place] 2 degrees [facility] Diagnosis Normal sinus rhythm Within normal limits When compared with ECG of 04-APR-2025 01:12, No significant change was found Confirmed by SULTAN LOPEZ M.D. ([id number]) on 04/04/2025 2:12:59 PM [facility] 04/04/2025 8:57 AM CDT 04/04/2025 2:12 PM CDT Pierre Pruitt MD ECG ORDERABLES Final Result Performing Organization Address [facility] de Phone Number [facility] * POCT glucose (04/04/2025 7:59 AM CDT) Glucose, POC 127 70 - 199 mg/dL Glucose comment 1 Follow Protocol ISMAEL Blood 04/04/2025 7:59 AM CDT 04/04/2025 7:59 AM CDT Pierre Pruitt MD LAB POCT ORDERABLES - DEVICE Fi nal Result Performing Organization Address [facility] Co de Phone Number [facility] [address] [facility] Department [place] [address] * Critical Care (04/04/2025 7:39 AM CDT) Narrative Pierre Pruitt MD - 04/04/2025 7:39 AM CDT Pierre Pruitt MD 04/04/2025 12:47 PM Critical Care Performed by: Pierre Pruitt MD Authorized by: Pierre Pruitt MD CRITICAL CARE: Team: [facility] Shift: AM Level of Billing: Subsequent Hospital [...] plan with the patient's team and other medical/sales operations consultant staff. This time was in addition [...] MD LAB BLOOD ORDERABLES Final [facility] [address] [facility] Department [place] [address] * eGFR (04/04/2025 5:07 AM [...] MD LAB BLOOD ORDERABLES Final R esult [facility] [address] [facility] [place] [address] * (ABNORMAL) Differential, auto (04/04/2025 5:07 AM CDT) Neutrophil abs 7.10(H) 1.50 - 6.50 K/cumm Imm gran abs 0.03 0.00 - 0.10 K/cumm [facility] Lymphocyte abs 1.88 0.80 - 3.30 K/cumm [facility] Monocyte abs 0.59 0.20 - 0.80 K/cumm [facility] Eosinophil abs 0.12 0.00 - 0.50 K/cumm [facility] Basophil abs 0.03 0.00 - 0.10 K/cumm [facility] Neutrophil pct 72.8 % [facility] Comment: Interpretive Data Percent cell count reference ranges are not reported, since discordance with absolute values may lead to misinterpretation of CBC data. Current Interpretive Data was last revised on 2017. Imm gran pct 0.3 % [facility] Comment: Interpretive Data Percent cell count reference ranges are not reported, since discordance with absolute values may lead to misinterpretation of CBC data. Current Interpretive Data was last revised on 2017. Lymphocyte pct 19.3 % [facility] Comment: Interpretive Data Percent cell count reference ranges are not reported, since discordance with absolute values may lead to misinterpretation of CBC data. Current Interpretive Data was last revised on 2017. Monocyte pct 6.1 % [facility] Comment: Interpretive Data Percent cell count reference ranges are not reported, since discordance with absolute values may lead to misinterpretation of CBC data. Current Interpretive Data was last revised on 2017. Eosinophil pct 1.2 % [facility] Comment: Interpretive Data Percent cell count reference ranges are not reported, since discordance with absolute values may lead to misinterpretation of CBC data. Current Interpretive Data was last revised on 2017. Basophil pct 0.3 % [facility] Comment: Interpretive Data Percent cell count reference ranges are not reported, since discordance with absolute values may lead to misinterpretation of CBC data. Current Interpretive Data was last revised on 2017. Blood 04/04/2025 5:07 AM CDT 04/04/2025 5:15 AM CDT Сергей Samuel MD LAB BLOOD ORDERABLES Final R esult Performing Organization Address City/[facility] Co de Phone Number [facility] [address] [facility] Department of Laboratories [place], [place] [id number] * (ABNORMAL) CBC with auto differential (04/04/2025 5:07 AM CDT) WBC 9.75 3.80 - 9.90 K/cumm Hgb 14.8 13.0 - 17.5 g/dL [facility] Hct 46.8 38.9 - 50.3 % [facility] Plt 186 150 - 400 K/cumm [facility] MPV 10.2 9.1 - 12.3 fL [facility] RBC 5.27 4.30 - 5.80 M/cumm [facility] MCV 88.8 81.3 - 96.4 fL [facility] MCH 28.1 27.1 - 33.3 pg [facility] MCHC 31.6(L) 32.3 - 35.7 g/dL [facility] RDW CV 13.9 11.1 - 14.9 % [facility] RDW SD 45.1 35.7 - 48.1 fL [facility] NRBC abs 0.00 0.00 - 0.01 K/cumm [facility] Blood 04/04/2025 5:07 AM CDT 04/04/2025 5:15 AM CDT Сергей Samuel MD LAB BLOOD ORDERABLES Final R esult Performing Organization Address City/[facility] Co de Phone Number [place] [address] [facility] [place] [address] * Magnesium (04/04/2025 5:07 AM CDT) [facility] Magnesium 2.0 1.4 - 2.5 mg/dL Blood 04/04/2025 5:07 AM CDT 04/04/2025 5:15 AM CDT Сергей Samuel MD LAB BLOOD ORDERABLES Final R esult Performing Organization Address City/[facility] Co de Phone Number [address] [address] * (ABNORMAL) Basic metabolic panel (04/04/2025 5:07 AM CDT) [facility] Sodium 141 135 - 145 mmol/L Potassium, pl 4.9 3.3 - 4.9 mmol/L [facility] Comment:Hemolyzed; Potassium value may be falsely elevated by as much as 1.0 mmol/L. Suggest redraw and reanalysis. Chloride 105 97 - 110 mmol/L [facility] CO2 27 22 - 32 mmol/L [facility] Anion gap 9 2 - 15 mmol/L [facility] BUN 14 6 - 25 mg/dL [facility] Creatinine 0.95 0.80 - 1.30 mg/dL [facility] Glucose 105 70 - 199 mg/dL [facility] Comment: Interpretive Data Fasting glucose >/= 126 [...] 2022. Calcium 8.3(L) 8.5 - 10.3 mg/dL [facility] Blood 04/04/2025 5:07 AM CDT 04/04/2025 5:15 AM CDT us Сергей Samuel MD LAB BLOOD ORDERABLES Final R esult Performing Organization Address City/[facility] Co de Phone Number ISMAEL [address] [place] [address] * POCT glucose (04/04/2025 4:06 AM CDT) Pathologist [facility] Glucose, POC 82 70 - 199 mg/dL Blood 04/04/2025 4:06 AM CDT 04/04/2025 4:06 AM CDT us Сергей Samuel MD LAB POCT ORDERABLES - DEVICE Final Result Performing Organization Address [facility] de Phone Number ISMAEL [address] [place] [address] * (ABNORMAL) POC Blood Gas and Chemistries, Arterial - (04/04/2025 2:00 AM CDT) pH, art POC 7.29(L) 7.35 - 7.45 pCO2, art POC 53(H) 35 - 45 mmHg [facility] pO2, art POC 126(H) 83 - 108 mmHg [facility] HCO3, art (Calc) POC 26 20 - 30 mmol/L [facility] Base excess, art POC -2 mmol/L [facility] Comment: Interpretive Data No reference range established. Current interpretive data was last revised 2020. O2 Sat, art (Calc) POC 99(H) 94 - 98 % [facility] Oxy Hgb, art POC 97.4(H) 90.0 - 95.0 % [facility] Met Hgb, art POC 0.7 0.0 - 1.9 % [facility] Carboxy Hgb, art POC 1.3 0.0 - 2.9 % [facility] Hemoglobin, art POC 15.6 13.0 - 17.5 g/dL [facility] Sodium, art POC 135 135 - 145 mmol/L [facility] Potassium, art POC 3.9 3.3 - 4.9 mmol/L [facility] Comment: Interpretive Data This method is not able to assess for hemolysis, which may falsely increase potassium concentrations. If further testing is needed to evaluate this result, consider in-laboratory plasma potassium. Current Interpretive Data was last revised on 2022. Glucose, art POC 97 70 - 199 mg/dL [facility] Ionized Calcium, art POC 4.77 4.50 - 5.10 mg/dL [facility] Lactate, art POC 1.3 0.7 - 2.0 mmol/L [facility] Blood 04/04/2025 2:00 AM CDT 04/04/2025 2:00 AM CDT Сергей Samuel MD LAB POCT ORDERABLES - DEVICE Final Result [place] [id number] [facility] Department [place] [address] * Critical Care (04/04/2025 1:45 AM CDT) Narrative Сергей Samuel MD - 04/04/2025 1:45 AM CDT Сергей Samuel MD 04/04/2025 5:27 AM Critical Care Performed by: Сергей Samuel MD Authorized by: Сергей Samuel MD CRITICAL CARE: Team: [facility] Shift: PM Level of Billing: Initial Hospital [...] plan with the patient's team and other medical/sales operations consultant staff. This time was in addition [...] Naif Barnes M.D. AR T: Report ID: [id number] Reading Location: [id number] Procedure Note Naif Barnes MD - 04/04/2025 [...] Naif Barnes M.D. AR T: Report ID: [id number] Reading Location: [id number] Сергей Samuel MD IMG XR PROCEDURES Final Resu lt * Lactate (04/04/2025 1:25 AM CDT) Lactate 1.3 0.7 - 2.0 mmol/L Blood 04/04/2025 1:25 AM CDT 04/04/2025 1:30 AM CDT Сергей Samuel MD LAB BLOOD ORDERABLES Final R esult Performing Organization Address [facility] de Phone Number ISMAEL [address] [place] [address] * eGFR (04/04/2025 1:25 AM CDT) Pathologist [facility] eGFR 83 >=60 mL/min/1. 73 m2 Comment: [...] ORDERABLES Final R esult Performing Organization Address [facility] Co de Phone Number ISMAEL [address] of [place] [address] * (ABNORMAL) Differential, auto (04/04/2025 1:25 AM CDT) Pathologist [facility] Neutrophil abs 13.28(H) 1.50 - 6.50 K/cumm Imm gran abs 0.05 0.00 - 0.10 K/cumm [facility] Lymphocyte abs 2.30 0.80 - 3.30 K/cumm [facility] Monocyte abs 0.77 0.20 - 0.80 K/cumm [facility] Eosinophil abs 0.10 0.00 - 0.50 K/cumm [facility] Basophil abs 0.04 0.00 - 0.10 K/cumm [facility] Neutrophil pct 80.3 % [facility] Comment: Interpretive Data Percent cell count reference ranges are not reported, since discordance with absolute values may lead to misinterpretation of CBC data. Current Interpretive Data was last revised on 2017. Imm gran pct 0.3 % [facility] Comment: Interpretive Data Percent cell count reference ranges are not reported, since discordance with absolute values may lead to misinterpretation of CBC data. Current Interpretive Data was last revised on 2017. Lymphocyte pct 13.9 % [facility] Comment: Interpretive Data Percent cell count reference ranges are not reported, since discordance with absolute values may lead to misinterpretation of CBC data. Current Interpretive Data was last revised on 2017. Monocyte pct 4.7 % [facility] Comment: Interpretive Data Percent cell count reference ranges are not reported, since discordance with absolute values may lead to misinterpretation of CBC data. Current Interpretive Data was last revised on 2017. Eosinophil pct 0.6 % [facility] Comment: Interpretive Data Percent cell count reference ranges are not reported, since discordance with absolute values may lead to misinterpretation of CBC data. Current Interpretive Data was last revised on 2017. Basophil pct 0.2 % [facility] Comment: Interpretive Data Percent cell count reference ranges are not reported, since discordance with absolute values may lead to misinterpretation of CBC data. Current Interpretive Data was last revised on 2017. Blood 04/04/2025 1:25 AM CDT 04/04/2025 1:31 AM CDT us Сергей Samuel MD LAB BLOOD ORDERABLES Final R esult ISMAEL [place] [address] [facility] Department [place] [address] * (ABNORMAL) CBC with auto differential (04/04/2025 1:25 AM CDT) [facility] WBC 16.54(H) 3.80 - 9.90 K/cumm Hgb 15.1 13.0 - 17.5 g/dL [facility] Hct 47.8 38.9 - 50.3 % [facility] Plt 176 150 - 400 K/cumm [facility] MPV 9.4 9.1 - 12.3 fL [facility] RBC 5.40 4.30 - 5.80 M/cumm [facility] MCV 88.5 81.3 - 96.4 fL [facility] MCH 28.0 27.1 - 33.3 pg [facility] MCHC 31.6(L) 32.3 - 35.7 g/dL [facility] RDW CV 13.7 11.1 - 14.9 % [facility] RDW SD 44.4 35.7 - 48.1 fL [facility] NRBC abs 0.00 0.00 - 0.01 K/cumm [facility] Blood 04/04/2025 1:25 AM CDT 04/04/2025 1:31 AM CDT Сергей Samuel MD LAB BLOOD ORDERABLES Final R esult ISMAEL [address] [facility] Department [place] [address] * MRSA Only (Staphylococcus aureus) PCR Nasal (04/04/2025 1:25 AM CDT) [facility] PCR Scrn, Methicillin resistant Staphylococcus aureus (MRSA) Not Detected Not Detected Comment: Interpretive Data Testing performed using Nucleic Acid Amplification with the Sling Xpert MRSA NxG Assay. This assay detects target DNA from mecA, mecC and the SCCmec insertion site of Staphylococcus aureus using Real-Time PCR and has been cleared by the FDA. Performance characteristics have been verified by the [facility]. Current Interpretive Data was last revised on 2023 Nasal 04/04/2025 1:25 AM CDT 04/04/2025 1:31 AM CDT Сергей Samuel MD LAB MICROBIOLOGY - GENERAL O RDERABLES Final Result Performing Organization Address [facility] Co de Phone Number [address] [address] * (ABNORMAL) Protime-INR (04/04/2025 1:25 AM CDT) PT 14.70(H) 12.00 - 14.60 sec INR 1.14 0.90 - 1.20 [facility] Comment: Interpretive data Oral anticoagulant therapeutic ranges: Venous thromboembolism prophylaxis or treatment: 2.0-3.0 CARDIOLOGY Standard range: 2.0-3.0 High-intensity range: 2.5-3.5 Refer to indication-specific guidelines for appropriate target ranges for prosthetic heart valve replacement. Current interpretive data was last revised on 2019. Blood 04/04/2025 1:25 AM CDT 04/04/2025 1:31 AM CDT Сергей Samuel MD LAB BLOOD ORDERABLES Final R esult Performing Organization Address [facility] Co de Phone Number [address] [address] * Phosphorus (04/04/2025 1:25 AM CDT) Phosphorus, pl 2.9 2.3 - 4.5 mg/dL Blood 04/04/2025 1:25 AM CDT 04/04/2025 1:31 AM CDT Сергей Samuel MD LAB BLOOD ORDERABLES Final R esult Performing Organization Address City/[facility] Co de Phone Number [address] [place] [address] * Magnesium (04/04/2025 1:25 AM CDT) Pathologist [facility] Magnesium 2.4 1.4 - 2.5 mg/dL Blood 04/04/2025 1:25 AM CDT 04/04/2025 1:31 AM CDT us Сергей Samuel MD LAB BLOOD ORDERABLES Final R esult Performing Organization Address City/[facility] Co de Phone Number ISMAEL [address] [place] [address] * (ABNORMAL) Creatine kinase (CK), total (04/04/2025 1:25 AM CDT) [facility] CK 430(H) 40 - 300 Units/L Blood 04/04/2025 1:25 AM CDT 04/04/2025 1:31 AM CDT us Сергей Samuel MD LAB BLOOD ORDERABLES Final R esult Performing Organization Address [facility] de Phone Number [address] [address] * (ABNORMAL) Comprehensive metabolic panel (04/04/2025 1:25 AM CDT) [facility] Sodium 142 135 - 145 mmol/L Potassium, pl 3.9 3.3 - 4.9 mmol/L [facility] Chloride 106 97 - 110 mmol/L [facility] CO2 26 22 - 32 mmol/L [facility] Anion gap 10 2 - 15 mmol/L [facility] BUN 16 6 - 25 mg/dL [facility] Creatinine 1.06 0.80 - 1.30 mg/dL [facility] Glucose 94 70 - 199 mg/dL [facility] Comment: Interpretive Data Fasting glucose >/= 126 [...] 2022. Calcium 8.5 8.5 - 10.3 mg/dL [facility] Bilirubin, total 0.4 0.1 - 1.2 mg/dL [facility] Protein, pl 6.2(L) 6.5 - 8.5 g/dL [facility] Albumin 4.0 3.5 - 5.0 g/dL [facility] Alk phos 48 40 - 130 Units/L [facility] ALT 31 7 - 55 Units/L [facility] AST 34 10 - 50 Units/L [facility] Blood 04/04/2025 1:25 AM CDT 04/04/2025 1:31 AM CDT Сергей Samuel MD LAB BLOOD ORDERABLES Final R esult Performing Organization Address City/[facility] Co de Phone Number [facility] [address] [facility] Department [place] [address] * ECG 12 lead (04/04/2025 1:12 AM CDT) [facility] Ventricular Rate EKG/Min 73 BPM [facility] Atrial Rate 73 BPM [facility] CT-Interval (MSEC) 160 ms [facility] QRS-Interval (MSEC) 92 ms [facility] QT-Interval (MSEC) 376 ms [facility] QTc 414 ms [facility] P [place] 54 degrees [facility] R [place] 10 degrees [facility] T [place] 6 degrees [facility] Diagnosis Normal sinus rhythm Cannot rule out Inferior infarct Old No previous ECG available for comparison Confirmed by SULTAN LOPEZ M.D. ([id number]) on 04/04/2025 8:34:17 AM [facility] 04/04/2025 1:12 AM CDT 04/04/2025 8:34 AM CDT Сергей Samuel MD ECG ORDERABLES Final Result Performing Organization Address City/[facility] Co de Phone Number [facility] from Last 3 Months Insurance 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
--- OUTSIDE RECORDS SUMMARY | 2025-06-03 16:12 | XMS_ITS | Encounter Summary ---
Author Organization [facility] Healthcare Address [address] [place] [address] Care Team Providers Care Adult Live In Caregiver Name Role Phone No, Physician Unavailable Administration, Veterans Primary Care Provide r Unavailable Reason for Visit * Reason Onset Date Comments blood pressure 06/03/2025 Encounter Details Date Type Department Care Team (Late st Contact Info) Description 06/03/2025 Telephone [facility] Medical Group Cardiology [address] [place] [id number] Yary Dial NP [address] [place] [address] blood pressure Social History Tobacco [...] often do you attend chur ch or jehovah's witness services? More than 4 times per year 04/08/2025 Do you belong to any clubs o r organizations such as jew groups, unions, fraternal or athletic groups, or [...] any time in the past 12 m [facility], were you homeless or living in a [place] health care facility (including now)? 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 Pt calling in regard to the Apartment List message he sent today about his BP. Requesting a call back to discuss. Please advise. Thank you. Contact [phone] [facility] (supporting Yary Dial NP) 06/03/25 [...] Dial NP 06/03/25 9:02 AM Forwarded to [place] Spoke to pt who states he started [...] is still being held. [facility] (supporting Yary Dial NP) 06/03/25 9:17 AM Example for today on heart rate Attachments [id number] T NEUROLOGIST documented in this encounter Plan of Treatment Not on file documented as of this encounter Visit Diagnoses Not on filedocumented in this encounter Care Teams Adult Live In Caregiver Relationship Specialty Start Date End Date AdministrationSandip MD PCP - General Director Of User Experience 06/02/25 No, Physician 04/12/25 documented as of this encounter
--- OUTSIDE RECORDS SUMMARY | 2025-06-03 16:12 | XMS_ITS | Encounter Summary ---
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
--- NOTE | 2025-06-03 17:06 | ECG_ITS ---
Test Date: 2025-06-03 17:08:53 Measurements Intervals [place] Rate: 90 P: 50 VA: 149 QRS: 8 QRSD: 92 T: 41 QT: 319 QTc: 391 Interpretive Statements SINUS RHYTHM NONSPECIFIC T-WAVE ABNORMALITY BORDERLINE ECG Compared to ECG 06/03/2025 13:54:33 NO SIGNIFICANT CHANGE Electronically Signed On 06-04-2025 13:00:53 PROJECT MANAGEMENT by Geovanni Vieira M.D.
[2025-06-03 17:27] LABS: Magnesium 2.3 mg/dL (1.6-2.3)
[2025-06-03 17:35] LABS: NT Pro B Type Natriuretic Pept < 20 pg/mL (19.9-100)
[2025-06-03 17:38] LABS: Troponin I < 0.012 ng/mL (0.000-0.034)
[2025-06-03 18:16] LABS: Thyroid Stimulating Hormone Reflex 1.140 uIU/mL (0.465-4.68)
--- NOTE | 2025-06-03 18:38 | ED.ARRPALP ---
HPI - Arrhythmia/Palpitations General Chief Complaint: Arrhythmia/Palpitations Stated Complaint: palpations Time Seen by Provider: 06/03/25 15:25 Related Data Home Medications ?Medication ?Instructions ?Recorded ?Confirmed ?Last Taken ?Type famotidine 20 mg tablet 20 mg PO BID 02/27/22 04/15/25 12/07/24 08:00 History 20 mg multivitamin with minerals-folic 1 tablet PO DAILY 01/08/23 04/15/25 12/07/24 08:00 History acid 0.4 mg tablet 1 tablet aspirin 81 mg tablet,delayed 81 mg PO DAILY 12/07/24 04/15/25 12/07/24 08:00 History release (Adult Aspirin Regimen) 81 mg rosuvastatin 10 mg tablet (Crestor) 10 mg PO DAILY 12/07/24 04/15/25 12/06/24 20:00 History 10 mg clonazepam 1 mg tablet (Klonopin) 0.5 mg PO BID 04/14/25 04/15/25 Unknown History Held on 05/19/25. Instructions: need to discuss at next appt due to suicide attempt midodrine 2.5 mg tablet 2.5 mg PO TID 04/14/25 04/15/25 Unknown History pantoprazole 40 mg tablet,delayed 40 mg PO BID 04/14/25 04/15/25 Unknown History release sucralfate 100 mg/mL oral 1 g PO QID 04/14/25 04/15/25 Unknown History suspension Allergies Allergy/AdvReac Type Severity Reaction Status Date / Time morphine Allergy Severe Anaphylaxis Verified 06/03/25 13:52 codeine AdvReac Severe Nausea Verified 06/03/25 13:52 dizziness PMFSH Past Medical History Medical History Labral tear of long head of left biceps tendon Tendinitis of left rotator cuff Low testosterone Adenomatous colon polyp Family history of malignant neoplasm of digestive organs Dyslipidemia (high LDL; low HDL) 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 Anxiety Kidney stones Mild acid reflux Wears glasses MILE (obstructive sleep apnea) HTN (hypertension) Surgical History Surgical History History of shoulder surgery left bicep relocation 01/16/24 History of hand surgery Left thumb and Left pinky and left middle finger History of orchiectomy History of removal of retained hardware History of vasectomy History of appendectomy Family History Family History Father HLD (hyperlipidemia) Hypertension Mother HLD (hyperlipidemia) Hypertension Kidney disorder Sibling Colon polyp Reflux esophagitis Sibling Hypertension Social History Social History Social History: 03/30/25 very confident with medical forms Smoking status: Never smoker Tobacco type: cigarettes Second hand tobacco smoke exposure: No Additional smoking assessment comments: Smoked for 15 years and quit approx 15 years ago. 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/education comments: [employer] Gender identity (if verbalized by the patient): Male Sexual Orientation (if Verbalized by the Patient): Straight or Heterosexual Spiritual care concerns: No Course Vital Signs Vital signs: Vital Signs Temperature 36.8 C 06/03/25 13:48 Pulse Rate 129 H 06/03/25 13:48 Respiratory Rate 18 06/03/25 13:48 Blood Pressure 172/102 H 06/03/25 13:48 Pulse Oximetry 99 06/03/25 13:48 Oxygen Delivery Room Air 06/03/25 13:48 Temperature 36.8 C 06/03/25 13:48 Pulse Rate 129 H 06/03/25 13:48 Respiratory Rate 18 06/03/25 13:48 Blood Pressure 172/102 H 06/03/25 13:48 Pulse Oximetry 99 06/03/25 13:48 Oxygen Delivery Room Air 06/03/25 13:48 MDM - Arrhythmia/Palpitations Lab Data 06/03/25 13:57 06/03/25 13:57 Labs: Lab Results 06/03/25 06/03/25 Range/Units 13:57 17:06 WBC 16.5 H (4.5-10.0) K/mm3 RBC 5.89 (4.6-6.20) M/mm3 Hgb 15.0 (14.0-18.0) g/dL Hct 48.7 (42.0-52.0) % MCV 82.7 (80-100) fl MCH 25.5 L (26-34) pg MCHC 30.8 L (32-36) g/dl RDW 12.5 (11.5-14.5) % Plt Count 256 (150-375) k/mm3 MPV 9.4 (7.4-10.4) fl Immature Gran % (Auto) 0.4 (0-0.5) % Neut % (Auto) 85.0 H (45.5-73.1) % Lymph % (Auto) 10.2 L (18.3-44.2) % Caroline % (Auto) 4.2 (2.6-8.5) % Eos % (Auto) 0.1 (0-4.4) % Baso % (Auto) 0.1 L (0.2-1.2) % Lymph # (Auto) 1.68 (0.9-3.2) K/mm3 Caroline # (Auto) 0.7 H (0.1-0.6) K/mm3 Eos # (Auto) 0.0 (0-0.3) K/mm3 Baso # (Auto) 0.0 (0.0-0.1) K/mm3 Abs Immat Gran (auto) 0.07 H (0.00-0.031) K/mm3 Absolute Neuts (auto) 14.0 H (1.3-6.7) K/mm3 Absolute Nucleated RBC 0.000 (0.0-0.012) K/mm3 Nucleated RBC % 0.0 (0.0-0.2) % PT 13.2 (11.1-14.7) Seconds INR 1.0 APTT 26.3 (22.3-36.8) Seconds Sodium 135 L (137-145) mmol/L Potassium 4.1 (3.4-5.0) mmol/L Chloride 101 (98-107) mmol/L Carbon Dioxide 26 (22-30) mmol/L Anion Gap 8 (4-12) mmol/L BUN 16 (9-20) mg/dL Creatinine 0.99 (0.7-1.3) mg/dL Estim Creat Clear Calc 74 ml/min Estimated GFR > 60 (59 - ) Glucose 209 H (65-110) mg/dL Calcium 8.8 (8.4-10.2) mg/dL Magnesium 2.3 (1.6-2.3) mg/dL Total Bilirubin 0.6 (0.2-1.3) mg/dL AST 34 (17-59) U/L ALT 34 (6-50) U/L Alkaline Phosphatase 60 (38-126) U/L Troponin I 0.013 < 0.012 (0.000-0.034) ng/mL NT-Pro-B Natriuret Pep < 20 (19.9-100) pg/mL Total Protein 7.9 (6.3-8.2) g/dL Albumin 4.8 (3.5-5.1) g/dL Lipase 39 (23-300) U/L TSH (Reflex) 1.140 (0.465-4.68) uIU/mL Discharge Plan Discharge Patient Language: Portuguese Prescriptions: No Action sucralfate 100 mg/mL suspension 1 g PO QID clonazepam [Klonopin] 1 mg tablet 0.5 mg PO BID pantoprazole 40 mg tablet,delayed release (DR/EC) 40 mg PO BID midodrine 2.5 mg tablet 2.5 mg PO TID Rx Instructions: 2.5mg TID X 3 days, 2.5mg BID X 3 days, 2.5mg daily 5 days,then stop multivit with min-folic acid 0.4 mg Tablet 1 tablet PO DAILY aspirin [Adult Aspirin Regimen] 81 mg tablet,delayed release (DR/EC) 81 mg PO DAILY rosuvastatin [Crestor] 10 mg tablet 10 mg PO DAILY isosorbide mononitrate 30 mg tablet extended release 24 hr 30 mg PO DAILY Qty: 30 3RF famotidine 20 mg tablet 20 mg PO BID (DME) syringe with needle, safety 3 mL 23 gauge x 1 syringe See Rx Instructions .Route Qty: 100 0RF Rx Instructions: As directed sildenafil [Viagra] 100 mg tablet 100 mg PO DAILY PRN (Reason: sexual activity) Qty: 10 5RF Rx Instructions: administer 30 minutes to 4 hours before activity bupropion HCl [Wellbutrin XL] 300 mg tablet extended release 24 hr 300 mg PO QAM Qty: 90 1RF testosterone cypionate 200 mg/mL oil 125 mg IM WEEKLY Qty: 4 5RF Rx Instructions: as a single dose Follow-up/Referrals: Shania Burks PA-C [Primary Care Provider, [facility]]
[2025-06-03] MEDS: SODIUM CHLORIDE 0.9% IV 1,000 ML 999 ML IV CONT (19:54)
--- NOTE | 2025-06-03 20:08 | ECG_ITS ---
Test Date: 2025-06-03 20:50:17 Measurements Intervals [place] Rate: 81 P: 47 MN: 148 QRS: 8 QRSD: 85 T: 29 QT: 339 QTc: 395 Interpretive Statements SINUS RHYTHM MODERATE VOLTAGE CRITERIA FOR LVH, CONSIDER NORMAL VARIANT [MEETS CRITERIA IN ONE OF: R(aVL), S(V1), R(V5), R(V5/V6)+S(V1)] NONSPECIFIC T-WAVE ABNORMALITY BORDERLINE ECG Compared to ECG 06/03/2025 17:08:53 No significant changes Electronically Signed On 06-04-2025 13:07:28 [employer] IN[employer] by Geovanni Vieira M.D.
[2025-06-03 20:09] LABS: Add Urine Microscopic? NO; Appearance Urine Clear (Clear); Glucose Urine UA Negative (Negative); Leukocyte Esterase Ur Negative LEU/UL (Negative); Nitrate Urine Negative (Negative); Specific Grav Ur 1.018 (1.001-1.035)
[2025-06-03 20:25] LABS: Cannabinoid Screen Urine Negative (Negative)
[2025-06-03 20:43] LABS: Troponin I < 0.012 ng/mL (0.000-0.034)
[2025-06-03 20:45] LABS: Influenza A QL RT-PCR Negative (Negative); Influenza B QL RT-PCR Negative (Negative); RSV RNA, RT-PCR Negative (Negative); SARS-CoV-2 RNA PCR Negative (Negative)
[2025-06-03] MEDS: METOCLOPRAMIDE HCL INJ 10 MG/2 ML VIAL IV PUSH (21:24)
== END 2025-06-03 22:28 | disposition home or self-care (01) ==
PROVIDERS: Emergency Medicine; Physician Assistant; Emergency Provider Registered Nurse; PCP Physician Assistant Medical
DX: R00.2 Palpitations (principal); R07.89 Other chest pain; T38.0X5A Adverse effect of glucocorticoids and synthetic analogues, initial encounter; Z20.822 Contact with and (suspected) exposure to COVID-19; I10 Essential (primary) hypertension; E78.5 Hyperlipidemia, unspecified; K21.9 Gastro-esophageal reflux disease without esophagitis; G47.33 Obstructive sleep apnea (adult) (pediatric); F32.A Depression, unspecified; F41.9 Anxiety disorder, unspecified; Z86.0101 Personal history of adenomatous and serrated colon polyps; Z87.891 Personal history of nicotine dependence; Z79.899 Other long term (current) drug therapy; Z79.82 Long term (current) use of aspirin; R00.0 Tachycardia, unspecified; R94.31 Abnormal electrocardiogram [ECG] [EKG]
CPT/HCPCS: 36415; 71046; 80053; 80307; 81003; 83690; 83735; 83880; 84443; 84484; 85025; 85610; 85730; 87637; 93005; 96361; 96374; 96375; 99284; J1200; J2765; J7030